=== PATIENT | female | born 1955 | race Caucasian/White ===

== ENCOUNTER 2016-10-15 11:41 | Inpatient (IN) | payer BC ==
[2016-10-15] MEDS ORDERED: Morphine INJ* 10 MG/ML 1 ML CARPUJECT ONE (12:08)
[2016-10-15 12:12] LABS: EPAP 7.5; IPAP 7.5; PCO2 Arterial 52 mmHg (35-45)
[2016-10-15] MEDS ORDERED: Morphine INJ* 10 MG/ML 1 ML CARPUJECT IV ONE (12:20)
[2016-10-15] MEDS ORDERED: Ondansetron INJ* 2 MG/ML VIAL IV PRN (12:26)
[2016-10-15] MEDS ORDERED: Ondansetron INJ* 2 MG/ML VIAL ONE (12:26)
[2016-10-15] MEDS ORDERED: Albuterol/Ipratropium NEB.SOL* Albuterol 2.5 MG/Ipratropium 0.5 MG 3 ML INH PRN (12:27)
[2016-10-15] MEDS ORDERED: NS 0.9% 1000 ML* 1,000 ML IV ONE (12:28)
--- NOTE | 2016-10-15 13:09 | HP ---
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 No upper or lower resp ailments other then feeling weaker with copd exac. Called in and recived rx for steroids but was unable to fill and take in time. Presented to [facility] this am via EMS after O2 at home 74%. Placed on bipap. ABG with ph 7.28/Co2 51. Given steroids, nebs, lasix. No signs of infection and tx for copd exac. However she was unable to come off bipap and transfer to [facility] ED. Pt transferred on cpap and came into ED with worsening sob. Adjusted to bipap with icu called. Evaluated pt in ED and given 10mg morphine to help compliance with bipap. Admit to icu. Fio2 dec from 100% to 40%. CXR read from [place] with no acute dz. wbc 8.3, Hyb 14.6, plt 225; Cr 1.0 REVIEW OF SYSTEMS: As per HPI. PAST MEDICAL HISTORY: As per HPI. CAD s/p stents MEDICATIONS: Reviewed. Albuterol HFA INHALER* [Ventolin HFA Inhaler*] 1 - 2 puff INH .Q4-6H PRN [History Confirmed 10/15/16] Atorvastatin* [Lipitor*] 20 mg PO DAILY 09/10/14 [History Confirmed 10/15/16] Clopidogrel TAB* [Plavix TAB*] 75 mg PO DAILY 09/10/14 [History Confirmed ] Metoprolol Succinate XL TAB* [Toprol XL TAB*] 50 mg PO DAILY 09/10/14 [History Confirmed 10/15/16] Aspirin EC Low Dose* [Ecotrin EC Low Dose 81 MG*] 81 mg PO DAILY 10/15/16 [ History Confirmed 10/15/16] Mometasone/Formoter 100/5 MDI* [Dulera 100/5 MDI*] 2 puff INH BID 10/15/16 [ History Confirmed 10/15/16] ALLERGIES: NKDA SOCIAL HISTORY: Reviewed. FAMILY HISTORY: Noncontributory at present. PHYSICAL EXAM: Vital Signs: Reviewed. Neurologic: awake, communicating but fatigued HEENT: anicteric, perrl, mm dry Cardiovascular: tachy, 130s, S1 S2 Respiratory: dec bs with better insp phase, purse lip exhalation but not too forced now. Abdomen: soft, maybe mild distention Extremities: warm, no edema Access: PIV, +mora LABS: Reviewed from aníbal review as well as abg here. IMAGING: Reviewed. Report reviewed from Aníbal as above. MEDICATIONS: Reviewed. ASSESSMENT: 61 F Acute on chronic hypercapnic resp failure needing bipap - hopefully can transition to HFO2 in a little while, but needs some mechanical ret with morphine and sedation needs now and allow her to maintain better chief mechanical officer assist of ventilation. Co2 not profound but muscle fatigue potential now. COPD exac - iv steroids, dulera, nebs PLAN: Neurologic: morphine now. make more comfortable and complaint Cardiovascular: mildly dry do to work. 1L NS and allow tachycardia to subside. Can resume outpt cardiac meds. at risk for troponin spill of type 2 and no indication to trend. continue outpt cardiac regimen. Respiratory: as above Gastrointestinal: can have diet later. Renal/Metabolic: re-eval lytes in am, incl phos. Infectious Disease: no abx needs unless needing further anti-inflammtory aid of azithro. hold off for now. Hematology: stable. lovenox subq Endocrine: steroids. may need to follow glu Musculoskeletal: oob Psych/Social: daughter updated. pt expressed understanding Supportive and preventative care as ordered. Vaccine: up to date SUP: po VTE prophylaxis: lovenox Mora catheter placed already. look to dc when up and about soon. Disposition: ICU Code Status: Full Critical Care Time: 50min Adan Mir DO
[2016-10-15] MEDS: Albuterol/Ipratropium NEB.SOL* Albuterol 2.5 MG/Ipratropium 0.5 MG 3 ML INH SCH ×3 (13:10→21:19)
[2016-10-15] MEDS: methylPREDNISolone SOD 40 MG* 1 ML VIAL IV SCH ×2 (13:17→20:00)
[2016-10-15] MEDS: LORazepam INJ* 2 MG/ML 1 ML VIAL IV PUSH PRN ×2 (13:30→20:01)
--- NOTE | 2016-10-15 14:55 | ED ---
Jeronimo Miranda Matthew, scribed for Jules Shaver MD on 10/15/16 at 1205 . Shortness of Breath - HPI Summary HPI Summary: A 61 y/o female presents to the ED by EMS from [facility] for respiratory distress since yesterday. The patient has a Hx of CAD, COPD, and she 's had 3 stents placed. The patient is normal on 2L of home oxygen. The patient denies chest pain. The patient is not a current smoker, but she formerly smoked 1ppd for 30 years. - History of Current Complaint Chief Complaint: EDRespiratoryDistress Time Seen by Provider: 10/15/16 11:48 Hx Obtained From: Patient Onset/Duration: Lasting Days, Still Present Timing: Constant Current Severity: Severe Dyspnea At: Rest - Allergy/Home Medications Allergies/Adverse Reactions: Allergies Allergy/AdvReac Type Severity Reaction Status Date / Time No Known Allergies Allergy Verified 05/09/15 11:04 Home Medications: Home Medications Aspirin EC Low Dose* [Ecotrin EC Low Dose 81 MG*] 81 mg PO DAILY 10/15/16 [ History Confirmed 10/15/16] Mometasone/Formoter 100/5 MDI* [Dulera 100/5 MDI*] 2 puff INH BID 10/15/16 [ History Confirmed 10/15/16] PMH/Surg Hx/FS Hx/Imm Hx Endocrine/Hematology History: Denies: Hx Blood Disorders, Hx Blood Transfusions, Hx Bone Marrow Disease, Hx Diabetes, Hx Systemic Lupus Erythematosus, Hx Sickle Cell Disease, Hx Thyroid Disease, Hx Anemia, Hx Unexplained Bleeding, Other Endocrine/ Hematological Disorders Cardiovascular History: Reports: Hx Congestive Heart Failure, Hx Coronary Artery Disease, Hx Hypercholesterolemia, Hx Hypertension, Other Cardiovascular Problems/Disorders - 3 stents Denies: Hx Aneurysm, Hx Angina, Hx Angioplasty, Hx Auto Implanted Cardiovert Defib, Hx Cardiac Arrest, Hx Cardiomegaly, Hx Congenital Heart Disease, Hx Deep Vein Thrombosis, Hx Embolism, Hx Hypotension, Hx Pacemaker/ICD, Hx Peripheral Vascular Disease, Hx Rheumatic Fever, Hx Syncope, Hx Valvular Heart Disease Respiratory History: Reports: Hx Asthma, Hx Chronic Obstructive Pulmonary Disease (COPD) Denies: Hx Chronic Bronchitis, Hx Cystic Fibrosis, Hx Lung Cancer, Hx Pleural Effusion, Hx Pneumonia, Hx Pulmonary Edema, Hx Pulmonary Embolism, Hx Seasonal Allergies, Hx Sleep Apnea, Other Respiratory Problems/Disorders GI History: Denies: Hx Cirrhosis, Hx Crohn's Disease, Hx Diverticulosis, Hx Gall Bladder Disease, Hx Gastroesophageal Reflux Disease, Hx Gastrointestinal Bleed, Hx Hiatal Hernia, Hx Irritable Bowel, Hx Jaundice, Hx Obstructive Bowel, Hx Ileostomy, Hx Pyloric Stenosis, Hx Ulcer, Other GI Disorders Musculoskeletal History: Reports: Hx Arthritis Denies: Hx Back Problems, Hx Bursitis, Hx Congenital Bone Abnormalities, Hx Fibromyalgia, Hx Gout, Hx Orthopedic Injury, Hx Osteoporosis, Hx Scoliosis, Hx Tendonitis Sensory History: Reports: Hx Contacts or Glasses Denies: Hx Cataracts, Hx Eye Injury, Hx Eye Prosthesis, Hx Glaucoma, Hx Legally Blind, Hx Macular Degeneration, Hx Vision Problem, Hx Deafness, Hx Hearing Aid, Hx Hearing Problem, Other Sensory Impairments Opthamlomology History: Reports: Hx Contacts or Glasses Denies: Hx Cataracts, Hx Eye Injury, Hx Eye Prosthesis, Hx Glaucoma, Hx Legally Blind, Hx Macular Degeneration, Hx Vision Problem, Other Sensory Impairments Neurological History: Denies: Hx Dementia, Hx Developmental Delay, Hx Headaches, Hx Migraine, Hx Nerve Disease, Hx Seizures, Hx Spinal Cord Injury, Hx Transient Ischemic Attacks (TIA), Other Neuro Impairments/Disorders - Surgical History Surgery Procedure, Year, and Place: cardiac stents. hysterectomy. ectopic Hx Anesthesia Reactions: No Infectious Disease History: No Infectious Disease History: Denies: Hx Clostridium Difficile, Hx Hepatitis, Hx Human Immunodeficiency Virus (HIV), Hx of Known/Suspected MRSA, Hx Shingles, Hx Tuberculosis, Hx Known/ Suspected VRE, Hx Known/Suspected VRSA, History Other Infectious Disease, Traveled Outside the [place] in Last 30 Days - Family History Family History: Family history is significant for breast cancer. - Social History Alcohol Use: None Substance Use Type: Reports: None Smoking Status (MU): Former Smoker Type: Cigarettes Amount Used/How Often: 1 pack daily Have You Smoked in the Last Year: Yes Review of Systems Constitutional: Negative Eyes: Negative ENT: Negative Cardiovascular: Negative Negative: Chest Pain Positive: Shortness Of Breath Gastrointestinal: Negative Genitourinary: Negative Musculoskeletal: Negative Skin: Negative Neurological: Negative Psychological: Normal All Other Systems Reviewed And Are Negative: Yes Physical Exam Triage Information Reviewed: Yes Vital Signs On Initial Exam: Initial Vitals Temp Pulse Resp BP Pulse Ox 99.1 F 132 24 151/85 94 10/15/16 11:41 10/15/16 11:41 10/15/16 11:41 10/15/16 11:41 10/15/16 11:41 Vital Signs Reviewed: Yes Appearance: Positive: Ill-Appearing Skin: Positive: Warm, Dry Head/Face: Positive: Normal Head/Face Inspection Eyes: Positive: Normal ENT: Positive: Normal ENT inspection Neck: Positive: Supple, Nontender Respiratory/Lung Sounds: Positive: Decreased Breath Sounds Cardiovascular: Positive: Tachycardia Abdomen Description: Positive: Nontender, Soft Bowel Sounds: Positive: Present Musculoskeletal: Positive: Normal Neurological: Positive: Normal Psychiatric: Positive: Affect/Mood Appropriate Diagnostics - Vital Signs Vital Signs Temp Pulse Resp BP Pulse Ox 10/15/16 11:41 99.1 F 132 24 151/85 94 - Laboratory Lab Results: Lab Results 10/15/16 Range/Units 11:50 Patient Temperature Not Reportable ABG pH 7.29 L (7.35-7.45) ABG pCO2 52 H (35-45) mmHg ABG pO2 82 (80-100) mmHg ABG HCO3 23.0 (19-31) mmol/L ABG O2 Saturation 96.7 (95-98) % ABG Base Excess -2.3 L (-2.0-2.0) Respiration Rate Not Reportable O2 Delivery Device Not Reportable Ventilator Type Not Reportable Vent Mode Not Reportable FiO2 Not Reportable Inspiratory Time Not Reportable PEEP Not Reportable Pressure Support Not Reportable Pressure Control Not Reportable EPAP 7.5 IPAP 7.5 BiPAP Not Reportable Lab Statement: Any lab studies that have been ordered have been reviewed, and results considered in the medical decision making process. - EKG 11:52 Cardiac Rate: Tachycardia - 133 bpm EKG Rhythm: Sinus Tachycardia ST Segment: Non-Specific Course/Dx - Course Course Of Treatment: Ms. Hurtado regressed a bit en route from [place] as she was on CPAP at 7.5 rather than BiPap. She was admitted to the ICU. - Diagnoses Provider Diagnoses: Respiratory deficiency, COPD (chronic obstructive pulmonary disease), CHF ( congestive heart failure) - Physician Notifications Discussed Care of Patient With: Dr. Mir (ICU) at 11:59 -- Notified of patient's history and will accept the patient for admission into the ICU. - Critical Care Time Critical Care Time: 30-74 min Discharge - Discharge Plan Condition: Stable Disposition: ADMITTED TO [facility] The documentation as recorded by the Jeronimo peters Matthew accurately reflects the service I personally performed and the decisions made by me, Jules Shaver MD.
[2016-10-15] MEDS: Morphine INJ* 4 MG/ML 1 ML CARPUJECT IV PRN (20:00)
[2016-10-15] MEDS: Atorvastatin* 20 MG TAB PO SCH (21:19)
[2016-10-15] MEDS: Mometasone/Formoter 100/5 MDI INH SCH (21:20)
[2016-10-16] MEDS: Morphine INJ* 4 MG/ML 1 ML CARPUJECT IV PRN ×3 (00:17→19:09)
[2016-10-16] MEDS: LORazepam INJ* 2 MG/ML 1 ML VIAL IV PUSH PRN ×3 (00:56→22:05)
[2016-10-16] MEDS: Albuterol/Ipratropium NEB.SOL* Albuterol 2.5 MG/Ipratropium 0.5 MG 3 ML INH SCH ×4 (01:12→12:08)
[2016-10-16] MEDS: methylPREDNISolone SOD 40 MG* 1 ML VIAL IV SCH ×3 (05:38→21:56)
[2016-10-16 06:06] LABS: BUN/Creatinine Ratio 41.8 (8-20); Calcium 9.5 mg/dL (8.6-10.3); EGFR African American 95.2 (>60); Magnesium 2.5 mg/dL (1.9-2.7); Potassium 5.2 mmol/L (3.5-5.0)
--- NOTE | 2016-10-16 08:12 | PN ---
Progress Note - Progress Note Note: Progress Note Critical Care 24 hour events/significant events: -admitted yesterday as transfer from [facility] for COPD exacc -hypercapneic, resp distress; started on bipap with prn morphine/ativan -overnight on bipap 07/06, 30% with o2 sats this morning 96%, rr 20, good TV -she is sleepy but answers questions, mild resp distress -switched to hiflow 40% 40lpm now; rr 18-20, sat 95% -no other overnight events noted Vitals: Vital Signs Temp 98.3 F 10/16/16 08:00 Pulse 105 10/16/16 07:00 Resp 17 10/16/16 07:48 BP 140/95 10/16/16 07:00 Pulse Ox 94 10/16/16 07:00 Intake & Output 10/15/16 10/16/16 10/16/16 18:59 06:59 18:59 Intake Total 1480 240 Output Total 150 450 Balance 1330 -210 Weight 115 lb 115 lb 1.301 oz Intake: IV Fluids 1000 NS (0.9%) 1000 Oral 480 240 Output: Izquierdo 150 450 O2/Vent: hiflow 40lpm 40% fio2 Infusions: none Medications: Current Medications Albuterol (Ventolin 2.5 Mg/3 Ml Neb.Zita*) 2.5 mg INH Q2H PRN PRN Reason: SOB/WHEEZING Albuterol/Ipratropium (Duoneb (Albuterol 2.5 Mg/Ipratropium 0.5 Mg)) 1 neb INH Q4H [facility] Stop: 10/16/16 17:01 Last Admin: 10/16/16 05:18 Dose: 1 neb Aspirin (Aspirin Ec Low Dose*) 81 mg PO DAILY [facility] Atorvastatin Calcium (Lipitor*) 20 mg PO 2100 [facility] Last Admin: 10/15/16 21:19 Dose: Not Given Clopidogrel Bisulfate (Plavix Tab*) 75 mg PO DAILY [facility] Enoxaparin Sodium (Lovenox(*)) 40 mg SUBCUT Q24H [facility] Lorazepam (Ativan Inj*) 1 mg IV PUSH Q4H PRN PRN Reason: ANXIETY Last Admin: 10/16/16 00:56 Dose: 1 mg Methylprednisolone Sodium Succinate (Solu-Medrol*) 40 mg IV Q8H [facility] Last Admin: 10/16/16 05:38 Dose: 40 mg Metoprolol Succinate (Toprol Xl Tab*) 50 mg PO DAILY [facility] Mometasone Furoate/Formoterol Fumar (Dulera 100/5 Mdi*) 2 puff INH BID [facility] Last Admin: 10/15/16 21:20 Dose: Not Given Morphine Sulfate (Morphine Inj (Syringe)*) 4 mg IV Q4H PRN PRN Reason: PAIN Last Admin: 10/16/16 00:17 Dose: 4 mg Ondansetron HCl (Zofran Inj*) 4 mg IV Q6H PRN PRN Reason: NAUSEA Last Admin: 10/15/16 13:13 Dose: 4 mg Physical Exam: General: awake, sleepy this morning, alert, mild resp distress, no diaphoresis HEENT: no pallor, no icterus, dry mucous membranes Neck: no stridor, no jvd CVS: tachycardic, normal rhythm, no murmur Resp: dec air entry bilaterally, no rhales, no wheeze, mild rhonchi at bases only, no acc muscle use. Abdomen: soft, nontender, nondistended, no rebound, bowel sounds present Ext: pulses+, warm, no edema Skin: intact, no breakdown, no dryness Neuro: sleepy, alert, orientedx3, moving all extremities, no gross focal deficit Labs: Laboratory Results - last 24 hr 10/15/16 10/16/16 11:50 05:38 Patient Temperature Not Reportable ABG pH 7.29 L ABG pCO2 52 H ABG pO2 82 ABG HCO3 23.0 ABG O2 Saturation 96.7 ABG Base Excess -2.3 L Respiration Rate Not Reportable O2 Delivery Device Not Reportable Ventilator Type Not Reportable Vent Mode Not Reportable FiO2 Not Reportable Inspiratory Time Not Reportable PEEP Not Reportable Pressure Support Not Reportable Pressure Control Not Reportable EPAP 7.5 IPAP 7.5 BiPAP Not Reportable Sodium 134 Potassium 5.2 H Chloride 101 Carbon Dioxide 28 Anion Gap 5 BUN 33 H Creatinine 0.79 Est GFR ( Amer) 95.2 Est GFR (Non-Af Amer) 74.0 BUN/Creatinine Ratio 41.8 H Glucose 151 H Calcium 9.5 Phosphorus 4.0 Magnesium 2.5 Imaging: - Assessment: 61y F with CAD s/p PCI, COPD with home 2L Home o2, past tobacco use ; admitted for acute COPD exacc and hypercap/hypoxic resp failure. -Acute hypercapneic respiratory failure -acute on chronic hypoxic respiratory failure -Acute COPD exaccerbation Plan: Neuro- stable, prn morphine/ativan for resp distress CVS- start ns infusion for hydration when not eating, appears dry, slightly positive balance but lower urine output; no edema peripherally. cont DAPT/statin /lopressor. Resp-on hiflow 40% 40lpm and appears to be tolerating well. CXR repeat today. Send flu swab and resp viral panel. productive cough+, will start azithromycin 500mg iv and re-eval afte 48 hours. blood cx sent from before. remains afebrile otherwise. cont solumedrol 40mg iv q8h and albuterol q2h neb. ABG repeat also now to assess ventilation status. ID-afebrile. will check flu swab and resp panel. cover with CAP. no wbc elevation. azithromycin 500mg iv daily. GI-cardiac diet when off bipap; start pepcid for GI prophylaxis while on systemic steroids. Renal-normal renal function, K5.2 today. cont albuterol nebs. check Cr in AM. Start ns infusion for mild hydration. Heme-dvt prophylaxis Endo-will need fingerstick checks while on steroids; ac/hs Musculsk-stable Wounds-none Nutrition-cardiac diet DVT prophylaxis: lovenox sq GI prophylaxis:pepcid po Central Line:none Arterial Line:none Izquierdo Cathetor:yes Disposition: ICU for resp failure/copd exacc req hiflow/bipap Code Status:full code Total Critical Care time is 40 minutes, excluding procedures/teaching Jimi Ko MD Professional Skater (Electronically Signed)
[2016-10-16] MEDS: Clopidogrel TAB* 75 MG PO SCH (08:19)
[2016-10-16] MEDS: Aspirin EC Low Dose* 81 MG TAB.EC PO SCH (08:19)
[2016-10-16] MEDS: Mometasone/Formoter 100/5 MDI INH SCH (08:34)
[2016-10-16 08:40] LABS: FIO2 40
[2016-10-16 08:43] LABS: PCO2 Arterial 68 mmHg (35-45)
--- NOTE | 2016-10-16 08:43 | RAD ---
Indication: Evaluate for pneumonia. Single frontal view of the chest performed at 0825 hours was reviewed. Comparison is made with previous exam dated May 09, 2015. No mediastinal shift is noted. Heart is of normal size and configuration. Lung castillo appear clear. Lung castillo appear hyperinflated. IMPRESSION: NO ACTIVE CARDIOPULMONARY DISEASE IS NOTED.
[2016-10-16] MEDS ORDERED: Metoprolol Succinate XL TAB* 50 MG PO SCH (09:00)
[2016-10-16] MEDS: Azithromycin IV(*) 500 MG in NS 0.9% 250 ML* 250 ML IVPB SCH (09:15)
[2016-10-16] MEDS: NS 0.9% 1000 ML* 1,000 ML IV SCH (09:15)
--- NOTE | 2016-10-16 09:51 | PN ---
Progress Note - Progress Note Note: Influenza A positive swab Will start tamiflu 75mg po bid for 5 days Droplet resp precautions Continue current management Jimi Ko MD Soils Analyst (electronically signed)
[2016-10-16] MEDS: Enoxaparin(*) 40 MG/0.4 ML SYR SUBCUT SCH (10:12)
[2016-10-16] MEDS: Famotidine TAB* 20 MG PO SCH ×2 (10:12→21:55)
[2016-10-16] MEDS: Oseltamivir CAP* 75 MG PO SCH ×2 (10:12→21:55)
[2016-10-16] MEDS: Albuterol 2.5 MG/3 ML NEB.SOL* (0.083%) INH PRN ×2 (10:25→14:28)
[2016-10-16] MEDS: Acetylcysteine INHALATION SOL* 200 MG/ML NEB.SOLN 10 ML INH PRN ×2 (12:08→19:46)
[2016-10-16] MEDS ORDERED: Albuterol/Ipratropium NEB.SOL* Albuterol 2.5 MG/Ipratropium 0.5 MG 3 ML INH PRN (14:37)
[2016-10-16] MEDS: Albuterol 2.5 MG/3 ML NEB.SOL* (0.083%) INH SCH ×5 (15:54→22:58)
--- NOTE | 2016-10-16 18:14 | PN ---
Progress Note - Progress Note Note: ABG reviewed from prior in morning; patient remains hypercapneic, still dec BS and some rhonchi. Influenza positive, no clear pneumonia seen on cxr, mild productive cough, started on azithromycin IV for coverage of 2/2 organisms. remains afebrile. Due to hypercapnea, placed back on bipap. She remains alert, in mild distress sometimes but no acute changes during the day. Increased bronchodilators to q2h for next 16 hours, cont steroids. Tamiflu started. No heliox available. Guarded status. ABG repeat in AM or if any clinical change. May require intubation.
[2016-10-16] MEDS: Atorvastatin* 20 MG TAB PO SCH (21:55)
[2016-10-17] MEDS: Mometasone/Formoter 100/5 MDI INH SCH ×3 (00:39→21:21)
[2016-10-17] MEDS: Albuterol 2.5 MG/3 ML NEB.SOL* (0.083%) INH SCH ×3 (01:13→05:41)
[2016-10-17] MEDS: Acetylcysteine INHALATION SOL* 200 MG/ML NEB.SOLN 10 ML INH PRN (03:28)
[2016-10-17] MEDS: NS 0.9% 1000 ML* 1,000 ML IV SCH (04:31)
[2016-10-17 05:34] LABS: Hematocrit 36 % (35-47); Hemoglobin 11.7 g/dl (12.0-16.0); Mean Corpuscular HGB Conc 33 g/dl (31-36); Mean Corpuscular Hemoglobin 32 pg (27-31); Mean Corpuscular Volume 96 fL (80-97); Mean Platelet Volume 8 um3 (7.4-10.4); Red Blood Count 3.71 10^6/ul (4.0-5.4); Red Cell Distribution Width 15 % (10.5-15); White Blood Count 10.7 10^3/ul (3.5-10.8)
[2016-10-17] MEDS: Morphine INJ* 4 MG/ML 1 ML CARPUJECT IV PRN ×2 (05:40→14:41)
[2016-10-17] MEDS: LORazepam INJ* 2 MG/ML 1 ML VIAL IV PUSH PRN (05:41)
[2016-10-17] MEDS: methylPREDNISolone SOD 40 MG* 1 ML VIAL IV SCH ×3 (05:42→21:20)
[2016-10-17 05:49] LABS: BUN/Creatinine Ratio 45.3 (8-20); EGFR African American 121.3 (>60); EGFR Non-African American 94.3 (>60); Potassium 4.6 mmol/L (3.5-5.0)
[2016-10-17] MEDS ORDERED: Terbutaline INJ* 1 MG/ML VIAL SUBCUT ONE (07:45)
--- NOTE | 2016-10-17 07:48 | PN ---
Progress Note - Progress Note Note: Progress Note Critical Care 24 hour events/significant events: -still has mild wheezing, poor air entry, remained on bipap yesterday and all night -awakens, follows commands -productive cough+, no fever/chills -given morphine for distress/anxiety as needed. -recieved q2h albuterol for 16 hours yesterday -found to be Influenza A positive, started on tamiflu Vitals: Vital Signs Temp 99.7 F 10/17/16 07:44 Pulse 88 10/17/16 07:00 Resp 17 10/17/16 07:00 BP 109/74 10/17/16 07:00 Pulse Ox 96 10/17/16 07:00 Intake & Output 10/16/16 10/17/16 10/17/16 18:59 06:59 18:59 Intake Total 429 1753 Output Total 350 610 Balance 79 1143 Weight 115 lb 8.356 oz Intake: IV Fluids 648 NS (0.9%) 648 IVPB 429 605 ABX - AZITHROMYCIN 250 NS (0.9%) 429 355 Oral 500 Output: Urine 350 Izquierdo 610 O2/Vent: bipap 16/6, 30%, rr 20-21, TV 450-500, sat 97% Infusions: NS 50cc/hr Medications: Current Medications Acetylcysteine (Mucomyst Inhalation Zita*) 400 mg INH Q8HR PRN PRN Reason: Congestion Last Admin: 10/17/16 03:28 Dose: 400 mg Albuterol (Ventolin 2.5 Mg/3 Ml Neb.Zita*) 2.5 mg INH Q2H PRN PRN Reason: SOB/WHEEZING Albuterol/Ipratropium (Duoneb (Albuterol 2.5 Mg/Ipratropium 0.5 Mg)) 1 neb INH Q4H PRN PRN Reason: WHEEZING Aspirin (Aspirin Ec Low Dose*) 81 mg PO DAILY [facility] Last Admin: 10/16/16 08:19 Dose: 81 mg Atorvastatin Calcium (Lipitor*) 20 mg PO 2100 [facility] Last Admin: 10/16/16 21:55 Dose: 20 mg Clopidogrel Bisulfate (Plavix Tab*) 75 mg PO DAILY [facility] Last Admin: 10/16/16 08:19 Dose: 75 mg Enoxaparin Sodium (Lovenox(*)) 40 mg SUBCUT Q24H [facility] Last Admin: 10/16/16 10:12 Dose: 40 mg Famotidine (Pepcid Tab*) 20 mg PO BID [facility] Last Admin: 10/16/16 21:55 Dose: 20 mg Azithromycin 500 mg/ Sodium (Chloride) 250 mls @ 250 mls/hr IVPB Q24H [facility] Last Admin: 10/16/16 09:15 Dose: 250 mls/hr Sodium Chloride (Ns 0.9% 1000 Ml*) 1,000 mls @ 50 mls/hr IV .PER RATE [facility] Last Admin: 10/17/16 04:31 Dose: 50 mls/hr Lorazepam (Ativan Inj*) 1 mg IV PUSH Q4H PRN PRN Reason: ANXIETY Last Admin: 10/17/16 05:41 Dose: 1 mg Methylprednisolone Sodium Succinate (Solu-Medrol*) 40 mg IV Q8H [facility] Last Admin: 10/17/16 05:42 Dose: 40 mg Mometasone Furoate/Formoterol Fumar (Dulera 100/5 Mdi*) 2 puff INH BID [facility] Last Admin: 10/17/16 00:39 Dose: Not Given Morphine Sulfate (Morphine Inj (Syringe)*) 4 mg IV Q4H PRN PRN Reason: PAIN Last Admin: 10/17/16 05:40 Dose: 4 mg Ondansetron HCl (Zofran Inj*) 4 mg IV Q6H PRN PRN Reason: NAUSEA Last Admin: 10/15/16 13:13 Dose: 4 mg Oseltamivir Phosphate (Tamiflu Cap*) 75 mg PO BID [facility] Stop: 10/20/16 21:01 Last Admin: 10/16/16 21:55 Dose: 75 mg Physical Exam: General: awake, sleepy this morning, alert, mild resp distress, no diaphoresis HEENT: no pallor, no icterus, dry mucous membranes Neck: no stridor, no jvd CVS: tachycardic, normal rhythm, no murmur Resp: dec air entry bilaterally, no rhales, very mild exp wheeze, no acc muscle use. Abdomen: soft, nontender, nondistended, no rebound, bowel sounds present Ext: pulses+, warm, no edema Skin: intact, no breakdown, no dryness Neuro: sleepy, alert, orientedx3, moving all extremities, no gross focal deficit Labs: Laboratory Results - last 24 hr 10/16/16 10/16/16 10/17/16 08:35 09:08 05:25 WBC RBC Hgb Hct MCV MCH MCHC RDW Plt Count MPV Patient Temperature Not Reportable ABG pH 7.26 L ABG pCO2 68 H ABG pO2 104 H ABG HCO3 26.1 ABG O2 Saturation 98.1 H ABG Base Excess 1.6 Respiration Rate Not Reportable O2 Delivery Device Vapo Ventilator Type Not Reportable Vent Mode Not Reportable FiO2 40 Inspiratory Time Not Reportable PEEP Not Reportable Pressure Support Not Reportable Pressure Control Not Reportable EPAP Not Reportable IPAP Not Reportable BiPAP Not Reportable Sodium 135 Potassium 4.6 Chloride 101 Carbon Dioxide 29 Anion Gap 5 BUN 29 H Creatinine 0.64 Est GFR ( Amer) 121.3 Est GFR (Non-Af Amer) 94.3 BUN/Creatinine Ratio 45.3 H Glucose 132 H Calcium 9.0 Influenza A (Rapid) Positive H Influenza B (Rapid) Negative 10/17/16 05:25 WBC 10.7 RBC 3.71 L Hgb 11.7 L Hct 36 MCV 96 MCH 32 H MCHC 33 RDW 15 Plt Count 159 MPV 8 Patient Temperature ABG pH ABG pCO2 ABG pO2 ABG HCO3 ABG O2 Saturation ABG Base Excess Respiration Rate O2 Delivery Device Ventilator Type Vent Mode FiO2 Inspiratory Time PEEP Pressure Support Pressure Control EPAP IPAP BiPAP Sodium Potassium Chloride Carbon Dioxide Anion Gap BUN Creatinine Est GFR ( Amer) Est GFR (Non-Af Amer) BUN/Creatinine Ratio Glucose Calcium Influenza A (Rapid) Influenza B (Rapid) Imaging: cxr 10/16 - no acute process/infiltrates observed Assessment: 61y F with CAD s/p PCI, COPD with home 2L Home o2, past tobacco use ; admitted for acute COPD exacc and hypercap/hypoxic resp failure. -Influenza A respiratory infection, more acute bronchitis than pneumonia -Acute hypercapneic respiratory failure -acute on chronic hypoxic respiratory failure -Acute COPD exaccerbation Plan: Neuro- stable, prn morphine/ativan for resp distress CVS- no hypotension, on NS 50cc/hour. positive balance, making urine though. cont DAPT/statin. d/c metoprolol due to wheezing, will give prn cardizem as needed for now. Resp-remains on bipap. ABG pending for this AM. No significant improvement noted. Started tamiflu 75mg bid and azithromycin iv. productive cough+, mucomyst q12h prn. chest PT may benefit also. Bronchodilators q2h prn and solumedrol 40mg iv q8h. terbutaline x1 today. ID-afebrile. Influenza A positive, on droplet prec. Tamiflu (day 2/5), Azithromycin (day 2/5). Afebrile, wbc normal. No change in therapy. GI-cardiac diet when off bipap; pepcid for GI prophylaxis Renal-normal renal function, NS infusion, making good urine. Heme-dvt prophylaxis Endo-BS <200 Musculsk-stable Wounds-none Nutrition-cardiac diet DVT prophylaxis: lovenox sq GI prophylaxis:pepcid po Central Line:none Arterial Line:none Izquierdo Cathetor:yes Disposition: ICU for resp failure/copd exacc req hiflow/bipap; slow/minimal improvement in resp status. Still guarded/critical condition. Code Status:full code Total Critical Care time is 40 minutes, excluding procedures/teaching Jimi Ko MD Materials Mgmt Tech (Electronically Signed)
[2016-10-17 08:18] LABS: PCO2 Arterial 62 mmHg (35-45)
[2016-10-17] MEDS: Famotidine TAB* 20 MG PO SCH ×2 (08:47→21:20)
[2016-10-17] MEDS: Azithromycin IV(*) 500 MG in NS 0.9% 250 ML* 250 ML IVPB SCH (08:47)
[2016-10-17] MEDS: Oseltamivir CAP* 75 MG PO SCH ×2 (08:47→21:20)
[2016-10-17] MEDS: Aspirin EC Low Dose* 81 MG TAB.EC PO SCH (08:47)
[2016-10-17] MEDS: Clopidogrel TAB* 75 MG PO SCH (08:47)
[2016-10-17] MEDS: Albuterol/Ipratropium NEB.SOL* Albuterol 2.5 MG/Ipratropium 0.5 MG 3 ML INH SCH ×4 (09:11→21:30)
[2016-10-17] MEDS: Enoxaparin(*) 40 MG/0.4 ML SYR SUBCUT SCH (09:44)
[2016-10-17] MEDS: Acetaminophen TAB* 325 MG PO PRN (18:51)
[2016-10-17] MEDS: Atorvastatin* 20 MG TAB PO SCH (21:19)
[2016-10-18] MEDS: LORazepam INJ* 2 MG/ML 1 ML VIAL IV PUSH PRN ×2 (00:17→04:20)
[2016-10-18] MEDS: Albuterol/Ipratropium NEB.SOL* Albuterol 2.5 MG/Ipratropium 0.5 MG 3 ML INH SCH ×5 (01:04→20:45)
[2016-10-18] MEDS: NS 0.9% 1000 ML* 1,000 ML IV SCH (01:09)
[2016-10-18] MEDS: Morphine INJ* 4 MG/ML 1 ML CARPUJECT IV PRN ×3 (04:21→21:14)
[2016-10-18] MEDS: methylPREDNISolone SOD 40 MG* 1 ML VIAL IV SCH ×3 (04:30→21:09)
[2016-10-18 05:30] LABS: Hematocrit 32 % (35-47); Hemoglobin 10.5 g/dl (12.0-16.0); Mean Corpuscular HGB Conc 33 g/dl (31-36); Mean Corpuscular Hemoglobin 32 pg (27-31); Mean Corpuscular Volume 95 fL (80-97); Mean Platelet Volume 8 um3 (7.4-10.4); Red Blood Count 3.34 10^6/ul (4.0-5.4); Red Cell Distribution Width 15 % (10.5-15); White Blood Count 6.3 10^3/ul (3.5-10.8)
[2016-10-18 05:31] LABS: Add Diff/Slide Review? Slide Review Added; Comments Flag Yes
[2016-10-18 05:49] LABS: Calcium 8.6 mg/dL (8.6-10.3); EGFR African American 161.3 (>60); EGFR Non-African American 125.4 (>60); Potassium 4.4 mmol/L (3.5-5.0)
[2016-10-18] MEDS ORDERED: LORazepam INJ* 2 MG/ML 1 ML VIAL IV PUSH PRN (07:22)
[2016-10-18 07:33] LABS: FIO2 100
[2016-10-18 07:37] LABS: PCO2 Arterial 63 mmHg (35-45)
[2016-10-18] MEDS: Mometasone/Formoter 100/5 MDI INH SCH ×2 (07:45→21:01)
--- NOTE | 2016-10-18 08:31 | PN ---
Progress Note - Progress Note Note: Progress Note Critical Care 24 hour events/significant events: -overnight and yesterday remained on bipap, still was in mild distress of bipap. -afebrile overnight, cough+ but less sputum -she says her chest feels better and less tightness on breathing -she is off bipap this AM, on hiflow 100% -> decreased to 30% when abg returned -o2 sats 100%, rr 16, hr 80s sinus, bp 120s systolic. Vitals: Vital Signs Temp 98.6 F 10/18/16 08:00 Pulse 75 10/18/16 08:00 Resp 15 10/18/16 08:00 BP 124/89 10/18/16 08:00 Pulse Ox 100 10/18/16 08:00 Intake & Output 10/17/16 10/18/16 10/18/16 18:59 06:59 18:59 Intake Total 553 1795 Output Total 400 580 Balance 153 1215 Weight 118 lb 9.739 oz Intake: IV Fluids 1095 NS (0.9%) 1095 IVPB 543 250 ABX - AZITHROMYCIN 543 250 Oral 10 450 Output: Izquierdo 400 580 O2/Vent: bipap 16/6, 30% overnight -> now on hiflow 30lpm, 30% fio2 Infusions: NS 50cc/hr Medications: Acetaminophen (Tylenol Tab*) 650 mg PO Q6H PRN PRN Reason: PAIN/FEVER Last Admin: 10/17/16 18:51 Dose: 650 mg Albuterol (Ventolin 2.5 Mg/3 Ml Neb.Zita*) 2.5 mg INH Q2H PRN PRN Reason: SOB/WHEEZING Albuterol/Ipratropium (Duoneb (Albuterol 2.5 Mg/Ipratropium 0.5 Mg)) 1 neb INH Q4H [facility] Stop: 10/21/16 08:59 Last Admin: 10/18/16 07:46 Dose: 1 neb Aspirin (Aspirin Ec Low Dose*) 81 mg PO DAILY [facility] Last Admin: 10/17/16 08:47 Dose: 81 mg Atorvastatin Calcium (Lipitor*) 20 mg PO 2100 [facility] Last Admin: 10/17/16 21:19 Dose: 20 mg Clopidogrel Bisulfate (Plavix Tab*) 75 mg PO DAILY [facility] Last Admin: 10/17/16 08:47 Dose: 75 mg Enoxaparin Sodium (Lovenox(*)) 40 mg SUBCUT Q24H [facility] Last Admin: 10/17/16 09:44 Dose: 40 mg Famotidine (Pepcid Tab*) 20 mg PO BID [facility] Last Admin: 10/17/16 21:20 Dose: 20 mg Azithromycin 500 mg/ Sodium (Chloride) 250 mls @ 250 mls/hr IVPB Q24H [facility] Last Admin: 10/17/16 08:47 Dose: 250 mls/hr Sodium Chloride (Ns 0.9% 1000 Ml*) 1,000 mls @ 50 mls/hr IV .PER RATE [facility] Last Admin: 10/18/16 01:09 Dose: 50 mls/hr Lorazepam (Ativan Inj*) 1 mg IV PUSH Q12H PRN PRN Reason: ANXIETY Methylprednisolone Sodium Succinate (Solu-Medrol*) 40 mg IV Q8H [facility] Last Admin: 10/18/16 04:30 Dose: 40 mg Mometasone Furoate/Formoterol Fumar (Dulera 100/5 Mdi*) 2 puff INH BID [facility] Last Admin: 10/18/16 07:45 Dose: 2 puff Morphine Sulfate (Morphine Inj (Syringe)*) 4 mg IV Q4H PRN PRN Reason: PAIN Last Admin: 10/18/16 04:21 Dose: 4 mg Ondansetron HCl (Zofran Inj*) 4 mg IV Q6H PRN PRN Reason: NAUSEA Last Admin: 10/15/16 13:13 Dose: 4 mg Oseltamivir Phosphate (Tamiflu Cap*) 75 mg PO BID [facility] Stop: 10/20/16 21:01 Last Admin: 10/17/16 21:20 Dose: 75 mg Physical Exam: General: awake, sleepy this morning, alert, no resp distress, no diaphoresis HEENT: no pallor, no icterus, dry mucous membranes Neck: no stridor, no jvd CVS: normal rate, normal rhythm, no murmur Resp: improved air entry compared to yesterday, no rhales, no wheezing, no rhonchi, no acc muscle use. Abdomen: soft, nontender, nondistended, no rebound, bowel sounds present Ext: pulses+, warm, no edema Skin: intact, no breakdown, no dryness Neuro: sleepy, alert, orientedx3, moving all extremities, no gross focal deficit Labs: Laboratory Results - last 24 hr 10/18/16 10/18/16 10/18/16 05:23 05:23 07:25 WBC 6.3 RBC 3.34 L Hgb 10.5 L Hct 32 L MCV 95 MCH 32 H MCHC 33 RDW 15 Plt Count 135 L MPV 8 Neut % (Auto) 88.1 H Lymph % (Auto) 6.3 L [place] % (Auto) 4.7 Eos % (Auto) 0 Baso % (Auto) 0.9 Absolute Neuts (auto) 5.6 Absolute Lymphs (auto) 0.4 L Absolute Monos (auto) 0.3 Absolute Eos (auto) 0 Absolute Basos (auto) 0.1 Absolute Nucleated RBC 0 Nucleated RBC % 0.1 Patient Temperature Not Reportable ABG pH 7.36 ABG pCO2 63 H ABG pO2 517 H ABG HCO3 31.4 H ABG O2 Saturation 99.5 H ABG Base Excess 8.3 H Respiration Rate Not Reportable Ventilator Type Not Reportable Vent Mode Not Reportable FiO2 100 Inspiratory Time Not Reportable PEEP Not Reportable Pressure Support Not Reportable Pressure Control Not Reportable EPAP Not Reportable IPAP Not Reportable BiPAP Not Reportable Sodium 137 Potassium 4.4 Chloride 104 Carbon Dioxide 31 Anion Gap 2 BUN 22 Creatinine 0.50 L Est GFR ( Amer) 161.3 Est GFR (Non-Af Amer) 125.4 BUN/Creatinine Ratio 44.0 H Glucose 112 H Calcium 8.6 Imaging: cxr 10/16 - no acute process/infiltrates observed Assessment: 61y F with CAD s/p PCI, COPD with home 2L Home o2, past tobacco use ; admitted for acute COPD exacc and hypercap/hypoxic resp failure. -Influenza A respiratory infection, more acute bronchitis than pneumonia -Acute hypercapneic respiratory failure -acute on chronic hypoxic respiratory failure -Acute COPD exaccerbation Plan: Neuro- stable, prn morphine/ativan for resp distress, will decrease ativan usage and only prn morphine for distress only. CVS- no hypotension, on NS 50cc/hour. positive balance, making good urine. cont DAPT/statin. metoprolol discontinued due to wheezing, will give prn cardizem as needed. Resp-off bipap this morning, on hiflow. ABG reviewed - improved pH, hypercapneic but bicarb is rising. does not appear overloaded. will hold on diuretics but maybe some acetazolamide may help to bring bicarb down. pO2 is high, so brought down hiflow to 30%, advised strictly to keep o2 sat in low 90s. Remains on tamiflu bid and azithromycin iv. productive cough+, mucomyst decreased. chest PT if able. Bronchodilators q2h prn; solumedrol 40mg iv q8h. will decrease solumedrol tomorrow if further improvement. ID-afebrile. Influenza A positive, on droplet prec. Tamiflu (day 3/5), Azithromycin (day 3/5). Afebrile, wbc normal. Cont current meds GI-cardiac diet when off bipap; pepcid for GI prophylaxis Renal-normal renal function, NS infusion, making good urine. Heme-dvt prophylaxis Endo-BS <200 Musculsk-stable Wounds-none Nutrition-cardiac diet DVT prophylaxis: lovenox sq GI prophylaxis:pepcid po Central Line:none Arterial Line:none Izquierdo Cathetor:yes Disposition: ICU for resp failure/copd exacc req hiflow/bipap; Still guarded condition. Code Status:full code Total Critical Care time is 35 minutes, excluding procedures/teaching Jimi Ko MD Assistant Branch Operations Manager (Electronically Signed)
[2016-10-18] MEDS: Azithromycin IV(*) 500 MG in NS 0.9% 250 ML* 250 ML IVPB SCH (09:00)
[2016-10-18] MEDS: Clopidogrel TAB* 75 MG PO SCH (09:10)
[2016-10-18] MEDS: Enoxaparin(*) 40 MG/0.4 ML SYR SUBCUT SCH (09:10)
[2016-10-18] MEDS: Aspirin EC Low Dose* 81 MG TAB.EC PO SCH (09:10)
[2016-10-18] MEDS: Oseltamivir CAP* 75 MG PO SCH ×2 (09:10→21:09)
[2016-10-18] MEDS: Famotidine TAB* 20 MG PO SCH ×2 (09:10→21:09)
[2016-10-18] MEDS: Albuterol 2.5 MG/3 ML NEB.SOL* (0.083%) INH PRN (16:44)
[2016-10-18] MEDS: Atorvastatin* 20 MG TAB PO SCH (21:09)
[2016-10-19] MEDS: Albuterol/Ipratropium NEB.SOL* Albuterol 2.5 MG/Ipratropium 0.5 MG 3 ML INH SCH ×4 (02:18→20:49)
[2016-10-19] MEDS: NS 0.9% 1000 ML* 1,000 ML IV SCH (02:49)
[2016-10-19] MEDS: Morphine INJ* 4 MG/ML 1 ML CARPUJECT IV PRN ×3 (02:49→20:57)
[2016-10-19] MEDS: methylPREDNISolone SOD 40 MG* 1 ML VIAL IV SCH ×2 (04:14→17:19)
[2016-10-19 04:29] LABS: Hematocrit 34 % (35-47); Hemoglobin 11.5 g/dl (12.0-16.0); Mean Corpuscular HGB Conc 34 g/dl (31-36); Mean Corpuscular Hemoglobin 32 pg (27-31); Mean Corpuscular Volume 95 fL (80-97); Mean Platelet Volume 8 um3 (7.4-10.4); Red Blood Count 3.64 10^6/ul (4.0-5.4); Red Cell Distribution Width 14 % (10.5-15); White Blood Count 6.8 10^3/ul (3.5-10.8)
[2016-10-19 04:57] LABS: BUN/Creatinine Ratio 32.6 (8-20); Calcium 8.9 mg/dL (8.6-10.3); EGFR African American 177.6 (>60); EGFR Non-African American 138.1 (>60); Potassium 4.1 mmol/L (3.5-5.0)
--- NOTE | 2016-10-19 08:01 | RAD ---
INDICATION: Hypoxia COMPARISON: Chest x-ray dated October 16, 2016 TECHNIQUE: Single AP portable view of the chest was obtained. FINDINGS: Image quality is compromised due to the relative inferiority of a portable chest x-ray. The heart and mediastinum exhibit normal size and contour. Similar appearance to the previous chest x-ray the lungs appear hyperaerated in the AP view. The lungs are otherwise grossly clear. The diaphragm and costophrenic angles are adequately aerated. Visualized bones are normal for the patient's age. IMPRESSION: The degree of hyperaeration seen in the AP view is consistent with chronic obstructive pulmonary disease.
[2016-10-19 08:02] LABS: EPAP 5; FIO2 25; IPAP 12
[2016-10-19 08:05] LABS: PCO2 Arterial 51 mmHg (35-45)
--- NOTE | 2016-10-19 08:24 | PN ---
Progress Note - Progress Note Note: Progress Note Critical Care 24 hour events/significant events: -was on hiflow 30% 30lpm for 8-10 hours yesterday, around 5pm tired around became sob -bipap for a few hours overnight and then switched to hiflow again for a while and back to bipap again. -this morning on bipap 12/5, 25%; sats 90% -more awake, alert, less distress, cough+, no sputum -she feels okay she says -afebrile overnight Vitals: Vital Signs Temp 98.3 F 10/19/16 07:33 Pulse 75 10/19/16 07:00 Resp 12 10/19/16 07:00 BP 122/83 10/19/16 07:00 Pulse Ox 93 10/19/16 07:00 Intake & Output 10/18/16 10/19/16 10/19/16 18:59 06:59 18:59 Intake Total 870 1145 Output Total 550 1800 Balance 320 -655 Weight 118 lb 2.684 oz Intake: IV Fluids 630 705 ABX - AZITHROMYCIN 330 315 NS (0.9%) 300 390 Oral 240 440 Output: Izquierdo 550 1800 O2/Vent: bipap 12/5, 25% overnight Infusions: NS 50cc/hr Medications: Acetaminophen (Tylenol Tab*) 650 mg PO Q6H PRN PRN Reason: PAIN/FEVER Last Admin: 10/17/16 18:51 Dose: 650 mg Albuterol (Ventolin 2.5 Mg/3 Ml Neb.Zita*) 2.5 mg INH Q2H PRN PRN Reason: SOB/WHEEZING Last Admin: 10/18/16 16:44 Dose: 2.5 mg Albuterol/Ipratropium (Duoneb (Albuterol 2.5 Mg/Ipratropium 0.5 Mg)) 1 neb INH Q6H [facility] Last Admin: 10/19/16 02:18 Dose: 1 neb Aspirin (Aspirin Ec Low Dose*) 81 mg PO DAILY [facility] Last Admin: 10/18/16 09:10 Dose: 81 mg Atorvastatin Calcium (Lipitor*) 20 mg PO 2100 [facility] Last Admin: 10/18/16 21:09 Dose: 20 mg Clopidogrel Bisulfate (Plavix Tab*) 75 mg PO DAILY [facility] Last Admin: 10/18/16 09:10 Dose: 75 mg Enoxaparin Sodium (Lovenox(*)) 40 mg SUBCUT Q24H [facility] Last Admin: 10/18/16 09:10 Dose: 40 mg Famotidine (Pepcid Tab*) 20 mg PO BID [facility] Last Admin: 10/18/16 21:09 Dose: 20 mg Azithromycin 500 mg/ Sodium (Chloride) 250 mls @ 250 mls/hr IVPB Q24H [facility] Last Admin: 10/18/16 09:00 Dose: 250 mls/hr Sodium Chloride (Ns 0.9% 1000 Ml*) 1,000 mls @ 50 mls/hr IV .PER RATE [facility] Last Admin: 10/19/16 02:49 Dose: 50 mls/hr Lorazepam (Ativan Inj*) 1 mg IV PUSH Q12H PRN PRN Reason: ANXIETY Last Admin: 10/18/16 17:20 Dose: 1 mg Methylprednisolone Sodium Succinate (Solu-Medrol*) 40 mg IV Q8H [facility] Last Admin: 10/19/16 04:14 Dose: 40 mg Mometasone Furoate/Formoterol Fumar (Dulera 100/5 Mdi*) 2 puff INH BID [facility] Last Admin: 10/18/16 21:01 Dose: 2 puff Morphine Sulfate (Morphine Inj (Syringe)*) 4 mg IV Q4H PRN PRN Reason: PAIN Last Admin: 10/19/16 02:49 Dose: 4 mg Ondansetron HCl (Zofran Inj*) 4 mg IV Q6H PRN PRN Reason: NAUSEA Last Admin: 10/15/16 13:13 Dose: 4 mg Oseltamivir Phosphate (Tamiflu Cap*) 75 mg PO BID [facility] Stop: 10/20/16 21:01 Last Admin: 10/18/16 21:09 Dose: 75 mg Physical Exam: General: awake, alert, no resp distress, no diaphoresis HEENT: no pallor, no icterus, dry mucous membranes Neck: no stridor, no jvd CVS: normal rate, normal rhythm, no murmur Resp: better bilateral air entry than yesterday but overall diminished compared to normal air entry, L>R, no exp wheeze or rhonchi, no acc muscle use Abdomen: soft, nontender, nondistended, no rebound, bowel sounds present Ext: pulses+, warm, no edema Skin: intact, no breakdown, no dryness Neuro: alert, orientedx3, moving all extremities, no gross focal deficit Labs: Laboratory Results - last 24 hr 10/19/16 10/19/16 10/19/16 04:20 04:20 08:00 WBC 6.8 RBC 3.64 L Hgb 11.5 L Hct 34 L MCV 95 MCH 32 H MCHC 34 RDW 14 Plt Count 143 L MPV 8 Neut % (Auto) 85.8 H Lymph % (Auto) 7.7 L [place] % (Auto) 6.1 Eos % (Auto) 0.1 Baso % (Auto) 0.3 Absolute Neuts (auto) 5.9 Absolute Lymphs (auto) 0.5 L Absolute Monos (auto) 0.4 Absolute Eos (auto) 0 Absolute Basos (auto) 0 Absolute Nucleated RBC 0.01 Nucleated RBC % 0.1 Patient Temperature Not Reportable ABG pH 7.45 ABG pCO2 51 H ABG pO2 53 L* ABG HCO3 32.5 H ABG O2 Saturation 91.3 L ABG Base Excess 9.9 H Respiration Rate Not Reportable O2 Delivery Device Bipap Ventilator Type Not Reportable Vent Mode Not Reportable FiO2 25 Inspiratory Time Not Reportable PEEP Not Reportable Pressure Support Not Reportable Pressure Control Not Reportable EPAP 5 IPAP 12 BiPAP Not Reportable Sodium 136 Potassium 4.1 Chloride 101 Carbon Dioxide 32 Anion Gap 3 BUN 15 Creatinine 0.46 L Est GFR ( Amer) 177.6 Est GFR (Non-Af Amer) 138.1 BUN/Creatinine Ratio 32.6 H Glucose 134 H Calcium 8.9 Imaging: cxr 10/10 - no infiltrates, hyperinflated lungs, no ptx/effusion. Assessment: 61y F with CAD s/p PCI, COPD with home 2L Home o2, past tobacco use ; admitted for acute COPD exacc and hypercap/hypoxic resp failure. -Influenza A respiratory infection, more acute bronchitis than pneumonia -Acute hypercapneic respiratory failure, improved -acute on chronic hypoxic respiratory failure, improved -Acute COPD exaccerbation Plan: Neuro- stable, prn morphine/ativan for resp distress, more alert/awake today. CVS- hemodyn stable, NS 50cc/hour, will decrease as PO intake increases. positive balance, making good urine. cont DAPT/statin. will restart metoprolol tomorrow most likely, prn cardizem if needed Resp-on bipap now, switch to hiflow cannula this morning, ABG reviewed and far improvement, PCO2 to 51 now but some compensatory metabolic alkalosis has developed. will allow it to self correct, if not may try acetazolamide but she does not look overloaded. for now monitor, far improved from past few days, she has turned the corner. minimal/no sputum production. Keep O2 sats 92% given COPD /chronic hypoxia. Tamiflu bid and azithromycin iv. Chest PT. Bronchodilators q2h prn; dec solumedrol 40mg iv q12h. ID- Influenza A positive, on droplet prec. Tamiflu (day 4/5), Azithromycin (day 4/5). Afebrile, wbc normal. Cont current meds GI-cardiac diet; pepcid for GI prophylaxis Renal-normal renal function, NS infusion, making good urine. Heme-dvt prophylaxis Endo-BS <200 Musculsk-stable Wounds-none Nutrition-cardiac diet DVT prophylaxis: lovenox sq GI prophylaxis:pepcid po Central Line:none Arterial Line:none Izquierdo Cathetor:yes Disposition: ICU for resp failure/copd exacc req hiflow/bipap Code Status: full code Total Critical Care time is 35 minutes, excluding procedures/teaching Jimi Ko MD Bead Builder (Electronically Signed)
[2016-10-19] MEDS: Mometasone/Formoter 100/5 MDI INH SCH ×2 (08:41→20:49)
[2016-10-19] MEDS: Azithromycin IV(*) 500 MG in NS 0.9% 250 ML* 250 ML IVPB SCH (08:59)
[2016-10-19] MEDS: Famotidine TAB* 20 MG PO SCH ×2 (09:00→20:57)
[2016-10-19] MEDS: Oseltamivir CAP* 75 MG PO SCH ×2 (09:00→20:57)
[2016-10-19] MEDS: Aspirin EC Low Dose* 81 MG TAB.EC PO SCH (09:00)
[2016-10-19] MEDS: Enoxaparin(*) 40 MG/0.4 ML SYR SUBCUT SCH (09:01)
[2016-10-19] MEDS: Clopidogrel TAB* 75 MG PO SCH (09:01)
[2016-10-19] MEDS: Albuterol 2.5 MG/3 ML NEB.SOL* (0.083%) INH PRN (11:39)
[2016-10-19] MEDS ORDERED: amLODIPine TAB* 5 MG PO SCH (20:00)
[2016-10-19] MEDS: Atorvastatin* 20 MG TAB PO SCH (20:57)
[2016-10-19] MEDS ORDERED: Nitroglycerin TAB 0.4 MG* 0.4 MG TAB SL PRN (23:18)
[2016-10-19] MEDS ORDERED: Nitroglycerin TAB 0.4 MG* 0.4 MG TAB ONE (23:19)
[2016-10-20] MEDS: Albuterol/Ipratropium NEB.SOL* Albuterol 2.5 MG/Ipratropium 0.5 MG 3 ML INH SCH ×4 (02:12→19:47)
[2016-10-20] MEDS: methylPREDNISolone SOD 40 MG* 1 ML VIAL IV SCH (04:53)
[2016-10-20 05:18] LABS: Hematocrit 36 % (35-47); Hemoglobin 11.9 g/dl (12.0-16.0); Mean Corpuscular HGB Conc 33 g/dl (31-36); Mean Corpuscular Hemoglobin 31 pg (27-31); Mean Corpuscular Volume 94 fL (80-97); Mean Platelet Volume 8 um3 (7.4-10.4); Red Blood Count 3.81 10^6/ul (4.0-5.4); Red Cell Distribution Width 14 % (10.5-15)
[2016-10-20 05:34] LABS: BUN/Creatinine Ratio 29.2 (8-20); EGFR African American 169.1 (>60); EGFR Non-African American 131.5 (>60); Potassium 3.8 mmol/L (3.5-5.0)
[2016-10-20] MEDS: Mometasone/Formoter 100/5 MDI INH SCH ×2 (07:36→19:47)
[2016-10-20] MEDS ORDERED: Diltiazem CD CAP* 120 MG PO SCH (09:00)
[2016-10-20] MEDS: Azithromycin IV(*) 500 MG in NS 0.9% 250 ML* 250 ML IVPB SCH (09:52)
[2016-10-20] MEDS: Aspirin EC Low Dose* 81 MG TAB.EC PO SCH (09:52)
[2016-10-20] MEDS: Clopidogrel TAB* 75 MG PO SCH (09:53)
[2016-10-20] MEDS: Oseltamivir CAP* 75 MG PO SCH ×2 (09:53→21:20)
[2016-10-20] MEDS: predniSONE TAB* 20 MG PO SCH (09:53)
[2016-10-20] MEDS: Metoprolol Succinate XL TAB* 50 MG PO SCH (09:53)
[2016-10-20] MEDS: Famotidine TAB* 20 MG PO SCH ×2 (09:53→21:20)
[2016-10-20] MEDS: Enoxaparin(*) 40 MG/0.4 ML SYR SUBCUT SCH (09:56)
--- NOTE | 2016-10-20 11:10 | PN ---
Progress Note - Progress Note Note: CRITICAL CARE MEDICINE DATE: 10/20/16 TIME: 900 SUBJECTIVE: Patient seen and examined. Feels ok. Still with difficulty on deep inhalation. PHYSICAL EXAM: Vital Signs: Reviewed. Neurologic: awake, mild fatigued HEENT: anicteric, perrla Cardiovascular: S1 S2 Respiratory: dec bs, no wheeze Abdomen: soft, nt Extremities: warm, no edema Access: PIV LABS: Reviewed. IMAGING: Reviewed. MEDICATIONS: Reviewed. ASSESSMENT: 61 F Acute on chronic hypercapnic resp failure Influenza A COPD exac PLAN: Neurologic: stable. Cardiovascular: perfusing. volume status stable. add back outpt bb. Respiratory: continued copd tx. HFO2. steroid taper. utilize metaneb., Gastrointestinal: po Renal/Metabolic: lytes ok. hco3 up post steroids. Infectious Disease: complete azithro/tamiflu. Hematology: stable. lovenox subq Endocrine: steroids. Musculoskeletal: oob Psych/Social: question of whether she may ultimately need rehab prior to home. pt expressed understanding Supportive and preventative care as ordered. SUP: po VTE prophylaxis: lovenox Disposition: ICU Code Status: Full Critical Care Time: 30min Adan Mir DO
[2016-10-20] MEDS ORDERED: oxyCODONE TAB* 5 MG TAB PO PRN (11:31)
[2016-10-20] MEDS: Morphine INJ* 4 MG/ML 1 ML CARPUJECT IV PRN (11:34)
[2016-10-20] MEDS: Albuterol 2.5 MG/3 ML NEB.SOL* (0.083%) INH PRN (16:26)
[2016-10-20] MEDS: ALPRAZolam TAB* 0.25 MG PO PRN (16:39)
[2016-10-20] MEDS: Morphine INJ* 2 MG/ML 1 ML CARPUJECT IV PRN ×2 (16:39→21:20)
[2016-10-20] MEDS: Atorvastatin* 20 MG TAB PO SCH (21:19)
[2016-10-20] MEDS: Docusate CAP* 100 MG PO SCH (21:21)
[2016-10-21] MEDS: Albuterol/Ipratropium NEB.SOL* Albuterol 2.5 MG/Ipratropium 0.5 MG 3 ML INH SCH ×4 (00:58→19:44)
[2016-10-21] MEDS: Famotidine TAB* 20 MG PO SCH ×2 (09:15→20:19)
[2016-10-21] MEDS: Metoprolol Succinate XL TAB* 50 MG PO SCH (09:15)
[2016-10-21] MEDS: predniSONE TAB* 20 MG PO SCH (09:15)
[2016-10-21] MEDS: Clopidogrel TAB* 75 MG PO SCH (09:15)
[2016-10-21] MEDS: Aspirin EC Low Dose* 81 MG TAB.EC PO SCH (09:15)
[2016-10-21] MEDS: Docusate CAP* 100 MG PO SCH ×2 (09:16→20:19)
[2016-10-21] MEDS: Mometasone/Formoter 100/5 MDI INH SCH ×2 (10:06→19:44)
[2016-10-21] MEDS: Enoxaparin(*) 40 MG/0.4 ML SYR SUBCUT SCH (10:55)
--- NOTE | 2016-10-21 10:56 | PN ---
Progress Note - Progress Note Note: CRITICAL CARE MEDICINE DATE: 10/21/16 TIME: 900 SUBJECTIVE: Patient seen and examined. Feels ok. c/o metaneb being cold. PHYSICAL EXAM: Vital Signs: Reviewed. Neurologic: awake, communicating well HEENT: anicteric, perrla Cardiovascular: S1 S2 Respiratory: dec bs, no wheeze Abdomen: soft, nt Extremities: warm, no edema Access: PIV LABS: Reviewed. IMAGING: Reviewed. MEDICATIONS: Reviewed. ASSESSMENT: 61 F Acute on chronic hypercapnic resp failure Influenza A COPD exac PLAN: Neurologic: stable. Cardiovascular: perfusing. volume status stable. on bb. Respiratory: continued copd tx. HFO2 intermittent and less today. steroid taper. utilize metaneb still. Gastrointestinal: po Renal/Metabolic: lytes ok. labs grayson Infectious Disease: completed azithro/tamiflu. Hematology: stable. lovenox subq Endocrine: steroids. Musculoskeletal: oob Psych/Social: home versus rehab probably after the weekend. pt expressed understanding Supportive and preventative care as ordered. SUP: po VTE prophylaxis: lovenox Disposition: ICU Code Status: Full Critical Care Time: 26min Adan Mir DO
[2016-10-21] MEDS: ALPRAZolam TAB* 0.25 MG PO PRN (16:16)
[2016-10-21] MEDS: Morphine INJ* 2 MG/ML 1 ML CARPUJECT IV PRN (20:19)
[2016-10-21] MEDS: Atorvastatin* 20 MG TAB PO SCH (20:19)
[2016-10-22] MEDS: Albuterol/Ipratropium NEB.SOL* Albuterol 2.5 MG/Ipratropium 0.5 MG 3 ML INH SCH ×4 (00:57→20:02)
[2016-10-22] MEDS: Clopidogrel TAB* 75 MG PO SCH (08:21)
[2016-10-22] MEDS: Metoprolol Succinate XL TAB* 50 MG PO SCH (08:21)
[2016-10-22] MEDS: Famotidine TAB* 20 MG PO SCH ×2 (08:21→21:03)
[2016-10-22] MEDS: predniSONE TAB* 20 MG PO SCH (08:21)
[2016-10-22] MEDS: Docusate CAP* 100 MG PO SCH ×2 (08:21→21:03)
[2016-10-22] MEDS: Aspirin EC Low Dose* 81 MG TAB.EC PO SCH (08:21)
[2016-10-22] MEDS: Mometasone/Formoter 100/5 MDI INH SCH ×2 (10:05→20:02)
--- NOTE | 2016-10-22 12:07 | PN ---
Progress Note - Progress Note Note: CRITICAL CARE MEDICINE DATE: 10/22/16 TIME: 1130 SUBJECTIVE: Patient seen and examined. Feels ok. PHYSICAL EXAM: Vital Signs: Reviewed. Neurologic: awake, communicating well HEENT: anicteric, perrla Cardiovascular: S1 S2 Respiratory: dec bs, mild wheeze Abdomen: soft, nt Extremities: warm, no edema Access: PIV LABS: Reviewed. IMAGING: Reviewed. MEDICATIONS: Reviewed. ASSESSMENT: 61 F Acute on chronic hypercapnic resp failure Influenza A COPD exac cad PLAN: stable but still needs ICU for intermittent HFO2 to quell wob continued copd tx. flu expectoration ongoing. oob. ambulate. Hopefully can be stable enough come Tuesday for home versus rehab potentials. We discussed more potential custodial dynamics and care pt expressed understanding Supportive and preventative care as ordered. SUP: po VTE prophylaxis: lovenox Disposition: ICU Code Status: Full Critical Care Time: 25min Adan Mir DO
[2016-10-22] MEDS: Enoxaparin(*) 40 MG/0.4 ML SYR SUBCUT SCH (12:26)
[2016-10-22] MEDS: Acetaminophen TAB* 325 MG PO PRN (14:17)
[2016-10-22] MEDS: Morphine INJ* 2 MG/ML 1 ML CARPUJECT IV PRN (21:02)
[2016-10-22] MEDS: Atorvastatin* 20 MG TAB PO SCH (21:03)
[2016-10-23] MEDS: Albuterol/Ipratropium NEB.SOL* Albuterol 2.5 MG/Ipratropium 0.5 MG 3 ML INH SCH ×4 (01:13→19:24)
[2016-10-23] MEDS: Mometasone/Formoter 100/5 MDI INH SCH ×2 (07:30→19:24)
[2016-10-23] MEDS: Aspirin EC Low Dose* 81 MG TAB.EC PO SCH (08:52)
[2016-10-23] MEDS: Clopidogrel TAB* 75 MG PO SCH (08:52)
[2016-10-23] MEDS: Enoxaparin(*) 40 MG/0.4 ML SYR SUBCUT SCH (08:53)
[2016-10-23] MEDS: Metoprolol Succinate XL TAB* 50 MG PO SCH (08:53)
[2016-10-23] MEDS: Famotidine TAB* 20 MG PO SCH ×2 (08:53→21:21)
[2016-10-23] MEDS: predniSONE TAB* 20 MG PO SCH (08:53)
[2016-10-23] MEDS: Docusate CAP* 100 MG PO SCH (08:53)
[2016-10-23] MEDS ORDERED: Magnesium Sulfate 2 GM IV* 2 GM/50 ML BAG IVPB ONE (10:33)
[2016-10-23] MEDS ORDERED: oxyCODONE TAB* 5 MG TAB PO PRN (10:33)
--- NOTE | 2016-10-23 11:37 | PN ---
Progress Note - Progress Note Note: CRITICAL CARE MEDICINE DATE: 10/23/16 TIME: 940 SUBJECTIVE: Patient seen and examined. Feels ok but a bit tighter. utilized vapo overnight. PHYSICAL EXAM: Vital Signs: Reviewed. Neurologic: awake, communicating well HEENT: anicteric, perrla Cardiovascular: S1 S2 Respiratory: inc insp flow effort, inc wheeze in left base >R Abdomen: soft, nt Extremities: warm, no edema Access: PIV LABS: Reviewed. IMAGING: Reviewed. MEDICATIONS: Reviewed. ASSESSMENT: 61 F Acute on chronic hypercapnic resp failure Influenza A COPD exac cad PLAN: stable but a step back it seems. Utilize metaneb again today. We discussed addition of theopyhline, as she had some benefit from it in the past. Dose of mag. try singulair. Still needs ICU for intermittent HFO2 to quell wob continued copd tx. Prednisone as is today and then needs to taper. flu expectoration ongoing. oob. ambulate. pt expressed understanding Supportive and preventative care as ordered. SUP: po VTE prophylaxis: lovenox Disposition: ICU Code Status: Full Critical Care Time: 26min Adan Mir DO
[2016-10-23] MEDS: THEOPHYLLINE TAB.SA* 200 MG PO SCH (11:51)
[2016-10-23] MEDS: Morphine INJ* 2 MG/ML 1 ML CARPUJECT IV PRN ×2 (16:52→21:21)
[2016-10-23] MEDS: Atorvastatin* 20 MG TAB PO SCH (21:21)
[2016-10-23] MEDS: Montelukast Sodium TAB* 10 MG PO SCH (21:21)
[2016-10-24] MEDS: Albuterol/Ipratropium NEB.SOL* Albuterol 2.5 MG/Ipratropium 0.5 MG 3 ML INH SCH ×4 (00:32→20:21)
[2016-10-24] MEDS: Mometasone/Formoter 100/5 MDI INH SCH ×2 (07:42→20:36)
[2016-10-24] MEDS: Enoxaparin(*) 40 MG/0.4 ML SYR SUBCUT SCH (09:23)
[2016-10-24] MEDS: Famotidine TAB* 20 MG PO SCH ×2 (09:24→20:43)
[2016-10-24] MEDS: Clopidogrel TAB* 75 MG PO SCH (09:24)
[2016-10-24] MEDS: predniSONE TAB* 20 MG PO SCH (09:24)
[2016-10-24] MEDS: Docusate CAP* 100 MG PO SCH ×3 (09:24→20:59)
[2016-10-24] MEDS: Aspirin EC Low Dose* 81 MG TAB.EC PO SCH (09:24)
[2016-10-24] MEDS: Metoprolol Succinate XL TAB* 50 MG PO SCH (09:25)
[2016-10-24] MEDS: THEOPHYLLINE TAB.SA* 200 MG PO SCH (09:26)
--- NOTE | 2016-10-24 11:37 | PN ---
Progress Note - Progress Note Note: CRITICAL CARE MEDICINE DATE: 10/24/16 TIME: 1130 SUBJECTIVE: Patient seen and examined. Feels ok. 12L PHYSICAL EXAM: Vital Signs: Reviewed. Neurologic: awake, communicating well HEENT: anicteric, perrla; abrasion on nasal bridge Cardiovascular: S1 S2 Respiratory: little better; acut michael chronic dynamics Abdomen: soft, nt Extremities: warm, no edema; ecchymosis post phlebotomy Access: PIV LABS: Reviewed. IMAGING: Reviewed. MEDICATIONS: Reviewed. ASSESSMENT: 61 F Acute on chronic hypercapnic resp failure Influenza A COPD exac cad PLAN: stable and need to see if she can make physical progress today and require less O2 and less rescue. We discussed utilizing her outpt cpap with some assist. Try to mimic O2 needs which are closer to home needs. Need to wean steroids. Can have pulm eval tomorrow to help set up outpt regimen. continued care pt expressed understanding Supportive and preventative care as ordered. SUP: po VTE prophylaxis: lovenox Disposition: ICU Code Status: Full Critical Care Time: 25min Adan Mir DO
[2016-10-24] MEDS: Atorvastatin* 20 MG TAB PO SCH (20:43)
[2016-10-24] MEDS: Montelukast Sodium TAB* 10 MG PO SCH (20:43)
[2016-10-24] MEDS: Morphine INJ* 2 MG/ML 1 ML CARPUJECT IV PRN (20:46)
[2016-10-25] MEDS: Albuterol/Ipratropium NEB.SOL* Albuterol 2.5 MG/Ipratropium 0.5 MG 3 ML INH SCH ×3 (01:22→14:11)
[2016-10-25] MEDS: Clopidogrel TAB* 75 MG PO SCH (08:11)
[2016-10-25] MEDS: Famotidine TAB* 20 MG PO SCH (08:11)
[2016-10-25] MEDS: Aspirin EC Low Dose* 81 MG TAB.EC PO SCH (08:12)
[2016-10-25] MEDS: Metoprolol Succinate XL TAB* 50 MG PO SCH (08:12)
[2016-10-25] MEDS: Docusate CAP* 100 MG PO SCH (08:12)
[2016-10-25] MEDS: Enoxaparin(*) 40 MG/0.4 ML SYR SUBCUT SCH (08:15)
[2016-10-25] MEDS: Mometasone/Formoter 100/5 MDI INH SCH (08:25)
[2016-10-25] MEDS ORDERED: predniSONE TAB* 20 MG PO SCH (09:00)
[2016-10-25 09:30] VITALS: BP 111/75
[2016-10-25] MEDS: THEOPHYLLINE TAB.SA* 200 MG PO SCH (10:34)
--- NOTE | 2016-10-25 10:45 | PN ---
Correspondence/Letterhead Correspondence: 10/25/16 RE: ADRIANA HURTADO Work Note To whom it may concern, Adriana Hurtado ( 1955) has been under my care from September, until October 25, 2016 in the intensive care unit at [facility]. Patient should remain out of work until seen by outpatient physician and/or until November 15, 2016. Please allow this to document to serve as validation. Sincerely, Adan Mir DO Energy Management Specialist Critical Care Medicine [address] [place] [address] Anurag Mir, [id number]
--- NOTE | 2016-10-25 10:52 | PN ---
Progress Note - Progress Note Note: CRITICAL CARE MEDICINE DATE: 10/24/16 TIME: 1025 SUBJECTIVE: Patient seen and examined. 5L. feels better. PHYSICAL EXAM: Vital Signs: Reviewed. Neurologic: awake, communicating well HEENT: anicteric, perrla; abrasion on nasal bridge stable. Cardiovascular: S1 S2 Respiratory: little better; acute on chronic dynamics Abdomen: soft, nt Extremities: warm, no edema Access: PIV LABS: Reviewed. IMAGING: Reviewed. MEDICATIONS: Reviewed. ASSESSMENT: 61 F Acute on chronic hypercapnic resp failure Influenza A COPD exac cad PLAN: stable and ready to go home. Will need to stay on theophylline and singulair as new rx. Steroid taper 20mg x 4more days. Continued home rx. ambulate on O2 today to ensure stability and document. Have her f/u with pulm as outpt. Can have pulm eval tomorrow to help set up outpt regimen. Supportive and preventative care as ordered. SUP: po VTE prophylaxis: lovenox Disposition: ICU Code Status: Full Critical Care Time: 25min FDakota Mir DO
--- NOTE | 2016-10-25 15:01 | DS ---
CRITICAL CARE MEDICINE DISCHARGE SUMMARY ADMISSION DATE: 10/15/2016 ICU ADMISSION DATE: 10/15/2016 ICU DISCHARGE DATE: 10/25/2016 PRIMARY CARE PROVIDER: Tonja REFERRING PHYSICIAN: Sivakumar DIAGNOSIS: 1. Acute on chronic hypercapnic respiratory failure. 2. Influenza A pneumonia. 3. Chronic obstructive pulmonary disease. 4. Coronary artery disease. NEW MEDICATIONS AT DISCHARGE: 1. Prednisone 20mg by mouth daily for 4 days. 2. Singulair 10mg by mouth daily. 3. Theophylline 200mg daily by mouth. Resume previous outpatient medications. ALLERGIES: None. HOSPITAL COURSE: 61 year old female feeling worse last few days prior to admission, presenting [facility] to [facility] and transported via EMS for bipap needs. Admitted to ICU. Intermittent high flow oxygen and bipap needs ensued. Influenza A screen positive. Course of tamiflu, steroids and copd adjunctives. Work of breathing waxed and waned. Additional theophylline given and some improved course. Weaned on oxygen. Able to be discharged to home. DISPOSITION: To Home. DIET: Regular. ACTIVITY: At liberty. CODE STATUS: FULL. SPECIAL INSTRUCTIONS: Follow up with treating director patient. FOLLOW UP: with treating medical service Adan Mir DO
== END 2016-10-25 12:00 | disposition home or self-care (01) | DRG 140 ==
LOC: ED 11:41 → ICU 12:14
PROVIDERS: ADMIT Internal Medicine Critical Care Medicine; ATTEND Internal Medicine Critical Care Medicine
PROC: 5A09457 Assistance with Respiratory Ventilation, 24-96 Consecutive Hours, Continuous Positive Airway Pressure (ICD-10-PCS; principal; 2016-10-15)
PROC: 5A09457 Assistance with Respiratory Ventilation, 24-96 Consecutive Hours, Continuous Positive Airway Pressure (ICD-10-PCS; 2016-10-16)
DX: J44.1 Chronic obstructive pulmonary disease with (acute) exacerbation (principal); J96.22 Acute and chronic respiratory failure with hypercapnia; J96.21 Acute and chronic respiratory failure with hypoxia; I50.9 Heart failure, unspecified; I11.0 Hypertensive heart disease with heart failure; J10.01 Influenza due to other identified influenza virus with the same other identified influenza virus pneumonia; J44.0 Chronic obstructive pulmonary disease with (acute) lower respiratory infection; I25.10 Atherosclerotic heart disease of native coronary artery without angina pectoris; J45.909 Unspecified asthma, uncomplicated; M19.90 Unspecified osteoarthritis, unspecified site; Z90.710 Acquired absence of both cervix and uterus; Z80.3 Family history of malignant neoplasm of breast; Z95.5 Presence of coronary angioplasty implant and graft; Z99.81 Dependence on supplemental oxygen; Z87.891 Personal history of nicotine dependence
CPT/HCPCS: 36415; 36600; 71010; 80048; 82803; 83735; 84100; 84484; 85025; 85027; 87502; 93005; 94640; 94660; 94667; 94668; 94760; A9270-GY; J0456; J1650; J2060; J2270; J2405; J2920; J3105; J3475; J7512

== ENCOUNTER 2017-09-24 22:43 | Observation (INO) | payer BC, MEDICAID ==
[2017-09-24] MEDS ORDERED: methylPREDNISolone 125 MG* 2 ML VIAL IV ONE (23:13)
[2017-09-24] MEDS ORDERED: Albuterol/Ipratropium NEB.SOL* Albuterol 2.5 MG/Ipratropium 0.5 MG 3 ML INH ONE (23:13)
[2017-09-24 23:44] LABS: ABS Basophils 0.1 10^3/ul (0-0.2); ABS Eosinophils 0 10^3/ul (0-0.6); ABS Lymphocytes 1.1 10^3/ul (1.0-4.8); ABS Monocytes 0.6 10^3/ul (0-0.8); ABS Neutrophils 10.5 10^3/ul (1.5-7.7); ABS Nucleated RBC 0 10^3/ul; Eosinophil % 0.3 % (0-6); Hematocrit 41 % (35-47); Hemoglobin 13.8 g/dl (12.0-16.0); Lymphocyte % 8.9 % (25-47); Mean Corpuscular HGB Conc 34 g/dl (31-36); Mean Corpuscular Hemoglobin 33 pg (27-31); Mean Corpuscular Volume 98 fL (80-97); Mean Platelet Volume 7 um3 (7.4-10.4); Nucleated Red Blood Cells % 0; Platelet Count 237 10^3/ul (150-450); Red Blood Count 4.16 10^6/ul (4.0-5.4); Red Cell Distribution Width 13 % (10.5-15); White Blood Count 12.3 10^3/ul (3.5-10.8)
[2017-09-24 23:53] LABS: INR 0.94 (0.77-1.02)
[2017-09-24 23:59] LABS: EGFR Non-African American 79.5 (>60)
--- NOTE | 2017-09-25 00:35 | ED ---
Brock Miranda Jennifer, scribed for Apolinar Cadena on 09/24/17 at 2316 . Shortness of Breath - HPI Summary HPI Summary: The patient is a 62 year old female who presents with shortness of breath for the past couple of days. The patient reports she always is short of breath but it has worsened recently. She additionally complains of fever, chills, and a productive cough that is colorless. She adds that she watches her granddaughter , who has had strep throat. The patient denies chest pain. - History of Current Complaint Chief Complaint: EDShortnessOfBreath Time Seen by Provider: 09/24/17 23:10 Hx Obtained From: Patient Onset/Duration: Lasting Days - few days, worsened today, Still Present, Worse Since Timing: Constant Current Severity: Moderate Aggrevating Factors: Allergens Alleviating Factors: Nothing Associated Signs & Symptoms: Negative - Chest pain, Cough (Productive), Fever, Chills - Allergy/Home Medications Allergies/Adverse Reactions: Allergies Allergy/AdvReac Type Severity Reaction Status Date / Time No Known Allergies Allergy Verified 09/24/17 22:49 Home Medications: Home Medications Aspirin 325 mg PO DAILY 09/25/17 [History Confirmed 09/25/17] Mometasone/Formoter 200/5 MDI* [Dulera 200/5 MDI*] 1 puff INH BID 09/25/17 [ History Confirmed 09/25/17] Tiotropium CAP.INH* [Spiriva CAP.INH*] 1 cap INH DAILY 09/25/17 [History Confirmed 09/25/17] PMH/Surg Hx/FS Hx/Imm Hx Endocrine/Hematology History: Denies: Hx Blood Disorders, Hx Blood Transfusions, Hx Bone Marrow Disease, Hx Diabetes, Hx Systemic Lupus Erythematosus, Hx Sickle Cell Disease, Hx Thyroid Disease, Hx Anemia, Hx Unexplained Bleeding, Other Endocrine/ Hematological Disorders Cardiovascular History: Reports: Hx Congestive Heart Failure, Hx Coronary Artery Disease, Hx Hypercholesterolemia, Hx Hypertension, Other Cardiovascular Problems/Disorders - 3 stents Denies: Hx Aneurysm, Hx Angina, Hx Angioplasty, Hx Auto Implanted Cardiovert Defib, Hx Cardiac Arrest, Hx Cardiomegaly, Hx Congenital Heart Disease, Hx Deep Vein Thrombosis, Hx Embolism, Hx Hypotension, Hx Pacemaker/ICD, Hx Peripheral Vascular Disease, Hx Rheumatic Fever, Hx Syncope, Hx Valvular Heart Disease Respiratory History: Reports: Hx Asthma, Hx Chronic Obstructive Pulmonary Disease (COPD) Denies: Hx Chronic Bronchitis, Hx Cystic Fibrosis, Hx Lung Cancer, Hx Pleural Effusion, Hx Pneumonia, Hx Pulmonary Edema, Hx Pulmonary Embolism, Hx Seasonal Allergies, Hx Sleep Apnea, Other Respiratory Problems/Disorders GI History: Denies: Hx Cirrhosis, Hx Crohn's Disease, Hx Diverticulosis, Hx Gall Bladder Disease, Hx Gastroesophageal Reflux Disease, Hx Gastrointestinal Bleed, Hx Hiatal Hernia, Hx Irritable Bowel, Hx Jaundice, Hx Obstructive Bowel, Hx Ileostomy, Hx Pyloric Stenosis, Hx Ulcer, Other GI Disorders Musculoskeletal History: Reports: Hx Arthritis Denies: Hx Back Problems, Hx Bursitis, Hx Congenital Bone Abnormalities, Hx Fibromyalgia, Hx Gout, Hx Orthopedic Injury, Hx Osteoporosis, Hx Scoliosis, Hx Tendonitis Sensory History: Reports: Hx Contacts or Glasses Denies: Hx Cataracts, Hx Eye Injury, Hx Eye Prosthesis, Hx Glaucoma, Hx Legally Blind, Hx Macular Degeneration, Hx Vision Problem, Hx Deafness, Hx Hearing Aid, Hx Hearing Problem, Other Sensory Impairments Opthamlomology History: Reports: Hx Contacts or Glasses Denies: Hx Cataracts, Hx Eye Injury, Hx Eye Prosthesis, Hx Glaucoma, Hx Legally Blind, Hx Macular Degeneration, Hx Vision Problem, Other Sensory Impairments Neurological History: Denies: Hx Dementia, Hx Developmental Delay, Hx Headaches, Hx Migraine, Hx Nerve Disease, Hx Seizures, Hx Spinal Cord Injury, Hx Transient Ischemic Attacks (TIA), Other Neuro Impairments/Disorders - Surgical History Surgery Procedure, Year, and Place: cardiac stents. hysterectomy. ectopic Hx Anesthesia Reactions: No Infectious Disease History: No Infectious Disease History: Denies: Hx Clostridium Difficile, Hx Hepatitis, Hx Human Immunodeficiency Virus (HIV), Hx of Known/Suspected MRSA, Hx Shingles, Hx Tuberculosis, Hx Known/ Suspected VRE, Hx Known/Suspected VRSA, History Other Infectious Disease, Traveled Outside the [place] in Last 30 Days - Family History Known Family History: Positive: Other - pos: Breast CA Family History: Family history is significant for breast cancer. - Social History Alcohol Use: None Hx Substance Use: No Substance Use Type: Reports: None Hx Tobacco Use: Yes Smoking Status (MU): Former Smoker Type: Cigarettes Amount Used/How Often: 1 pack daily Have You Smoked in the Last Year: Yes Review of Systems Positive: Fever, Chills Negative: Chest Pain Positive: Shortness Of Breath, Cough - clear productive cough All Other Systems Reviewed And Are Negative: Yes Physical Exam - Summary Physical Exam Summary: Appearance: Well appearing, no pain distress Skin: warm, dry, reflects adequate perfusion Head/face: normal Eyes: EOMI, MARY ENT: normal Neck: supple, non-tender Respiratory: Bilateral wheezing. Cardiovascular: Tachycardic, regular rhythm, pulses symmetrical Abdomen: non-tender, soft Bowel: present Musculoskeletal: normal, strength/ROM intact Neuro: normal, sensory motor intact, A&Ox3 Triage Information Reviewed: Yes Vital Signs On Initial Exam: Initial Vitals Temp Pulse Resp BP Pulse Ox 98.2 F 115 20 139/93 99 09/24/17 22:46 09/24/17 22:46 09/24/17 22:46 09/24/17 22:46 09/24/17 22:46 Vital Signs Reviewed: Yes Diagnostics - Vital Signs Vital Signs Temp Pulse Resp BP Pulse Ox 09/24/17 22:46 98.2 F 115 20 139/93 99 - Laboratory Lab Results: Lab Results 09/24/17 09/24/17 09/24/17 Range/Units 23:25 23:25 23:25 WBC 12.3 H (3.5-10.8) 10^3/ul RBC 4.16 (4.0-5.4) 10^6/ul Hgb 13.8 (12.0-16.0) g/dl Hct 41 (35-47) % MCV 98 H (80-97) fL MCH 33 H (27-31) pg MCHC 34 (31-36) g/dl RDW 13 (10.5-15) % Plt Count 237 (150-450) 10^3/ul MPV 7 L (7.4-10.4) um3 Neut % (Auto) 85.2 H (38-83) % Lymph % (Auto) 8.9 L (25-47) % [place] % (Auto) 4.7 (0-7) % Eos % (Auto) 0.3 (0-6) % Baso % (Auto) 0.9 (0-2) % Absolute Neuts (auto) 10.5 H (1.5-7.7) 10^3/ul Absolute Lymphs (auto) 1.1 (1.0-4.8) 10^3/ul Absolute Monos (auto) 0.6 (0-0.8) 10^3/ul Absolute Eos (auto) 0 (0-0.6) 10^3/ul Absolute Basos (auto) 0.1 (0-0.2) 10^3/ul Absolute Nucleated RBC 0 10^3/ul Nucleated RBC % 0 INR (Anticoag Therapy) 0.94 (0.77-1.02) APTT 30.0 (26.0-36.3) seconds Patient Temperature ABG pH (7.35-7.45) ABG pH (Temp Correct) ABG pCO2 (35-45) mmHg ABG pCO2 (Temp Corrct ABG pO2 (80-100) mmHg ABG pO2 (Temp Correct ABG HCO3 (19-31) mmol/L ABG O2 Saturation (95-98) % ABG Base Excess (-2.0-2.0) Respiration Rate O2 Delivery Device Ventilator Type Vent Mode FiO2 Inspiratory Time PEEP Pressure Support Pressure Control EPAP IPAP BiPAP Sodium (133-145) mmol/L Potassium (3.5-5.0) mmol/L Chloride (101-111) mmol/L Carbon Dioxide (22-32) mmol/L Anion Gap (2-11) mmol/L BUN (6-24) mg/dL Creatinine (0.51-0.95) mg/dL Est GFR ( Amer) (>60) Est GFR (Non-Af Amer) (>60) BUN/Creatinine Ratio (8-20) Glucose (70-100) mg/dL Lactic Acid (0.5-2.0) mmol/L Calcium (8.6-10.3) mg/dL Total Bilirubin (0.2-1.0) mg/dL AST (13-39) U/L ALT (7-52) U/L Alkaline Phosphatase (34-104) U/L Troponin I (<0.04) ng/mL B-Natriuretic Peptide 31 ( - 100) pg/mL Total Protein (6.4-8.9) g/dL Albumin (3.2-5.2) g/dL Globulin (2-4) g/dL Albumin/Globulin Ratio (1-3) 09/24/17 09/24/17 09/24/17 Range/Units 23:25 23:25 23:37 WBC (3.5-10.8) 10^3/ul RBC (4.0-5.4) 10^6/ul Hgb (12.0-16.0) g/dl Hct (35-47) % MCV (80-97) fL MCH (27-31) pg MCHC (31-36) g/dl RDW (10.5-15) % Plt Count (150-450) 10^3/ul MPV (7.4-10.4) um3 Neut % (Auto) (38-83) % Lymph % (Auto) (25-47) % [place] % (Auto) (0-7) % Eos % (Auto) (0-6) % Baso % (Auto) (0-2) % Absolute Neuts (auto) (1.5-7.7) 10^3/ul Absolute Lymphs (auto) (1.0-4.8) 10^3/ul Absolute Monos (auto) (0-0.8) 10^3/ul Absolute Eos (auto) (0-0.6) 10^3/ul Absolute Basos (auto) (0-0.2) 10^3/ul Absolute Nucleated RBC 10^3/ul Nucleated RBC % INR (Anticoag Therapy) (0.77-1.02) APTT (26.0-36.3) seconds Patient Temperature Not Reportable ABG pH 7.30 L (7.35-7.45) ABG pH (Temp Correct) Not Reportable ABG pCO2 63 H (35-45) mmHg ABG pCO2 (Temp Corrct Not Reportable ABG pO2 225 H (80-100) mmHg ABG pO2 (Temp Correct Not Reportable ABG HCO3 27.0 (19-31) mmol/L ABG O2 Saturation 99.3 H (95-98) % ABG Base Excess 2.8 H (-2.0-2.0) Respiration Rate Not Reportable O2 Delivery Device nasal cannula Ventilator Type Not Reportable Vent Mode Not Reportable FiO2 100 Inspiratory Time Not Reportable PEEP Not Reportable Pressure Support Not Reportable Pressure Control Not Reportable EPAP Not Reportable IPAP Not Reportable BiPAP Not Reportable Sodium 138 (133-145) mmol/L Potassium 4.4 (3.5-5.0) mmol/L Chloride 99 L (101-111) mmol/L Carbon Dioxide 32 (22-32) mmol/L Anion Gap 7 (2-11) mmol/L BUN 13 (6-24) mg/dL Creatinine 0.74 (0.51-0.95) mg/dL Est GFR ( Amer) 102.3 (>60) Est GFR (Non-Af Amer) 79.5 (>60) BUN/Creatinine Ratio 17.6 (8-20) Glucose 125 H (70-100) mg/dL Lactic Acid 1.3 (0.5-2.0) mmol/L Calcium 10.0 (8.6-10.3) mg/dL Total Bilirubin 0.30 (0.2-1.0) mg/dL AST 15 (13-39) U/L ALT 13 (7-52) U/L Alkaline Phosphatase 69 (34-104) U/L Troponin I 0.07 H* (<0.04) ng/mL B-Natriuretic Peptide ( - 100) pg/mL Total Protein 7.6 (6.4-8.9) g/dL Albumin 4.7 (3.2-5.2) g/dL Globulin 2.9 (2-4) g/dL Albumin/Globulin Ratio 1.6 (1-3) Result Diagrams: 09/24/17 23:25 09/24/17 23:25 Lab Statement: Any lab studies that have been ordered have been reviewed, and results considered in the medical decision making process. - Radiology CXR Xray Interpretation: No Acute Changes - Normal Radiology Interpretation Completed By: ED Physician - EKG 23:05 Cardiac Rate: Tachycardia EKG Rhythm: Sinus Tachycardia - 107 BPM EKG Interpretation: no acute changes Course/Dx - Course Assessment/Plan: The patient is a 62 year old female who presents with shortness of breath for the past couple of days. In the ED course the patient was given Dunoeb and Solumedrol. Bloodwork was obtained. CXR was obtained. EKG showed sinus tachycardia with no acute changes. The patient is diagnosed with COPD exacerbation and Elevated troponin. She [place] [facility] [place]. - Diagnoses Differential Diagnosis/HQI/PQRI: Positive: Asthma, CHF, COPD Exacerbation, CA, Pneumonia, Pulmonary Edema, Unstable Angina Provider Diagnoses: COPD exacerbation, Elevated troponin - Critical Care Time Critical Care Time: 30-74 min Discharge - Discharge Plan Condition: Good Disposition: ADMITTED TO [facility] Referrals: Yaneth Evangelista MD [Primary Care Provider] - The documentation as recorded by the Brock peters Jennifer accurately reflects the service I personally performed and the decisions made by , Apolinar Cadena.
[2017-09-25] MEDS ORDERED: Albuterol 2.5 MG/3 ML NEB.SOL* (0.083%) INH PRN (01:09)
[2017-09-25] MEDS ORDERED: Ondansetron INJ* 2 MG/ML VIAL IV PRN (01:09)
[2017-09-25] MEDS ORDERED: Melatonin (NF) 3 MG TAB PO PRN (01:09)
[2017-09-25] MEDS ORDERED: Morphine INJ* 2 MG/ML 1 ML CARPUJECT IV PRN (01:09)
[2017-09-25] MEDS ORDERED: Spiriva Inhaler DEVICE* 1 EACH DEVICE SCH (02:00)
[2017-09-25] MEDS: cefTRIAXone VIAL(*) 1,000 MG in NS 0.9% 50 ML* 50 ML IVPB SCH (03:04)
[2017-09-25] MEDS: NS 0.9% 1000 ML* 1,000 ML IV SCH (03:21)
[2017-09-25] MEDS: Azithromycin IV(*) 500 MG in NS 0.9% 250 ML* 250 ML IVPB SCH (03:37)
[2017-09-25] MEDS: Omeprazole CAP* 20 MG PO SCH (05:45)
[2017-09-25] MEDS: Acetaminophen TAB* 325 MG PO PRN ×2 (05:45→21:32)
[2017-09-25] MEDS: Albuterol 2.5 MG/3 ML NEB.SOL* (0.083%) INH SCH ×3 (06:07→19:25)
[2017-09-25 06:16] LABS: ABS Basophils 0 10^3/ul (0-0.2); ABS Eosinophils 0 10^3/ul (0-0.6); ABS Lymphocytes 0.5 10^3/ul (1.0-4.8); ABS Monocytes 0.1 10^3/ul (0-0.8); ABS Neutrophils 4.6 10^3/ul (1.5-7.7); ABS Nucleated RBC 0 10^3/ul; Eosinophil % 0 % (0-6); Hematocrit 39 % (35-47); Hemoglobin 12.9 g/dl (12.0-16.0); Mean Corpuscular HGB Conc 33 g/dl (31-36); Mean Corpuscular Hemoglobin 33 pg (27-31); Mean Corpuscular Volume 99 fL (80-97); Mean Platelet Volume 7 um3 (7.4-10.4); Nucleated Red Blood Cells % 0; Platelet Count 213 10^3/ul (150-450); Red Blood Count 3.93 10^6/ul (4.0-5.4); Red Cell Distribution Width 13 % (10.5-15); White Blood Count 5.2 10^3/ul (3.5-10.8)
--- NOTE | 2017-09-25 06:31 | HP ---
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 She reports some mild F/C, mild nausea, baseline cough, & baseline clear sputum production. She has not had an influenza vaccination this season, but rapid influenza is negative. Pneumovax is reportedly UTD. She denies chest pain, palpitations, light-headedness, or other issues. WBCs are 12k 85% neutrophils. She has not been on any steroids for ~2 months. ABG shows pH of 7.3, pCO2 63, pO2 225, HCO3 27. She is able to speak in full sentences and is in no objective respiratory distress. Troponin is 0.07. ECG is sinus tachycardia rate 107 no ischemia. PMedHx COPD, 3L continuous oxygen dependant chronic hypoxic, hypercarbic respiratory failure CAD/stent x3 HLD Ambulatory Orders Albuterol HFA INHALER* [Ventolin HFA Inhaler*] 1 - 2 puff INH .Q4-6H PRN Atorvastatin* [Lipitor 20 MG*] 20 mg PO DAILY 09/10/14 Metoprolol Succinate XL TAB* [Toprol XL TAB*] 50 mg PO BID 09/10/14 Albuterol/Ipratropium NEB.YESENIA* [Duoneb (Albuterol 2.5 MG/Ipratropium 0.5 MG)] 1 neb INH Q4H PRN #30 neb.soln 05/29/17 Aspirin 325 mg PO DAILY 09/25/17 Mometasone/Formoter 200/5 MDI* [Dulera 200/5 MDI*] 1 puff INH BID 09/25/17 Tiotropium CAP.INH* [Spiriva CAP.INH*] 1 cap INH DAILY 09/25/17 Allergies No Known Allergies Allergy (Verified 09/24/17 22:49) PSurgHx ectopic excision hysterectomy tonsillectomy SocHx: quit smoking ~2004, rare alcohol, no recreational drugs; lives alone with daughter nearby; former ICU nurse on disability; full code status FamHx: Mother: ovarian CA; Father: CAD ROS: as above, otherwise reviewed and all were negative vitals: Vital Signs Temp 36.7 C 09/25/17 01:46 Pulse 85 09/25/17 06:08 Resp 12 09/25/17 06:08 BP 114/68 09/25/17 06:00 Pulse Ox 100 09/25/17 06:08 Intake & Output 09/24/17 09/24/17 09/25/17 11:59 23:59 11:59 Intake Total 515 Balance 515 Weight 52.163 kg 52.163 kg Intake: IV Fluids 217 NS (0.9%) 207 IVPB 298 NS (0.9%) 298 Constitutional: NAD, normally developed, well-nourished white female HEENM: atraumatic; sclera/conjunctiva: anicteric/clear; hearing: clinically intact; oropharynx: clear, mucosa moist Neck: soft tissue: non-tender; thyroid: normal Pulmonary: scant B phan-expiratory wheeze, poor aeration, no accessory muscle use CV: TR/RR, normal S1S2, no carotid bruit, no jugular venous distention, 2+ B DP/ PT, no edema Abdominal: soft, non-distended, non-tender, no rebound/guarding/rigidity, normoactive bowel sounds, no hepatosplenomegaly or masses, no costovertebral angle tenderness Musculoskeletal: general: grossly intact, no tenderness to palpation; gait: stable Integumental: normal appearance and texture of exposed skin Psychiatric orientation: AA&O to PPS affect: calm mood: pleasant eye contact: good content: reliable responses: speaks in complete sentences insight: good Testing: Lab Results 09/24/17 09/24/17 09/24/17 Range/Units 23:25 23:25 23:25 WBC 12.3 H (3.5-10.8) 10^3/ul RBC 4.16 (4.0-5.4) 10^6/ul Hgb 13.8 (12.0-16.0) g/dl Hct 41 (35-47) % MCV 98 H (80-97) fL MCH 33 H (27-31) pg MCHC 34 (31-36) g/dl RDW 13 (10.5-15) % Plt Count 237 (150-450) 10^3/ul MPV 7 L (7.4-10.4) um3 Neut % (Auto) 85.2 H (38-83) % Lymph % (Auto) 8.9 L (25-47) % [place] % (Auto) 4.7 (0-7) % Eos % (Auto) 0.3 (0-6) % Baso % (Auto) 0.9 (0-2) % Absolute Neuts (auto) 10.5 H (1.5-7.7) 10^3/ul Absolute Lymphs (auto) 1.1 (1.0-4.8) 10^3/ul Absolute Monos (auto) 0.6 (0-0.8) 10^3/ul Absolute Eos (auto) 0 (0-0.6) 10^3/ul Absolute Basos (auto) 0.1 (0-0.2) 10^3/ul Absolute Nucleated RBC 0 10^3/ul Nucleated RBC % 0 INR (Anticoag Therapy) 0.94 (0.77-1.02) APTT 30.0 (26.0-36.3) seconds Patient Temperature ABG pH (7.35-7.45) ABG pH (Temp Correct) ABG pCO2 (35-45) mmHg ABG pCO2 (Temp Corrct ABG pO2 (80-100) mmHg ABG pO2 (Temp Correct ABG HCO3 (19-31) mmol/L ABG O2 Saturation (95-98) % ABG Base Excess (-2.0-2.0) Respiration Rate O2 Delivery Device Ventilator Type Vent Mode FiO2 Inspiratory Time PEEP Pressure Support Pressure Control EPAP IPAP BiPAP Sodium (133-145) mmol/L Potassium (3.5-5.0) mmol/L Chloride (101-111) mmol/L Carbon Dioxide (22-32) mmol/L Anion Gap (2-11) mmol/L BUN (6-24) mg/dL Creatinine (0.51-0.95) mg/dL Est GFR ( Amer) (>60) Est GFR (Non-Af Amer) (>60) BUN/Creatinine Ratio (8-20) Glucose (70-100) mg/dL Lactic Acid (0.5-2.0) mmol/L Calcium (8.6-10.3) mg/dL Total Bilirubin (0.2-1.0) mg/dL AST (13-39) U/L ALT (7-52) U/L Alkaline Phosphatase (34-104) U/L Troponin I (<0.04) ng/mL B-Natriuretic Peptide 31 ( - 100) pg/mL Total Protein (6.4-8.9) g/dL Albumin (3.2-5.2) g/dL Globulin (2-4) g/dL Albumin/Globulin Ratio (1-3) Influenza A (Rapid) (Negative) Influenza B (Rapid) (Negative) 09/24/17 09/24/17 09/24/17 Range/Units 23:25 23:25 23:37 WBC (3.5-10.8) 10^3/ul RBC (4.0-5.4) 10^6/ul Hgb (12.0-16.0) g/dl Hct (35-47) % MCV (80-97) fL MCH (27-31) pg MCHC (31-36) g/dl RDW (10.5-15) % Plt Count (150-450) 10^3/ul MPV (7.4-10.4) um3 Neut % (Auto) (38-83) % Lymph % (Auto) (25-47) % [place] % (Auto) (0-7) % Eos % (Auto) (0-6) % Baso % (Auto) (0-2) % Absolute Neuts (auto) (1.5-7.7) 10^3/ul Absolute Lymphs (auto) (1.0-4.8) 10^3/ul Absolute Monos (auto) (0-0.8) 10^3/ul Absolute Eos (auto) (0-0.6) 10^3/ul Absolute Basos (auto) (0-0.2) 10^3/ul Absolute Nucleated RBC 10^3/ul Nucleated RBC % INR (Anticoag Therapy) (0.77-1.02) APTT (26.0-36.3) seconds Patient Temperature Not Reportable ABG pH 7.30 L (7.35-7.45) ABG pH (Temp Correct) Not Reportable ABG pCO2 63 H (35-45) mmHg ABG pCO2 (Temp Corrct Not Reportable ABG pO2 225 H (80-100) mmHg ABG pO2 (Temp Correct Not Reportable ABG HCO3 27.0 (19-31) mmol/L ABG O2 Saturation 99.3 H (95-98) % ABG Base Excess 2.8 H (-2.0-2.0) Respiration Rate Not Reportable O2 Delivery Device nasal cannula Ventilator Type Not Reportable Vent Mode Not Reportable FiO2 100 Inspiratory Time Not Reportable PEEP Not Reportable Pressure Support Not Reportable Pressure Control Not Reportable EPAP Not Reportable IPAP Not Reportable BiPAP Not Reportable Sodium 138 (133-145) mmol/L Potassium 4.4 (3.5-5.0) mmol/L Chloride 99 L (101-111) mmol/L Carbon Dioxide 32 (22-32) mmol/L Anion Gap 7 (2-11) mmol/L BUN 13 (6-24) mg/dL Creatinine 0.74 (0.51-0.95) mg/dL Est GFR ( Amer) 102.3 (>60) Est GFR (Non-Af Amer) 79.5 (>60) BUN/Creatinine Ratio 17.6 (8-20) Glucose 125 H (70-100) mg/dL Lactic Acid 1.3 (0.5-2.0) mmol/L Calcium 10.0 (8.6-10.3) mg/dL Total Bilirubin 0.30 (0.2-1.0) mg/dL AST 15 (13-39) U/L ALT 13 (7-52) U/L Alkaline Phosphatase 69 (34-104) U/L Troponin I 0.07 H* (<0.04) ng/mL B-Natriuretic Peptide ( - 100) pg/mL Total Protein 7.6 (6.4-8.9) g/dL Albumin 4.7 (3.2-5.2) g/dL Globulin 2.9 (2-4) g/dL Albumin/Globulin Ratio 1.6 (1-3) Influenza A (Rapid) (Negative) Influenza B (Rapid) (Negative) 09/25/17 09/25/17 09/25/17 Range/Units 01:38 03:10 05:56 WBC 5.2 (3.5-10.8) 10^3/ul RBC 3.93 L (4.0-5.4) 10^6/ul Hgb 12.9 (12.0-16.0) g/dl Hct 39 (35-47) % MCV 99 H (80-97) fL MCH 33 H (27-31) pg MCHC 33 (31-36) g/dl RDW 13 (10.5-15) % Plt Count 213 (150-450) 10^3/ul MPV 7 L (7.4-10.4) um3 Neut % (Auto) 89.9 H (38-83) % Lymph % (Auto) 9.0 L (25-47) % [place] % (Auto) 1.0 (0-7) % Eos % (Auto) 0 (0-6) % Baso % (Auto) 0.1 (0-2) % Absolute Neuts (auto) 4.6 (1.5-7.7) 10^3/ul Absolute Lymphs (auto) 0.5 L (1.0-4.8) 10^3/ul Absolute Monos (auto) 0.1 (0-0.8) 10^3/ul Absolute Eos (auto) 0 (0-0.6) 10^3/ul Absolute Basos (auto) 0 (0-0.2) 10^3/ul Absolute Nucleated RBC 0 10^3/ul Nucleated RBC % 0 INR (Anticoag Therapy) (0.77-1.02) APTT (26.0-36.3) seconds Patient Temperature ABG pH (7.35-7.45) ABG pH (Temp Correct) ABG pCO2 (35-45) mmHg ABG pCO2 (Temp Corrct ABG pO2 (80-100) mmHg ABG pO2 (Temp Correct ABG HCO3 (19-31) mmol/L ABG O2 Saturation (95-98) % ABG Base Excess (-2.0-2.0) Respiration Rate O2 Delivery Device Ventilator Type Vent Mode FiO2 Inspiratory Time PEEP Pressure Support Pressure Control EPAP IPAP BiPAP Sodium (133-145) mmol/L Potassium (3.5-5.0) mmol/L Chloride (101-111) mmol/L Carbon Dioxide (22-32) mmol/L Anion Gap (2-11) mmol/L BUN (6-24) mg/dL Creatinine (0.51-0.95) mg/dL Est GFR ( Amer) (>60) Est GFR (Non-Af Amer) (>60) BUN/Creatinine Ratio (8-20) Glucose (70-100) mg/dL Lactic Acid (0.5-2.0) mmol/L Calcium (8.6-10.3) mg/dL Total Bilirubin (0.2-1.0) mg/dL AST (13-39) U/L ALT (7-52) U/L Alkaline Phosphatase (34-104) U/L Troponin I 0.11 H* (<0.04) ng/mL B-Natriuretic Peptide ( - 100) pg/mL Total Protein (6.4-8.9) g/dL Albumin (3.2-5.2) g/dL Globulin (2-4) g/dL Albumin/Globulin Ratio (1-3) Influenza A (Rapid) Negative (Negative) Influenza B (Rapid) Negative (Negative) ECG, personally reviewed: sinus tachycardia rate 107, no ischemia CXR, personally reviewed: no acute process Impression: 62F HX 3L continuous oxygen dependant COPD, CAD/stents x3 presents in COPD exacerbation DIAGNOSIS & PLAN Primary SIRS 2nd COPD exacerbation Acute on Chronic hypoxic & hypercarbic respiratory failure : ICU monitoring : albuterol nebs : mometasone/formoterol : tiotropium : IV methylprednisolone : guaifenesin : IV azithromycin & ceftriaxone : supplemental oxygen : supportive care elevated troponin w/ HX CAD/stents x3 : suspect demand ischemia : telemetry : trend Secondary HLD : continue atovastatin Admission Rational: inpatient for COPD exacerbation in patient at high risk of rapid deterioration; inappropriate for outpatient setting DVTp: heparin SQ & SCDs Code Status: full HCP: daughter
[2017-09-25] MEDS ORDERED: Tiotropium CAP.INH* CAP.INH/18 MCG (USE ORDER SET !) INH ONE (06:55)
--- NOTE | 2017-09-25 08:30 | PN ---
Subjective Date of Service: 09/25/17 Interval History: . Interviewed and examined patient at bedside; Discussed case with Dr. Calderón ; Reviewed previous notes and radiology results; Saw patient a few times today. Stitzer progressively better repeat ABG encouraging. Given high likelihood of discharge < 48 hours (one midnight) will change status to OBV... dc paperwork prepared for AM discharge. . Family History: Unchanged from Admission Social History: Unchanged from Admission Past Medical History: Unchanged from Admission Objective Active Medications: . Acetaminophen (Tylenol Tab*) 650 mg PO Q6H PRN PRN Reason: FEVER/PAIN Last Admin: 09/25/17 05:45 Dose: 650 mg Albuterol (Ventolin 2.5 Mg/3 Ml Neb.Zita*) 2.5 mg INH Q2H PRN PRN Reason: SOB/WHEEZING Albuterol (Ventolin 2.5 Mg/3 Ml Neb.Zita*) 2.5 mg INH [id number] AWAKE [facility] Last Admin: 09/25/17 06:07 Dose: 2.5 mg Aspirin (Aspirin Tab*) 325 mg PO DAILY [facility] Atorvastatin Calcium (Lipitor*) 20 mg PO DAILY [facility] Device (Tiotropium Inhaler Device*) 1 each .SEE ORDER .USE w/ SPIRIVA CAPS SITA Docusate Sodium (Colace Cap*) 200 mg PO BID SITA Guaifenesin (Mucinex*) 1,200 mg PO BID SITA Heparin Sodium (Porcine) (Heparin Vial(*)) 5,000 units SUBCUT Q8HR SITA Sodium Chloride (Ns 0.9% 1000 Ml*) 1,000 mls @ 75 mls/hr IV PER RATE [facility] Last Admin: 09/25/17 03:21 Dose: 75 mls/hr Ceftriaxone Sodium 1,000 mg/ (Sodium Chloride) 50 mls @ 200 mls/hr IVPB Q24H [facility] Last Admin: 09/25/17 03:04 Dose: 200 mls/hr Azithromycin 500 mg/ Sodium (Chloride) 250 mls @ 250 mls/hr IVPB Q24H [facility] Last Admin: 09/25/17 03:37 Dose: 250 mls/hr Melatonin (Melatonin (Nf)) 3 mg PO BEDTIME PRN; Protocol PRN Reason: Sleep Methylprednisolone Sodium Succinate (Solu-Medrol 40 Mg) 40 mg IV Q8H SITA Metoprolol Succinate (Toprol Xl Tab*) 50 mg PO BID [facility] Mometasone Furoate/Formoterol Fumar (Dulera 200/5 Mdi*) 1 puff INH BID [facility] Morphine Sulfate (Morphine Inj (Syringe)*) 2 mg IV Q4H PRN PRN Reason: SHORTNESS OF BREATH Omeprazole (Prilosec Cap*) 20 mg PO DAILY@0600 [facility] Last Admin: 09/25/17 05:45 Dose: 20 mg Ondansetron HCl (Zofran Inj*) 4 mg IV Q6H PRN PRN Reason: NAUSEA Tiotropium [place] (Spiriva Cap.Inh*) 1 cap INH DAILY [facility] . Vital Signs - 8 hr 09/25/17 09/25/17 09/25/17 01:16 01:28 01:30 Temperature 98.8 F Pulse Rate 87 102 Respiratory 21 18 Rate Blood Pressure 107/72 107/72 100/73 (mmHg) O2 Sat by Pulse 98 98 Oximetry 09/25/17 09/25/17 09/25/17 01:35 01:46 02:00 Temperature 98.1 F Pulse Rate 103 108 100 Respiratory 20 19 14 Rate Blood Pressure 107/72 (mmHg) O2 Sat by Pulse 98 97 99 Oximetry Oxygen Devices in Use Now: Nasal Cannula Appearance: ill appearing. Eyes: No Scleral Icterus Respiratory: - - distant breath sounds Extremities: No Edema Skin: No Rash or Ulcers Neurological: Alert and Oriented x 3 Lines/Tubes/Other Access: Clean, Dry and Intact Peripheral IV Nutrition: Taking PO's Result Diagrams: 09/25/17 05:56 09/25/17 05:56 Additional Lab and Data: . Microbiology and Other Data: Microbiology 09/25/17 01:15 Nasal Screen MRSA (PCR)(YOSSI) - Final Nasal Mrsa Not Detected 09/25/17 01:16 Influenza Types A,B Antigen (YOSSI) - Final Nasopharyngeal Specimen received for Influenza A/B Molecular testing Assess/Plan/Problems-Billing . Assessment: 62 y.o. female with COPD exacerbation on top of chronic, oxygen dependent COPD and hypercarbic respiratory failure. pmh significant for CAD/stents x 3 #1 - SIRS 2/2 COPD exacerbation & Acute on Chronic hypoxic & hypercarbic respiratory failure - ICU monitoring --> transfer to floor after encouraging repeat ABG and reported improvement - albuterol nebs, prn - mometasone/formoterol - tiotropium - IV methylprednisolone q8 hrs - guaifenesin - IV azithromycin & ceftriaxone - supplemental oxygen; keep sats > 92% - supportive care #2 - Elevated troponin w/ HX CAD/stents x3 - agree with earlier; demand ischemia - telemetry - trend
--- NOTE | 2017-09-25 08:39 | RAD ---
Indication: Shortness of breath. Single frontal view of the chest performed at 2330 hours was reviewed. Comparison is made with previous exam dated May 29, 2017. No mediastinal shift is noted. Heart is of normal size and configuration. Lung castillo appear clear. IMPRESSION: NO ACTIVE CARDIOPULMONARY DISEASE IS NOTED.
[2017-09-25] MEDS ORDERED: Tiotropium CAP.INH* CAP.INH/18 MCG (USE ORDER SET !) INH SCH (09:00)
[2017-09-25] MEDS ORDERED: Mometasone/Formoter 200/5 MDI INH SCH (09:00)
[2017-09-25] MEDS: Docusate CAP* 100 MG PO SCH ×2 (09:01→21:32)
[2017-09-25] MEDS: Mometasone/Formoter 200/5 MDI INH SCH ×2 (09:02→19:25)
[2017-09-25] MEDS: guaiFENesin ER TAB 600 MG PO SCH ×2 (09:02→21:32)
[2017-09-25] MEDS: Metoprolol Succinate XL TAB* 50 MG PO SCH ×2 (09:03→21:31)
[2017-09-25] MEDS: Aspirin TAB* 325 MG PO SCH (09:03)
[2017-09-25] MEDS: Atorvastatin* 20 MG TAB PO SCH (09:03)
[2017-09-25] MEDS: Tiotropium CAP.INH* CAP.INH/18 MCG (USE ORDER SET !) INH SCH (09:03)
[2017-09-26] MEDS: Albuterol 2.5 MG/3 ML NEB.SOL* (0.083%) INH SCH ×2 (01:07→08:20)
[2017-09-26] MEDS: cefTRIAXone VIAL(*) 1,000 MG in NS 0.9% 50 ML* 50 ML IVPB SCH (02:11)
[2017-09-26] MEDS: Azithromycin IV(*) 500 MG in NS 0.9% 250 ML* 250 ML IVPB SCH (03:32)
[2017-09-26] MEDS: Omeprazole CAP* 20 MG PO SCH (05:12)
[2017-09-26] MEDS: NS 0.9% 1000 ML* 1,000 ML IV SCH (05:52)
[2017-09-26] MEDS ORDERED: methylPREDNISolone SOD 40 MG* 1 ML VIAL IV SCH (06:00)
[2017-09-26] MEDS ORDERED: Heparin VIAL(*) 5000 UNITS/ML VIAL (FIVE THOUSAND) SUBCUT SCH (06:00)
[2017-09-26 08:17] VITALS: BP 110/60
[2017-09-26] MEDS: Mometasone/Formoter 200/5 MDI INH SCH (08:20)
[2017-09-26] MEDS: Tiotropium CAP.INH* CAP.INH/18 MCG (USE ORDER SET !) INH SCH (08:20)
[2017-09-26] MEDS: Atorvastatin* 20 MG TAB PO SCH (09:58)
[2017-09-26] MEDS: guaiFENesin ER TAB 600 MG PO SCH (09:58)
[2017-09-26] MEDS: Metoprolol Succinate XL TAB* 50 MG PO SCH (09:58)
[2017-09-26] MEDS: Aspirin TAB* 325 MG PO SCH (09:58)
[2017-09-26] MEDS: Docusate CAP* 100 MG PO SCH (10:01)
--- NOTE | 2017-09-26 12:51 | DS ---
CC: Dr. Evangelista; Dr. Panchal * DISCHARGE SUMMARY: DATE OF ADMISSION: 09/25/17 DATE OF DISCHARGE: 09/26/17 STATUS DURING HOSPITALIZATION: Observation. PRIMARY CARE PROVIDER: Yaneth Evangelista MD, [facility]. OUTPATIENT PANAMA HAT SMEARER: Mela Panchal MD, [facility] Pulmonology. PRINCIPLE DISCHARGE DIAGNOSIS: Acute hypercarbic respiratory failure on top of chronic obstructive pulmonary disease secondary to acute chronic obstructive pulmonary disease exacerbation. SECONDARY DIAGNOSES: 1. Chronic obstructive pulmonary disease, 3 L continuous oxygen. 2. Chronic hypoxic hypercarbic respiratory failure. 3. Coronary artery disease with 3 coronary stents. 4. Hyperlipidemia. DISCHARGE MEDICATION REGIMEN: New: 1. Azithromycin 500 mg by mouth daily x5 days, then stop. 2. Prednisone taper starting with 50 mg and decreasing by 10 mg every 2 days - 30 separate 10 mg tabs prescribed. 3. Guaifenesin 600 mg by mouth twice daily - 30 tabs prescribed. Continue all other medications includin. Albuterol HFA inhaler (Ventolin) 1 to 2 puffs q. 4 to 6 hours p.r.n. shortness of breath. 2. Atorvastatin 20 mg by mouth daily. 3. Metoprolol XL/Toprol XL 50 mg by mouth twice daily. 4. Albuterol/ipratropium nebulizer one nebulizer every 4 hours as needed for shortness of breath. 5. Aspirin 325 mg by mouth daily. 6. Mometasone-Formoterol (Dulera 200/5 strength) one puff inhaled twice daily. 7. Tiotropium/Spiriva 1 capsule inhaled daily. HISTORY OF PRESENT ILLNESS AND HOSPITAL COURSE: Please see the H and P by Dr. Darryl Calderón on 09/25/17. 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 The patient reported some fever and chills, nausea, a baseline cough that was perhaps a bit worse, baseline sputum production. The patient was rapid influenza test negative. She was up to date on her Pneumovax. She had a leukocytosis with 85% neutrophils as well as an ABG showing a pH decreased at 7.3 with a PCO2 elevated at 63. She was able to speak with full sentences but did not feel well. Her EKG was sinus tachycardia. The patient was admitted for IV steroids and IV antibiotics. She was placed in the ICU for close monitoring. She did quite well overnight, by the morning she felt subjectively better. She was transferred to the medical floor and continued to be closely monitored. The patient was nearly ready for discharge the evening of 09/25/17 less than 24 hours after she was admitted. She was accordingly transitioned to an observation status by condition code 44. The patient is going to be discharged the morning of 09/25/17 with instructions to follow up with both her PCP and her outpatient home paraprofessional in the next week. She was given careful return to ED instructions for worsening shortness of breath or any other worrisome symptoms. She was educated on prednisone taper starting with 50 mg and decreasing by 10 mg every 2 days - 30, 10 mg tablets were prescribed. She will complete azithromycin course and I prescribed guaifenesin as well with prescription sent to [facility]. TIME SPENT: Total time taken to discharge for Ms. Hurtado was 45 minutes, greater than half of that time spent at the bedside doing COPD related education. [id number]/CPS #: [id number] MTDD
== END 2017-09-26 10:25 | disposition home or self-care (01) ==
LOC: ED 22:43 → ICU 09-25 01:07 → INTOOBSV 09-25 01:07 → MED 09-25 10:15
PROVIDERS: ADMIT Hospitalist; ATTEND Internal Medicine
DX: R65.10 Systemic inflammatory response syndrome (SIRS) of non-infectious origin without acute organ dysfunction (principal); J96.02 Acute respiratory failure with hypercapnia; J44.1 Chronic obstructive pulmonary disease with (acute) exacerbation; I25.10 Atherosclerotic heart disease of native coronary artery without angina pectoris; Z95.5 Presence of coronary angioplasty implant and graft; I11.0 Hypertensive heart disease with heart failure; I50.9 Heart failure, unspecified; E78.5 Hyperlipidemia, unspecified; Z79.899 Other long term (current) drug therapy; Z87.891 Personal history of nicotine dependence; R74.8 Abnormal levels of other serum enzymes; I51.7 Cardiomegaly; R00.0 Tachycardia, unspecified
CPT/HCPCS: 36415; 36600; 71045; 80048; 80053; 82803; 83605; 83880; 84484; 85025; 85610; 85730; 87040; 87502; 87641; 93005; 94640; 94760; 96372; 96374; 96375; 96376; 99291; A9270-GY; G0378; J0456; J0696; J1644; J2270; J2920; J2930

== ENCOUNTER 2017-11-20 10:30 | Inpatient (IN) | payer BC ==
[~2017-11-20 10:30] MED LIST: Etomidate* 2 MG/ML 20 ML VIAL (40 MG) ONE; Succinylcholine* 20 MG/ML 10 ML VIAL ONE
[2017-11-20] MEDS ORDERED: Albuterol/Ipratropium NEB.SOL* Albuterol 2.5 MG/Ipratropium 0.5 MG 3 ML ONE (10:41)
--- OUTSIDE RECORDS SUMMARY | 2017-11-20 10:41 | XMS REPORT ---
:1955 External Reference #:[id number] Author Organization [facility] Address [address] [place] [address] Phone [phone] Care Team Providers Name Role Phone Yaneth Evangelista Care Team Information Table Hand Unavailable Yaneth Evangelista Primary Care Physician Unavailable Payers Type Date Identification Payment Provider Subscriber Numbers Health Maintenance Effective: Policy Number: Essential Plan Adriana Hurtado Organization (O) 09/01/2017 [id number] [facility] PayID: [id number] [address] [address] [place] [address] Problems Date Description Provider Status Onset: 07/29/2013 Coronary arteriosclerosis Abdiel Jordan M.D. Active Onset: 07/29/2013 Hyperlipidemia Abdiel Jordan M.D. Active Onset: 07/29/2013 Chronic obstructive lung disease Abdiel Jordan M.D. Active Family History Date Family Member(s) Problem(s) Comments Children 3 Children 2 girls, one boy. all healthy. [place], [place]. Second Sister 55 Social History Type Date Description Comments Sleep difficulty sleeping due to COPD. 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 ETOH Use Rare 1-2 drinks a year. Smoking Patient is a former smoker smoked 50 years, 50 pack year history. Stopped 06/2012 after OR. Exercise Type/Frequency Does not exercise will be trying a treadmill soon. Seat Belt/Car Seat Always uses seat belt Dom Violence Screen screening has been done feels safe at home, at work, and in the community. Allergies, Adverse Reactions, Alerts Date Description Reaction Status Severity Comments 06/12/2013 NKDA active Medications Medication Date Status Form Strength Qnty SIG Indications Ordering Provider Prednisone 11/10/ Active Tablets 20mg 8tabs 2 by Peter44.1 Yaneth Zuniga 2018 mouth Tonja, every day M.D. x 4. before the tapering dose Azithromycin 11/10/ Active Tablets 250mg 6tabs 2 by Amber.1 Yaneth Zuniga 2018 mouth Tonja, today. 1 M.D. by mouth daily x 4 Metoprolol 06/22/ Active Tablets 50mg 180tab take one I25.10 Angela Tartrate 2016 s tablets Martha, by mouth [employer] twice a day Prednisone 03/14/ Active Tablets 20mg 11tabs 1 by Peter44.1 Yaneth Zuniga 2016 mouth Tonja, twice a M.D. day for 3 days, 1/2 tab by mouth twice a day for 3 d. 1/2 tab by mouth daily x 4 days taper dose Combivent 03/26/ Active Aerosol 20-100mcg/ 4units 1 puff J44.1 Yaneth Zuniga Respimat 2013 Act four Tonja, times a M.D. day Plavix 06/12/ Active Tablets 75mg 90tabs 1 po qd I25.10 [facility] 2013 Medicine [facility] Aspirin Ec 06/12/ Active Tablets DR 325mg 100tab 1 po qd I25.10 [facility] 2012 s Medicine [facility] Lipitor / Active Tablets 40mg 90tabs take 1 Angela 0000 tablet by Martha, mouth at [facility] bedtime Spiriva / Active Aerosol Unknown Respimat 0000 Oxygen Therapy / Active 2L vian Unknown 0000 NC qhs and prn Symbicort / Active Aerosol 160-4.5mcg inhale Unknown 0000 /Act two puffs by mouth twice a day Levofloxacin 03/14/ Hx Tablets 500mg 10tabs 1 by J44.1 Angela 2016 - mouth Martha, 11/10/ every day [employer] 2017 for 10 days Vitamin D 01/19/ Hx Capsules [id number] 8caps take 1 E55.9 Yaneth Zuniga (Ergocalcifero 2016 - capsule natanael Evangelista) 11/09/ by mouth M.D. 2016 once weekly for 8 weeks. Oxygen 06/11/ Hx Ok to J96.01 Abdiel Jordan 2015 - stop M.D. 10/15/ oxygen 2016 therapy Prednisone 09/03/ Hx Tablets 20mg 11tabs 1 by 466.0 Abdiel Jordan 2015 - mouth M.D. 06/11/ twice a 2014 day for 3 days then 1/2 tab by mouth twice a day for 3 days then 1/2 tab by mouth daily for 4 days Levofloxacin 09/03/ Hx Tablets 500mg 10tabs 1 by 466.0 Abdiel Jordan 2014 - mouth M.D. 06/11/ every day 2014 for 10 days Proair HFA 07/24/ Hx Aerosol 108(90Base 18unit 2 puffs 4 J44.1 Theodore Burk 2013 - ) mcg/Act s times Darlow, 11/09/ daily prn M.D. 2016 Levofloxacin 06/04/ Hx Tablets 500mg 10tabs 1 by 466.0 Abdiel Jordan 2013 - mouth M.D. 08/23/ every day 2014 for 10 days Prednisone 06/04/ Hx Tablets 20mg 11tabs 1 by 466.0 Abdiel Jordan 2013 - mouth M.D. 08/23/ twice a 2014 day for 3 days then 1/2 tab by mouth twice a day for 3 days then 1/2 tab by mouth daily for 4 days Proair HFA 05/16/ Hx Aerosol 108(90Base 18unit 2 puffs 4 Abdiel Jordan, 2013 - ) mcg/Act s times M.D. 06/26/ daily prn 2014 Spiriva 03/08/ Hx Capsules 18mcg 30caps 1 puff 496 Mellisa Gentile 2013 - every day M.D. 2014 Levofloxacin 12/17/ Hx Tablets 500mg 10tabs 1 by 466.0 Abdiel Jordan 2013 - mouth M.D. 03/08/ every day 2013 for 10 days Prednisone 12/17/ Hx Tablets 20mg 11tabs 1 by 466.0 Abdiel Jordan 2014 - mouth M.D. 03/08/ twice a 2013 day for 3 days then 1/2 tab by mouth twice a day for 3 days then 1/2 tab by mouth daily for 4 days Metoprolol 06/12/ Hx Tablets 25mg 180tab 1 po bid 414.01 [facility] 2012 - s Medicine 12/17/ [facility] [place] Red Yeast Rice 06/12/ Hx Capsules 600mg 60caps 1 po qd Family 2013 - Medicine 06/11/ [facility] 2014 [facility] [place] Wellbutrin SR 06/12/ Hx Tablets ER 150mg 60tabs 1 by 305.1 Abdiel Jordan, 2012 - 12HR mouth M.D. 12/17/ twice a 2013 day Ventolin HFA 06/12/ Hx Aerosol 108(90Base 18unit 2 puffs 4 496 Abdiel Jordan, 2013 - ) mcg/Act s times M.D. 03/26/ daily prn 2013 Lipitor / Hx Tablets 20mg 90tabs 1 po qd Unknown 0000 - 2015 Metoprolol / Hx Tablets 50mg 180tab 1 by I25.10 Angela Tartrate 0000 - s mouth Martha, 06/22/ twice a [employer] 2016 Dulera / Hx Aerosol 200-5mcg/A 1inhal 2 puff J44.1 Abdiel Jordan, 0000 - ct er twice a M.D. 2017 Immunizations CPT Code Status Date Vaccine Lot # [id number] Given 10/16/2015 Tdap Tetanus, W Pertussis [id number] Vital Signs Date Vital Result Comment 11/10/2017 BP Systolic 120 mmHg BP Diastolic 78 mmHg Heart Rate 76 /min Body Temperature 98.0 F Respiratory Rate 18 /min Height 61 inches 5'1" Weight 122.00 lb BMI (Body Mass Index) 23.0 kg/m2 03/14/2017 BP Systolic 118 mmHg BP Diastolic 70 mmHg Heart Rate 120 /min Body Temperature 98.4 F Respiratory Rate 16 /min Height 61 inches 5'1" Weight 108.50 lb BMI (Body Mass Index) 20.5 kg/m2 11/09/2016 BP Systolic 110 mmHg BP Diastolic 70 mmHg Heart Rate 76 /min Body Temperature 98.6 F Respiratory Rate 18 /min Height 61 inches 5'1" Weight 110.00 lb BMI (Body Mass Index) 20.8 kg/m2 01/20/2016 BP Systolic 120 mmHg BP Diastolic 70 mmHg Heart Rate 84 /min Body Temperature 98.3 F Height 61 inches 5'1" Weight 126.00 lb BMI (Body Mass Index) 23.8 kg/m2 10/16/2015 BP Systolic 126 mmHg BP Diastolic 80 mmHg Heart Rate 96 /min Body Temperature 98.1 F Respiratory Rate 16 /min Height 61 inches 5'1" Weight 126.00 lb BMI (Body Mass Index) 23.8 kg/m2 06/11/2015 BP Systolic 120 mmHg BP Diastolic 70 mmHg Heart Rate 100 /min Body Temperature 98.9 F Respiratory Rate 16 /min Height 61 inches 5'1" Weight 126.00 lb BMI (Body Mass Index) 23.8 kg/m2 08/23/2014 BP Systolic 130 mmHg BP Diastolic 70 mmHg Heart Rate 74 /min Body Temperature 98.3 F Respiratory Rate 16 /min Height 61 inches 5'1" Weight 124.00 lb BMI (Body Mass Index) 23.4 kg/m2 06/04/2014 BP Systolic 130 mmHg BP Diastolic 80 mmHg Heart Rate 120 /min Body Temperature 100.6 F Respiratory Rate 20 /min O2 % BldC Oximetry 80 % Height 61 inches 5'1" Weight 124.00 lb BMI (Body Mass Index) 23.4 kg/m2 03/08/2014 BP Systolic 120 mmHg BP Diastolic 80 mmHg Heart Rate 104 /min Body Temperature 97.2 F Respiratory Rate 16 /min O2 % BldC Oximetry 95 % Height 61 inches 5'1" Weight 125.00 lb BMI (Body Mass Index) 23.6 kg/m2 12/17/2013 BP Systolic 148 mmHg BP Diastolic 100 mmHg Heart Rate 88 /min Body Temperature 98.0 F Respiratory Rate 20 /min O2 % BldC Oximetry 85 % Height 61 inches 5'1" Weight 132.00 lb BMI (Body Mass Index) 24.9 kg/m2 06/12/2013 BP Systolic 126 mmHg BP Diastolic 90 mmHg Heart Rate 102 /min Body Temperature 97.6 F Height 61 inches 5'1" Weight 128.38 lb BMI (Body Mass Index) 24.3 kg/m2 Results Test Date Test Result H/L Range Note Laboratory test finding 09/24/2017 Troponin I 0.07 ng/mL High <0.04 1 B-Type Natriuretic Peptide BNP 31 pg/mL 2 Blood Culture SEE RESULT BELOW 3 Comp Metabolic Panel 09/24/2017 Sodium 138 mmol/L 133-145 Potassium 4.4 mmol/L 3.5-5.0 Chloride 99 mmol/L Low 101-111 Co2 Carbon Dioxide 32 mmol/L 22-32 Anion Gap 7 mmol/L 2-11 Glucose 125 mg/dL High 70-100 Blood Urea Nitrogen 13 mg/dL 6-24 Creatinine 0.74 mg/dL 0.51-0.95 BUN/Creatinine Ratio 17.6 8-20 Calcium 10.0 mg/dL 8.6-10.3 Total Protein 7.6 g/dL 6.4-8.9 Albumin 4.7 g/dL 3.2-5.2 Globulin 2.9 g/dL 2-4 Albumin/Globulin Ratio 1.6 1-3 Total Bilirubin 0.30 mg/dL 0.2-1.0 Alkaline Phosphatase 69 U/L 34-104 Alt 13 U/L 7-52 Ast 15 U/L 13-39 Egfr Non- 79.5 >60 Egfr 102.3 >60 4 Arterial Blood Gas 09/24/2017 O2 Device nasal cannula Fio2 100 PH Arterial 7.30 Low 7.35-7.45 Pco2 Arterial 63 mmHg High 35-45 Po2 Arterial 225 mmHg High 80-100 O2 Saturation Arterial 99.3 % High 95-98 Base Excess Arterial 2.8 High -2.0-2.0 5 Hco3 Arterial 27.0 mmol/L 19-31 CBC Auto Diff 09/24/2017 White Blood Count 12.3 10^3/uL High 3.5-10.8 Red Blood Count 4.16 10^6/uL 4.0-5.4 Hemoglobin 13.8 g/dL 12.0-16.0 Hematocrit 41 % 35-47 Mean Corpuscular Volume 98 fL High 80-97 Mean Corpuscular Hemoglobin 33 pg High 27-31 Mean Corpuscular HGB Conc 34 g/dL 31-36 Red Cell Distribution Width 13 % 10.5-15 Platelet Count 237 10^3/uL 150-450 Mean Platelet Volume 7 um3 Low 7.4-10.4 Abs Neutrophils 10.5 10^3/uL High 1.5-7.7 Abs Lymphocytes 1.1 10^3/uL 1.0-4.8 Abs Monocytes 0.6 10^3/uL 0-0.8 Abs Eosinophils 0 10^3/uL 0-0.6 Abs Basophils 0.1 10^3/uL 0-0.2 Abs Nucleated RBC 0 10^3/uL Granulocyte % 85.2 % High 38-83 Lymphocyte % 8.9 % Low 25-47 Monocyte % 4.7 % 0-7 Eosinophil % 0.3 % 0-6 Basophil % 0.9 % 0-2 Nucleated Red Blood Cells % 0 Laboratory test finding 09/24/2017 Partial Thrombo Time 30.0 seconds 26.0 -36.3 PTT Lactic Acid 1.3 mmol/L 0.5-2.0 6 Inr/Protime 09/24/2017 Inr 0.94 0.77-1.02 Laboratory test finding 05/29/2017 Blood Culture SEE RESULT BELOW 7, 8 Arterial Blood Gas 10/15/2016 PH Arterial 7.29 Low 7.35-7.45 Pco2 Arterial 52 mmHg High 35-45 Po2 Arterial 82 mmHg 80-100 O2 Saturation Arterial 96.7 % 95-98 Base Excess Arterial -2.3 Low -2.0-2.0 9 Hco3 Arterial 23.0 mmol/L 19-31 Ipap 7.5 Epap 7.5 Laboratory test finding 10/16/2015 Vitamin D25 23 Low 30-100 Complete Blood Count 10/16/2015 WBC 6.1 x10^3/UL 3.6-9.6 RBC 4.06 x10^6/UL 3.90-5.70 HGB 13.1 g/dL 12.1-17.2 HCT 39 % 36-50 MCV 97.0 fL 82.2-97.4 MCH 32.4 pg 27.6-33.3 MCHC 33.3 g/dL 33.0-35.5 RDW 14.1 % High 11.6-13.7 PLT 250 x10^3/UL 150-400 MPV 6.5 fL Low 7.4-10.4 Gran # 4.1 x10^3/UL 1.5-7.2 Lymph# 1.8 x10^3/UL 0.7-4.9 Jessamine# 0.2 x10^3/UL 0.1-0.9 Gran % 64.6 % 42.2-75.2 Lymph % 30.6 % 20.5-51.1 Jessamine% 4.8 % 1.7-9.3 Laboratory test finding 10/16/2015 Free T4 1.14 ng/dL 0.75-1.54 TSH 0.85 mIU/L 0.50-6.00 Laboratory test finding 08/15/2015 Ast 12 U/L Low 13-39 10 Creatine Kinase 99 U/L 10-223 11 Lipid Profile (Trig/Chol/HDL) 08/15/2015 Triglycerides 78 mg/dL 12 Cholesterol 158 mg/dL 13 HDL Cholesterol 50.6 mg/dL 14 LDL Cholesterol 92 mg/dL 15 Laboratory test finding 05/09/2015 Lactic Acid 1.0 mmol/L 0.5-2.2 Comp Metabolic Panel 05/09/2015 Sodium 134 mmol/L 133-145 Potassium 4.5 mmol/L 3.5-5.0 Chloride 102 mmol/L 101-111 Co2 Carbon Dioxide 24 mmol/L 22-32 Anion Gap 8 mmol/L 2-11 Glucose 129 mg/dL High 70-100 Blood Urea Nitrogen 17 mg/dL 6-24 Creatinine 0.76 mg/dL 0.51-0.95 BUN/Creatinine Ratio 22.4 High 8-20 Calcium 9.8 mg/dL 8.6-10.3 Total Protein 7.8 g/dL 6.4-8.9 Albumin 4.8 g/dL 3.2-5.2 Globulin 3.0 g/dL 2-4 Albumin/Globulin Ratio 1.6 1-3 Total Bilirubin 0.50 mg/dL 0.2-1.0 Alkaline Phosphatase 83 U/L 34-104 Alt 21 U/L 7-52 Ast 19 U/L 13-39 Egfr Non- 77.9 >60 Egfr 100.2 >60 16 Laboratory test finding 05/09/2015 Troponin I 0.01 ng/mL <0.03 17 B Type Natriuretic Peptide 34 pg/mL 18 CBC Auto Diff 05/09/2015 White Blood Count 9.5 10^3/uL 4.8-10.8 Red Blood Count 4.74 10^6/uL 4.0-5.4 Hemoglobin 15.9 g/dL 12.0-16.0 Hematocrit 47 % 35-47 Mean Corpuscular Volume 99 fL High 80-97 Mean Corpuscular Hemoglobin 33 pg High 27-31 Mean Corpuscular HGB Conc 34 g/dL 31-36 Red Cell Distribution Width 14 % 10.5-15 Platelet Count 256 10^3/uL 150-450 Mean Platelet Volume 8 um3 7.4-10.4 Abs Neutrophils 7.1 10^3/uL 1.5-7.7 Abs Lymphocytes 1.6 10^3/uL 1.0-4.8 Abs Monocytes 0.6 10^3/uL 0-0.8 Abs Eosinophils 0.1 10^3/uL 0-0.6 Abs Basophils 0.1 10^3/uL 0-0.2 Abs Nucleated RBC 0 10^3/uL Granulocyte % 74.8 % 38-83 Lymphocyte % 16.9 % Low 25-47 Monocyte % 6.7 % 1-9 Eosinophil % 0.7 % 0-6 Basophil % 0.9 % 0-2 Nucleated Red Blood Cells % 0 CBC Auto Diff 2014 White Blood Count 10.0 10^3/uL 4.8-10.8 Red Blood Count 5.11 10^6/uL 4.0-5.4 Hemoglobin 16.6 g/dL High 12.0-16.0 Hematocrit 50 % High 35-47 Mean Corpuscular Volume 97 fL 80-97 Mean Corpuscular Hemoglobin 32 pg High 27-31 Mean Corpuscular HGB Conc 34 g/dL 31-36 Red Cell Distribution Width 14 % 10.5-15 Platelet Count 274 10^3/uL 150-450 Mean Platelet Volume 8 um3 7.4-10.4 Abs Neutrophils 8.2 10^3/uL High 1.5-7.7 Abs Lymphocytes 1.3 10^3/uL 1.0-4.8 Abs Monocytes 0.5 10^3/uL 0-0.8 Abs Eosinophils 0 10^3/uL 0-0.6 Abs Basophils 0 10^3/uL 0-0.2 Abs Nucleated RBC 0.01 10^3/uL Granulocyte % 81.7 % 38-83 Lymphocyte % 13.0 % Low 25-47 Monocyte % 4.9 % 1-9 Eosinophil % 0.1 % 0-6 Basophil % 0.3 % 0-2 Nucleated Red Blood Cells % 0.1 Laboratory test 2014 D Dimer Quantitative < 200 ng/mL Less Than 230 19 finding Comp Metabolic Panel 2014 Sodium 140 mmol/L 133-145 Potassium 3.8 mmol/L 3.5-5.0 Chloride 100 mmol/L Low 101-111 Co2 Carbon Dioxide 33 mmol/L High 22-32 Anion Gap 7 mmol/L 2-11 Glucose 130 mg/dL High 70-100 Blood Urea Nitrogen 17 mg/dL 6-24 Creatinine 0.69 mg/dL 0.51-0.95 BUN/Creatinine Ratio 24.6 High 8-20 Calcium 10.1 mg/dL 8.6-10.3 Total Protein 8.1 g/dL 6.4-8.9 Albumin 4.9 g/dL 3.2-5.2 Globulin 3.2 g/dL 2-4 Albumin/Globulin Ratio 1.5 1-3 Total Bilirubin 0.30 mg/dL 0.2-1.0 Alkaline Phosphatase 68 U/L 34-104 Alt 23 U/L 7-52 Ast 17 U/L 13-39 Egfr Non- 87.1 >60 Egfr 112.0 >60 20 Laboratory test finding 2014 Troponin I 0.00 ng/mL <0.03 21 B Type Natriuretic Peptide 53 pg/mL 22 Laboratory test finding 08/23/2014 Surgical Pathology RUN DATE: <SEE NOTE> Comprehensive Metabolic 06/12/2013 Albumin 4.4 g/dL 3.8-5.5 Prof Alk. Phos. 77 U/L 30-110 Alt (SGPT) 14 U/L 7-35 Ast (Sgot) 16 U/L 5-34 BUN 11 mg/dL 6-26 Calcium 9.6 mg/dL 8.6-10.2 Chloride 103 mEq/L 94-112 Creatinine 0.7 mg/dL 0.6-1.4 Carbon Dioxide 26 mEq/L 21-32 Glucose 97 mg/dL 70-105 Sodium 141 mEq/L 134-149 Total Bilirubin 0.3 mg/dL 0.2-1.3 Total Protein 7.0 g/dL 6.3-8.1 Potassium 4.5 mEq/L 3.6-5.5 Globulin 2.5 g/dL 2.0-4.8 A/G Ratio 1.8 Calc 0.6-2.3 BUN/Creat Ratio 14.8 Calc 8.0-36.0 Lipid Profile 06/12/2013 Cholesterol 230 mg/dL High 120-200 HDL 47 mg/dL 30-85 Triglycerides 146 mg/dL 30-200 HDL Risk Factor 4.9 CALC High 0.0-4.4 LDL (Calculated) 153 CALC High 0-129 VLDL (Calculated) 29 mg/dL 0-50 Laboratory test finding 06/12/2013 TSH 1.00 mIU/L 0.50-6.00 CBC Electronic (Fma) 06/12/2013 WBC 4.6 3.6-9.6 RBC 4.26 3.90-5.70 Hemoglobin (Fma/CMC/CTX) 14.2 g/dL 12.1 - 17.2 Hematocrit (Fma/CMC/CTX) 41.7 % 36.1 - 50.3 Platelets 270 10^3/ul 150-400 Lymph% 30.7 20.5-51.1 Mixed% 5.1 Neutrophils % 64.2 Mean Corpuscular Vol 98 High 82.2-97.4 Mean Corpuscular Hemoglobin 33.2 27.6-33.3 Mean Corpuscular Hemo Concen 34.0 32.0-36.0 RDW 12.1 11.6-13.7 Mean Platelet Volume 6.4 Low 6.5-11.0 1 Result TnIDx:0.07 Called to [id number] at: 00:00:40 by:[id number] Read back by: [id number] 2 >100 to <200 pg/mL: likely compensated congestive heart failure (CHF) 200 to 400 pg/mL: likely moderate CHF >400 pg/mL: likely moderate to severe CHF 3 SEE RESULT BELOW Name: LEANNEDONNAADRIANA : [address]: Akin Bates MD Acct: [id number] Unit: [id number] AGE: 62 Location: [place] [address] Re09/25/17 Dis: 09/26/17 SEX: F Status: DIS Shawn SPEC: [id number] ROYER: 09/24/17-[address] [facility] [address]: Apolinar Cadena MD REQ: [id number] RECD: 09/24/17 STATUS: TAYLA THACKER DR: Yaneth Evangelista MD _ SOURCE: BLOOD,[facility]: ORDERED: Blood Cult Procedure Result Reported Site Aerobic Culture Bottle Final 09/29/17- 2341 ML No Growth Day 5 Anaerobic Culture Bottle Final 09/29/17- 2341 ML No Growth Day 5 * ML - Main Lab . END OF REPORT DEPARTMENT OF PATHOLOGY, [address] [place] [address] Damon Hardy M.D. Director [facility] # [id number] 4 Because ethnic data is not always readily available, this report includes an eGFR for both -Americans and non- Americans. The National Kidney Disease Education Program (NKDEP) does not endorse the use of the MDRD equation for patients that are not between the ages of 18 and 70, are , have extremes of body size, muscle mass, or nutritional status, or are non- or non-. According to the National Kidney Foundation, irrespective of diagnosis, the stage of the disease is based on the level of kidney function: Stage Description GFR(mL/min/1.73 m(2)) 1 Kidney damage with normal or decreased GFR 90 2 Kidney damage with mild decrease in GFR 60-89 3 Moderate decrease in GFR 30-59 4 Severe decrease in GFR 15-29 5 Kidney failure <15 (or dialysis) 5 Reference ranges based on room air. 6 [facility] Severe Sepsis and Septic Shock Management Bundle Measure requires all lactic acids initially measuring >2.0 mmol/L be repeated. 7 Patient is On Antibiotics? NO 8 SEE RESULT BELOW Name: LEMUELADRIANA : [address]: Hemanth Gary MD Acct: [id number] Unit: [id number] AGE: 61 Location: ED Re05/29/17 SEX: F Status: DEP ER SPEC: [id number] ROYER: 05/29/[address] [facility] [address]: Hemanth Gary MD REQ: [id number] RECD: 05/29/17 STATUS: TAYLA THACKER DR: Yaneth Evangelista MD _ SOURCE: BLOOD,[facility]ENO [facility]: ORDERED: Blood Cult COMMENTS: Patient is On Antibiotics? NO Procedure Result Reported Site Aerobic Culture Bottle Final 06/03/17- 1358 ML No Growth Day 5 Anaerobic Culture Bottle Final 06/03/17- 1358 ML No Growth Day 5 * ML - MAIN LAB (PSC1) . END OF REPORT * ML=Testing performed at Main Lab DEPARTMENT OF PATHOLOGY, [address] [place] [address] Damon Hardy M.D. Director [facility] # [id number] 9 Reference ranges based on room air. 10 FASTING Copy Result to: JASON JORDAN ([id number]) 11 FASTING Copy Result to: AJSON JORDAN ([id number]) 12 Desirable <150 Borderline high 150-199 High 200-499 Very High >500 13 Desirable <200 Borderline high 200-239 High >239 14 Low <40 Desirable: 40-60 High: >60 15 Desirable: <100 mg/dL Near Optimal: 100-129 mg/dL Borderline High: 130-159 mg/dL High: 160-189 mg/dL Very High: >189 mg/dL 16 Because ethnic data is not always readily available, this report includes an eGFR for both -Americans and non- Americans. The National Kidney Disease Education Program (NKDEP) does not endorse the use of the MDRD equation for patients that are not between the ages of 18 and 70, are , have extremes of body size, muscle mass, or nutritional status, or are non- or non-. According to the National Kidney Foundation, irrespective of diagnosis, the stage of the disease is based on the level of kidney function: Stage Description GFR(mL/min/1.73 m(2)) 1 Kidney damage with normal or decreased GFR 90 2 Kidney damage with mild decrease in GFR 60-89 3 Moderate decrease in GFR 30-59 4 Severe decrease in GFR 15-29 5 Kidney failure <15 (or dialysis) 17 Reference Range and Interpretation: TnI (ng/mL) Interpretation Less Than 0.03 ng/mL Not supportive of diagnosis of OR 0.03 - 0.50 ng/mL Indeterminate: suggest serial studies if clinically indicated. Greater than 0.5 ng/mL Consistent with diagnosis of OR 18 >100 to <200 pg/mL: likely compensated congestive heart failure (CHF) 200 to 400 pg/mL: likely moderate CHF >400 pg/mL: likely moderate to severe CHF 19 Please note: The following may produce a false positive D Dimer test: - Rheumatoid factor greater than 60 IU/ml - Plasma hemoglobin greater than 0.05 gm/dl - Bilirubin greater than 50 mg/dl - Lipids greater than 1000 mg/dl - FDP greater than 20 ug/ml 20 Because ethnic data is not always readily available, this report includes an eGFR for both -Americans and non- Americans. The National Kidney Disease Education Program (NKDEP) does not endorse the use of the MDRD equation for patients that are not between the ages of 18 and 70, are , have extremes of body size, muscle mass, or nutritional status, or are non- or non-. According to the National Kidney Foundation, irrespective of diagnosis, the stage of the disease is based on the level of kidney function: Stage Description GFR(mL/min/1.73 m(2)) 1 Kidney damage with normal or decreased GFR 90 2 Kidney damage with mild decrease in GFR 60-89 3 Moderate decrease in GFR 30-59 4 Severe decrease in GFR 15-29 5 Kidney failure <15 (or dialysis) 21 Reference Range and Interpretation: TnI (ng/mL) Interpretation Less Than 0.03 ng/mL Not supportive of diagnosis of OR 0.03 - 0.50 ng/mL Indeterminate: suggest serial studies if clinically indicated. Greater than 0.5 ng/mL Consistent with diagnosis of OR 22 >100 to <200 pg/mL: likely compensated congestive heart failure (CHF) 200 to 400 pg/mL: likely moderate CHF >400 pg/mL: likely moderate to severe CHF [facility] 23 RUN DATE: 08/27/14 [facility] LAB LIVE PAGE 1 RUN TIME: [address] [place], [place] [address] Specimen Inquiry Name: LEMUELADRIANA : [address]: Abdiel Jordan MD Acct: [id number] Unit: [id number] AGE: 58 Location: [facility] Re08/23/14 SEX: F Status: REG REF SPEC: [id number] ROYER: 08/23/14-[address]: Adbiel Jordan MD REQ: [id number] RECD: 08/23/14 STATUS: SOUT _ ORDERED: LEVEL IV/2 FINAL DIAGNOSIS 1. Skin, mid chest, excisional biopsy: -- Verrucous seborrheic keratosis, inflamed. 2. Skin, mid back, excisional biopsy: -- Seborrheic keratosis, focally inflamed. CLINICAL HISTORY No history given. GROSS DESCRIPTION 1. The specimen is received in formalin labeled, Mid Chest, and consists of a 0.8 x 0.6 x 0.2 cm yeager sutton irregular focally granular portion of skin. The specimen is inked, trisected and submitted entirely in one cassette. 2. The specimen is received in formalin labeled, Mid Back, and consists of a 0.8 x 0.5 cm yeager-branch unoriented skin ellipse excised to a depth of 0.2 cm. There is a central 0 x 0.4 x 0.2 cm yeager ovoid verrucoid nodule. The specimen is inked, trisected and submitted entirely in one cassette. Signed (signature on file) Patricia John MD 1029 END OF REPORT * ML=Testing performed at Main Lab DEPARTMENT OF PATHOLOGY, [address] [place] [address] Damon Hardy M.D. Director [facility] # [id number] Procedures Date CPT Code Description Status Comment 11/09/2016 Colonoscopy Completed never. Declines to do one. 02/26/2016 Mammogram Completed 08/23/2014 87157 Excise Benign Lesion 1.1-2CM Completed Trunk/Arm/Leg 06/04/2014 74731 Pulse Oximetry Completed 03/08/2014 79716 Pulse Oximetry Completed Encounters Type Date Location Provider CPT E/M Dx Office Visit 03/14/2017 4:15p Main Office Angela Thomas, [facility] [address] J44.1 Office Visit 11/09/2016 10:40a [facility] Yaneth Evangelista, 78472 J44.1 [place] Office Visit 01/20/2016 10:00a [facility] Yaneth Evangelista, 56301 Z00.01 M.[place] J44.9 I25.10 E55.9 Z12.31 Office Visit 10/16/2015 2:20p [facility] Yaneth Evangelista M.D. 50238 J44.9 I25.10 E55.9 R53.83 Z23 Office Visit 06/11/2015 4:10p Main Office Abdiel Jordan M.D. 50529 J96.01 J44.9 Office Visit 06/04/2014 10:50a [facility] Abdiel Jordan M.D. 99496 466.0 Office Visit 03/08/2014 1:40p [facility] Abdiel Jordan M.D. 80492 496 Office Visit 12/17/2013 11:40a Main Office Abdiel Jordan M.D. 18833 466.0 Office Visit 06/12/2013 8:30a [facility] Abdiel Jordan M.D. 10103 V70.0 414.01 272.4 496 305.1 Plan of Care 11/10/2017 - Yaneth Evangelista M.D.Z00.01 Encounter for general adult medical exam w abnormal findingsComments:I recommend regular physical exams with attention to good nutrition and exercise, eye exams every other year, and dental exams.~B_~U_Goals:~u_~b_2 fresh fruits daily3 helpings of fresh green and multicolored vegetablesEat from the whole color spectrum. 40-60 Oz water daily~B_~U_MOVE YOUR BODY.~u_~b_ Bodies were made to be moved. exercise 30 minutes at least 4-5 times weeklyStrength training isvery important. ~B_~U_ Strong Women Stay Young.~u_~b_ a book showing exercises you can use at home without any special equipment.Z12.31 Encntr screen mammogram for malignant neoplasm of breastNew Xrays:Mammography Screening, Bilateral; 2-View Each [id number] Encounter for screening for malignant neoplasm of colonNew Labs: [id number] Chronic obstructive pulmonary disease w (acute) exacerbationNew Medication:Prednisone 20 mgAzithromycin 250 mgI25.10 Athscl heart disease of [place] coronary artery w/o ang pctrsNew Labs:CCS-Comp And Lipid (Fma)TSH ([facility]/ [facility])AllComments:~B_~U_Medication Management~b_~u_ Patient Understands medications she's taking? Yes No Are there Barriers to Adherence? Yes No Has the patient been asked about herbal supplements and therapies, and OTC meds? Yes No
[2017-11-20] MEDS ORDERED: EPINEPHrine,Rac 2.25% NEB.SOL* 0.5 ML ONE (10:49)
[2017-11-20] MEDS ORDERED: Propofol* 100 ML ONE (10:59)
--- NOTE | 2017-11-20 11:05 | RAD ---
Indication: Respiratory failure. Single frontal view of the chest performed at 1045 hours. was reviewed. Comparison is made with previous exam dated September 24, 2017. No mediastinal shift is noted. Heart is of normal size and configuration. Lung castillo appear clear. Endotracheal tube measures T3-T4. IMPRESSION: NO ACTIVE CARDIOPULMONARY DISEASE IS NOTED.
[2017-11-20] MEDS ORDERED: VECURONIUM BROMIDE 10 MG INJ ONE (11:09)
[2017-11-20 11:12] LABS: Hematocrit 41 % (35-47); Hemoglobin 13.1 g/dl (12.0-16.0); Mean Corpuscular HGB Conc 32 g/dl (31-36); Mean Corpuscular Hemoglobin 33 pg (27-31); Mean Corpuscular Volume 102 fL (80-97); Mean Platelet Volume 7.6 um3 (7.4-10.4); Platelet Count 255 10^3/ul (150-450); Red Blood Count 4.02 10^6/ul (4.0-5.4); Red Cell Distribution Width 14 % (10.5-15); White Blood Count 21.4 10^3/ul (3.5-10.8)
[2017-11-20] MEDS ORDERED: methylPREDNISolone 125 MG* 2 ML VIAL IV ONE (11:17)
[2017-11-20] MEDS ORDERED: EPINEPHrine,Rac 2.25% NEB.SOL* 0.5 ML INH ONE (11:19)
[2017-11-20] MEDS: Propofol* 100 ML IV SCH ×2 (11:21→21:17)
[2017-11-20] MEDS ORDERED: Albuterol/Ipratropium NEB.SOL* Albuterol 2.5 MG/Ipratropium 0.5 MG 3 ML INH ONE (11:22)
[2017-11-20 11:28] LABS: INR 0.84 (0.77-1.02)
--- NOTE | 2017-11-20 12:01 | HP ---
H&P (Free Text) History and Physical: History And Physical - Critical Care Limitations in history/physical: intubated, respiratory failure HPI: 62y F pmhx of Severe COPD on 2L home O2, CAD s/p PCI, past tobacco use; [place] [facility] [place] and [place]. Today EMS was called when patient found outside her house in resp distress, labored. On Arrival, she was tachypneic 40s, cyanotic, not moving air on ausculatation, acc muscle use+, sats 40-60s. Placed on oxygen, given albuterol, steroids, then when O2 sats dropped to 10-20%, started on CPAP. In ER, she was in resp failure , emergently intubated. Poor air entry on vent noted, given albuterol/atrovent neb x3, then racemic Epi x3, manually bagged for ventilation. Suctioned with some thick secretions being pulled. Started on propofol for her biting and given vecuronium 5mg iv push x1 dose for vent synchrony/agitation. Shortly after Tidal volumes improving more, peak pressures still in 30s, but ventilating more with sedation/epi. CXR not demonstrating new acute infiltrates/ pneumothorax. Transferred to ICU History limited due to respiratory failiure/intubation. No family at bedside at this moment. ROS: limited ROS due to respiratory failure/resp distress and intubation and sedation. PMHx: Severe COPD, chronic hypoxia on home O2, CAD s/p PCI, Hyperlipidemia PSHx: Coronary Stents, hysterectomy, tonsillectomy, ectopic excision Family History: Ovarian Ca in mother; CAD in father Social History: Alcohol-rare use, Smoking-past tobacco use, quit 2004, Drug use- none; ICU nurse but now on disability Allergies: Allergies Allergy/AdvReac Type Severity Reaction Status Date / Time No Known Allergies Allergy Verified 09/24/17 22:49 Home Medications: Albuterol HFA INHALER* [Ventolin HFA Inhaler*] 1 puff INH Q4H PRN 11/20/17 [ History Confirmed 11/20/17] Albuterol/Ipratropium RESP(NF) [Combivent Respimat(NF)] 1 aer IN DAILY 11/20/17 [History Confirmed 11/20/17] Atorvastatin* [Lipitor*] 40 mg PO DAILY 11/20/17 [History Confirmed 11/20/17] Budesonide/Formote 80/4.5(NF) [Symbicort 80/4.5 (NF)] 1 puff INH BID 11/20/17 [ History Confirmed 11/20/17] Clopidogrel TAB* [Plavix TAB*] 75 mg PO DAILY 11/20/17 [History Confirmed ] Ipratropium 0.5MG/2.5ML NEB* [Atrovent 0.5 MG NEB.YESENIA*] 0.5 mg INH Q6H PRN 11/20 [History Confirmed 11/20/17] Metoprolol Tartrate TAB* [Lopressor TAB*] 50 mg PO BID 11/20/17 [History Confirmed 11/20/17] Nitroglycerin TAB 0.4 MG* 0.4 mg SL Q5M PRN 11/20/17 [History Confirmed 11/20/17 ] Tiotropium CAP.INH* [Spiriva CAP.INH*] 1 cap.inh INH DAILY 11/20/17 [History Confirmed 11/20/17] Tele: sinus tachycardia Vitals: Vital Signs Temp 96.6 F 11/20/17 11:20 Pulse 101 11/20/17 11:20 Resp 20 11/20/17 11:20 BP 102/82 11/20/17 11:20 Pulse Ox 100 11/20/17 11:20 Intake & Output 11/19/17 11/20/17 11/20/17 18:59 06:59 18:59 Weight 115 lb O2/Vent: AC 20/450/+5/40%; initially poor TV, peak ~40, autopeep of 25 noted, falttenede exp flow curves Infusions: propofol Current Medications: Albuterol (Ventolin 2.5 Mg/3 Ml Neb.Yesenia*) 2.5 mg INH Q2H SITA Stop: 11/20/17 22:01 Atorvastatin Calcium (Lipitor*) 40 mg PO DAILY SITA Clopidogrel Bisulfate (Plavix Tab*) 75 mg PO DAILY SITA Device (Tiotropium Inhaler Device*) 1 each INH 0900 ONE Stop: 11/21/17 09:01 Propofol (Diprivan*) 100 mls @ 6.26 mls/hr IV .(Initial Rate) SITA; 20 MCG/KG/ MIN PRN Reason: Protocol Last Admin: 11/20/17 11:21 Dose: 6.26 mls/hr Lactated Ringer's (Lactated Ringers 1000 Ml Bag*) 1,000 mls @ 75 mls/hr IV PER RATE [facility] [place] Methylprednisolone Sodium Succinate (Solu-Medrol 40 Mg) 40 mg IV Q12H [facility] [place] Metoprolol Tartrate (Lopressor Tab*) 50 mg PO BID [facility] [place] Tiotropium [place] (Spiriva Cap.Inh*) 1 cap INH DAILY [facility] [place] Physical Exam: General: intubated, sedated Head: normocephalic, atraumatic HEENT: no pallor, no icterus, moist mucous membranes Neck: soft, supple, no jvd CVS: regular, tachy, no murmur Resp: initially; poor to no air entry bilaterally/absent breath sounds, no wheeze/rhales; after tx, more air entry but still diminished, increased chest rise Abdomen: soft, nondistended Ext: pulses+, cool, no edema; mottling++ Skin: intact, no breakdown Neuro: intubated, sedated Labs: Laboratory Results - last 24 hr 11/20/17 11/20/17 11/20/17 10:50 11:00 11:00 WBC RBC Hgb Hct MCV MCH MCHC RDW Plt Count MPV INR (Anticoag Therapy) 0.84 APTT 24.6 L D-Dimer, Quantitative 601 H ABG pH < 7.00 L* ABG pCO2 141 H* ABG pO2 443 H ABG HCO3 23.3 ABG O2 Saturation 99.5 H ABG Base Excess -2.0 Carbon Monoxide Screen Sodium 144 Chloride 104 Carbon Dioxide 32 BUN 26 H Creatinine 2.02 H Est GFR ( Amer) 32.1 Est GFR (Non-Af Amer) 25.0 BUN/Creatinine Ratio 12.9 Glucose 153 H Lactic Acid Calcium 8.9 Magnesium 2.9 H Total Bilirubin 0.30 AST 223 H ALT 273 H Alkaline Phosphatase 75 Ammonia Total Creatine Kinase 981 H CK-MB (CK-2) 59.6 H Troponin I 2.62 H* C-Reactive Protein 6.52 H B-Natriuretic Peptide Total Protein 6.9 Albumin 4.3 Globulin 2.6 Albumin/Globulin Ratio 1.7 Lipase 20 11/20/17 11/20/17 11/20/17 11:00 11:00 11:00 WBC 21.4 H RBC 4.02 Hgb 13.1 Hct 41 MCV 102 H MCH 33 H MCHC 32 RDW 14 Plt Count 255 MPV 7.6 INR (Anticoag Therapy) APTT D-Dimer, Quantitative ABG pH ABG pCO2 ABG pO2 ABG HCO3 ABG O2 Saturation ABG Base Excess Carbon Monoxide Screen Sodium Chloride Carbon Dioxide BUN Creatinine Est GFR ( Amer) Est GFR (Non-Af Amer) BUN/Creatinine Ratio Glucose Lactic Acid 2.5 H* Calcium Magnesium Total Bilirubin AST ALT Alkaline Phosphatase Ammonia 72 H Total Creatine Kinase CK-MB (CK-2) Troponin I C-Reactive Protein B-Natriuretic Peptide 504 H Total Protein Albumin Globulin Albumin/Globulin Ratio Lipase 11/20/17 11:00 WBC RBC Hgb Hct MCV MCH MCHC RDW Plt Count MPV INR (Anticoag Therapy) APTT D-Dimer, Quantitative ABG pH ABG pCO2 ABG pO2 ABG HCO3 ABG O2 Saturation ABG Base Excess Carbon Monoxide Screen 4.3 H Sodium Chloride Carbon Dioxide BUN Creatinine Est GFR ( Amer) Est GFR (Non-Af Amer) BUN/Creatinine Ratio Glucose Lactic Acid Calcium Magnesium Total Bilirubin AST ALT Alkaline Phosphatase Ammonia Total Creatine Kinase CK-MB (CK-2) Troponin I C-Reactive Protein B-Natriuretic Peptide Total Protein Albumin Globulin Albumin/Globulin Ratio Lipase Imaging: cxr 11/20 - ett above ila; hyperinflated lungs, no ptx/infiltrate/effusion now ekg 11/20 - nsr, Right atrial enlargment, T wave inversions anterior and lateral leads Assessment: 62y F pmhx of Severe COPD on 2L home O2, CAD s/p PCI, past tobacco use; [place] [facility] [place] and discharged. Today EMS was called when patient found outside her house in resp distress, labored. On Arrival, she was tachypneic 40s, cyanotic, not moving air on ausculatation, acc muscle use+, sats 40-60s. INtubated in ER, found to be hypercapneic and acidotic with poor air entry. -Acute on Chronic Hypoxic and Hypercapneic Respiratory Failure -Acute COPD exaccerbation -MIKE -hyperkalemia -Shock liver -NSTEMI, suspect demand ischemia/hypoxia -Leukocytosis -Rhabdomyolysis Plan: Neuro- cont propofol infusion; neurochecks with sedation weaning daily. delirium prec. CVS- BP stable, HR stable. LA mildly elevated. Mild IVF hydration 75cc/hour for now, warming. Monitor urine output. BLood cultures. cont plavix/statin for CAD. Noted trop 2, trend troponins/ckmb q6h. EKG with twave inversiosn noted. repeat EKG q6h. Suspect demand ischemia. Cont ASA/plavix. Resp- on AC mode, Peak pre 30s, better TV now. Repeat ABG at 2pm. Noted acute on chr hypercapnea. suspect acute COPD exacc with poor air movement, underlying asthma component? bronchospasm? solumedrol 125x1 and then 40 q8h. Bronchodilators q2h, then change to q4h. Empiric IV abx for now. sputum cultures. influenza swab. ID- afebrile, hypothermic on arrival. WBC 21. no clear infitlrate on cxr, sputum positive after intubation. check influenza. blood and sputum cx, urine cx and analysis. Empiric cefepime/Vanco today. GI- NPO. OGT+. GI prophylaxis in setting of NPO/Steroids. Renal- MIKE noted, hypoperfusion? r/o sepsis. place mora. Start LR infusion. Clinically not dry. No clear sepsis noted. Hyperkalemia, stat Stephen Chl, bicarb x2 , recheck BMP at 3pm. Heme- hg okay, plt okay. Asa and plavix on. DVT proph chemical/mechanical. Endo- fingersticks as needed Musculsk- bedrest, pressure ulcer proph. Wounds- none Nutrition- npo DVT prophylaxis: lovenox, scds GI prophylaxis: PPI IV Central Line: right IJ 11/20 Arterial Line: no Mora Cathetor: yes Disposition: admit to ICU expected length of stay >2 midnights Code Status: full code Total Critical Care time is 90 minutes, excluding procedures/teaching Jimi Ko MD Melt Helper (Electronically Signed)
[2017-11-20 12:11] LABS: ABS Basophils 0 10^3/ul (0-0.2); ABS Eosinophils 0 10^3/ul (0-0.6); ABS Lymphocytes 1.6 10^3/ul (1.0-4.8); ABS Neutrophils 17.8 10^3/ul (1.5-7.7); ABS Nucleated RBC 0 10^3/ul; Eosinophil % 0 % (0-6); Lymphocyte % 7.3 % (25-47); Nucleated Red Blood Cells % 0
[2017-11-20] MEDS ORDERED: Aspirin TAB* 325 MG PO ONE (12:11)
[2017-11-20] MEDS ORDERED: Vancomycin(*) 1,000 MG in NS 0.9% 250 ML* 250 ML IVPB ONE (12:50)
--- NOTE | 2017-11-20 12:51 | PN ---
Progress Note - Progress Note Date of Service: 11/20/17 Note: Central Line Procedure Note Indication: poor vascular access Diagnosis: hypercapneic respiratory failure, copd exacc Consent was emergent; patient intubated, no family at bedside - Prior labs/history was reviewed prior to procedure - Full sterile precautions with chlorhexidine/full drapes/gowns/gloves utilized - Right IJ vein visualized with ultrasound - Vessel accessed under ultrasound guidance with return of nonpulsatile blood. A guidewire was passed into vessel and confirmed in vessel with ultrasound. 1 attempt was made to access vessel. Vessel was dilated and cathetor was passed over wire into vessel. All ports demonstrated good blood return and flushed. Catheter was sutured to site and dressing applied Adequate hemostasis was achieved, EBL <5 cc No immediate complications noted, patient tolerated procedure well. CXR pending for confirmation Jimi Ko MD [employer] Worker (electronically signed)
[2017-11-20] MEDS ORDERED: Calcium CHLORIDE 10% SYRINGE* 1 GM/10 ML IV STA (12:52)
--- NOTE | 2017-11-20 12:52 | ED ---
Domingo Miranda Stephanie, scribed for Yessenia Malcolm MD on 11/20/17 at 1100 . 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 Per Fire department, she was 84% on 10 L of 02 at home. She is being bagged upon arrival. Received epinephrine IM, decadron and duoneb x 2. BP was 186/129 in ambulance. Per EMS, the pt was on her floor upon arrival to her home, blue from her chest up. Pt intubated upon arrival due to apnea and unresponsiveness. Per EMS pt has hx COPD and asthma, still smokes. - History of Current Complaint Chief Complaint: EDRespiratoryDistress Stated Complaint: ABC ALERT Time Seen by Provider: 11/20/17 10:52 Hx Obtained From: EMS, Medical Records Hx From Patient Unobtainable Due To: Extremis Onset/Duration: Sudden Onset, Lasting Minutes, Still Present Timing: Constant Initial Severity: Severe Current Severity: Severe Pain Intensity: 0 Character: Dyspnea at Rest Sputum Amount: None Aggravating Factor(s): Nothing Alleviating Factor(s): Nothing Associated Signs and Symptoms: Dyspnea - Allergy/Home Medications Allergies/Adverse Reactions: Allergies Allergy/AdvReac Type Severity Reaction Status Date / Time No Known Allergies Allergy Verified 09/24/17 22:49 Home Medications: Home Medications Albuterol HFA INHALER* [Ventolin HFA Inhaler*] 1 puff INH Q4H PRN 11/20/17 [ History Confirmed 11/20/17] Albuterol/Ipratropium RESP(NF) [Combivent Respimat(NF)] 1 aer IN DAILY 11/20/17 [History Confirmed 11/20/17] Atorvastatin* [Lipitor*] 40 mg PO DAILY 11/20/17 [History Confirmed 11/20/17] Budesonide/Formote 80/4.5(NF) [Symbicort 80/4.5 (NF)] 1 puff INH BID 11/20/17 [ History Confirmed 11/20/17] Clopidogrel TAB* [Plavix TAB*] 75 mg PO DAILY 11/20/17 [History Confirmed ] Ipratropium 0.5MG/2.5ML NEB* [Atrovent 0.5 MG NEB.YESENIA*] 0.5 mg INH Q6H PRN 11/20 [History Confirmed 11/20/17] Metoprolol Tartrate TAB* [Lopressor TAB*] 50 mg PO BID 11/20/17 [History Confirmed 11/20/17] Nitroglycerin TAB 0.4 MG* 0.4 mg SL Q5M PRN 11/20/17 [History Confirmed 11/20/17 ] Tiotropium CAP.INH* [Spiriva CAP.INH*] 1 cap.inh INH DAILY 11/20/17 [History Confirmed 11/20/17] PMH/Surg Hx/FS Hx/Imm Hx Previously Healthy: No Endocrine/Hematology History: Denies: Hx Blood Disorders, Hx Blood Transfusions, Hx Bone Marrow Disease, Hx Diabetes, Hx Systemic Lupus Erythematosus, Hx Sickle Cell Disease, Hx Thyroid Disease, Hx Anemia, Hx Unexplained Bleeding, Other Endocrine/ Hematological Disorders Cardiovascular History: Reports: Hx Congestive Heart Failure, Hx Coronary Artery Disease, Hx Hypercholesterolemia, Hx Hypertension, Other Cardiovascular Problems/Disorders - 3 stents Denies: Hx Aneurysm, Hx Angina, Hx Angioplasty, Hx Auto Implanted Cardiovert Defib, Hx Cardiac Arrest, Hx Cardiomegaly, Hx Congenital Heart Disease, Hx Deep Vein Thrombosis, Hx Embolism, Hx Hypotension, Hx Pacemaker/ICD, Hx Peripheral Vascular Disease, Hx Rheumatic Fever, Hx Syncope, Hx Valvular Heart Disease Respiratory History: Reports: Hx Asthma, Hx Chronic Obstructive Pulmonary Disease (COPD) Denies: Hx Chronic Bronchitis, Hx Cystic Fibrosis, Hx Lung Cancer, Hx Pleural Effusion, Hx Pneumonia, Hx Pulmonary Edema, Hx Pulmonary Embolism, Hx Seasonal Allergies, Hx Sleep Apnea, Other Respiratory Problems/Disorders GI History: Denies: Hx Cirrhosis, Hx Crohn's Disease, Hx Diverticulosis, Hx Gall Bladder Disease, Hx Gastroesophageal Reflux Disease, Hx Gastrointestinal Bleed, Hx Hiatal Hernia, Hx Irritable Bowel, Hx Jaundice, Hx Obstructive Bowel, Hx Ileostomy, Hx Pyloric Stenosis, Hx Ulcer, Other GI Disorders Musculoskeletal History: Reports: Hx Arthritis Denies: Hx Back Problems, Hx Bursitis, Hx Congenital Bone Abnormalities, Hx Fibromyalgia, Hx Gout, Hx Orthopedic Injury, Hx Osteoporosis, Hx Scoliosis, Hx Tendonitis Sensory History: Reports: Hx Contacts or Glasses Denies: Hx Cataracts, Hx Eye Injury, Hx Eye Prosthesis, Hx Glaucoma, Hx Legally Blind, Hx Macular Degeneration, Hx Vision Problem, Hx Deafness, Hx Hearing Aid, Hx Hearing Problem, Other Sensory Impairments Opthamlomology History: Reports: Hx Contacts or Glasses Denies: Hx Cataracts, Hx Eye Injury, Hx Eye Prosthesis, Hx Glaucoma, Hx Legally Blind, Hx Macular Degeneration, Hx Vision Problem, Other Sensory Impairments Neurological History: Denies: Hx Dementia, Hx Developmental Delay, Hx Headaches, Hx Migraine, Hx Nerve Disease, Hx Seizures, Hx Spinal Cord Injury, Hx Transient Ischemic Attacks (TIA), Other Neuro Impairments/Disorders - Surgical History Surgery Procedure, Year, and Place: cardiac stents. hysterectomy. ectopic Hx Anesthesia Reactions: No Infectious Disease History: No Infectious Disease History: Denies: Hx Clostridium Difficile, Hx Hepatitis, Hx Human Immunodeficiency Virus (HIV), Hx of Known/Suspected MRSA, Hx Shingles, Hx Tuberculosis, Hx Known/ Suspected VRE, Hx Known/Suspected VRSA, History Other Infectious Disease, Traveled Outside the [place] in Last 30 Days - Family History Known Family History: Positive: Other - pos: Breast CA Negative: Renal Disease Family History: Family history is significant for breast cancer. - Social History Occupation: Disabled Lives: With Family Alcohol Use: None Hx Substance Use: No Substance Use Type: Reports: None Hx Tobacco Use: Yes Smoking Status (MU): Heavy Every Day Tobacco Smoker Type: Cigarettes Amount Used/How Often: 1 pack daily Have You Smoked in the Last Year: Yes Review of Systems - ROS Summary Review of Systems Summary: ROS limited due LEVEL 5 CAVEAT due to unresponsivenss Negative: Fever Positive: Shortness Of Breath, Other - respiratory distress Negative: Slurred Speech All Other Systems Reviewed And Are Negative: No Physical Exam - Summary Physical Exam Summary: Appearance: Ill-appearing, severe respiratory distress. Pt arrives in extremis being bagged by EMS. Pt is groaning. Pupils 1 mm and reactive. Pt is apneic. Pulses are palpable in the 80s. The pt is unresponsive Skin: Warm, color reflects adequate perfusion Head: Normal Head/Face inspection, Pupils 1 mm and reactive, atraumatic Eyes: Conjunctiva clear, PERRL ENT: Normal inspection Neck: Supple, no nodes, no JVD. Respiratory: breath sounds diminished throughout, no wheezes, BS heard only with bagging Cardio: RRR, No murmur, pulses normal, brisk capillary refill, Pulses are palpable in the 80s. Abdomen: soft, nontender Bowel sounds: present Musculoskeletal: Strength Intact/ ROM intact. No calf tenderness. No edema. Psychological: Normal Neuro: Alert, muscle tone normal, no focal deficit Triage Information Reviewed: Yes Vital Signs On Initial Exam: Initial Vitals Temp Pulse Resp BP Pulse Ox 96.6 F 95 6 186/129 0 11/20/17 10:37 11/20/17 10:37 11/20/17 10:37 11/20/17 10:37 11/20/17 10:37 Vital Signs Reviewed: Yes Procedures - Intubation Time of Intubation: 11:15 - Unresponsive and apneic. Intubation Method: orotracheal Tube Size (cm): 7.5 Medications: Succinylcholine - etomidate Breath Sounds after Intubation: equal Intubation Complications: no complications Post Intubation Xray: Yes - CXR confirms ET tube placement 2 cm above bifurcation Diagnostics - Vital Signs Vital Signs Temp Pulse Resp BP Pulse Ox 11/20/17 10:42 93 107/69 11/20/17 10:37 96.6 F 95 6 186/129 0 - Laboratory Lab Results: Lab Results 11/20/17 11/20/17 11/20/17 Range/Units 10:50 11:00 11:00 WBC (3.5-10.8) 10^3/ul RBC (4.0-5.4) 10^6/ul Hgb (12.0-16.0) g/dl Hct (35-47) % MCV (80-97) fL MCH (27-31) pg MCHC (31-36) g/dl RDW (10.5-15) % Plt Count (150-450) 10^3/ul MPV (7.4-10.4) um3 Neut % (Auto) (38-83) % Lymph % (Auto) (25-47) % [place] % (Auto) (0-7) % Eos % (Auto) (0-6) % Baso % (Auto) (0-2) % Absolute Neuts (auto) (1.5-7.7) 10^3/ul Absolute Lymphs (auto) (1.0-4.8) 10^3/ul Absolute Monos (auto) (0-0.8) 10^3/ul Absolute Eos (auto) (0-0.6) 10^3/ul Absolute Basos (auto) (0-0.2) 10^3/ul Absolute Nucleated RBC 10^3/ul Nucleated RBC % INR (Anticoag Therapy) 0.84 (0.77-1.02) APTT 24.6 L (26.0-36.3) seconds D-Dimer, Quantitative 601 H (Less Than 230) ng/mL ABG pH < 7.00 L* (7.35-7.45) ABG pCO2 141 H* (35-45) mmHg ABG pO2 443 H (80-100) mmHg ABG HCO3 23.3 (19-31) mmol/L ABG O2 Saturation 99.5 H (95-98) % ABG Base Excess -2.0 (-2.0-2.0) Carbon Monoxide Screen (<4.0) % Sodium 144 (139-145) mmol/L Potassium Pending Chloride 104 (101-111) mmol/L Carbon Dioxide 32 (22-32) mmol/L Anion Gap Pending BUN 26 H (6-24) mg/dL Creatinine 2.02 H (0.51-0.95) mg/dL Est GFR ( Amer) 32.1 (>60) Est GFR (Non-Af Amer) 25.0 (>60) BUN/Creatinine Ratio 12.9 (8-20) Glucose 153 H (70-100) mg/dL Lactic Acid (0.5-2.0) mmol/L Calcium 8.9 (8.6-10.3) mg/dL Magnesium 2.9 H (1.9-2.7) mg/dL Total Bilirubin 0.30 (0.2-1.0) mg/dL AST 223 H (13-39) U/L ALT 273 H (7-52) U/L Alkaline Phosphatase 75 (34-104) U/L Ammonia (16-53) mcmol/L Total Creatine Kinase 981 H (10-223) U/L CK-MB (CK-2) 59.6 H (0.6-6.3) ng/mL Troponin I 2.62 H* (<0.04) ng/mL C-Reactive Protein 6.52 H (< 5.00) mg/L B-Natriuretic Peptide ( - 100) pg/mL Total Protein 6.9 (6.4-8.9) g/dL Albumin 4.3 (3.2-5.2) g/dL Globulin 2.6 (2-4) g/dL Albumin/Globulin Ratio 1.7 (1-3) Lipase 20 (11.0-82.0) U/L TSH 1.87 (0.34-5.60) mcIU/mL Acetaminophen < 15 mcg/mL Serum Alcohol < 10 (<10) mg/dL 11/20/17 11/20/17 11/20/17 Range/Units 11:00 11:00 11:00 WBC 21.4 H (3.5-10.8) 10^3/ul RBC 4.02 (4.0-5.4) 10^6/ul Hgb 13.1 (12.0-16.0) g/dl Hct 41 (35-47) % MCV 102 H (80-97) fL MCH 33 H (27-31) pg MCHC 32 (31-36) g/dl RDW 14 (10.5-15) % Plt Count 255 (150-450) 10^3/ul MPV 7.6 (7.4-10.4) um3 Neut % (Auto) 83.3 H (38-83) % Lymph % (Auto) 7.3 L (25-47) % [place] % (Auto) 9.2 H (0-7) % Eos % (Auto) 0 (0-6) % Baso % (Auto) 0.2 (0-2) % Absolute Neuts (auto) 17.8 H (1.5-7.7) 10^3/ul Absolute Lymphs (auto) 1.6 (1.0-4.8) 10^3/ul Absolute Monos (auto) 2.0 H (0-0.8) 10^3/ul Absolute Eos (auto) 0 (0-0.6) 10^3/ul Absolute Basos (auto) 0 (0-0.2) 10^3/ul Absolute Nucleated RBC 0 10^3/ul Nucleated RBC % 0 INR (Anticoag Therapy) (0.77-1.02) APTT (26.0-36.3) seconds D-Dimer, Quantitative (Less Than 230) ng/mL ABG pH (7.35-7.45) ABG pCO2 (35-45) mmHg ABG pO2 (80-100) mmHg ABG HCO3 (19-31) mmol/L ABG O2 Saturation (95-98) % ABG Base Excess (-2.0-2.0) Carbon Monoxide Screen (<4.0) % Sodium (139-145) mmol/L Potassium Chloride (101-111) mmol/L Carbon Dioxide (22-32) mmol/L Anion Gap BUN (6-24) mg/dL Creatinine (0.51-0.95) mg/dL Est GFR ( Amer) (>60) Est GFR (Non-Af Amer) (>60) BUN/Creatinine Ratio (8-20) Glucose (70-100) mg/dL Lactic Acid 2.5 H* (0.5-2.0) mmol/L Calcium (8.6-10.3) mg/dL Magnesium (1.9-2.7) mg/dL Total Bilirubin (0.2-1.0) mg/dL AST (13-39) U/L ALT (7-52) U/L Alkaline Phosphatase (34-104) U/L Ammonia 72 H (16-53) mcmol/L Total Creatine Kinase (10-223) U/L CK-MB (CK-2) (0.6-6.3) ng/mL Troponin I (<0.04) ng/mL C-Reactive Protein (< 5.00) mg/L B-Natriuretic Peptide 504 H ( - 100) pg/mL Total Protein (6.4-8.9) g/dL Albumin (3.2-5.2) g/dL Globulin (2-4) g/dL Albumin/Globulin Ratio (1-3) Lipase (11.0-82.0) U/L TSH (0.34-5.60) mcIU/mL Acetaminophen mcg/mL Serum Alcohol (<10) mg/dL 11/20/17 Range/Units 11:00 WBC (3.5-10.8) 10^3/ul RBC (4.0-5.4) 10^6/ul Hgb (12.0-16.0) g/dl Hct (35-47) % MCV (80-97) fL MCH (27-31) pg MCHC (31-36) g/dl RDW (10.5-15) % Plt Count (150-450) 10^3/ul MPV (7.4-10.4) um3 Neut % (Auto) (38-83) % Lymph % (Auto) (25-47) % [place] % (Auto) (0-7) % Eos % (Auto) (0-6) % Baso % (Auto) (0-2) % Absolute Neuts (auto) (1.5-7.7) 10^3/ul Absolute Lymphs (auto) (1.0-4.8) 10^3/ul Absolute Monos (auto) (0-0.8) 10^3/ul Absolute Eos (auto) (0-0.6) 10^3/ul Absolute Basos (auto) (0-0.2) 10^3/ul Absolute Nucleated RBC 10^3/ul Nucleated RBC % INR (Anticoag Therapy) (0.77-1.02) APTT (26.0-36.3) seconds D-Dimer, Quantitative (Less Than 230) ng/mL ABG pH (7.35-7.45) ABG pCO2 (35-45) mmHg ABG pO2 (80-100) mmHg ABG HCO3 (19-31) mmol/L ABG O2 Saturation (95-98) % ABG Base Excess (-2.0-2.0) Carbon Monoxide Screen 4.3 H (<4.0) % Sodium (139-145) mmol/L Potassium Chloride (101-111) mmol/L Carbon Dioxide (22-32) mmol/L Anion Gap BUN (6-24) mg/dL Creatinine (0.51-0.95) mg/dL Est GFR ( Amer) (>60) Est GFR (Non-Af Amer) (>60) BUN/Creatinine Ratio (8-20) Glucose (70-100) mg/dL Lactic Acid (0.5-2.0) mmol/L Calcium (8.6-10.3) mg/dL Magnesium (1.9-2.7) mg/dL Total Bilirubin (0.2-1.0) mg/dL AST (13-39) U/L ALT (7-52) U/L Alkaline Phosphatase (34-104) U/L Ammonia (16-53) mcmol/L Total Creatine Kinase (10-223) U/L CK-MB (CK-2) (0.6-6.3) ng/mL Troponin I (<0.04) ng/mL C-Reactive Protein (< 5.00) mg/L B-Natriuretic Peptide ( - 100) pg/mL Total Protein (6.4-8.9) g/dL Albumin (3.2-5.2) g/dL Globulin (2-4) g/dL Albumin/Globulin Ratio (1-3) Lipase (11.0-82.0) U/L TSH (0.34-5.60) mcIU/mL Acetaminophen mcg/mL Serum Alcohol (<10) mg/dL Result Diagrams: 11/20/17 11:00 11/20/17 11:00 Lab Statement: Any lab studies that have been ordered have been reviewed, and results considered in the medical decision making process. - Radiology CXR Xray Interpretation: No Acute Changes Radiology Interpretation Completed By: Radiologist - NO ACTIVE CARDIOPULMONARY DISEASE IS NOTED. ED physician has reviewed this report. - EKG 10:48 Cardiac Rate: NL EKG Rhythm: Sinus Rhythm - [address] Segment: Non-Specific Ectopy: None EKG Interpretation: nml AVIVCT, nml QTc, and nml axis EKG Comparison: No Significant Change - compared with 09/24/17 Re-Evaluation - Re-Evaluation First Eval Re-Evaluation Time: 10:45 - Pt on ventilator, VS stable, CXR confirms ET tube, Dr Ko at bedside. Change: Improved Disposition - Course Course Of Treatment: Pt intubated upon arrival due to apnea. Given 20 mg of etomidate and 100 mg succinylcholine. 7.5 ET tube was placed. Rests at 24 cm at the lip. ET tube was visualized passing through the cords and confirmed equal breath sounds bilaterally. Capnographer turned yellow. CXR confirms ET tube placement [address] Ko at the bedside immediately on arrival and assumes care of the pt. - Differential Dx - Cardiopulmonary Differential Diagnoses - Cardiopulmonary: Acute Dyspnea, Asthma, CHF, Exacerbation Of COPD - Diagnoses Provider Diagnoses: COPD with respiratory failure, acute, Hyperkalemia, Hyperammonemia, Acidosis, metabolic, with respiratory acidosis During the Visit The Following Alert/Code Occurred: ABC Alert Is Visit Related: No - Physician Notifications Discussed Care Of Patient With: Jimi Ko Time Discussed With Above Provider: 11:15 Instructed by Provider To: Admit As Inpatient - Critical Care Time Critical Care Time: 30-74 min - 30 min Discharge - Sign-Out/Discharge Documenting (check all that apply): Discharge - Discharge Plan Condition: Critical Disposition: ADMITTED TO [facility] - Billing Disposition and Condition Condition: CRITICAL Disposition: [facility] [place] The documentation as recorded by the Domingo peters Stephanie accurately reflects the service I personally performed and the decisions made by , Yessenia Malcolm MD.
[2017-11-20] MEDS: Albuterol 2.5 MG/3 ML NEB.SOL* (0.083%) INH SCH ×6 (12:54→22:30)
[2017-11-20] MEDS ORDERED: Sodium Bicarbonate 8.4% IV* 50 MEQ in NS 0.9% 1000 ML* 1,000 ML IV SCH ×4 (13:00)
[2017-11-20] MEDS ORDERED: Cefepime(*) 1 GM in NS 0.9% 50 ML* 50 ML IVPB SCH ×4 (13:00)
[2017-11-20] MEDS ORDERED: Dextrose 50% Syringe 50 ML* 25 GM/50 ML SYRINGE IV PUSH STA (13:06)
[2017-11-20] MEDS ORDERED: Insulin REGULAR(*) 1 UNITS UNIT IV PUSH STA (13:06)
[2017-11-20] MEDS ORDERED: Cefepime(*) 1 GM in D5W 50 ML BAG* 50 ML IVPB SCH (13:11)
[2017-11-20 13:16] LABS: Urine Appearance Cloudy; Urine Blood 3+ (Negative); Urine Color Yellow; Urine Ketones Negative (Negative); Urine Protein 2+(100 mg/dL) (Negative); Urine Specific Gravity 1.013 (1.010-1.030); Urine Urobilinogen Negative (Negative)
--- NOTE | 2017-11-20 13:18 | RAD ---
Indication: Central line placement. Single frontal view of the chest performed at 1304 hours was reviewed. Comparison is made with previous exam dated November 20, 2017 earlier the same day. ET tube is at the level of T3. Nasogastric tube is in place. Lung castillo appear hyperinflated. Central line is in place with the tip in the superior vena cava. No pneumothorax is noted of the right lung. IMPRESSION: 2 THERE ARE MILD APPEAR APPROPRIATE POSITION WITH CENTRAL LINE IN THE SUPERIOR VENA CAVA. NO PNEUMOTHORAX IS IDENTIFIED.
[2017-11-20] MEDS: Pantoprazole IV* 40 MG IV SCH (13:40)
[2017-11-20] MEDS ORDERED: Sodium Bicarbonate 8.4%* 50 ML SYRINGE IV ONE ×2 (14:00)
[2017-11-20] MEDS ORDERED: CALCIUM CHLORIDE IVPB ONE (14:00)
[2017-11-20] MEDS ORDERED: NS 0.9% IVPB ONE (14:00)
[2017-11-20 15:34] LABS: EGFR Non-African American 38.1 (>60)
[2017-11-20] MEDS ORDERED: NS 0.45% 1000 ML BAG* 1,000 ML IV SCH (17:00)
[2017-11-20] MEDS: D5W 1000 ML BAG* 1,000 ML IV SCH (17:02)
[2017-11-20] MEDS ORDERED: Enoxaparin(*) 30 MG/0.3 ML SYR SUBCUT SCH (20:00)
[2017-11-20] MEDS: Metoprolol Tartrate TAB* 50 mg PO SCH (21:10)
[2017-11-21] MEDS ORDERED: methylPREDNISolone SOD 40 MG* 1 ML VIAL IV SCH
[2017-11-21] MEDS: Albuterol 2.5 MG/3 ML NEB.SOL* (0.083%) INH SCH ×8 (00:37→15:18)
[2017-11-21] MEDS: D5W 1000 ML BAG* 1,000 ML IV SCH ×2 (04:53→15:35)
[2017-11-21 05:38] LABS: Hematocrit 35 % (35-47); Hemoglobin 11.4 g/dl (12.0-16.0); Mean Corpuscular HGB Conc 33 g/dl (31-36); Mean Corpuscular Hemoglobin 33 pg (27-31); Mean Corpuscular Volume 99 fL (80-97); Mean Platelet Volume 7.7 um3 (7.4-10.4); Platelet Count 173 10^3/ul (150-450); Red Blood Count 3.48 10^6/ul (4.0-5.4); Red Cell Distribution Width 14 % (10.5-15); White Blood Count 14.6 10^3/ul (3.5-10.8)
[2017-11-21 06:00] LABS: INR 1.01 (0.77-1.02)
[2017-11-21] MEDS: Atorvastatin* 40 MG TAB PO SCH (08:15)
[2017-11-21] MEDS: Clopidogrel TAB* 75 MG PO SCH (08:15)
[2017-11-21] MEDS: Aspirin 81 mg CHEW TAB* 81 MG TAB.CHEW PO SCH (08:15)
[2017-11-21] MEDS: Pantoprazole IV* 40 MG IV SCH (08:15)
[2017-11-21] MEDS: Metoprolol Tartrate TAB* 50 mg PO SCH ×2 (08:15→20:06)
--- NOTE | 2017-11-21 08:15 | RAD ---
INDICATION: Respiratory failure, COPD exacerbation. COMPARISON: Comparison is made with a prior study from November 20, 2017. TECHNIQUE: A portable view of the chest was obtained. FINDINGS: The patient is status post intubation and nasogastric tube placement. The catheters appear unchanged. There is also a central venous catheter entering from the right jugular approach. The catheter tip projects over the superior vena cava. The heart is within normal limits in size. The lungs are hyperinflated and clear. No pleural effusion is seen. IMPRESSION: HYPERINFLATION, THE LUNGS REMAIN CLEAR WITHOUT EVIDENCE FOR INFILTRATE OR PLEURAL EFFUSION.
[2017-11-21] MEDS: Propofol* 100 ML IV SCH ×2 (08:41→15:56)
[2017-11-21] MEDS ORDERED: Spiriva Inhaler DEVICE* 1 EACH DEVICE INH ONE (09:00)
[2017-11-21] MEDS: Tiotropium CAP.INH* CAP.INH/18 MCG (USE ORDER SET !) INH SCH (09:06)
[2017-11-21] MEDS ORDERED: Morphine VIAL* 4 MG/ML VIAL (1 ml vial) IV ONE ×2 (09:38→09:45)
[2017-11-21] MEDS ORDERED: Enoxaparin(*) 30 MG/0.3 ML SYR SUBCUT SCH (10:33)
[2017-11-21] MEDS: Cefepime(*) 1 GM in D5W 50 ML BAG* 50 ML IVPB SCH ×2 (11:37→22:36)
--- NOTE | 2017-11-21 14:10 | PN ---
Date of Service: 11/21/17 Critical Care Services: Patient admitted lasty night with acute, hypercapnic respiratpory failure requiring intubation and mechanical ventilation. patient remains on ventilator today. She is alert and oriented when off propofol. There is currently no evidence for an active infection. troponins intitally increased, then declined. Vital Signs: Temp Pulse Resp BP SpO2 FiO2 99.5 F 96 20 84/61 100 30 Physical Exam: Gen: When sedation (propofol) is stopped, patient is awake and responds appropriately to commands HEENT: Is no longer biting down on the ET tube. Lungs: No adventitious sounds. Cardiac: Reg rhythm Extremities:No cyanosis or edema. Fluid Balance (Past 24 Hours): 11/21/17 11/22/17 06:59 06:59 Intake Total 3508 Output Total 2075 1025 Balance 1433 -1025 Weight 128 lb Intake: IV Fluids 3206 D5W 1068 LR 790 NS (0.45%) 910 NS (0.9%) 438 IVPB 55 ABX - CEFEPIME 55 Medicated IV 247 CC - Propofol/Diprivan 137 Calcium Chloride 110 Output: Izquierdo 2075 1025 Labs: 0 11/20/17 11/20/17 11/20/17 14:25 15:00 15:00 ABG pH 7.30 ABG pCO2 75 ABG pO2 162 ABG HCO3 31.2 H ABG O2 Saturation 99.6 H ABG Base Excess 8.0 H Respiration Rate 20 O2 Delivery Device Vent Ventilator Type 450 Vent Mode apv/cmv FiO2 40 Inspiratory Time 0.8 PEEP 8 Sodium 149 Potassium 4.4 Chloride 108 Carbon Dioxide 34 H BUN 26 Creatinine 1.40 Glucose 218 POC Glucose (mg/dL) Lactic Acid 3.5 Calcium 11.0 H 0 11/20/17 11/20/17 11/20/17 15:35 18:00 21:00 Lactic Acid 1.5 CK-MB (CK-2) 56.1 H Troponin I 2.63 Influenza A (Rapid) Negative Influenza B (Rapid) Negative 0 11/21/17 11/21/17 11/21/17 05:09 05:25 05:25 WBC 14.6 H Hgb 11.4 L Hct 35 MCV 99 H Plt Count 173 Sodium 139 Potassium 4.5 Chloride 101 Carbon Dioxide 34 H Anion Gap 4 BUN 17 Creatinine 0.87 Glucose 190 POC Glucose (mg/dL) 181 H Calcium 9.2 Total Bilirubin 0.20 Direct Bilirubin 0.10 Indirect Bilirubin 0.1 L AST 118 H ALT 221 H Alkaline Phosphatase 57 Total Creatine Kinase 783 H Troponin I Total Protein 5.8 L Albumin 3.6 0 11/21/17 11/21/17 11/21/17 05:25 05:25 09:33 INR (Anticoag Therapy) 1.01 Lactic Acid 1.3 Troponin I 1.12 H Studies: CXR: No infiltrates. Nutrition: None Impression: Exacerbation of COPD requiring mechanical ventilation. No evidence fot infection or cardiac etiology. Plan: Will continue empiric antibiotics pending culture results. Will also begin weaning from ventilator when feasible. Patient's son and granddaughter at the bedside and are aware of current situation and management plan. Critical Care Time: 40 minutes
[2017-11-21] MEDS: Albuterol 2.5 MG/3 ML NEB.SOL* (0.083%) INH PRN (16:40)
[2017-11-21] MEDS: Albuterol/Ipratropium NEB.SOL* Albuterol 2.5 MG/Ipratropium 0.5 MG 3 ML INH SCH ×2 (16:40→19:49)
[2017-11-21] MEDS: Chlorhexidine MOUTHWASH 0.12%* 15 ML UDC TOPICAL SCH ×2 (17:00→20:06)
[2017-11-21] MEDS ORDERED: Magnesium Sulfate 2 GM IV IVPB ONE (18:00)
[2017-11-21] MEDS: Enoxaparin(*) 40 MG/0.4 ML SYR SUBCUT SCH (20:06)
[2017-11-22] MEDS: Propofol* 100 ML IV SCH ×2 (00:12→07:15)
[2017-11-22] MEDS: Chlorhexidine MOUTHWASH 0.12%* 15 ML UDC TOPICAL SCH ×4 (00:16→14:00)
[2017-11-22] MEDS: Albuterol/Ipratropium NEB.SOL* Albuterol 2.5 MG/Ipratropium 0.5 MG 3 ML INH SCH ×7 (00:17→23:23)
[2017-11-22] MEDS ORDERED: Acetaminophen ADULT LIQ* 650 MG/20.3 ML UDC G TUBE PRN (00:50)
[2017-11-22] MEDS: D5W 1000 ML BAG* 1,000 ML IV SCH ×2 (01:27→12:20)
[2017-11-22] MEDS: Morphine VIAL* 4 MG/ML VIAL (1 ml vial) IV PRN ×5 (04:58→23:14)
[2017-11-22 06:49] LABS: Hematocrit 31 % (35-47); Hemoglobin 10.3 g/dl (12.0-16.0); Mean Corpuscular HGB Conc 34 g/dl (31-36); Mean Corpuscular Hemoglobin 34 pg (27-31); Mean Corpuscular Volume 99 fL (80-97); Mean Platelet Volume 7.7 um3 (7.4-10.4); Platelet Count 160 10^3/ul (150-450); Red Blood Count 3.09 10^6/ul (4.0-5.4); Red Cell Distribution Width 14 % (10.5-15); White Blood Count 10.8 10^3/ul (3.5-10.8)
[2017-11-22 07:07] LABS: EGFR Non-African American 83.4 (>60)
[2017-11-22] MEDS: Pantoprazole IV* 40 MG IV SCH (09:11)
[2017-11-22] MEDS: Metoprolol Tartrate TAB* 50 mg PO SCH (09:11)
[2017-11-22] MEDS: Clopidogrel TAB* 75 MG PO SCH (09:11)
[2017-11-22] MEDS: Atorvastatin* 40 MG TAB PO SCH (09:11)
[2017-11-22] MEDS: Aspirin 81 mg CHEW TAB* 81 MG TAB.CHEW PO SCH (09:11)
[2017-11-22] MEDS: methylPREDNISolone SOD 40 MG* 1 ML VIAL IV SCH (09:45)
[2017-11-22] MEDS: Cefepime(*) 1 GM in D5W 50 ML BAG* 50 ML IVPB SCH (10:54)
[2017-11-22] MEDS: Albuterol 2.5 MG/3 ML NEB.SOL* (0.083%) INH PRN (12:23)
[2017-11-22] MEDS: Tiotropium CAP.INH* CAP.INH/18 MCG (USE ORDER SET !) INH SCH (12:24)
--- NOTE | 2017-11-22 14:30 | PN ---
Date of Service: 11/22/17 Critical Care Services: Weaned and extubated earlier today - has had some increasing wheezing, SOB, but overall is tolerating spontaneous breathing. Vital Signs: Temp Pulse Resp BP SpO2 FiO2 99.3 F 108 21 113/96 93 30 Physical Exam: Gen:Alert, oriented Lungs:Diffuse inspiratory wheezing. No crackles Cardiac: Reg rhythm Extremities: No cyanosis or edema Fluid Balance (Past 24 Hours): 11/22/17 06:59 Intake Total 3636 Output Total 2375 Balance +1261 Weight 127 lb Intake: IV Fluids 2991 D5W 2138 LR NS (0.45%) 643 NS (0.9%) 210 IVPB 121 ABX - CEFEPIME 121 Medicated IV 324 CC - Propofol/Diprivan 269 Calcium Chloride GEN - Magnesium 55 Oral 0 NG Tube Irrigate Amount 200 Output: Izquierdo 2375 Labs: 11/21/17 11/22/17 11/22/17 20:40 00:26 06:30 Sodium 142 Potassium 3.6 Chloride 103 Carbon Dioxide 35 Anion Gap 4 BUN 12 Creatinine 0.71 Glucose 115 POC Glucose (mg/dL) 112 H Calcium 8.5 L Magnesium 2.5 Total Bilirubin 0.20 Direct Bilirubin 0.10 Indirect Bilirubin 0.1 L AST 63 ALT 168 Alkaline Phosphatase 56 Total Creatine Kinase 430 H Troponin I 0.75 H* Total Protein 5.2 L Albumin 3.2 Globulin 2.0 Albumin/Globulin Ratio 1.6 11/22/17 11/22/17 06:30 12:51 WBC 10.8 Hgb 10.3 Hct 31 MCV 99 Plt Count 160 POC Glucose (mg/dL) 123 H Studies: Blood cultures negative. Sputum culture: 1+yeast Nutrition: Oral diet (started with lunch) Impression: Doing reasonably well after extubation, but continues with episodes of wheezing (bronchospasm). No evidence of active bacterial infection. Elevated troponins most likely from "demand-type" ischemia (rather than coronary artery occlusion). Plan: D/c parenteral antibiotics. Start PO antibiotic coverage as empiric rx for COPD exacerbation. Continue nebulized bronchodilators (not MDIs) and steroids. Patient is aware of her current situation and our plan of care. Critical Care Time: 35 min
[2017-11-22] MEDS ORDERED: Morphine VIAL* 4 MG/ML VIAL (1 ml vial) IV ONE (16:32)
[2017-11-22] MEDS: Enoxaparin(*) 40 MG/0.4 ML SYR SUBCUT SCH (20:15)
[2017-11-22] MEDS ORDERED: Levofloxacin TAB* 500 MG PO SCH (22:00)
[2017-11-23] MEDS: Albuterol/Ipratropium NEB.SOL* Albuterol 2.5 MG/Ipratropium 0.5 MG 3 ML INH SCH ×5 (03:11→20:21)
[2017-11-23 06:09] LABS: Hematocrit 31 % (35-47); Hemoglobin 10.3 g/dl (12.0-16.0); Mean Corpuscular HGB Conc 33 g/dl (31-36); Mean Corpuscular Hemoglobin 33 pg (27-31); Mean Corpuscular Volume 99 fL (80-97); Mean Platelet Volume 7.4 um3 (7.4-10.4); Platelet Count 151 10^3/ul (150-450); Red Blood Count 3.14 10^6/ul (4.0-5.4); Red Cell Distribution Width 13 % (10.5-15); White Blood Count 9.1 10^3/ul (3.5-10.8)
[2017-11-23 06:25] LABS: EGFR Non-African American 99.4 (>60)
[2017-11-23] MEDS: Tiotropium CAP.INH* CAP.INH/18 MCG (USE ORDER SET !) INH SCH (07:35)
[2017-11-23] MEDS: Aspirin 81 mg CHEW TAB* 81 MG TAB.CHEW PO SCH (08:20)
[2017-11-23] MEDS: Clopidogrel TAB* 75 MG PO SCH (08:20)
[2017-11-23] MEDS: Atorvastatin* 40 MG TAB PO SCH (08:20)
[2017-11-23] MEDS: methylPREDNISolone SOD 40 MG* 1 ML VIAL IV SCH (08:21)
--- NOTE | 2017-11-23 18:58 | PN ---
Progress Note - Progress Note Date of Service: 11/23/17 Note: CRITICAL CARE PROGRESS NOTE: Was on BiPAP overnight, but has done well today. Vital Signs: checked (patient is afebrile) PHYSICAL EXAM: Alert, oriented. Up in chair and breathing comfortably Lungs: Expiratory wheezes throughout. No crackles Extr: No cyanosis or edema. LABS:Checked (No leukocytosis or electrolyte abnormalities). All cultures negative except sputum, which is growing Calli albicans (represents colonization) IMPRESSION: Clinically improved today.No evidence for a treatable infection. PLAN: Continue regimen of bronchodilators and steroids. D/C antibiotics.
[2017-11-23] MEDS: Enoxaparin(*) 40 MG/0.4 ML SYR SUBCUT SCH (20:43)
[2017-11-24] MEDS: Albuterol/Ipratropium NEB.SOL* Albuterol 2.5 MG/Ipratropium 0.5 MG 3 ML INH SCH ×7 (01:32→23:52)
[2017-11-24] MEDS: Albuterol 2.5 MG/3 ML NEB.SOL* (0.083%) INH PRN (01:32)
[2017-11-24 08:25] LABS: Hematocrit 30 % (35-47); Hemoglobin 10.4 g/dl (12.0-16.0); Mean Corpuscular HGB Conc 35 g/dl (31-36); Mean Corpuscular Hemoglobin 34 pg (27-31); Mean Corpuscular Volume 98 fL (80-97); Mean Platelet Volume 7.5 um3 (7.4-10.4); Platelet Count 165 10^3/ul (150-450); Red Blood Count 3.07 10^6/ul (4.0-5.4); Red Cell Distribution Width 13 % (10.5-15); White Blood Count 6.8 10^3/ul (3.5-10.8)
[2017-11-24 08:48] LABS: EGFR Non-African American 86.2 (>60)
[2017-11-24] MEDS: Clopidogrel TAB* 75 MG PO SCH (10:06)
[2017-11-24] MEDS: Aspirin 81 mg CHEW TAB* 81 MG TAB.CHEW PO SCH (10:07)
[2017-11-24] MEDS: Atorvastatin* 40 MG TAB PO SCH (10:07)
[2017-11-24] MEDS: methylPREDNISolone SOD 40 MG* 1 ML VIAL IV SCH (10:18)
[2017-11-24] MEDS: Tiotropium CAP.INH* CAP.INH/18 MCG (USE ORDER SET !) INH SCH (16:05)
--- NOTE | 2017-11-24 16:52 | PN ---
Progress Note - Progress Note Date of Service: 11/24/17 Note: Patient continues to do well. Has been up in a chair all day! Continues to have a nagging cough. VITAL SIGNS: Checked. (Patient is afebrile) PHYSICAL EXAM: Patient is alert, oriented and in no distress. Lungs: expiratory wheezing in both lungs Extremities> No cyanosis or edema LABS: K=3.3 WBC normal. IMPRESSION: continues to improve PLAN: Continue current management. Replace potassium.
[2017-11-24] MEDS: Potassium Chlor TAB* 20 MEQ TAB.ER PO SCH ×2 (18:07→21:46)
[2017-11-24] MEDS: Enoxaparin(*) 40 MG/0.4 ML SYR SUBCUT SCH (21:47)
[2017-11-25] MEDS: Albuterol/Ipratropium NEB.SOL* Albuterol 2.5 MG/Ipratropium 0.5 MG 3 ML INH SCH ×6 (03:42→23:04)
[2017-11-25 06:10] LABS: Hematocrit 31 % (35-47); Hemoglobin 10.5 g/dl (12.0-16.0); Mean Corpuscular HGB Conc 34 g/dl (31-36); Mean Corpuscular Hemoglobin 33 pg (27-31); Mean Corpuscular Volume 98 fL (80-97); Mean Platelet Volume 7.5 um3 (7.4-10.4); Platelet Count 174 10^3/ul (150-450); Red Blood Count 3.16 10^6/ul (4.0-5.4); Red Cell Distribution Width 13 % (10.5-15)
[2017-11-25 06:27] LABS: EGFR Non-African American 107.5 (>60)
[2017-11-25] MEDS ORDERED: Spiriva Inhaler DEVICE* 1 EACH DEVICE INH ONE (09:00)
[2017-11-25] MEDS: Atorvastatin* 40 MG TAB PO SCH (09:17)
[2017-11-25] MEDS: Clopidogrel TAB* 75 MG PO SCH (09:18)
[2017-11-25] MEDS: Aspirin 81 mg CHEW TAB* 81 MG TAB.CHEW PO SCH (09:18)
[2017-11-25] MEDS: predniSONE TAB* 20 MG PO SCH (09:18)
[2017-11-25] MEDS: Tiotropium CAP.INH* CAP.INH/18 MCG (USE ORDER SET !) INH SCH (09:54)
--- NOTE | 2017-11-25 15:30 | PN ---
Progress Note - Progress Note Date of Service: 11/25/17 Note: Critical Care Progress Note: Patient continues to do well, and has been up in a chair all day. VITAL SIGNS: Checked. (Patient remains afebrile) PHYSICAL EXAM: GEN: Patient is alert, oriented, and in no distress. LUNGS: Expiratory wheezing in both lungs EXTREMITIES: No cyanosis or edema LABS: K up to 4.0 IMPRESSION: Continued improvement PLAN: Continue present management plan.
[2017-11-25] MEDS: Enoxaparin(*) 40 MG/0.4 ML SYR SUBCUT SCH (21:01)
[2017-11-26] MEDS: Albuterol/Ipratropium NEB.SOL* Albuterol 2.5 MG/Ipratropium 0.5 MG 3 ML INH SCH ×4 (02:57→19:38)
[2017-11-26] MEDS: Tiotropium CAP.INH* CAP.INH/18 MCG (USE ORDER SET !) INH SCH (07:23)
[2017-11-26] MEDS: Clopidogrel TAB* 75 MG PO SCH (09:19)
[2017-11-26] MEDS: Atorvastatin* 40 MG TAB PO SCH (09:19)
[2017-11-26] MEDS: predniSONE TAB* 20 MG PO SCH (09:19)
[2017-11-26] MEDS: Aspirin 81 mg CHEW TAB* 81 MG TAB.CHEW PO SCH (09:20)
--- NOTE | 2017-11-26 15:29 | PN ---
Progress Note - Progress Note Date of Service: 11/26/17 Note: Patient continues to do well. Is walking throughout ICU (with O2). Cough much improved. VS: Checked PE: LUNGS: End-expiratory wheezing in both lungs, but much improved from 2 days ago. LABS: None today IMPRESSION: Continues to improve. PLAN: Reduce prednisone to 40 mg daily Continue aggressive bronchodilator Rx.
[2017-11-26] MEDS: Enoxaparin(*) 40 MG/0.4 ML SYR SUBCUT SCH (20:58)
[2017-11-27] MEDS: Albuterol/Ipratropium NEB.SOL* Albuterol 2.5 MG/Ipratropium 0.5 MG 3 ML INH SCH ×2 (01:09→06:56)
[2017-11-27] MEDS: Tiotropium CAP.INH* CAP.INH/18 MCG (USE ORDER SET !) INH SCH ×2 (06:56→08:54)
[2017-11-27] MEDS: Atorvastatin* 40 MG TAB PO SCH (08:51)
[2017-11-27] MEDS: predniSONE TAB* 20 MG PO SCH (08:52)
[2017-11-27] MEDS: Aspirin 81 mg CHEW TAB* 81 MG TAB.CHEW PO SCH (08:52)
[2017-11-27] MEDS: Clopidogrel TAB* 75 MG PO SCH (08:54)
[2017-11-27 14:07] VITALS: BP 131/96
== END 2017-11-27 13:00 | disposition home or self-care (01) | DRG 140 ==
LOC: ED 10:30 → ICU 11:16
PROVIDERS: ADMIT Internal Medicine Critical Care Medicine; ATTEND Internal Medicine Critical Care Medicine
PROC: 0BH17EZ Insertion of Endotracheal Airway into Trachea, Via Natural or Artificial Opening (ICD-10-PCS; principal; 2017-11-20)
PROC: 5A1945Z Respiratory Ventilation, 24-96 Consecutive Hours (ICD-10-PCS; 2017-11-20)
PROC: 5A09457 Assistance with Respiratory Ventilation, 24-96 Consecutive Hours, Continuous Positive Airway Pressure (ICD-10-PCS; 2017-11-22)
DX: J44.1 Chronic obstructive pulmonary disease with (acute) exacerbation (principal); J96.21 Acute and chronic respiratory failure with hypoxia; J96.22 Acute and chronic respiratory failure with hypercapnia; K72.00 Acute and subacute hepatic failure without coma; I21.A1 Myocardial infarction type 2; N17.9 Acute kidney failure, unspecified; M62.82 Rhabdomyolysis; E87.4 Mixed disorder of acid-base balance; I25.10 Atherosclerotic heart disease of native coronary artery without angina pectoris; Z95.5 Presence of coronary angioplasty implant and graft; E78.5 Hyperlipidemia, unspecified; E87.5 Hyperkalemia; F17.210 Nicotine dependence, cigarettes, uncomplicated; I11.0 Hypertensive heart disease with heart failure; I50.9 Heart failure, unspecified; E78.00 Pure hypercholesterolemia, unspecified; M19.019 Primary osteoarthritis, unspecified shoulder; Z90.710 Acquired absence of both cervix and uterus; Z99.81 Dependence on supplemental oxygen
CPT/HCPCS: 36415; 36600; 71045; 80048; 80053; 80076; 80320; 80329; 81003; 81015; 82140; 82375; 82550; 82553; 82803; 82947; 83605; 83690; 83735; 83880; 84443; 84484; 85025; 85027; 85379; 85610; 85730; 86140; 87040; 87070; 87077; 87086; 87106; 87205; 87502; 87641; 93005; 94003; 94640; 94660; 94760; 99285; A9270-GY; G0480; J0330; J0692; J1650; J2270; J2704; J2920; J2930; J3370; J3475; J7512

== ENCOUNTER 2017-12-02 21:35 | Inpatient (IN) | payer BC ==
[2017-12-02] MEDS ORDERED: Albuterol/Ipratropium NEB.SOL* Albuterol 2.5 MG/Ipratropium 0.5 MG 3 ML INH ONE (21:36)
[2017-12-02] MEDS ORDERED: Magnesium Sulfate 2 GM IV* 2 GM/50 ML BAG IVPB ONE (21:39)
[2017-12-02] MEDS ORDERED: Morphine VIAL* 4 MG/ML VIAL (1 ml vial) IV ONE ×2 (21:42→21:44)
[2017-12-02] MEDS ORDERED: Ondansetron INJ* 2 MG/ML VIAL IV ONE (21:43)
[2017-12-02] MEDS ORDERED: Albuterol 2.5 MG/3 ML NEB.SOL* (0.083%) ONE (21:44)
[2017-12-02] MEDS: Albuterol 2.5 MG/3 ML NEB.SOL* (0.083%) INH SCH ×3 (22:01→22:30)
[2017-12-02 22:06] LABS: ABS Basophils 0 10^3/ul (0-0.2); ABS Eosinophils 0 10^3/ul (0-0.6); ABS Lymphocytes 3.1 10^3/ul (1.0-4.8); ABS Monocytes 0.9 10^3/ul (0-0.8); ABS Neutrophils 12.2 10^3/ul (1.5-7.7); ABS Nucleated RBC 0 10^3/ul; Eosinophil % 0.2 % (0-6); Hematocrit 40 % (35-47); Lymphocyte % 19.1 % (25-47); Mean Corpuscular HGB Conc 33 g/dl (31-36); Mean Corpuscular Hemoglobin 33 pg (27-31); Mean Corpuscular Volume 99 fL (80-97); Mean Platelet Volume 6.9 um3 (7.4-10.4); Nucleated Red Blood Cells % 0; Platelet Count 366 10^3/ul (150-450); Red Cell Distribution Width 13 % (10.5-15); White Blood Count 16.2 10^3/ul (3.5-10.8)
[2017-12-02] MEDS ORDERED: Propofol* 100 ML ONE (22:12)
[2017-12-02] MEDS ORDERED: Etomidate* 2 MG/ML 20 ML VIAL (40 MG) ONE (22:15)
[2017-12-02] MEDS ORDERED: Succinylcholine* 20 MG/ML 10 ML VIAL ONE (22:15)
[2017-12-02 22:19] LABS: INR 0.86 (0.77-1.02)
[2017-12-02 22:23] LABS: EGFR Non-African American 59.6 (>60)
[2017-12-02] MEDS ORDERED: NS 0.9% 1000 ML* 1,000 ML IV ONE (22:27)
[2017-12-02] MEDS ORDERED: Propofol* 100 ML IV SCH (23:00)
[2017-12-02] MEDS ORDERED: fentaNYL* 50 MCG/ML 2 ML VIAL (100 MCG VIAL) IV SLOW PU ONE ×2 (23:06→23:38)
[2017-12-02] MEDS ORDERED: fentaNYL* 50 MCG/ML 2 ML VIAL (100 MCG VIAL) ONE (23:07)
[2017-12-02] MEDS ORDERED: PROCHLORPERAZINE INJ 5 MG/ML 2 ML VIAL IV PRN (23:14)
[2017-12-02] MEDS ORDERED: fentaNYL* 50 MCG/ML 2 ML VIAL (100 MCG VIAL) IV SLOW PU PRN (23:14)
[2017-12-02] MEDS ORDERED: Midazolam* 1 MG/ML 2 ML VIAL (2 MG) IV SLOW PU PRN (23:16)
--- NOTE | 2017-12-02 23:23 | ED ---
Al Miranda Nikita, scribed for Rupert Edmonds MD on 12/02/17 at 2159 . Respiratory - HPI Summary HPI Summary: This patient is a 62 year old MF BIBA to ED with a chief complaint of difficulty breathing since 1 hour ago. The patient was cpap en route, decadron 10mg IV, and one duoneb. The patient rates the pain 0/10 in severity. Symptoms aggravated by nothing. Symptoms alleviated by nothing. EMS denies wheezing and CP. The daughter reports the patient is on 3 L of O2 at home. PMHx of COPD but has since quit smoking. The patient was intubated 1 week ago and was just discharged from the ICU on . - History of Current Complaint Chief Complaint: EDRespiratoryDistress Stated Complaint: RESP. DISTRESS Time Seen by Provider: 12/02/17 21:36 Hx Obtained From: Patient Onset/Duration: Sudden Onset, Lasting Hours, Still Present Current Severity: None Pain Intensity: 0 Aggravating Factor(s): Nothing Alleviating Factor(s): Nothing - Allergy/Home Medications Allergies/Adverse Reactions: Allergies Allergy/AdvReac Type Severity Reaction Status Date / Time No Known Allergies Allergy Verified 12/02/17 21:40 PMH/Surg Hx/FS Hx/Imm Hx Endocrine/Hematology History: Denies: Hx Blood Disorders, Hx Blood Transfusions, Hx Bone Marrow Disease, Hx Diabetes, Hx Systemic Lupus Erythematosus, Hx Sickle Cell Disease, Hx Thyroid Disease, Hx Anemia, Hx Unexplained Bleeding, Other Endocrine/ Hematological Disorders Cardiovascular History: Reports: Hx Congestive Heart Failure, Hx Coronary Artery Disease, Hx Hypercholesterolemia, Hx Hypertension, Other Cardiovascular Problems/Disorders - 3 stents Denies: Hx Aneurysm, Hx Angina, Hx Angioplasty, Hx Auto Implanted Cardiovert Defib, Hx Cardiac Arrest, Hx Cardiomegaly, Hx Congenital Heart Disease, Hx Deep Vein Thrombosis, Hx Embolism, Hx Hypotension, Hx Pacemaker/ICD, Hx Peripheral Vascular Disease, Hx Rheumatic Fever, Hx Syncope, Hx Valvular Heart Disease Respiratory History: Reports: Hx Asthma, Hx Chronic Obstructive Pulmonary Disease (COPD) Denies: Hx Chronic Bronchitis, Hx Cystic Fibrosis, Hx Lung Cancer, Hx Pleural Effusion, Hx Pneumonia, Hx Pulmonary Edema, Hx Pulmonary Embolism, Hx Seasonal Allergies, Hx Sleep Apnea, Other Respiratory Problems/Disorders GI History: Denies: Hx Cirrhosis, Hx Crohn's Disease, Hx Diverticulosis, Hx Gall Bladder Disease, Hx Gastroesophageal Reflux Disease, Hx Gastrointestinal Bleed, Hx Hiatal Hernia, Hx Irritable Bowel, Hx Jaundice, Hx Obstructive Bowel, Hx Ileostomy, Hx Pyloric Stenosis, Hx Ulcer, Other GI Disorders Musculoskeletal History: Reports: Hx Arthritis Denies: Hx Back Problems, Hx Bursitis, Hx Congenital Bone Abnormalities, Hx Fibromyalgia, Hx Gout, Hx Orthopedic Injury, Hx Osteoporosis, Hx Scoliosis, Hx Tendonitis Sensory History: Reports: Hx Contacts or Glasses Denies: Hx Cataracts, Hx Eye Injury, Hx Eye Prosthesis, Hx Glaucoma, Hx Legally Blind, Hx Macular Degeneration, Hx Vision Problem, Hx Deafness, Hx Hearing Aid, Hx Hearing Problem, Other Sensory Impairments Opthamlomology History: Reports: Hx Contacts or Glasses Denies: Hx Cataracts, Hx Eye Injury, Hx Eye Prosthesis, Hx Glaucoma, Hx Legally Blind, Hx Macular Degeneration, Hx Vision Problem, Other Sensory Impairments Neurological History: Denies: Hx Dementia, Hx Developmental Delay, Hx Headaches, Hx Migraine, Hx Nerve Disease, Hx Seizures, Hx Spinal Cord Injury, Hx Transient Ischemic Attacks (TIA), Other Neuro Impairments/Disorders - Surgical History Surgery Procedure, Year, and Place: cardiac stents. hysterectomy. ectopic Hx Anesthesia Reactions: No Infectious Disease History: No Infectious Disease History: Denies: Hx Clostridium Difficile, Hx Hepatitis, Hx Human Immunodeficiency Virus (HIV), Hx of Known/Suspected MRSA, Hx Shingles, Hx Tuberculosis, Hx Known/ Suspected VRE, Hx Known/Suspected VRSA, History Other Infectious Disease, Traveled Outside the [place] in Last 30 Days - Family History Known Family History: Positive: Other - pos: Breast CA Negative: Renal Disease Family History: Family history is significant for breast cancer. - Social History Alcohol Use: None Hx Substance Use: No Substance Use Type: Reports: None Hx Tobacco Use: Yes Smoking Status (MU): Heavy Every Day Tobacco Smoker Type: Cigarettes Amount Used/How Often: 1 pack daily Have You Smoked in the Last Year: Yes Review of Systems Negative: Chest Pain - per EMS Positive: Other - difficulty breathing; no wheezing per EMS All Other Systems Reviewed And Are Negative: Yes Physical Exam - Summary Physical Exam Summary: VITAL SIGNS: Reviewed. GENERAL: ~Patient is a well-developed and nourished FEMALE who is lying comfortable in the stretcher. Patient is not in any acute respiratory distress. The patient is somewhat diaphoretic and is able to speak a few words. HEAD AND FACE: No signs of trauma. No ecchymosis, hematomas or skull depressions. No sinus tenderness. EYES: PERRLA, EOMI x 2, No injected conjunctiva, no nystagmus. EARS: Hearing grossly intact. Ear canals and tympanic membranes are within normal limits. MOUTH: Oropharynx within normal limits. NECK: Supple, trachea is midline, no adenopathy, no JVD, no carotid bruit, no c- spine tenderness, neck with full ROM. CHEST: Symmetric, no tenderness at palpation LUNGS: Decreased breath sounds bilaterally with minimal expiratory wheezing. CVS: Regular rate and rhythm, S1 and S2 present, no murmurs or gallops appreciated. ABDOMEN: Soft, non-tender. No signs of distention. No rebound, no guarding, and no masses palpated. Bowel sounds are normal. EXTREMITIES: FROM in all major joints, no edema, no cyanosis or clubbing. NEURO: Alert and oriented x 3. No acute neurological deficits. Speech is normal and follows commands. SKIN: Dry and warm Triage Information Reviewed: Yes Vital Signs On Initial Exam: Initial Vitals Temp Pulse Resp BP Pulse Ox 96.8 F 127 26 178/37 99 12/02/17 21:35 12/02/17 21:35 12/02/17 21:35 12/02/17 21:35 12/02/17 21:35 Vital Signs Reviewed: Yes Procedures - Intubation Time of Intubation: 22:14 Intubation Method: orotracheal Tube Size (cm): 7.5 Medications: Succinylcholine - and etomidate Breath Sounds after Intubation: equal - diminished bilaterally Intubation Complications: no complications Post Intubation Xray: Yes Diagnostics - Vital Signs Vital Signs Temp Pulse Resp BP Pulse Ox 12/02/17 21:45 32 12/02/17 21:35 96.8 F 127 26 178/37 99 - Laboratory Result Diagrams: 12/02/17 21:49 12/02/17 21:49 Lab Statement: Any lab studies that have been ordered have been reviewed, and results considered in the medical decision making process. - Radiology CXR Radiology Interpretation Completed By: ED Physician - 1st XR. Hyperinflation consistent with COPD. No acute process., Radiologist - Pending official report. 2 CXR Radiology Interpretation Completed By: ED Physician - 2nd XR. post-intubation. ETT about 3 cm above the ila., Radiologist - Pending official report. - EKG 2224 Cardiac Rate: Tachycardia EKG Rhythm: Sinus Rhythm - 123 bpm. PVCs. Normal axis. Normal interval. No ischemic changes. Disposition - Course Assessment/Plan: This patient is a 62 year old MF BIBA to ED with a chief complaint of difficulty breathing since 1 hour ago. In the ED course, the patient was given albuterol, reglan, and morphine. Upon arrival she resisted to be intubated and wanted a BPAP mask which we did, she had it on for about 25 minutes. She was feeling worse and her ABG showed acute respiratory acidosis, so we decided to intubate. With the daughter in the room, she agreed to be intubated. Consulted Dr. Tyson at 2226 who accepts the patient to the ICU. The patient will be admitted to the ICU with a diagnosis of acute respiratory failure and COPD. - Differential Dx - Cardiopulmonary Differential Diagnoses - Cardiopulmonary: Other - COPD and acute respiratory failure - Diagnoses Provider Diagnoses: COPD (chronic obstructive pulmonary disease), Acute respiratory failure - Physician Notifications Discussed Care Of Patient With: Alberta Tyson Time Discussed With Above Provider: 22:26 Instructed by Provider To: Other - Consulted Dr. Tyson who accepts the patient for admission to the ICU. - Critical Care Time Critical Care Time: 30-74 min - 40 minutes Discharge - Sign-Out/Discharge Documenting (check all that apply): Discharge/Admit/Transfer - Discharge Plan Condition: Stable Disposition: ADMITTED TO [facility] Referrals: Yaneth Evangelista MD [Primary Care Provider] - The documentation as recorded by the Al peters Nikita accurately reflects the service I personally performed and the decisions made by , Rupert Edmonds MD.
[2017-12-03] MEDS: Ipratropium 0.5MG/2.5ML NEB* 0.5 MG/2.5 ML NEB.SOLN INH PRN ×2 (00:48→10:26)
[2017-12-03] MEDS: NS 0.9% 1000 ML* 1,000 ML IV SCH ×2 (01:49→10:01)
[2017-12-03] MEDS: Propofol* 100 ML IV SCH ×2 (01:49→05:34)
[2017-12-03] MEDS: methylPREDNISolone SOD 40 MG* 1 ML VIAL IV SCH ×2 (01:49→08:09)
[2017-12-03] MEDS ORDERED: Pantoprazole IV* 40 MG IV SCH (02:00)
[2017-12-03] MEDS: Albuterol 2.5 MG/3 ML NEB.SOL* (0.083%) INH SCH ×6 (03:14→23:11)
--- NOTE | 2017-12-03 03:43 | HP ---
CC: Dr. Evangelista HISTORY AND PHYSICAL: DATE OF ADMISSION: 12/02/17 PRIMARY CARE PROVIDER: Dr. Evangelista. CHIEF COMPLAINT: Shortness of breath. HISTORY OF PRESENT ILLNESS: Ms. Hurtado is a 62-year-old female with a history of O2 dependent COPD, c hronic hypoxic respiratory failure and coronary artery disease who presents to the emergency room wit h complaints of sudden onset of shortness of breath. The patient was recently admitted from 11/20/17 through 11/27/17 for a COPD exacerbation, which required intubation. The patient states via nodding her head and her daughter being present that after discharge she was doing quite well. She even seem ed fine on the day of admission per her daughter. The patient reportedly had good dinner. She was p laying outside and suddenly she became very short of breath. She was brought emergently to the [facility] ency room. In the ER, the patient had an ABG obtained, which revealed a pCO2 of 87 and a pH of 7.21. At that time, she was intubated. The patient is currently on propofol 50 mcg per kilogram per jean te and still able to nod and shake her head. The patient denies any pain at this point. There had b een no changes in her condition since her discharge until the evening of admission. PAST MEDICAL HISTORY: 1. COPD with 3 L oxygen continuous. 2. Chronic hypoxic and hypercarbic respiratory failure. 3. Coronary artery disease status post stenting x3. 4. Hyperlipidemia. PAST SURGICAL HISTORY: 1. Ectopic excision. 2. Hysterectomy. 3. Tonsillectomy. MEDICATIONS: 1. Prednisone 40 mg p.o. daily. 2. Spiriva 1 puff inhaled daily. 3. Nitroglycerin 0.4 mg SL q.5 minutes p.r.n. chest pain. 4. Metoprolol tartrate 50 mg p.o. b.i.d. 5. Atrovent 1 neb inhaled q.6 hours p.r.n. shortness of breath. 6. Plavix 75 mg p.o. daily. 7. Symbicort 80/4.5, 1 puff inhaled twice daily. 8. Lipitor 40 mg p.o. daily. 9. Aspirin 81 mg p.o. daily. 10. Combivent Respimat 1 puff inhaled daily. 11. DuoNeb 1 neb inhaled q.6 hours while awake. 12. Albuterol HFA 1 to 2 puffs inhaled q.4 hours p.r.n. shortness of breath. 13. Albuterol 1 neb inhaled q.4 hours p.r.n. shortness of breath. ALLERGIES: No known drug allergies. FAMILY HISTORY: Mom had a history of ovarian cancer. Dad had coronary artery disease. SOCIAL HISTORY: The patient is a former smoker. She quit in approximately 2004. She does not drink alcohol routinely. She lives alone with her daughter nearby. She is a former nurse. REVIEW OF SYSTEMS: Per HPI and otherwise, the review of systems is not reviewed with the patient giv en her intubated status. PHYSICAL EXAMINATION GENERAL: The patient is a well-developed middle aged female, seen lying in the stretcher, intubated, but awake, answering simple questions and in no acute distress. VITAL SIGNS: Blood pressure 105/78, pulse 104, respirations 26, temp 96.8, O2 sat 100% on FiO2 50%. HEENT: Pupils are equal and round. Extraocular muscles are intact. Oropharynx is intubated. There is no submandibular, cervical or supraclavicular adenopathy. Thyroid is not enlarged. No thyroid no dules noted. PULMONARY: Breath sounds are diminished anteriorly. CARDIAC: Normal S1 and S2. Regular rate and rhythm. I do not appreciate any murmurs. There is no lower extremity edema. ABDOMEN: Bowel sounds are present. Abdomen is soft, nontender, nondistended. MUSCULOSKELETAL: The patient moves all 4 extremities symmetrically. NEURO: Cranial nerves II through XII appear to be grossly intact. Sensation is intact to light touc h throughout. Strength is 5/5 and symmetric in the upper and lower extremities bilaterally. SKIN: Warm and dry. There are no rashes. There are a few purpuric lesions on the bilateral lower l egs. The patient's daughter states that when she shaves, she will sometimes shar the skin and cause these lesions to occur. PSYCH: The patient is awake. She is alert. She appears to be oriented to situation. She remembers me from our time working together. LABORATORY DATA/DIAGNOSTIC STUDIES: WBC 16.2, hemoglobin 13.0, hematocrit 40, platelets 366,000. I NR 0.86. Sodium 141, potassium 5.0, chloride 99, CO2 of 34, BUN 15, creatinine 0.95, glucose 205, la ctic acid 1.4, calcium 9.6, bilirubin 0.3, AST 114, ALT 117, alk phos 108, troponin 0.03. CRP 1.20, BNP 79, albumin 4.3. AB.21/87/126, approximately 1 hour intubated 7./74/228. EKG reveals sinus tachycardia without any acute ST-T wave abnormalities. Chest x-ray appears to have hyperinflated lungs without any clear infiltrate. ASSESSMENT AND PLAN: Ms. Hurtado is a 62-year-old female with history of O2 dependent chronic obstruct foster pulmonary disease, chronic hypoxic and hypercarbic respiratory failure who presents to the emerge ncy room with complaints of sudden onset of shortness of breath. 1. Acute hypercarbic respiratory failure. It is likely secondary to the patient's underlying chroni c obstructive pulmonary disease. She reportedly had been doing quite well since discharge. At this point, she is intubated. She will remain on propofol, which will be titrated to a RASS of -2. Addit ionally, she will have fentanyl and Versed available for more acute episodes of dyssynchrony with the vent. Last time the patient was admitted, she did require paralytics to improve her mechanics with the ventilator. She will be observed closely in the intensive care unit. I am going to hold off on antibiotic therapy at this point despite the patient having an elevated white blood cell count as she is afebrile and her lungs do not show clear infiltrate. The patient was treated with antibiotics la hospitalization. She was also started on prednisone. I will continue Solu-Medrol 40 mg IV q.8 ho urs and she will have nebs every 4 hours. Procalcitonin has been ordered and the results of this are pending. If the procalcitonin comes back elevated, she will be started on antibiotic therapy. 2. Transaminitis. The patient during her last hospitalization was diagnosed with shock liver due to elevated AST and ALT. Her values were trending down during the course of the hospitalization. Her AST is higher than where it was on 11/22/17, but not as high as where it was on admission. The ALT c ontinues to fall. This can be monitored intermittently. 3. Coronary artery disease. We will continue aspirin 81 mg daily, Lipitor 40 mg daily, Plavix 75 mg daily and metoprolol tartrate 50 mg twice daily. Her first troponin is negative. 4. DVT prophylaxis. According to the Adult Thrombosis Prophylaxis Risk Factor Assessment Guide, the patient has a total risk factor score of 3, making her high risk. Heparin 5000 units subcutaneous q .8 hours will be utilized as DVT prophylaxis. 5. Code status is full code with 3-day trial of intubation. MOLST form was updated. TIME SPENT: Sixty five minutes were spent admitting this patient. [id number]/[facility] #: [id number]
[2017-12-03 04:35] LABS: Urine Appearance Turbid; Urine Blood Negative (Negative); Urine Color Yellow; Urine Ketones Negative (Negative); Urine Protein Negative (Negative); Urine Specific Gravity 1.021 (1.010-1.030); Urine Urobilinogen Negative (Negative)
[2017-12-03] MEDS ORDERED: Heparin VIAL(*) 5000 UNITS/ML VIAL (FIVE THOUSAND) SUBCUT SCH (06:00)
[2017-12-03 06:14] LABS: Hematocrit 35 % (35-47); Hemoglobin 11.4 g/dl (12.0-16.0); Mean Corpuscular HGB Conc 33 g/dl (31-36); Mean Corpuscular Hemoglobin 32 pg (27-31); Mean Corpuscular Volume 99 fL (80-97); Platelet Count 275 10^3/ul (150-450); Red Blood Count 3.53 10^6/ul (4.0-5.4); Red Cell Distribution Width 14 % (10.5-15); White Blood Count 15.4 10^3/ul (3.5-10.8)
--- NOTE | 2017-12-03 06:58 | RAD ---
INDICATION: Shortness of breath. COMPARISON: Comparison is made with a prior study from November 21, 2017. TECHNIQUE: A portable view of the chest was obtained. FINDINGS: Cardiac and mediastinal contours appear to be within normal limits. The lungs are hyperinflated and clear. No pleural effusion is seen. IMPRESSION: FINDINGS SUGGESTIVE OF COPD, NO EVIDENCE FOR ACUTE FINDING.
--- NOTE | 2017-12-03 06:59 | RAD ---
INDICATION: Status post intubation respiratory failure. COMPARISON: Comparison is made with a prior chest x-ray study of the seminal date of approximately 30 minutes earlier. TECHNIQUE: A portable view of the chest was obtained. FINDINGS: Cardiac and mediastinal contours appear to be within normal limits. The patient is status post intubation. The endotracheal tube projects over the midline and is located approximately 4 cm above the ila. The lungs are hyperinflated and clear. No pleural effusion is seen. IMPRESSION: STATUS POST INTUBATION, NO EVIDENCE FOR ACUTE FINDING.
[2017-12-03] MEDS ORDERED: Morphine VIAL* 4 MG/ML VIAL (1 ml vial) IV PRN (10:43)
[2017-12-03] MEDS ORDERED: predniSONE TAB* 20 MG PO ONE (10:59)
[2017-12-03] MEDS ORDERED: ALPRAZolam TAB* 0.25 MG PO PRN (11:00)
[2017-12-03] MEDS: Atorvastatin* 40 MG TAB PO SCH (11:16)
[2017-12-03] MEDS: Enoxaparin(*) 40 MG/0.4 ML SYR SUBCUT SCH (11:16)
[2017-12-03] MEDS: Clopidogrel TAB* 75 MG PO SCH (11:16)
[2017-12-03] MEDS: Metoprolol Tartrate TAB* 50 mg PO SCH ×2 (11:17→21:37)
[2017-12-03] MEDS: Aspirin 81 mg CHEW TAB* 81 MG TAB.CHEW PO SCH (11:17)
[2017-12-03] MEDS: Mometasone/Formoter 200/5 MDI INH SCH ×2 (13:01→19:31)
[2017-12-04] MEDS: Albuterol 2.5 MG/3 ML NEB.SOL* (0.083%) INH SCH ×6 (03:04→23:42)
[2017-12-04 06:26] LABS: ABS Basophils 0 10^3/ul (0-0.2); ABS Eosinophils 0 10^3/ul (0-0.6); ABS Lymphocytes 1.7 10^3/ul (1.0-4.8); ABS Monocytes 0.8 10^3/ul (0-0.8); ABS Nucleated RBC 0 10^3/ul; Eosinophil % 0.1 % (0-6); Hematocrit 33 % (35-47); Hemoglobin 10.7 g/dl (12.0-16.0); Lymphocyte % 11.6 % (25-47); Mean Corpuscular HGB Conc 33 g/dl (31-36); Mean Corpuscular Hemoglobin 32 pg (27-31); Mean Corpuscular Volume 99 fL (80-97); Mean Platelet Volume 7.1 um3 (7.4-10.4); Nucleated Red Blood Cells % 0; Platelet Count 230 10^3/ul (150-450); Red Blood Count 3.31 10^6/ul (4.0-5.4); Red Cell Distribution Width 14 % (10.5-15); White Blood Count 14.5 10^3/ul (3.5-10.8)
[2017-12-04 06:43] LABS: EGFR Non-African American 97.5 (>60)
[2017-12-04] MEDS: Mometasone/Formoter 200/5 MDI INH SCH ×2 (07:13→20:13)
[2017-12-04] MEDS: Ipratropium 0.5MG/2.5ML NEB* 0.5 MG/2.5 ML NEB.SOLN INH PRN ×2 (07:13→16:55)
[2017-12-04] MEDS: Clopidogrel TAB* 75 MG PO SCH (09:20)
[2017-12-04] MEDS: predniSONE TAB* 20 MG PO SCH (09:20)
[2017-12-04] MEDS: Atorvastatin* 40 MG TAB PO SCH (09:20)
[2017-12-04] MEDS: Aspirin 81 mg CHEW TAB* 81 MG TAB.CHEW PO SCH (09:21)
[2017-12-04] MEDS: Metoprolol Tartrate TAB* 50 mg PO SCH ×2 (09:21→21:25)
[2017-12-04] MEDS: Enoxaparin(*) 40 MG/0.4 ML SYR SUBCUT SCH (10:54)
--- NOTE | 2017-12-04 11:15 | PN ---
Progress Note - Progress Note Date of Service: 12/03/17 Note: CRITICAL CARE MEDICINE Date: 12/03/17 Time: 830 late entry SUBJECTIVE: Patient seen and examined. known well to me. PHYSICAL EXAM: Vital Signs: Reviewed. stable on vent. Neurologic: communcating fine HEENT: pupils equal. Sclera anicteric. Trachea midline. Cardiovascular: S1 S2 Respiratory: dec but some adequate air movement; cpap with high peep needs Abdomen: Soft, nt. Extremities: Warm. LABS: Reviewed. IMAGING: Reviewed. MEDICATIONS: Reviewed. ASSESSMENT: 62 F Acute on chronic hypoxic and hypercapnic resp failure copd exac deconditioning prior intubation previous tob use PLAN: Doing well and can liberate directly to high flow as no further benefit from vent. luckily abg not as bad as last admit but unfortunately still required intubation. see how she liberates to hfo2. would be nice to have outpt hfo2 therapy for her. copd adjunctives. no abx. steroid taper. bipap at night. prn anxiolytics and morphine Supportive and preventative care as ordered. SUP: ppi VTE prophylaxis: lovenox Izquierdo catheter out later Disposition: ICU Code Status: Full Critical Care Time: 45min Adan Mir DO
--- NOTE | 2017-12-04 11:18 | PN ---
Progress Note - Progress Note Date of Service: 12/04/17 Note: CRITICAL CARE MEDICINE Date: 12/04/17 Time: 830 SUBJECTIVE: Patient seen and examined. sitting up. PHYSICAL EXAM: Vital Signs: Reviewed. stable Neurologic: communcating fine HEENT: pupils equal. Sclera anicteric. Trachea midline. Cardiovascular: S1 S2 Respiratory: dec but ok. mild accessory msk use. feels better in tripod Abdomen: Soft, nt. Extremities: Warm. LABS: Reviewed. IMAGING: Reviewed. MEDICATIONS: Reviewed. ASSESSMENT: 62 F Acute on chronic hypoxic and hypercapnic resp failure copd exac deconditioning prior intubation previous tob use PLAN: Doing ok. chronic nature looks bad with poor reserve. allow HFO2 as is today and rest. bipap tonight. copd adjunctives. steroid taper. bipap at night and then can go to [place] in am. will need to work on oupt plans prn anxiolytics and morphine She expressed understanding Supportive and preventative care as ordered. SUP: ppi VTE prophylaxis: lovenox Disposition: ICU today Code Status: Full Critical Care Time: 30min Adan Mir DO
[2017-12-04] MEDS: guaiFENesin ER TAB 600 MG PO PRN (18:25)
[2017-12-05] MEDS: Albuterol 2.5 MG/3 ML NEB.SOL* (0.083%) INH SCH ×6 (03:34→23:17)
[2017-12-05] MEDS: Mometasone/Formoter 200/5 MDI INH SCH ×2 (07:13→19:55)
[2017-12-05] MEDS: Tiotropium CAP.INH* CAP.INH/18 MCG (USE ORDER SET !) INH SCH (07:13)
[2017-12-05] MEDS: Metoprolol Tartrate TAB* 50 mg PO SCH ×2 (07:59→21:19)
[2017-12-05] MEDS: Clopidogrel TAB* 75 MG PO SCH (07:59)
[2017-12-05] MEDS: predniSONE TAB* 20 MG PO SCH (07:59)
[2017-12-05] MEDS: Aspirin 81 mg CHEW TAB* 81 MG TAB.CHEW PO SCH (07:59)
[2017-12-05] MEDS: Atorvastatin* 40 MG TAB PO SCH (07:59)
[2017-12-05] MEDS ORDERED: Spiriva Inhaler DEVICE* 1 EACH DEVICE SCH (09:00)
--- NOTE | 2017-12-05 11:35 | PN ---
Progress Note - Progress Note Date of Service: 12/05/17 Note: CRITICAL CARE MEDICINE Date: 12/05/17 Time: 1100 SUBJECTIVE: Patient seen and examined. sitting up in chair. 35lpm, 40% PHYSICAL EXAM: Vital Signs: Reviewed. stable Neurologic: communicating HEENT: pupils equal. Sclera anicteric. Trachea midline. Cardiovascular: S1 S2 Respiratory: dec but force exhalation still and mild accessory msk use. Abdomen: Soft, nt. Extremities: Warm. LABS: Reviewed. IMAGING: Reviewed. MEDICATIONS: Reviewed. ASSESSMENT: 62 F Acute on chronic hypoxic and hypercapnic resp failure copd exac deconditioning prior intubation previous tob use PLAN: Doing ok. chronic nature still with poor reserve. allow HFO2 wean today. try metaneb. bipap tonight. have pulm eval for potential trilogy home use copd adjunctives. steroid slow taper. prn anxiolytics and morphine She expressed understanding Supportive and preventative care as ordered. SUP: ppi VTE prophylaxis: lovenox Disposition: ICU required Code Status: Full Critical Care Time: 30min FDakota Mir DO
[2017-12-05] MEDS: Enoxaparin(*) 40 MG/0.4 ML SYR SUBCUT SCH (13:34)
[2017-12-05] MEDS: guaiFENesin ER TAB 600 MG PO PRN (15:45)
--- NOTE | 2017-12-05 23:24 | CONS ---
PULMONARY CONSULTATION REPORT: DATE OF CONSULT: 12/05/17 CONSULTATION REQUESTED BY: Dr. Andres Mir. HISTORY OF PRESENT ILLNESS: 62-year-old female with O2 dependent COPD, chronic hypoxemic respiratory failure, coronary artery disease, known to me from recent outpatient and inpatient evaluation. The patient was recently admitted a month ago for COPD exacerbation, required intubation. The patient has been doing well since she was discharged home. She has had sick contacts with grandchildren being sick with viral syndrome. The patient reported worsening shortness of breath and was brought into the ED for evaluation. The patient was noted to be in severe respiratory acidosis with pCO2 of 87, pH of 7.21. The patient was intubated in the ED. The patient was extubated on 12/04/17. The patient is alert and awake. The patient reports improvement in breathing. The patient reports significant dyspnea on exertion at baseline. She has been compliant with inhalers. Reports sick contacts recently. Has a BiPAP at home, which she is compliant with. She has hypoxemia, not able to receive portable oxygen as she did not want to use oxygen with exertion. Has been using oxygen at home and at night. She has been limited with activities of daily living. PAST MEDICAL HISTORY: 1. COPD, on 3 L oxygen. 2. Chronic hypoxemic and hypercapnic respiratory failure with recent admissions and intubations. 3. Coronary artery disease, status post stent. 4. Hyperlipidemia. PAST SURGICAL HISTORY: 1. Ectopic excision. 2. Hysterectomy. 3. Tonsillectomy. MEDICATIONS: 1. Prednisone. 2. Spiriva. 3. Nitroglycerin. 4. Metoprolol. 5. Atrovent. 6. Plavix. 7. Symbicort. 8. Lipitor. 9. Aspirin. 10. Combivent. 11. DuoNeb. 12. Albuterol. ALLERGIES: No known drug allergies. FAMILY HISTORY: Ovarian cancer in mom, coronary artery disease in dad. SOCIAL HISTORY: Former smoker, quit in 2004. Does not drink alcohol. REVIEW OF SYSTEMS: All 14 systems reviewed and as per HPI. PHYSICAL EXAM: The patient is in bed, in no apparent distress. Vital Signs: Temperature 98.6, pulse 81 beats per minute, respiratory rate 16 per minute, O2 sat 100% on 50% FiO2. HEENT: Pupils equal, reactive to light. Mucous membranes moist. Lungs: Diminished air entry bilaterally. No wheeze. Cardiovascular: S1, S2 present, regular. Skin: No rash or bruise. Abdomen: Soft. Bowel sounds present. Nontender, nondistended. Extremities: Normal range of motion. Neuro: No focal deficits. DIAGNOSTIC STUDIES/LAB DATA: WBC count 14.5, hemoglobin 10.7, hematocrit 33, platelet count 230,000. Blood gas analysis showed respiratory acidosis, pH of 7.25, pCO2 of 74, O2 of 228, bicarb of 27. Sodium was 141, potassium 4.1, chloride 107, bicarb elevated at 33, BUN 13, creatinine 0.62. BNP within normal limits. Procalcitonin normal. Chest x-ray showed evidence of hyperinflation, no acute airspace opacities. IMPRESSION AND RECOMMENDATIONS: 62-year-old female with severe chronic obstructive pulmonary disease with recent recurrent acute hypercapnic respiratory failure and chronic obstructive pulmonary disease exacerbations. The patient is on BiPAP at home. She would benefit from Trilogy given recurrent hospitalizations for chronic obstructive pulmonary disease exacerbation and evidence of hypercapnia. The patient will also need portable oxygen at home. I agree with current management for chronic obstructive pulmonary disease, recommend tapering off oxygen as tolerated. Continue with BiPAP at night. The patient was evaluated for lung transplant in the past; however, did not want to go through. She will benefit from pulmonary rehab. Will send referral. Will arrange for portable oxygen concentrator. Thank you for allowing me to participate in the care of your patient. Will follow up with you. [id number]/[facility] #: [id number] KEVIN
[2017-12-06] MEDS: Albuterol 2.5 MG/3 ML NEB.SOL* (0.083%) INH SCH ×5 (03:54→19:10)
[2017-12-06] MEDS: Aspirin 81 mg CHEW TAB* 81 MG TAB.CHEW PO SCH (07:47)
[2017-12-06] MEDS: Clopidogrel TAB* 75 MG PO SCH (07:47)
[2017-12-06] MEDS: Metoprolol Tartrate TAB* 50 mg PO SCH ×2 (07:47→20:15)
[2017-12-06] MEDS: Atorvastatin* 40 MG TAB PO SCH (07:47)
[2017-12-06] MEDS: Tiotropium CAP.INH* CAP.INH/18 MCG (USE ORDER SET !) INH SCH (07:51)
[2017-12-06] MEDS: Mometasone/Formoter 200/5 MDI INH SCH ×2 (07:51→19:10)
[2017-12-06] MEDS ORDERED: predniSONE TAB* 20 MG PO SCH (09:00)
[2017-12-06] MEDS ORDERED: predniSONE TAB* 20 MG PO ONE (09:50)
[2017-12-06] MEDS: Ipratropium 0.5MG/2.5ML NEB* 0.5 MG/2.5 ML NEB.SOLN INH PRN (11:22)
--- NOTE | 2017-12-06 12:14 | PN ---
Progress Note - Progress Note Date of Service: 12/06/17 Note: CRITICAL CARE MEDICINE Date: 12/06/17 Time: 1100 SUBJECTIVE: Patient seen and examined. PHYSICAL EXAM: Vital Signs: Reviewed. stable Neurologic: communicating HEENT: pupils equal. Sclera anicteric. Trachea midline. Cardiovascular: S1 S2 Respiratory: same Abdomen: Soft, nt. Extremities: Warm. LABS: Reviewed. IMAGING: Reviewed. MEDICATIONS: Reviewed. ASSESSMENT: 62 F Acute on chronic hypoxic and hypercapnic resp failure copd exac deconditioning prior intubation previous tob use PLAN: Doing ok. off HFO2 now. NC. titrate as able. metaneb today bipap tonight. pulm eval appreciated. copd adjunctives. steroid slow taper with pulm f/u prn anxiolytics oob. ambulate. She expressed understanding Supportive and preventative care as ordered. SUP: ppi VTE prophylaxis: lovenox Disposition: ICU required still but getting closer to dispo needs Code Status: Full Critical Care Time: 30min FDakota Mir DO
--- NOTE | 2017-12-06 16:20 | PN ---
Progress Note - Progress Note Date of Service: 12/06/17 - Pulm f/u note Note: Pt seen and examined at bedside. Pt sitting up in chair. Reports feeling better Active Medications Generic Name Dose Route Start Last Admin Trade Name Freq PRN Reason Stop Dose Admin Albuterol 2.5 mg 12/03/17 03:00 12/06/17 11:22 Ventolin 2.5 Mg/3 Ml Neb.Zita* INH 2.5 mg [id number] AWAKE SITA Administration Alprazolam 0.25 mg 12/03/17 11:00 Xanax Tab* PO Q8H PRN ANXIETY Aspirin 81 mg 12/03/17 09:00 12/06/17 07:47 Aspirin 81 Mg Chew Tab* PO 81 mg DAILY SITA Administration Atorvastatin Calcium 40 mg 12/03/17 09:00 12/06/17 07:47 Lipitor* PO 40 mg DAILY SITA Administration Clopidogrel Bisulfate 75 mg 12/03/17 09:00 12/06/17 07:47 Plavix Tab* PO 75 mg DAILY SITA Administration Device 1 each 12/05/17 09:00 Tiotropium Inhaler Device* .SEE ORDER .USE w/ SPIRIVA CAPS SITA Guaifenesin 1,200 mg 12/04/17 17:22 12/05/17 15:45 Mucinex* PO 1,200 mg BID PRN Administration CONGESTION/COUGH Ipratropium [place] 0.5 mg 12/02/17 23:30 12/06/17 11:22 Atrovent 0.5 Mg Neb.Zita* INH 0.5 mg Q6H PRN Administration SOB/WHEEZING Metoprolol Tartrate 50 mg 12/03/17 09:00 12/06/17 07:47 Lopressor Tab* PO 50 mg BID SITA Administration Mometasone Furoate/Formoterol Fumar 2 puff 12/03/17 11:00 12/06/17 07:51 Dulera 200/5 Mdi* INH 2 puff BID SITA Administration Morphine Sulfate 4 mg 12/03/17 10:43 Morphine Vial* IV Q2H PRN PAIN Prednisone 40 mg 12/07/17 09:00 Deltasone Tab* PO DAILY SITA Prochlorperazine Edisylate 10 mg 12/02/17 23:14 Compazine Inj* IV Q6H PRN NAUSEA/VOMITING Tiotropium [place] 1 cap 12/05/17 09:00 12/06/17 07:51 Spiriva Cap.Inh* INH 1 cap DAILY SITA Administration Vital Signs Temp Pulse Resp BP Pulse Ox 98.1 F 79 18 93/62 100 12/06/17 12:00 12/06/17 14:00 12/06/17 14:00 12/06/17 12:00 12/06/17 14:00 O/E: Pt in NAD HEENT: PERRLA, No JVD Lungs: Diminished breath sounds b/l, no wheeze CVS: S1, S2+, regular Abd: Soft, BS+ Ext: No edema Neuro: No focal defecits Skin: NO rash or bruise Laboratory Results - last 24 hr 12/07/17 12/07/17 05:11 05:11 WBC 8.6 RBC 3.29 L Hgb 10.8 L Hct 32 L MCV 99 H MCH 33 H MCHC 33 RDW 14 Plt Count 203 MPV 7.1 L Sodium 141 Potassium 4.0 Chloride 104 Carbon Dioxide 32 Anion Gap 5 BUN 13 Creatinine 0.60 Est GFR ( Amer) 130.3 Est GFR (Non-Af Amer) 101.3 BUN/Creatinine Ratio 21.7 H Glucose 111 H Calcium 8.7 I/R: 62 y o f , former smoker with severe COPD with recent recurrent exacerbations, a/w worsening SOB, was intubated for acute COPD exacerbation, doing better post extubation Pt also with significant hypoxia, at rest and with exertion, didnot want to use portable O2 in the past Understands concern with hypoxia, agreed to be compliant with O2 Prescription sent to [facility] for portable O2 concentrator She was also referred for pulm rehab Didnot want to pursue lung transplant c/w bronchodilators
[2017-12-06] MEDS: guaiFENesin ER TAB 600 MG PO PRN (17:20)
[2017-12-06] MEDS ORDERED: Acetaminophen TAB* 325 MG PO PRN (21:45)
[2017-12-07] MEDS: Albuterol 2.5 MG/3 ML NEB.SOL* (0.083%) INH SCH ×4 (02:36→11:20)
[2017-12-07 05:30] LABS: Hematocrit 32 % (35-47); Hemoglobin 10.8 g/dl (12.0-16.0); Mean Corpuscular HGB Conc 33 g/dl (31-36); Mean Corpuscular Hemoglobin 33 pg (27-31); Mean Corpuscular Volume 99 fL (80-97); Mean Platelet Volume 7.1 um3 (7.4-10.4); Platelet Count 203 10^3/ul (150-450); Red Blood Count 3.29 10^6/ul (4.0-5.4); Red Cell Distribution Width 14 % (10.5-15); White Blood Count 8.6 10^3/ul (3.5-10.8)
[2017-12-07 05:47] LABS: EGFR Non-African American 101.3 (>60)
[2017-12-07] MEDS: Tiotropium CAP.INH* CAP.INH/18 MCG (USE ORDER SET !) INH SCH (08:00)
[2017-12-07] MEDS: Mometasone/Formoter 200/5 MDI INH SCH (08:00)
[2017-12-07] MEDS ORDERED: predniSONE TAB* 20 MG PO SCH (09:00)
[2017-12-07] MEDS: Clopidogrel TAB* 75 MG PO SCH (09:23)
[2017-12-07] MEDS: Atorvastatin* 40 MG TAB PO SCH (09:23)
[2017-12-07] MEDS: Metoprolol Tartrate TAB* 50 mg PO SCH (09:23)
[2017-12-07] MEDS: Aspirin 81 mg CHEW TAB* 81 MG TAB.CHEW PO SCH (09:23)
--- NOTE | 2017-12-07 11:03 | PN ---
Progress Note - Progress Note Date of Service: 12/07/17 Note: CRITICAL CARE MEDICINE Date: 12/07/17 Time: 905 SUBJECTIVE: Patient seen and examined. PHYSICAL EXAM: Vital Signs: Reviewed. stable Neurologic: communicating HEENT: pupils equal. Sclera anicteric. Trachea midline. Cardiovascular: S1 S2 Respiratory: same Abdomen: Soft, nt. Extremities: Warm. LABS: Reviewed. IMAGING: Reviewed. MEDICATIONS: Reviewed. ASSESSMENT: 62 F Acute on chronic hypoxic and hypercapnic resp failure copd exac deconditioning prior intubation previous tob use PLAN: Doing well. Nc daily use. nocturnal bipap. Pulm rehab Continued outpt rx and prednisone taper She expresses understanding Supportive and preventative care as ordered. SUP: ppi VTE prophylaxis: ambulatory Disposition: home today Code Status: Full Critical Care Time: 25min FDakota Mir DO
[2017-12-07 12:04] VITALS: BP 110/68
--- NOTE | 2017-12-07 12:29 | DS ---
CRITICAL CARE MEDICINE DISCHARGE SUMMARY ADMISSION DATE: 12/02/2017 ICU ADMISSION DATE: 12/02/2017 ICU DISCHARGE DATE: 12/07/2017 PRIMARY CARE PROVIDER: Hector. REFERRING PHYSICIAN: Kendal. DIAGNOSIS: 1. Acute on chronic hypoxic and hypercarbic respiratory failure. 2. Chronic obstructive pulmonary disease. 3. History of tobacco use. MEDICATIONS AT DISCHARGE: Resume all prior outpatient medications. ALLERGIES: None. 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 She was previously admitted just over a week prior with respiratory failure requiring intubation. She wasn't as severe this time. She was treated, without any infective signs, and able to liberate the next morning directly to high flow oxygen. Utilized nocturnal bipap from there and slowly weaned off high flow needs. Returning closer to baseline but still deconditioned. Advised on home activities and care and can transition back home with out patient follow ups. DISPOSITION: Home. DIET: Regular. ACTIVITY: At liberty. CODE STATUS: FULL. SPECIAL INSTRUCTIONS: Follow up with pulmonary rehab. FOLLOW UP: with treating medical and pulmonary services. Adan Mir DO
== END 2017-12-07 15:23 | disposition home or self-care (01) | DRG 140 ==
LOC: ED 21:35 → ICU 23:14
PROVIDERS: ADMIT Hospitalist; ATTEND Internal Medicine Critical Care Medicine
PROC: 0BH17EZ Insertion of Endotracheal Airway into Trachea, Via Natural or Artificial Opening (ICD-10-PCS; principal; 2017-12-02)
PROC: 5A1935Z Respiratory Ventilation, Less than 24 Consecutive Hours (ICD-10-PCS; 2017-12-02)
PROC: 5A09457 Assistance with Respiratory Ventilation, 24-96 Consecutive Hours, Continuous Positive Airway Pressure (ICD-10-PCS; 2017-12-03)
DX: J44.1 Chronic obstructive pulmonary disease with (acute) exacerbation (principal); J96.21 Acute and chronic respiratory failure with hypoxia; J96.22 Acute and chronic respiratory failure with hypercapnia; Z99.81 Dependence on supplemental oxygen; I25.10 Atherosclerotic heart disease of native coronary artery without angina pectoris; E78.5 Hyperlipidemia, unspecified; R74.0 Nonspecific elevation of levels of transaminase and lactic acid dehydrogenase [LDH]; Z95.5 Presence of coronary angioplasty implant and graft; Z87.891 Personal history of nicotine dependence; Z79.02 Long term (current) use of antithrombotics/antiplatelets; Z79.82 Long term (current) use of aspirin; Z79.52 Long term (current) use of systemic steroids; Z79.899 Other long term (current) drug therapy; Z80.41 Family history of malignant neoplasm of ovary; Z82.49 Family history of ischemic heart disease and other diseases of the circulatory system
CPT/HCPCS: 36415; 71045; 80048; 80053; 81003; 82803; 83605; 83735; 83880; 84100; 84145; 84484; 85025; 85027; 85610; 85730; 86140; 87040; 93005; 94003; 94640; 94660; 94664; 94668; 99285; A9270-GY; J0330; J1644; J1650; J2250; J2270; J2405; J2704; J2920; J3010; J3475; J7512

== ENCOUNTER 2018-08-14 06:50 | Inpatient (IN) | payer BC, MEDICAID, OTHER ==
[2018-08-14] MEDS ORDERED: Albuterol/Ipratropium NEB.SOL* Albuterol 2.5 MG/Ipratropium 0.5 MG 3 ML INH ONE (06:51)
[2018-08-14] MEDS ORDERED: methylPREDNISolone 125 MG* 2 ML VIAL IV ONE (06:51)
[2018-08-14] MEDS ORDERED: Magnesium Sulfate 2 GM IV* 2 GM/50 ML BAG IVPB ONE (06:54)
--- NOTE | 2018-08-14 06:55 | ED ---
Respiratory - HPI Summary HPI Summary: This patient is a 62 year old F brought in by ambulance to [facility] with a chief complaint of SOB that began approximately one week ago and worsened today. Symptoms aggravated by nothing. Symptoms alleviated by nothing. Patient reports cough and congestion. Per EMS, patient has a history of pneumonia and bronchitis. - History of Current Complaint Stated Complaint: RESPIRATORY DISTRESS Time Seen by Provider: 08/14/18 06:51 Hx Obtained From: Patient Onset/Duration: Sudden Onset, Lasting Weeks, Still Present, Worse Since - Today Timing: Constant Initial Severity: Severe Current Severity: Severe Character: Dyspnea at Rest Sputum Amount: None Aggravating Factor(s): Nothing Alleviating Factor(s): Nothing Associated Signs and Symptoms: SOB - Allergy/Home Medications Allergies/Adverse Reactions: Allergies Allergy/AdvReac Type Severity Reaction Status Date / Time No Known Allergies Allergy Verified 12/02/17 21:40 PMH/Surg Hx/FS Hx/Imm Hx Previously Healthy: No Endocrine/Hematology History: Denies: Hx Blood Disorders, Hx Blood Transfusions, Hx Bone Marrow Disease, Hx Diabetes, Hx Systemic Lupus Erythematosus, Hx Sickle Cell Disease, Hx Thyroid Disease, Hx Anemia, Hx Unexplained Bleeding, Other Endocrine/ Hematological Disorders Cardiovascular History: Reports: Hx Congestive Heart Failure, Hx Coronary Artery Disease, Hx Hypercholesterolemia, Hx Hypertension, Other Cardiovascular Problems/Disorders - 3 stents Denies: Hx Aneurysm, Hx Angina, Hx Angioplasty, Hx Auto Implanted Cardiovert Defib, Hx Cardiac Arrest, Hx Cardiomegaly, Hx Congenital Heart Disease, Hx Deep Vein Thrombosis, Hx Embolism, Hx Hypotension, Hx Pacemaker/ICD, Hx Peripheral Vascular Disease, Hx Rheumatic Fever, Hx Syncope, Hx Valvular Heart Disease Respiratory History: Reports: Hx Asthma, Hx Chronic Obstructive Pulmonary Disease (COPD) Denies: Hx Chronic Bronchitis, Hx Cystic Fibrosis, Hx Lung Cancer, Hx Pleural Effusion, Hx Pneumonia, Hx Pulmonary Edema, Hx Pulmonary Embolism, Hx Seasonal Allergies, Hx Sleep Apnea, Other Respiratory Problems/Disorders GI History: Denies: Hx Cirrhosis, Hx Crohn's Disease, Hx Diverticulosis, Hx Gall Bladder Disease, Hx Gastroesophageal Reflux Disease, Hx Gastrointestinal Bleed, Hx Hiatal Hernia, Hx Irritable Bowel, Hx Jaundice, Hx Obstructive Bowel, Hx Ileostomy, Hx Pyloric Stenosis, Hx Ulcer, Other GI Disorders Musculoskeletal History: Reports: Hx Arthritis Denies: Hx Back Problems, Hx Bursitis, Hx Congenital Bone Abnormalities, Hx Fibromyalgia, Hx Gout, Hx Orthopedic Injury, Hx Osteoporosis, Hx Scoliosis, Hx Tendonitis Sensory History: Reports: Hx Contacts or Glasses Denies: Hx Cataracts, Hx Eye Injury, Hx Eye Prosthesis, Hx Glaucoma, Hx Legally Blind, Hx Macular Degeneration, Hx Vision Problem, Hx Deafness, Hx Hearing Aid, Hx Hearing Problem, Other Sensory Impairments Opthamlomology History: Reports: Hx Contacts or Glasses Denies: Hx Cataracts, Hx Eye Injury, Hx Eye Prosthesis, Hx Glaucoma, Hx Legally Blind, Hx Macular Degeneration, Hx Vision Problem, Other Sensory Impairments Neurological History: Denies: Hx Dementia, Hx Developmental Delay, Hx Headaches, Hx Migraine, Hx Nerve Disease, Hx Seizures, Hx Spinal Cord Injury, Hx Transient Ischemic Attacks (TIA), Other Neuro Impairments/Disorders - Surgical History Surgery Procedure, Year, and Place: cardiac stents. hysterectomy. ectopic Hx Anesthesia Reactions: No Infectious Disease History: Denies: Hx Clostridium Difficile, Hx Hepatitis, Hx Human Immunodeficiency Virus (HIV), Hx of Known/Suspected MRSA, Hx Shingles, Hx Tuberculosis, Hx Known/ Suspected VRE, Hx Known/Suspected VRSA, History Other Infectious Disease - Family History Known Family History: Positive: Other - pos: Breast CA Negative: Renal Disease Family History: Family history is significant for breast cancer. - Social History Occupation: Disabled Lives: With Family Alcohol Use: None Hx Substance Use: No Substance Use Type: Reports: None Hx Tobacco Use: Yes Smoking Status (MU): Heavy Every Day Tobacco Smoker Type: Cigarettes Amount Used/How Often: 1 pack daily Have You Smoked in the Last Year: Yes Review of Systems Positive: Other - Positive congestion Positive: Shortness Of Breath, Cough All Other Systems Reviewed And Are Negative: Yes Physical Exam - Summary Physical Exam Summary: VITAL SIGNS: Reviewed. GENERAL: Patient is a well-developed and nourished female who is lying comfortable in the stretcher. Patient is respiratory distress. HEAD AND FACE: No signs of trauma. No ecchymosis, hematomas or skull depressions. No sinus tenderness. EYES: PERRLA, EOMI x 2, No injected conjunctiva, no nystagmus. EARS: Hearing grossly intact. Ear canals and tympanic membranes are within normal limits. MOUTH: Oropharynx within normal limits. NECK: Supple, trachea is midline, no adenopathy, no JVD, no carotid bruit, no c- spine tenderness, neck with full ROM. CHEST: Symmetric, no tenderness at palpation LUNGS: Decreased breath sounds bilaterally. No wheezing or crackles. CVS: Tachycardia, S1 and S2 present, no murmurs or gallops appreciated. ABDOMEN: Soft, non-tender. No signs of distention. No rebound no guarding, and no masses palpated. Bowel sounds are normal. EXTREMITIES: FROM in all major joints, no edema, no cyanosis or clubbing. NEURO: Alert and oriented x 3. No acute neurological deficits. Speech is normal and follows commands. SKIN: Dry and warm Disposition - Course Course Of Treatment: This patient is a 62 year old F brought in by ambulance to [facility] with a chief complaint of SOB that began approximately one week ago and worsened today. Physical Exam Findings: Respiratory distress. Decreased breath sounds bilaterally. Tachycardic. Patient will be signed out to Dr. Botello upon shift change pending labs, XR, and EKG. Patient is agreeable with plan. - Diagnoses Provider Diagnoses: COPD (chronic obstructive pulmonary disease), Respiratory distress Discharge - Sign-Out/Discharge Documenting (check all that apply): Sign-Out Patient Signing out patient TO: Marquis Botello - Upon shift change pending labs, XR, and EKG - Discharge Plan Condition: Stable Referrals: Yaneth Evangelista MD [Primary Care Provider] - - Attestation Statements Document Initiated by Scribe: Yes Documenting Scribe: Ana Maria Landon Provider For Whom Scribe is Documenting (Include Credential): Dr. Rupert Edmonds MD Scribe Attestation: I, Ana Maria Landon, scribed for Dr. Rupert Edmonds MD on 08/14/18 at 0655. Status of Scribe Document: Ready
[2018-08-14] MEDS ORDERED: Magnesium Sulfate 2 GM IV* 2 GM/50 ML BAG ONE (06:56)
[2018-08-14] MEDS: Albuterol 2.5 MG/3 ML NEB.SOL* (0.083%) INH SCH ×2 (06:56→06:57)
[2018-08-14] MEDS ORDERED: Albuterol 2.5 MG/3 ML NEB.SOL* (0.083%) INH ONE (07:00)
[2018-08-14 07:13] LABS: Hematocrit 44 % (35-47); Hemoglobin 14.4 g/dl (12.0-16.0); Mean Corpuscular HGB Conc 33 g/dl (31-36); Mean Corpuscular Hemoglobin 32 pg (27-31); Mean Corpuscular Volume 97 fL (80-97); Mean Platelet Volume 7.6 fL (7.4-10.4); Platelet Count 276 10^3/ul (150-450); Red Blood Count 4.53 10^6/ul (4.00-5.40); Red Cell Distribution Width 14 % (10.5-15); White Blood Count 12.9 10^3/ul (3.5-10.8)
[2018-08-14 07:20] LABS: Activated Partial Thrombo Time 19.7 seconds (26.0-36.3); INR 0.96 (0.77-1.02)
[2018-08-14] MEDS ORDERED: cefTRIAXone(*) 1 GM in NS 0.9% 50 ML* 50 ML IVPB ONE (07:20)
--- NOTE | 2018-08-14 07:23 | ED ---
Progress - Progress Note Progress Note: This patient was signed out from Dr. Edmonds awaiting a full work up as she had just recently arrived in the ED. The patient was brought in by EMS from home. The patient is unable to speak in full sentences so history was obtained from the nurse that was here as patient arrived. The patient was tripoding at home and has had a productive cough for the last week that has gotten worse. She has a hx of COPD, PNA, and bronchitis. So medications have been administered and the patient is on a BiPAP on exam. She does nod yes to if the treatment has helped her and no to if she is having chest pain. The patient was previously a DNR but that has been redacted. LEVEL 5 CAVEAT: Exam limited due to the patients respiratory distress VITAL SIGNS: Reviewed. GENERAL: Patient is a well-developed and nourished female. The patient is in severe respiratory distress. She cannot speak in full sentences HEAD AND FACE: No signs of trauma. No ecchymosis, hematomas or skull depressions. No sinus tenderness. EYES: PERRLA, EOMI x 2, No injected conjunctiva, no nystagmus. EARS: Hearing grossly intact. Ear canals and tympanic membranes are within normal limits. MOUTH: Oropharynx within normal limits. NECK: Supple, trachea is midline, no adenopathy, no JVD, no carotid bruit, no c- spine tenderness, neck with full ROM. CHEST: Symmetric, no tenderness at palpation LUNGS: patient is on a BiPAP and has very diminished lung sounds with a slight wheeze. CVS: Regular rate and rhythm, S1 and S2 present, no murmurs or gallops appreciated. ABDOMEN: Soft, non-tender. No signs of distention. No rebound no guarding, and no masses palpated. Bowel sounds are normal. EXTREMITIES: FROM in all major joints, no edema, no cyanosis or clubbing. NEURO: Alert and oriented x 3. No acute neurological deficits. follows commands. SKIN: Dry and warm An EKG done at 0725 shows heart rate of 113BPM sinus tachycardia with no st elevations there are depressions in V4, V5, V6 CXR as read by radiology, COPD. Dr Botello has reviewed this report. [address] Faria of the patients case and he has agreed to consult on the patient. The patient was admitted to the ICU by Dr. Resendez Course/Dx - Course Course Of Treatment: This patient was signed out to Dr. Edmonds. This patient is a 62-year-old female who presents to the emergency department with chief complaint of having shortness of breath. The patient reported that she has been having productive cough and she has history of COPD. She has been taking her medications and she has been wearing her CPAP that she wears at nighttime however, this morning the patient was with severe shortness of breath. The patient is unable to speak in full sentences. Patient is in severe respiratory distress. At this time the patient is in the BiPAP machine. She is a full code. Right now the patient reports that she is doing better with a BiPAP. Therefore the patient will be kept in the BiPAP machine. However, if the symptoms worsen she will have to have endotracheal intubation to maintain the airway. Blood work shows a doses of 12.9, ABG shows a pH of 7.12, PCO2 99, PO2 is 158 ultrasound is 99.5 in the BiPAP machine. CMP shows a potassium of 5.2, carbon dioxide 33, creatinine 1.08, glucose 176, troponin 0.55, CRP 99.82, and BMP 218. Influenza A and B is negative. Chest x-ray impression: COPD. In the ED course the patient was given multiple DuoNebs, the patient is of the BiPAP machine, Solu-Medrol, magnesium for the COPD exacerbation. The patient also was given Rocephin since the patient reports that she is having productive cough possible bronchitis. After one hour we repeated the ABG and he shows a pH of 7.22, PCO2 of 73 which both are improving, PO2 159 and O2 sat is 99.5 in the BiPAP machine. At this point I discussed the case with Dr. Resendez from the hospital services who accepted the patient for admission. - Diagnoses Provider Diagnoses: COPD (chronic obstructive pulmonary disease), Respiratory distress, Hypercapnia , Hypoxia - Critical Care Time Critical Care Time: 75-104 min Discharge - Sign-Out/Discharge Documenting (check all that apply): Patient Departure - admitted , Receiving Sign-Out Receiving patient FROM: Rupert Edmonds All imaging exams completed and their final reports reviewed: Yes - Discharge Plan Condition: Stable Disposition: ADMITTED TO [facility] - Billing Disposition and Condition Condition: STABLE Disposition: Admitted to [facility] - Attestation Statements Document Initiated by Scribe: Yes Documenting Scribe: Scooby Sr Provider For Whom Scribe is Documenting (Include Credential): Marquis Botello MD Scribe Attestation: I, Scooby Sr , scribed for Marquis Botello MD on 08/14/18 at 1733. Scribe Documentation Reviewed: Yes Provider Attestation: The documentation as recorded by the Scooby peters accurately reflects the service I personally performed and the decisions made by me, Marquis Botello MD Status of Scribe Document: Viewed
[2018-08-14] MEDS: Morphine VIAL* 4 MG/ML VIAL (1 ml vial) IV ONE (07:28)
[2018-08-14 07:38] LABS: Albumin 4.3 g/dL (3.2-5.2); Albumin/Globulin Ratio 1.3 (1-3); BUN/Creatinine Ratio 14.8 (8-20); C Reactive Protein 99.82 mg/L (<8.01); Calcium 10.2 mg/dL (8.6-10.3); EGFR African American 62.2 (>60); EGFR Non-African American 51.4 (>60); Globulin 3.4 g/dL (2-4); Potassium 5.2 mmol/L (3.5-5.0); Total Bilirubin 0.4 mg/dL (0.2-1.0); Total Protein 7.7 g/dL (6.4-8.9)
[2018-08-14 07:43] LABS: ABS Basophils 0 10^3/ul (0-0.2); ABS Eosinophils 0 10^3/ul (0-0.6); ABS Lymphocytes 2.4 10^3/ul (1.0-4.8); ABS Monocytes 1.9 10^3/ul (0-0.8); ABS Neutrophils 8.6 10^3/ul (1.5-7.7); ABS Nucleated RBC 0 10^3/ul; Eosinophil % 0.1 %; Lymphocyte % 18.9 %; Nucleated Red Blood Cells % 0
[2018-08-14 07:52] LABS: Troponin I 0.04 ng/mL (<0.04)
[2018-08-14 08:26] LABS: Influenza A Molecular NEGATIVE (Negative); Influenza B Molecular NEGATIVE (Negative)
[2018-08-14] MEDS ORDERED: Spiriva Inhaler DEVICE* 1 EACH DEVICE INH ONE (09:00)
--- NOTE | 2018-08-14 09:18 | HP ---
History of Present Illness - History of Present Illness Reason for Visit: shortness of breath History of Present Illness: 62 yo F with PMH of COPD and chronic hypercarbic and hypoxic respiratory failure on home O2 presents to the ED on 08/14 with several days of shortness of breath, worsening overnight. Similar to previous episodes of COPD exacerbation. She also reports productive sputum, yellow, and feeling febrile. She tried taking some steriods which she had at home but they did not seem to help. On evaluation in ED found to have an acute respiratory acidosis. WBC elevated. Tachycardic and tachypnic. Started on Rocephin and BiPAP. Admitted to ICU for further care - Past Medical History Cardiac: CAD, Hyperlipidemia Pulmonary: COPD, Previously intubated - Past Surgical History Past Surgical History: Hysterectomy, Other - Ectopic excision, coronary stents, Tonsillectomy - Past Family History Family History: Cancer - ovarian in mother, CAD - in father - Past Social History Smoke: Quit - 2004 Occupation: retired ICU nurse Alcohol: Rare Drugs: None Lives: Alone - Health Maintenance Health Maintenance: Mammogram Review of Systems - Review of Systems Constitutional: Positive: Fever, Weakness Eyes: Negative: Pain, Vision Change, Conjunctivae Inflammation, Eyelid Inflammation, Redness, Other ENT: Negative: Ear Pain, Ear Discharge, Nose Pain, Nose Discharge, Nose Congestion, Mouth Pain, Mouth Swelling, Throat Pain, Throat Swelling, Other Respiratory: Positive: Cough, Shortness of Breath, SOB with Excertion, Sputum Cardiovascular: Negative: Chest Pain, Palpitations, Orthopnea, Paroxysmal Noc. Dyspnea, Edema, Light Headedness, Other Gastrointestinal: Negative: Nausea, Vomiting, Abdominal Pain, Diarrhea, Constipation, Melena, Hematochezia, Other Genitourinary: Negative: Dysuria, Frequency, Incontinence, Hematuria, Retention , Other Musculoskeletal: Negative: Neck Pain, Shoulder Pain, Arm Pain, Back Pain, Hand Pain, Leg Pain, Foot Pain, Other Skin: Negative: Rash, Lesions, Jose [place], Bruising, Other Neurological: Positive: Weakness - generalized - Medications/Allergies Allergies/Adverse Reactions: Allergies Allergy/AdvReac Type Severity Reaction Status Date / Time No Known Allergies Allergy Verified 08/14/18 07:40 Exam - Exam Vital Signs: Vital Signs (72 hours) 08/14/18 08/14/18 08/14/18 07:00 07:05 07:06 Temperature 96.8 F Pulse Rate 107 109 110 Respiratory 25 17 28 Rate Blood Pressure 144/100 (mmHg) O2 Sat by Pulse 98 98 94 Oximetry 08/14/18 08/14/18 08/14/18 07:09 07:28 07:36 Temperature Pulse Rate 111 114 Respiratory 23 19 30 Rate Blood Pressure 144/100 168/115 (mmHg) O2 Sat by Pulse 97 98 Oximetry 08/14/18 08/14/18 08/14/18 08:00 08:06 08:12 Temperature Pulse Rate 115 115 112 Respiratory 28 18 16 Rate Blood Pressure 124/101 (mmHg) O2 Sat by Pulse 99 98 99 Oximetry Assessment/Plan - Assessment/Plan Assessment: 62 yo F with PMH of CAD, O2 dependent COPD with chronic hypoxic and hypercapneic respiratory failure. She has had multiple prior admissions for COPD exacerbation, most recent of which was 12/02/2017, at which time she required intubation. She presents today with COPD exacerbation and acute on chronic hypoxic and hypercarbic respiratory failure which has stabilized on BiPAP. WBC and CRP elevated concerning for possible bronchitis. CXR clear. Plan: Cardiovascular: (1) Sinus tachycardia; (2) Elevated Troponin; (3) HTN; (4) CAD ; (5) hx of stenting x 3; (6) Hyperlipidemia -- HR 107-116 -- SBP 124-168 -- Telemetry -- Troponin 0.04, follow trend. -- BNP 218, follow trend -- resume home meds Home meds: ASA, atorvastatin, Plavix, Metoprolol Pulmonary: (1) Acute on chronic hypoxic and hypercarbic respiratory failure; (2 ) COPD exacerbation; (3) Suspected bronchitis -- RR 16-30 -- sats 94-99 on BiPAP -- CXR: hyperinflation consistent with COPD -- ABG, preBiPAP: pH 7.12; pCO2 99; pO2 158; HCO3 24.7 BE -0.2; %O2 Sat 99.5. -- ABG, postBIPAP: pH 7.22, pCO2 73, pO2 129, HCO3 25.1, BE 0.2, %O2 Sat 99.5 -- Bronchodilators, steriods and abx for COPD exacerbation and likely bronchitis -- resume home Symbicort and Spiriva Home meds: Albuterol, Duoneb, Combivent respimat, Symbicort, Spiriva, 3L home O2 Gastrointestinal: No acute issues -- diet: NPO until respiratory status improved -- bowel regimen: None -- ulcer prophylaxis: Protonix Home meds: None Endocrine: No acute issues -- monitor BGs Home meds: None Renal: (1) Prerenal azotemia; (2) Hyperkalemia -- strict Is and Os -- Cr 1.08, follow trend -- Lytes Na 138 K 5.2, follow trend. currently asymptomatic Ca 10.2 Mag ordered for AM Phos ordered for AM -- IVF: NS @ 75 ml/hr Home meds: None Infectious disease: (1) Possible sepsis; (2) Acute bronchitis -- Tmax 96.8 -- WBC 12.9, follow trend -- CRP 99.82 -- Micro 08/14 Flu screen negative Blood ordered -- ABX x 7 days Rocephin Azithromycin Home meds: None Neurologic: No acute issues Home meds: None Hematological: No acute issues -- Hgb 14.4 -- Plt 276 -- Coags INR 0.96 -- DVT prophylaxis: SQ Lovenox -- resume home ASA & Plavix Home meds: ASA, Plavix Metabolic: (1) Respiratory acidosis -- BiPAP Home meds: None Deep vein thrombosis prophylaxis: SQ Lovenox Dietary: Protonix while on BiPAP Condition: Critical Prognosis: Good Code status: Full Disposition: Admit to ICU Cumulative time spent in the care of this patient (excluding any procedure time) : at least 50 minutes. Patient care included clinical interview (with patient and/or family), bedside exam of the patient, review of labs, x-rays, and other ancillary data, coordination of (respiratory, nursing care, review of patient's records, discussion regarding patients management with involved consultants, primary physician, pharmacists, and other healthcare personnel (dietary, case management , physical/occupational therapy etc.)
[2018-08-14] MEDS ORDERED: Morphine INJ* 10 MG/ML 1 ML CARPUJECT IV PRN (09:39)
[2018-08-14] MEDS ORDERED: hydrALAZINE IV* 20 MG/ML VIAL IV SLOW PU PRN (09:41)
[2018-08-14] MEDS ORDERED: Albuterol/Ipratropium NEB.SOL* Albuterol 2.5 MG/Ipratropium 0.5 MG 3 ML INH SCH (10:00)
[2018-08-14] MEDS: Pantoprazole IV* 40 MG IV SCH (10:03)
[2018-08-14] MEDS: Enoxaparin(*) 40 MG/0.4 ML SYR SUBCUT SCH (10:03)
[2018-08-14] MEDS: methylPREDNISolone SOD 40 MG* 1 ML VIAL IV SCH ×2 (10:03→18:02)
[2018-08-14] MEDS: Midazolam* 1 MG/ML 2 ML VIAL (2 MG) IV SLOW PU PRN ×2 (10:03→21:47)
[2018-08-14] MEDS: NS 0.9% 1000 ML** 1,000 ML IV SCH (10:03)
[2018-08-14] MEDS: Azithromycin IV(*) 500 MG in NS 0.9% 250 ML* 250 ML IVPB SCH (10:03)
[2018-08-14] MEDS: Mometasone/Formoter 100/5 MDI INH SCH ×2 (10:06→23:05)
[2018-08-14] MEDS ORDERED: Morphine VIAL* 10 MG/ML 1 ML VIAL ONE (12:04)
[2018-08-14] MEDS: Albuterol/Ipratropium NEB.SOL* Albuterol 2.5 MG/Ipratropium 0.5 MG 3 ML INH SCH ×2 (13:06→19:26)
[2018-08-14] MEDS: Morphine VIAL* 10 MG/ML 1 ML VIAL IV PRN ×2 (16:49→19:39)
[2018-08-14] MEDS ORDERED: Metoprolol Tartrate IV* 1 MG/ML 5 ML VIAL IV ONE (21:04)
[2018-08-14] MEDS: Metoprolol Tartrate TAB* 50 mg PO SCH (21:30)
[2018-08-15] MEDS: NS 0.9% 1000 ML** 1,000 ML IV SCH (00:04)
[2018-08-15] MEDS: Albuterol/Ipratropium NEB.SOL* Albuterol 2.5 MG/Ipratropium 0.5 MG 3 ML INH SCH ×6 (01:17→22:50)
[2018-08-15] MEDS: Morphine VIAL* 10 MG/ML 1 ML VIAL IV PRN ×3 (01:46→11:47)
[2018-08-15] MEDS: methylPREDNISolone SOD 40 MG* 1 ML VIAL IV SCH ×3 (01:49→18:22)
[2018-08-15 03:40] LABS: Hematocrit 38 % (35-47); Hemoglobin 12.5 g/dl (12.0-16.0); Mean Corpuscular HGB Conc 33 g/dl (31-36); Mean Corpuscular Hemoglobin 32 pg (27-31); Mean Corpuscular Volume 96 fL (80-97); Mean Platelet Volume 7.4 fL (7.4-10.4); Platelet Count 204 10^3/ul (150-450); Red Blood Count 3.92 10^6/ul (4.00-5.40); Red Cell Distribution Width 14 % (10.5-15); White Blood Count 6.8 10^3/ul (3.5-10.8)
[2018-08-15] MEDS: Midazolam* 1 MG/ML 2 ML VIAL (2 MG) IV SLOW PU PRN ×2 (03:48→08:33)
[2018-08-15] MEDS ORDERED: Albuterol 2.5 MG/3 ML NEB.SOL* (0.083%) INH PRN (03:51)
[2018-08-15 03:54] LABS: BUN/Creatinine Ratio 32.5 (8-20); Calcium 9.5 mg/dL (8.6-10.3); EGFR African American 87.9 (>60); EGFR Non-African American 72.7 (>60); Magnesium 2.4 mg/dL (1.9-2.7); Potassium 4.9 mmol/L (3.5-5.0)
[2018-08-15] MEDS ORDERED: Albuterol 2.5 MG/3 ML NEB.SOL* (0.083%) INH ONE (03:57)
[2018-08-15] MEDS: Mometasone/Formoter 100/5 MDI INH SCH ×2 (08:05→19:55)
[2018-08-15] MEDS: Tiotropium CAP.INH* CAP.INH/18 MCG (USE ORDER SET !) INH SCH (08:05)
[2018-08-15] MEDS: Clopidogrel TAB* 75 MG PO SCH (08:27)
[2018-08-15] MEDS: Aspirin 81 mg CHEW TAB* 81 MG TAB.CHEW PO SCH (08:27)
[2018-08-15] MEDS: Metoprolol Tartrate TAB* 50 mg PO SCH ×2 (08:28→20:07)
[2018-08-15] MEDS: Atorvastatin* 40 MG TAB PO SCH (08:28)
[2018-08-15] MEDS: Pantoprazole IV* 40 MG IV SCH (10:02)
[2018-08-15] MEDS: Enoxaparin(*) 40 MG/0.4 ML SYR SUBCUT SCH (10:07)
[2018-08-15] MEDS: cefTRIAXone(*) 1 GM in NS 0.9% 50 ML* 50 ML IVPB SCH (10:08)
[2018-08-15] MEDS: Azithromycin IV(*) 500 MG in NS 0.9% 250 ML* 250 ML IVPB SCH (10:51)
[2018-08-15] MEDS ORDERED: Vancomycin per Pharmacy* NOTE FOLLOW UP PRN (11:52)
[2018-08-15] MEDS ORDERED: Vancomycin(*) 1,000 MG in NS 0.9% 250 ML* 250 ML IVPB ONE (12:00)
[2018-08-15] MEDS ORDERED: Albuterol/Ipratropium NEB.SOL* Albuterol 2.5 MG/Ipratropium 0.5 MG 3 ML ONE (12:03)
[2018-08-15] MEDS ORDERED: Albuterol/Ipratropium NEB.SOL* Albuterol 2.5 MG/Ipratropium 0.5 MG 3 ML INH ONE (12:05)
[2018-08-15] MEDS ORDERED: Zosyn 3.375 gm X 1 dose, then dose per Pharmacy IVPB ONE ×2 (14:00)
[2018-08-15] MEDS: clonazePAM TAB(*) 0.5 MG PO SCH ×2 (16:06→20:07)
[2018-08-15] MEDS ORDERED: ZOSYN 3.375 GM Q8H per EXTENDED INFUSION IVPB SCH ×2 (18:00)
--- NOTE | 2018-08-15 19:40 | PN ---
Date of Service: 08/15/18 Critical Care Services: 62 yo F with PMH of COPD and chronic hypercarbic and hypoxic respiratory failure on home O2 presents to the ED on 08/14 with several days of shortness of breath, worsening overnight. Similar to previous episodes of COPD exacerbation. She also reports productive sputum, yellow, and feeling febrile. She tried taking some steriods which she had at home but they did not seem to help. On evaluation in ED found to have an acute respiratory acidosis. WBC elevated. Tachycardic and tachypnic. Started on Rocephin and BiPAP. 08/15: On Bipap with improvement in work of breathing. Patient denies any pain and feels she is improving Vital Signs: Temp Pulse Resp BP SpO2 FiO2 98.9 F 90 16 129/79 95 30 08/15/18 15:39 08/15/18 19:01 08/15/18 19:01 08/15/18 19:00 08/15/18 19:01 08/15 15:33 Physical Exam: Gen:NAD HEENT: NCAT. Neck midline. No LA Lungs:distant breath sounds with occasional generalized wheezes Cardiac: S1S2, RRR Abdomen:SNTND, +BS Extremities: No edema, no cyanosis Neuro:Non focal Fluid Balance (Past 24 Hours): I= O= Net Intake & Output 08/13/18 08/14/18 08/15/18 08/16/18 06:59 06:59 06:59 06:59 Intake Total 1946 1001 Output Total 550 700 Balance 1396 301 Weight 119 lb 7.849 oz Intake: IV Fluids 1776 245 NS 1676 245 IVPB 296 NS 296 Oral 170 460 Output: Urine 550 700 Other: # Voids 1 ADLs: Meal Record Start: 08/14/18 09: 31 Freq: 09,13,18 Status: Active Protocol: Created 08/14/18 09:31 System (Rec: 08/14/18 09:31 System [id number]-C14) Document 08/14/18 13:00 [id number] (Rec: 08/14/18 14:50 [id number] ICU-C07) Document 08/14/18 18:00 [id number] (Rec: 08/14/18 19:02 [id number] ICU-C07) Document 08/15/18 09:00 [id number] (Rec: 08/15/18 09:39 [id number] ICU-C07) Document 08/15/18 13:00 [id number] (Rec: 08/15/18 16:19 [id number] ICU-C07) Document 08/15/18 18:00 [id number] (Rec: 08/15/18 18:32 [id number] ICU-C07) Intake and Output Start: 08/14/18 07: 10 Freq: Status: Active Protocol: Created 08/14/18 07:10 System (Rec: 08/14/18 07:10 System [id number]) Intake and Output Start: 08/14/18 09: 31 Freq: Q1HR Status: Active Protocol: Created 08/14/18 09:31 System (Rec: 08/14/18 09:31 System ICU-C14) Document 08/14/18 10:00 [id number] (Rec: 08/14/18 11:13 [id number] ICU-C07) Document 08/14/18 11:13 [id number] (Rec: 08/14/18 11:17 [id number] ICU-C07) Document 08/14/18 12:47 [id number] (Rec: 08/14/18 12:48 [id number] ICU-C07) Document 08/14/18 13:00 [id number] (Rec: 08/14/18 14:50 [id number] ICU-C07) Document 08/14/18 14:00 [id number] (Rec: 08/14/18 15:31 [id number] ICU-C07) Document 08/14/18 15:00 [id number] (Rec: 08/14/18 15:32 [id number] ICU-C07) Document 08/14/18 16:53 [id number] (Rec: 08/14/18 16:53 [id number] ICU-C07) Document 08/14/18 17:00 [id number] (Rec: 08/14/18 17:22 [id number] ICU-C07) Document 08/14/18 18:00 [id number] (Rec: 08/14/18 19:02 [id number] ICU-C07) Document 08/14/18 19:00 [id number] (Rec: 08/14/18 19:55 [id number] ICU-C07) Document 08/14/18 21:00 [id number] (Rec: 08/14/18 21:55 [id number] ICU-C07) Document 08/14/18 22:00 [id number] (Rec: 08/14/18 22:07 [id number] ICU-C07) Document 08/15/18 00:00 [id number] (Rec: 08/15/18 00:20 [id number] ICU-C07) Document 08/15/18 08:00 [id number] (Rec: 08/15/18 09:37 [id number] ICU-C07) Document 08/15/18 12:00 [id number] (Rec: 08/15/18 12:40 [id number] ICU-C07) Document 08/15/18 16:00 [id number] (Rec: 08/15/18 16:19 [id number] ICU-C07) Document 08/15/18 17:00 [id number] (Rec: 08/15/18 17:31 [id number] ICU-C07) Labs: Laboratory Results - last 24 hr 08/15/18 08/15/18 08/15/18 03:25 03:32 03:32 WBC RBC Hgb Hct MCV MCH MCHC RDW Plt Count MPV Patient Temperature Not Reportable ABG pH 7.25 L ABG pH (Temp Correct) Not Reportable ABG pCO2 59 H ABG pCO2 (Temp Corrct Not Reportable ABG pO2 140 H ABG pO2 (Temp Correct Not Reportable ABG HCO3 23.1 ABG O2 Saturation 99.7 H ABG Base Excess -2.4 L Respiration Rate Not Reportable Ventilator Type Not Reportable Vent Mode Bipap 12/5 FiO2 35 Inspiratory Time Not Reportable PEEP Not Reportable Pressure Support Not Reportable Pressure Control Not Reportable EPAP 5 IPAP 12 BiPAP Not Reportable Sodium 136 Potassium 4.9 Chloride 101 Carbon Dioxide 26 Anion Gap 9 BUN 26 H Creatinine 0.80 Est GFR ( Amer) 87.9 Est GFR (Non-Af Amer) 72.7 BUN/Creatinine Ratio 32.5 H Glucose 131 H Calcium 9.5 Phosphorus 4.0 Magnesium 2.4 B-Natriuretic Peptide 340 H 08/15/18 03:32 WBC 6.8 RBC 3.92 L Hgb 12.5 Hct 38 MCV 96 MCH 32 H MCHC 33 RDW 14 Plt Count 204 MPV 7.4 Patient Temperature ABG pH ABG pH (Temp Correct) ABG pCO2 ABG pCO2 (Temp Corrct ABG pO2 ABG pO2 (Temp Correct ABG HCO3 ABG O2 Saturation ABG Base Excess Respiration Rate Ventilator Type Vent Mode FiO2 Inspiratory Time PEEP Pressure Support Pressure Control EPAP IPAP BiPAP Sodium Potassium Chloride Carbon Dioxide Anion Gap BUN Creatinine Est GFR ( Amer) Est GFR (Non-Af Amer) BUN/Creatinine Ratio Glucose Calcium Phosphorus Magnesium B-Natriuretic Peptide Studies: CXR 08/14: hyperinflated lungs. No acute cardiopulmonary abnormalities appreciated Nutrition: regular diet as per patient request Impression: 62 yo F with PMH of CAD, O2 dependent COPD with chronic hypoxic and hypercapneic respiratory failure. She has had multiple prior admissions for COPD exacerbation, most recent of which was 12/02/2017, at which time she required intubation. She presents today with COPD exacerbation and acute on chronic hypoxic and hypercarbic respiratory failure which has stabilized on BiPAP. WBC and CRP elevated concerning for possible bronchitis. CXR clear. AECOPD Acute on chronic respiratory failure due to hypoxemia and hypercapneia CAD Anxiety Plan: Plan: Cardiovascular: (1) Sinus tachycardia resolved; (2) Elevated Troponin likely demand ischemia 0.04-->0.06 (3) HTN; (4) CAD; (5) hx of stenting x 3; (6) Hyperlipidemia EKG not suggestive of ACI will follow trop -- resume home meds Home meds: ASA, atorvastatin, Plavix, Metoprolol Pulmonary: (1) Acute on chronic hypoxic and hypercarbic respiratory failure; (2) COPD exacerbation; (3) Suspected bronchitis --Improved with BIPAP and conservative mgmt on systemic steroids, bronchodilators, and abx. --discharge on Azithro MWF --hold dulera and spiriva till more stable --start neb budesonide -- palliative for end stage lung disease with recurrent hospitalization Home meds: Albuterol, Duoneb, Combivent respimat, Symbicort, Spiriva, 3L home O2 Gastrointestinal: No acute issues -- bowel regimen: None -- ulcer prophylaxis: Protonix Home meds: None Endocrine: No acute issues -- monitor BGs Home meds: None Renal: (1) MIKE resolved Home meds: None Infectious disease: (1) AECOPD abx as per respiratory section Neurologic: No acute issues Home meds: None Hematological: No acute issues -- DVT prophylaxis: SQ Lovenox -- resume home ASA & Plavix Home meds: ASA, Plavix Metabolic: (1) Respiratory acidosis -- BiPAP Home meds: None Deep vein thrombosis prophylaxis: SQ Lovenox Dietary: Protonix while on BiPAP Condition: Critical Prognosis: Good Code status: Full Disposition: Admit to ICU Cumulative time spent in the care of this patient (excluding any procedure time) : at least 40 minutes. Patient care included clinical interview (with patient and/or family), bedside exam of the patient, review of labs, x-rays, and other ancillary data, coordination of (respiratory, nursing care, review of patient's records, discussion regarding patients management with involved consultants, primary physician, pharmacists, and other healthcare personnel (dietary, case management , physical/occupational therapy etc.)
[2018-08-15] MEDS: Budesonide NEB* 0.5 MG/2 ML NEB.SOLN INH SCH (19:54)
[2018-08-15] MEDS ORDERED: Vancomycin(*) 750 MG in NS 0.9% 250 ML* 250 ML IVPB SCH (20:00)
[2018-08-15] MEDS: Morphine VIAL* 4 MG/ML VIAL (1 ml vial) IV ONE (20:28)
[2018-08-16] MEDS: methylPREDNISolone SOD 40 MG* 1 ML VIAL IV SCH ×2 (02:03→10:00)
[2018-08-16] MEDS: Albuterol/Ipratropium NEB.SOL* Albuterol 2.5 MG/Ipratropium 0.5 MG 3 ML INH SCH ×5 (03:34→20:05)
[2018-08-16] MEDS: Morphine VIAL* 4 MG/ML VIAL (1 ml vial) IV PRN ×4 (04:47→18:24)
[2018-08-16 05:40] LABS: Hematocrit 35 % (35-47); Hemoglobin 11.5 g/dl (12.0-16.0); Mean Corpuscular HGB Conc 33 g/dl (31-36); Mean Corpuscular Hemoglobin 32 pg (27-31); Mean Corpuscular Volume 96 fL (80-97); Mean Platelet Volume 7.6 fL (7.4-10.4); Platelet Count 198 10^3/ul (150-450); Red Blood Count 3.63 10^6/ul (4.00-5.40); Red Cell Distribution Width 14 % (10.5-15); White Blood Count 6.1 10^3/ul (3.5-10.8)
[2018-08-16 05:48] LABS: BUN/Creatinine Ratio 34.3 (8-20); Calcium 9.5 mg/dL (8.6-10.3); EGFR African American 107.9 (>60); EGFR Non-African American 89.2 (>60); Magnesium 2.4 mg/dL (1.9-2.7); Phosphorus 3.4 mg/dL (2.5-5.0)
[2018-08-16] MEDS: Budesonide NEB* 0.5 MG/2 ML NEB.SOLN INH SCH ×2 (07:22→20:05)
[2018-08-16] MEDS: Mometasone/Formoter 100/5 MDI INH SCH ×2 (07:23→20:30)
[2018-08-16] MEDS: Tiotropium CAP.INH* CAP.INH/18 MCG (USE ORDER SET !) INH SCH (07:24)
[2018-08-16] MEDS: Aspirin 81 mg CHEW TAB* 81 MG TAB.CHEW PO SCH (08:37)
[2018-08-16] MEDS: Metoprolol Tartrate TAB* 50 mg PO SCH ×2 (08:37→23:17)
[2018-08-16] MEDS: clonazePAM TAB(*) 0.5 MG PO SCH ×2 (08:37→23:17)
[2018-08-16] MEDS: Clopidogrel TAB* 75 MG PO SCH (08:37)
[2018-08-16] MEDS: Atorvastatin* 40 MG TAB PO SCH (08:37)
[2018-08-16] MEDS: cefTRIAXone(*) 1 GM in NS 0.9% 50 ML* 50 ML IVPB SCH (09:56)
[2018-08-16] MEDS: Enoxaparin(*) 40 MG/0.4 ML SYR SUBCUT SCH (09:59)
[2018-08-16] MEDS: Azithromycin IV(*) 500 MG in NS 0.9% 250 ML* 250 ML IVPB SCH (09:59)
[2018-08-16] MEDS: Pantoprazole IV* 40 MG IV SCH (10:00)
--- NOTE | 2018-08-16 11:22 | PN ---
Date of Service: 08/16/18 Critical Care Services: 62F with htn, hld, cad, copd on home o2, presents with copd exacerbation 2/2 viral uri, nstemi 08/15: On Bipap with improvement in work of breathing. Patient denies any pain and feels she is improving 08/16: comfortable this am. no complaints. Vital Signs: Temp Pulse Resp BP SpO2 FiO2 98.7 F 77 20 106/75 96 30 08/16/18 07:22 08/16/18 11:02 08/16/18 11:02 08/16/18 10:00 08/16/18 11:02 08/16 11:02 Physical Exam: Gen - nad on bipap heent - ncat, eomi, perrl neck - no jvd, no thyromegaly cv - s1/s2, no murmur lungs - cta, + exp wheeze abd - soft, nt ext - no cce neuro - non-focal Fluid Balance (Past 24 Hours): I= O= Net Intake & Output 08/14/18 08/15/18 08/16/18 08/17/18 06:59 06:59 06:59 06:59 Intake Total 1946 1161 60 Output Total 550 1650 Balance 1396 -489 60 Weight 54.2 kg 53.4 kg Intake: IV Fluids 1776 245 NS 1676 245 IVPB 296 NS 296 Oral 170 620 60 Output: Urine 550 1650 Other: Estimated Void Medium # Voids 1 0 0 Labs: Laboratory Results - last 24 hr 08/15/18 08/16/18 08/16/18 20:50 05:05 05:05 WBC 6.1 RBC 3.63 L Hgb 11.5 L Hct 35 MCV 96 MCH 32 H MCHC 33 RDW 14 Plt Count 198 MPV 7.6 Sodium 138 Potassium 5.0 Chloride 99 L Carbon Dioxide 32 Anion Gap 7 BUN 23 Creatinine 0.67 Est GFR ( Amer) 107.9 Est GFR (Non-Af Amer) 89.2 BUN/Creatinine Ratio 34.3 H Glucose 100 Calcium 9.5 Phosphorus 3.4 Magnesium 2.4 Troponin I 0.05 H* Studies: CXR 08/15 IMPRESSION: COPD. NO ACTIVE CARDIOPULMONARY DISEASE. Impression: 62F with htn, hld, cad, copd on home o2, presents with copd exacerbation 2/2 viral uri, nstemi Plan: Neuro - pain control cv - htn, hld, cad, nstemi - c/w asa/statin/plavix/bblocker - elevated trop 2/2 demain - check tte pulm - hypoxic/hypercapnic respiratory failure - 2/2 copd exacerbation - nebs q4h - taper steriods - zpak - wean bipap - morphine prn dyspnea id - wbc normal - cxr without infiltrate - afebrile - dc abx - f/u cultures gi - diet as tolerated renal - monitor i/o - monitor lytes heme - monitor cbc endo - fs ok lines - piv ppx - gi/dvt full code Critical Care Time: 45 mins
[2018-08-16] MEDS ORDERED: Vancomycin Trough Check NOTE FOLLOW UP ONE (11:30)
--- NOTE | 2018-08-16 16:53 | ECHO ---
Patient: ADRIANA HDEZ [facility] Rec#: [id number] : 1955 Date: 08/16/2018 Age: 62y Height: 218 cm / 85.8 in Weight: 53 kg / 116.8 lbs Sex: F BSA: 1.93 Room#: ICU 11 Admit Date#: 08/14/2018 Type: Inpatient Referring: Armando Sparks DO Reading: Marlin Farley MD Top Tile Decorator: Shwetha Gross,AURELIOCS,RDMS CC: JULITA HICKEY Transthoracic Echocardiogram Indication: CHF BP: 106/75 HR: 76 Rhythm: NSR Findings History: PNA, HTN, HLD, COPD, NSTEMI Technical Comments: The study quality is fair. The study is technically limited due to the patient's history of COPD. The study is technically limited due to patient being on BIPAP during study. Left Ventricle: The left ventricular chamber size is normal. Global left ventricular wall motion and contractility are within normal limits. The estimated ejection fraction is 60-65%. Normal left ventricular diastolic filling is observed. Left Atrium: The left atrial chamber size is normal. Right Ventricle: The right ventricular chamber size and systolic function are within normal limits. The right ventricle wall thickness is moderately increased. Right Atrium: The right atrial cavity size is normal. Aortic Valve: The aortic valve is trileaflet. There is no evidence of aortic valve thickening. Systolic excursion of the aortic valve is normal. There is no evidence of aortic regurgitation. There is no evidence of aortic stenosis. Mitral Valve: The mitral valve leaflets appear normal. There is no evidence of mitral regurgitation. There is no evidence of mitral stenosis. Tricuspid Valve: The tricuspid valve leaflets are normal. There is trace tricuspid regurgitation. Pulmonic Valve: The pulmonic valve structure is not well visualized. Pericardium: There is no significant pericardial effusion. Aorta: The aortic root appears normal. The aortic arch is not well visualized. Pulmonary Artery: The main pulmonary artery is not well visualized. Venous: The inferior vena cava is dilated. There is a greater than 50% respiratory change in the inferior vena cava dimension. Conclusions The study is technically limited due to the patient's history of COPD. The left ventricular chamber size is normal. Global left ventricular wall motion and contractility are within normal limits. The estimated ejection fraction is 60-65%. The right ventricle wall thickness is moderately increased. The right ventricular chamber size and systolic function are within normal limits. All valves show grossly normal function. Unable to estimate PA pressure. No prior echo available at this time to compare. Measurements Name Value Normal Range RVIDd (AP) 2D 2.5 cm (0.9 - 2.6) RVDdMajor (2D) 1.6 cm (2.2 - 4.4) RAd ISD 4CH 3.5 cm (3.4 - 4.9) RA (A4C)W 2.8 cm (2.9 - 4.6) IVSd (2D) 0.7 cm (0.6 - 1) LVPWd (2D) 0.9 cm (0.6 - 1) LVIDd (2D) 4.1 cm (3.6 - 5.4) LVIDs (2D) 3.3 cm - LV FS (2D) 19 % (25 - 45) Aortic Annulus 2 cm (1.4 - 2.6) Ao root diameter (2D) 2.5 cm (2.1 - 3.5) Ascending Ao 2.3 cm (2.1 - 3.4) LAd ISD 4CH 3.4 cm (2.9 - 5.3) LA ISD 4CH W 3.2 cm (2.5 - 4.5) Name Value Normal Range MV E-wave Vmax 0.7 m/sec - MV deceleration time 169 msec - MV A-wave Vmax 0.6 m/sec - MV E:A ratio 1.2 ratio - LV septal e' Vmax 0.08 m/sec - LV lateral e' Vmax 0.1 m/sec - LV E:e' septal ratio 9 ratio - LV E:e' lateral ratio 7 ratio - Name Value Normal Range AV Vmax 0.9 m/sec - AV VTI 15.5 cm - AV peak gradient 3.2 mmHg - AV mean gradient 1 mmHg - LVOT Vmax 0.8 m/sec - LVOT VTI 16 cm - LVOT peak gradient 2.6 mmHg - LVOT mean gradient 1 mmHg - JOSEMANUEL Vmax 0.7 m/sec - Name Value Normal Range RAP 8 mmHg - IVC diameter 2.5 cm - Name Value Normal Range PV Vmax 0.9 m/sec - PV peak gradient 3.2 mmHg -
[2018-08-17] MEDS: Albuterol/Ipratropium NEB.SOL* Albuterol 2.5 MG/Ipratropium 0.5 MG 3 ML INH SCH ×7 (00:15→23:33)
[2018-08-17] MEDS: methylPREDNISolone SOD 40 MG* 1 ML VIAL IV SCH ×3 (00:39→19:55)
[2018-08-17] MEDS: Morphine VIAL* 4 MG/ML VIAL (1 ml vial) IV PRN ×3 (00:45→21:09)
[2018-08-17 05:55] LABS: Hematocrit 33 % (35-47); Hemoglobin 11.3 g/dl (12.0-16.0); Mean Corpuscular HGB Conc 34 g/dl (31-36); Mean Corpuscular Hemoglobin 32 pg (27-31); Mean Corpuscular Volume 94 fL (80-97); Platelet Count 178 10^3/ul (150-450); Red Blood Count 3.53 10^6/ul (4.00-5.40); Red Cell Distribution Width 14 % (10.5-15); White Blood Count 5.6 10^3/ul (3.5-10.8)
[2018-08-17 06:11] LABS: BUN/Creatinine Ratio 41.1 (8-20); Calcium 9.3 mg/dL (8.6-10.3); EGFR African American 132.7 (>60); EGFR Non-African American 109.7 (>60); Magnesium 2.4 mg/dL (1.9-2.7); Potassium 4.5 mmol/L (3.5-5.0)
[2018-08-17] MEDS: Budesonide NEB* 0.5 MG/2 ML NEB.SOLN INH SCH ×2 (07:17→19:32)
[2018-08-17] MEDS: Mometasone/Formoter 100/5 MDI INH SCH ×2 (07:18→19:32)
[2018-08-17] MEDS: Tiotropium CAP.INH* CAP.INH/18 MCG (USE ORDER SET !) INH SCH (07:18)
[2018-08-17] MEDS: Aspirin 81 mg CHEW TAB* 81 MG TAB.CHEW PO SCH (07:46)
[2018-08-17] MEDS: Azithromycin TAB* 250 MG PO SCH (07:46)
[2018-08-17] MEDS: clonazePAM TAB(*) 0.5 MG PO SCH ×2 (07:47→19:55)
[2018-08-17] MEDS: Metoprolol Tartrate TAB* 50 mg PO SCH ×2 (07:47→19:55)
[2018-08-17] MEDS: Atorvastatin* 40 MG TAB PO SCH (07:47)
[2018-08-17] MEDS: Clopidogrel TAB* 75 MG PO SCH (07:47)
--- NOTE | 2018-08-17 09:26 | PN ---
Date of Service: 08/17/18 Critical Care Services: 62F with htn, hld, cad, copd on home o2, presents with copd exacerbation 2/2 viral uri, nstemi 08/15: On Bipap with improvement in work of breathing. Patient denies any pain and feels she is improving 08/16: comfortable this am. no complaints. 08/17: placed on HFNC this am and tolerating it well Vital Signs: Temp Pulse Resp BP SpO2 FiO2 97.1 F 85 18 160/105 97 30 08/17/18 08:00 08/17/18 09:01 08/17/18 09:01 08/17/18 09:00 08/17/18 09:01 08/17 08:00 Physical Exam: Gen - nad on hfnc heent - ncat, eomi, perrl neck - no jvd, no thyromegaly cv - s1/s2, no murmur lungs - cta, + exp wheeze abd - soft, nt ext - no cce neuro - non-focal Fluid Balance (Past 24 Hours): I= O= Net Intake & Output 08/15/18 08/16/18 08/17/18 08/18/18 06:59 06:59 06:59 06:59 Intake Total 1946 1161 552 Output Total 550 1650 1250 Balance 1396 -489 -698 Weight 54.2 kg 53.4 kg 52.4 kg Intake: IV Fluids 1776 245 322 NS 1676 245 322 IVPB 296 NS 296 Oral 170 620 230 Output: Urine 550 1650 1250 Other: Estimated Void Medium # Voids 1 0 0 Labs: Laboratory Results - last 24 hr 08/17/18 08/17/18 05:46 05:46 WBC 5.6 RBC 3.53 L Hgb 11.3 L Hct 33 L MCV 94 MCH 32 H MCHC 34 RDW 14 Plt Count 178 MPV 7.0 L Sodium 140 Potassium 4.5 Chloride 99 L Carbon Dioxide 36 H Anion Gap 5 BUN 23 Creatinine 0.56 Est GFR ( Amer) 132.7 Est GFR (Non-Af Amer) 109.7 BUN/Creatinine Ratio 41.1 H Glucose 111 H Calcium 9.3 Magnesium 2.4 Studies: CXR 08/15 IMPRESSION: COPD. NO ACTIVE CARDIOPULMONARY DISEASE. TTE 08/16 The study is technically limited due to the patient's history of COPD. The left ventricular chamber size is normal. Global left ventricular wall motion and contractility are within normal limits. The estimated ejection fraction is 60-65%. The right ventricle wall thickness is moderately increased. The right ventricular chamber size and systolic function are within normal limits. All valves show grossly normal function. Unable to estimate PA pressure. No prior echo available at this time to compare. Impression: 62F with htn, hld, cad, copd on home o2, presents with copd exacerbation 2/2 viral uri, nstemi Plan: Neuro - pain control cv - htn, hld, cad, nstemi - c/w asa/statin/plavix/bblocker - elevated trop 2/2 demain - tte without significant abnormality pulm - hypoxic/hypercapnic respiratory failure - 2/2 copd exacerbation - nebs q4h - taper steriods - zpak - wean bipap - morphine prn dyspnea id - wbc normal - cxr without infiltrate - afebrile - dc abx - f/u cultures gi - diet as tolerated renal - monitor i/o - monitor lytes heme - monitor cbc endo - fs ok lines - piv ppx - gi/dvt full code Critical Care Time: 40 mins
[2018-08-17] MEDS: Enoxaparin(*) 40 MG/0.4 ML SYR SUBCUT SCH (10:19)
[2018-08-17] MEDS: Pantoprazole IV* 40 MG IV SCH (10:19)
[2018-08-18] MEDS: Albuterol/Ipratropium NEB.SOL* Albuterol 2.5 MG/Ipratropium 0.5 MG 3 ML INH SCH ×6 (03:08→23:04)
[2018-08-18] MEDS: Budesonide NEB* 0.5 MG/2 ML NEB.SOLN INH SCH ×2 (07:06→19:58)
[2018-08-18] MEDS: Tiotropium CAP.INH* CAP.INH/18 MCG (USE ORDER SET !) INH SCH (07:07)
[2018-08-18] MEDS: Mometasone/Formoter 100/5 MDI INH SCH ×2 (07:07→19:55)
--- NOTE | 2018-08-18 08:21 | PN ---
Date of Service: 08/18/18 Critical Care Services: 62F with htn, hld, cad, copd on home o2, presents with copd exacerbation 2/2 viral uri, nstemi 08/15: On Bipap with improvement in work of breathing. Patient denies any pain and feels she is improving 08/16: comfortable this am. no complaints. 08/17: placed on HFNC this am and tolerating it well 08/18: comfortable but still wheezing Vital Signs: Temp Pulse Resp BP SpO2 FiO2 97.1 F 66 18 141/91 96 30 08/18/18 07:33 08/18/18 07:31 08/18/18 07:39 08/18/18 07:31 08/18/18 07:31 08/18 07:39 Physical Exam: Gen - nad on hfnc heent - ncat, eomi, perrl neck - no jvd, no thyromegaly cv - s1/s2, no murmur lungs - cta, + exp wheeze abd - soft, nt ext - no cce neuro - non-focal Fluid Balance (Past 24 Hours): I= O= Net Intake & Output 08/16/18 08/17/18 08/18/18 08/19/18 06:59 06:59 06:59 06:59 Intake Total 1161 552 850 Output Total 1650 1250 450 Balance -489 -698 400 Weight 53.4 kg 52.4 kg 52.7 kg Intake: IV Fluids 245 322 NS 245 322 IVPB 296 NS 296 Oral 620 230 850 Output: Urine 1650 1250 450 Other: Estimated Void Medium Small # Voids 0 0 1 Studies: CXR 08/15 IMPRESSION: COPD. NO ACTIVE CARDIOPULMONARY DISEASE. TTE 08/16 The study is technically limited due to the patient's history of COPD. The left ventricular chamber size is normal. Global left ventricular wall motion and contractility are within normal limits. The estimated ejection fraction is 60-65%. The right ventricle wall thickness is moderately increased. The right ventricular chamber size and systolic function are within normal limits. All valves show grossly normal function. Unable to estimate PA pressure. No prior echo available at this time to compare. Impression: 62F with htn, hld, cad, copd on home o2, presents with copd exacerbation 2/2 viral uri, nstemi Plan: Neuro - pain control cv - htn, hld, cad, nstemi - c/w asa/statin/plavix/bblocker - elevated trop 2/2 demand - tte without significant abnormality pulm - hypoxic/hypercapnic respiratory failure - 2/2 copd exacerbation - nebs q4h - taper steriods - zpak - wean bipap - morphine prn dyspnea id - wbc normal - cxr without infiltrate - afebrile - dc abx - f/u cultures gi - diet as tolerated renal - monitor i/o - monitor lytes heme - monitor cbc endo - fs ok lines - piv ppx - gi/dvt full code
[2018-08-18] MEDS: Aspirin 81 mg CHEW TAB* 81 MG TAB.CHEW PO SCH (09:04)
[2018-08-18] MEDS: clonazePAM TAB(*) 0.5 MG PO SCH ×2 (09:04→21:09)
[2018-08-18] MEDS: Clopidogrel TAB* 75 MG PO SCH (09:04)
[2018-08-18] MEDS: Atorvastatin* 40 MG TAB PO SCH (09:04)
[2018-08-18] MEDS: Metoprolol Tartrate TAB* 50 mg PO SCH ×2 (09:04→21:08)
[2018-08-18] MEDS: Azithromycin TAB* 250 MG PO SCH (09:05)
[2018-08-18] MEDS: Pantoprazole IV* 40 MG IV SCH (09:05)
[2018-08-18] MEDS: methylPREDNISolone SOD 40 MG* 1 ML VIAL IV SCH ×2 (09:05→21:08)
[2018-08-18] MEDS: Enoxaparin(*) 40 MG/0.4 ML SYR SUBCUT SCH (09:05)
[2018-08-18] MEDS: Morphine VIAL* 4 MG/ML VIAL (1 ml vial) IV PRN ×2 (13:31→21:08)
[2018-08-19] MEDS: Albuterol/Ipratropium NEB.SOL* Albuterol 2.5 MG/Ipratropium 0.5 MG 3 ML INH SCH ×5 (03:00→19:40)
[2018-08-19 05:17] LABS: Hematocrit 36 % (35-47); Hemoglobin 12.3 g/dl (12.0-16.0); Mean Corpuscular HGB Conc 34 g/dl (31-36); Mean Corpuscular Hemoglobin 32 pg (27-31); Mean Corpuscular Volume 94 fL (80-97); Mean Platelet Volume 7.2 fL (7.4-10.4); Platelet Count 214 10^3/ul (150-450); Red Blood Count 3.88 10^6/ul (4.00-5.40); Red Cell Distribution Width 13 % (10.5-15); White Blood Count 8.3 10^3/ul (3.5-10.8)
[2018-08-19 05:41] LABS: ABS Basophils 0 10^3/ul (0-0.2); ABS Eosinophils 0 10^3/ul (0-0.6); ABS Lymphocytes 0.9 10^3/ul (1.0-4.8); ABS Monocytes 0.6 10^3/ul (0-0.8); ABS Neutrophils 6.8 10^3/ul (1.5-7.7); ABS Nucleated RBC 0 10^3/ul; BUN/Creatinine Ratio 35.1 (8-20); Calcium 9.1 mg/dL (8.6-10.3); EGFR Non-African American 107.5 (>60); Eosinophil % 0 %; Lymphocyte % 11.2 %; Magnesium 2.3 mg/dL (1.9-2.7); Nucleated Red Blood Cells % 0; Potassium 4.5 mmol/L (3.5-5.0)
[2018-08-19] MEDS: Mometasone/Formoter 100/5 MDI INH SCH ×2 (07:56→19:39)
[2018-08-19] MEDS: Budesonide NEB* 0.5 MG/2 ML NEB.SOLN INH SCH ×2 (08:03→19:49)
[2018-08-19] MEDS: Tiotropium CAP.INH* CAP.INH/18 MCG (USE ORDER SET !) INH SCH (08:06)
[2018-08-19] MEDS: clonazePAM TAB(*) 0.5 MG PO SCH ×2 (08:13→20:53)
[2018-08-19] MEDS: Atorvastatin* 40 MG TAB PO SCH (08:13)
[2018-08-19] MEDS: Aspirin 81 mg CHEW TAB* 81 MG TAB.CHEW PO SCH (08:13)
[2018-08-19] MEDS: Clopidogrel TAB* 75 MG PO SCH (08:13)
[2018-08-19] MEDS: Metoprolol Tartrate TAB* 50 mg PO SCH ×2 (08:13→20:53)
[2018-08-19] MEDS: Azithromycin TAB* 250 MG PO SCH (08:13)
[2018-08-19] MEDS: Enoxaparin(*) 40 MG/0.4 ML SYR SUBCUT SCH (08:14)
[2018-08-19] MEDS: Pantoprazole IV* 40 MG IV SCH (08:14)
[2018-08-19] MEDS: methylPREDNISolone SOD 40 MG* 1 ML VIAL IV SCH ×2 (08:14→20:54)
[2018-08-19] MEDS: guaiFENesin ER TAB 600 MG PO SCH ×2 (12:52→20:53)
--- NOTE | 2018-08-19 15:15 | PN ---
Progress Note - Progress Note Date of Service: 08/19/18 - Pulm progress note Note: Pt seen and examined at bedside, reports feeling slightly better. Still requiring high flow during daytime and BiPAP at night. No acute events o/n Active Medications Generic Name Dose Route Start Last Admin Trade Name Freq PRN Reason Stop Dose Admin Albuterol 2.5 mg 08/15/18 03:51 Ventolin 2.5 Mg/3 Ml Neb.Zita* INH Q2H PRN SOB/WHEEZING Albuterol/Ipratropium 1 neb 08/15/18 07:00 08/19/18 13:33 Duoneb (Albuterol 2.5 Mg/Ipratropium 0.5 Mg) INH 1 neb [id number] AWAKE SITA Administration Aspirin 324 mg 08/15/18 09:00 08/19/18 08:13 Aspirin 81 Mg Chew Tab* PO 324 mg DAILY SITA Administration Atorvastatin Calcium 40 mg 08/15/18 09:00 08/19/18 08:13 Lipitor* PO 40 mg DAILY SITA Administration Azithromycin 250 mg 08/17/18 09:00 08/19/18 08:13 Zithromax Tab* PO 08/21/18 08:59 250 mg DAILY SITA Administration Budesonide 0.5 mg 08/15/18 19:00 08/19/18 08:03 Pulmicort Neb* INH 0.5 mg RT.BID SITA Administration Clonazepam 0.5 mg 08/15/18 16:00 08/19/18 08:13 Klonopin Tab(*) PO 08/20/18 15:59 0.5 mg BID SITA Administration Clopidogrel Bisulfate 75 mg 08/15/18 09:00 08/19/18 08:13 Plavix Tab* PO 75 mg DAILY SITA Administration Enoxaparin Sodium 40 mg 08/14/18 10:00 08/19/18 08:14 Lovenox(*) SUBCUT 40 mg Q24H SITA Administration Guaifenesin 600 mg 08/19/18 13:00 08/19/18 12:52 Mucinex* PO 600 mg BID SITA Administration Methylprednisolone Sodium Succinate 40 mg 08/16/18 21:00 08/19/18 08:14 Solu-Medrol 40 Mg IV 08/22/18 20:59 40 mg Q12H SITA Administration Metoprolol Tartrate 50 mg 08/14/18 21:00 08/19/18 08:13 Lopressor Tab* PO 50 mg BID SITA Administration Mometasone Furoate/Formoterol Fumar 2 puff 08/14/18 10:00 08/18/18 19:55 Dulera 100/5 Mdi* INH 2 puff BID SITA Administration Morphine Sulfate 2 mg 08/16/18 15:17 08/18/18 21:08 Morphine Vial* IV 2 mg Q2H PRN Administration pain or air hunger Pantoprazole Sodium 40 mg 08/14/18 10:00 08/19/18 08:14 Protonix Iv* IV 40 mg Q24H SITA Administration Tiotropium Daisy 1 cap 08/15/18 09:00 08/19/18 08:06 Spiriva Cap.Inh* INH 1 cap DAILY SITA Administration Vital Signs Temp Pulse Resp BP Pulse Ox 97.6 F 67 21 123/76 94 08/19/18 12:54 08/19/18 14:00 08/19/18 14:00 08/19/18 12:00 08/19/18 14:00 O/E: Pt in NAD HEENT: PERRLA, No JVD Lungs: Diminished air entry b/l, prolonged exp phase and diffuse wheeze+ CVS: S1, S2+, regualr Abd: Soft, BS+ Ext: No edema Neuro: Alert, awake, no focal deficits Skin: No rash Laboratory Results - last 24 hr 08/19/18 08/19/18 05:10 05:10 WBC 8.3 RBC 3.88 L Hgb 12.3 Hct 36 MCV 94 MCH 32 H MCHC 34 RDW 13 Plt Count 214 MPV 7.2 L Neut % (Auto) 81.6 Lymph % (Auto) 11.2 [place] % (Auto) 7.0 Eos % (Auto) 0 Baso % (Auto) 0.2 Absolute Neuts (auto) 6.8 Absolute Lymphs (auto) 0.9 L Absolute Monos (auto) 0.6 Absolute Eos (auto) 0 Absolute Basos (auto) 0 Absolute Nucleated RBC 0 Nucleated RBC % 0 Sodium 138 Potassium 4.5 Chloride 98 L Carbon Dioxide 38 H Anion Gap 2 BUN 20 Creatinine 0.57 Est GFR ( Amer) 130.0 Est GFR (Non-Af Amer) 107.5 BUN/Creatinine Ratio 35.1 H Glucose 139 H Calcium 9.1 Magnesium 2.3 CXR 08/16: No acute air space opacities, evidence of hyperinflation noted ECHO: Normal EF, no significant changes I/R: 62 y o f with h/o severe COPD a/w worsening SOB sec to acute COPD exacerbation from viral bronchitis, also noted to have acute NSTEMI sec to demand ischemia Pt improving slowly, still has significant wheeze Pt able to tolerate BiPAP Will titrate high flow as tolerated c/w bronchodilators, IV steroids, empiric abx Receiving Morphine prn Has significant cough with thick secretions Will order flutter device and mucinex OOB to chair as tolerated No EKG changes Will need to be monitored closely in ICU
[2018-08-19] MEDS: Morphine VIAL* 4 MG/ML VIAL (1 ml vial) IV PRN (20:59)
[2018-08-20] MEDS: Albuterol/Ipratropium NEB.SOL* Albuterol 2.5 MG/Ipratropium 0.5 MG 3 ML INH SCH ×7 (01:11→22:45)
[2018-08-20] MEDS: Mometasone/Formoter 100/5 MDI INH SCH ×2 (08:16→19:49)
[2018-08-20] MEDS: Tiotropium CAP.INH* CAP.INH/18 MCG (USE ORDER SET !) INH SCH (08:16)
[2018-08-20] MEDS: Budesonide NEB* 0.5 MG/2 ML NEB.SOLN INH SCH ×2 (08:16→19:49)
[2018-08-20] MEDS: Aspirin 81 mg CHEW TAB* 81 MG TAB.CHEW PO SCH (08:24)
[2018-08-20] MEDS: clonazePAM TAB(*) 0.5 MG PO SCH (08:24)
[2018-08-20] MEDS: Atorvastatin* 40 MG TAB PO SCH (08:25)
[2018-08-20] MEDS: guaiFENesin ER TAB 600 MG PO SCH ×2 (08:25→21:15)
[2018-08-20] MEDS: Azithromycin TAB* 250 MG PO SCH (08:25)
[2018-08-20] MEDS: Clopidogrel TAB* 75 MG PO SCH (08:26)
[2018-08-20] MEDS: methylPREDNISolone SOD 40 MG* 1 ML VIAL IV SCH ×2 (08:26→21:15)
[2018-08-20] MEDS: Metoprolol Tartrate TAB* 50 mg PO SCH ×2 (08:26→21:15)
[2018-08-20] MEDS: Pantoprazole IV* 40 MG IV SCH (08:26)
[2018-08-20] MEDS: Enoxaparin(*) 40 MG/0.4 ML SYR SUBCUT SCH (09:59)
--- NOTE | 2018-08-20 16:09 | PN ---
Progress Note - Progress Note Date of Service: 08/20/18 - Pulm progress note Note: Pt seen and examined at bedside this am. Pt reported feeling better. Still dyspneic with minimal movement. Has cough productive of thick phleghm Active Medications Generic Name Dose Route Start Last Admin Trade Name Freq PRN Reason Stop Dose Admin Albuterol 2.5 mg 08/15/18 03:51 Ventolin 2.5 Mg/3 Ml Neb.Zita* INH Q2H PRN SOB/WHEEZING Albuterol/Ipratropium 1 neb 08/15/18 07:00 08/20/18 12:10 Duoneb (Albuterol 2.5 Mg/Ipratropium 0.5 Mg) INH 1 neb [id number] AWAKE SITA Administration Aspirin 324 mg 08/15/18 09:00 08/20/18 08:24 Aspirin 81 Mg Chew Tab* PO 324 mg DAILY SITA Administration Atorvastatin Calcium 40 mg 08/15/18 09:00 08/20/18 08:25 Lipitor* PO 40 mg DAILY SITA Administration Azithromycin 250 mg 08/17/18 09:00 08/20/18 08:25 Zithromax Tab* PO 08/21/18 08:59 250 mg DAILY SITA Administration Budesonide 0.5 mg 08/15/18 19:00 08/20/18 08:16 Pulmicort Neb* INH 0.5 mg RT.BID SITA Administration Clopidogrel Bisulfate 75 mg 08/15/18 09:00 08/20/18 08:26 Plavix Tab* PO 75 mg DAILY SITA Administration Enoxaparin Sodium 40 mg 08/14/18 10:00 08/20/18 09:59 Lovenox(*) SUBCUT 40 mg Q24H SITA Administration Guaifenesin 600 mg 08/19/18 13:00 08/20/18 08:25 Mucinex* PO 600 mg BID SITA Administration Methylprednisolone Sodium Succinate 40 mg 08/16/18 21:00 08/20/18 08:26 Solu-Medrol 40 Mg IV 08/22/18 20:59 40 mg Q12H SITA Administration Metoprolol Tartrate 50 mg 08/14/18 21:00 08/20/18 08:26 Lopressor Tab* PO 50 mg BID SITA Administration Mometasone Furoate/Formoterol Fumar 2 puff 08/14/18 10:00 08/20/18 08:16 Dulera 100/5 Mdi* INH 2 puff BID SITA Administration Morphine Sulfate 2 mg 08/16/18 15:17 08/19/18 20:59 Morphine Vial* IV 2 mg Q2H PRN Administration pain or air hunger Pantoprazole Sodium 40 mg 08/14/18 10:00 08/20/18 08:26 Protonix Iv* IV 40 mg Q24H SITA Administration Tiotropium [place] 1 cap 08/15/18 09:00 08/20/18 08:16 Spiriva Cap.Inh* INH 1 cap DAILY SITA Administration Vital Signs Temp Pulse Resp BP Pulse Ox 98.9 F 71 18 105/69 73 08/20/18 15:38 08/20/18 15:00 08/20/18 15:00 08/20/18 12:00 08/20/18 15:00 O/E: Pt in NAD HEENT: PERRLA, No JVD Lungs: Diminished air entry b/l, wheeze+ CVS: S1, S2+, regular Abd: Soft, BS+ Ext: Normal ROM Skin: No rash Neuro: AAOx3 Labs: No new labs CXR 08/16: No acute air space opacities, evidence of hyperinflation noted ECHO: Normal EF, no significant changes I/R: 62 y o f with h/o severe COPD a/w worsening SOB sec to acute COPD exacerbation from viral bronchitis, also noted to have acute NSTEMI sec to demand ischemia Pt improving slowly, still has significant wheeze, slightly better today Pt able to tolerate BiPAP at night, is on high flow during the day Will titrate FiO2 as tolerated c/w bronchodilators, IV steroids, empiric abx Receiving Morphine prn Has significant cough with thick secretions Ordered flutter device and mucinex OOB to chair as tolerated Will need to be monitored closely in ICU
[2018-08-20] MEDS: Morphine VIAL* 4 MG/ML VIAL (1 ml vial) IV PRN (21:16)
[2018-08-21] MEDS: Albuterol/Ipratropium NEB.SOL* Albuterol 2.5 MG/Ipratropium 0.5 MG 3 ML INH SCH ×4 (03:48→19:48)
[2018-08-21] MEDS: Tiotropium CAP.INH* CAP.INH/18 MCG (USE ORDER SET !) INH SCH (07:04)
[2018-08-21] MEDS: Mometasone/Formoter 100/5 MDI INH SCH ×2 (07:04→19:49)
[2018-08-21] MEDS: Budesonide NEB* 0.5 MG/2 ML NEB.SOLN INH SCH ×2 (07:05→19:49)
[2018-08-21] MEDS ORDERED: Azithromycin TAB* 250 MG PO SCH (09:00)
[2018-08-21] MEDS: Aspirin 81 mg CHEW TAB* 81 MG TAB.CHEW PO SCH (09:27)
[2018-08-21] MEDS: Atorvastatin* 40 MG TAB PO SCH (09:27)
[2018-08-21] MEDS: methylPREDNISolone SOD 40 MG* 1 ML VIAL IV SCH ×2 (09:28→21:04)
[2018-08-21] MEDS: guaiFENesin ER TAB 600 MG PO SCH ×2 (09:28→21:05)
[2018-08-21] MEDS: Pantoprazole IV* 40 MG IV SCH (09:28)
[2018-08-21] MEDS: Metoprolol Tartrate TAB* 50 mg PO SCH ×2 (09:28→21:05)
[2018-08-21] MEDS: Enoxaparin(*) 40 MG/0.4 ML SYR SUBCUT SCH (09:28)
[2018-08-21] MEDS: Clopidogrel TAB* 75 MG PO SCH (09:28)
[2018-08-21] MEDS ORDERED: Azithromycin IV(*) 250 MG in NS 0.9% 250 ML* 250 ML IVPB SCH (10:00)
--- NOTE | 2018-08-21 15:35 | PN ---
Date of Service: 08/21/18 Critical Care Services: Doing better today - less SOB. Still has cough, but sputum production has decreased. Vital Signs: Temp Pulse Resp BP SpO2 FiO2 98.6 F 77 17 100/80 97 30 Physical Exam: Gen:Alert, oriented Lungs: Prolonged expiration. Otherwise, no wheezing heard Cardiac: Reg Rhythm Extremities:No cyanosis or edema Fluid Balance (Past 24 Hours): 08/20/18 08/21/18 06:59 06:59 Intake Total 920 610 Output Total 50 125 Balance 870 485 Weight 117 lb 1.047 oz 116 lb 13.52 oz Intake: Oral 920 610 Output: Urine 50 125 Izquierdo Other: Estimated Void Large Large Date of Last Bowel 08/20/18 Movement # Bowel Movements 1 Estimated Stool Amount Large # Voids 1 1 Labs: None today Nutrition: Oral diet Impression: COPD with exacerbation - is improving - no evidence of a treatable infection Plan: Can probably go home tomorrow if improvement continues. Critical Care Time: 25 minutes
[2018-08-22] MEDS: Albuterol/Ipratropium NEB.SOL* Albuterol 2.5 MG/Ipratropium 0.5 MG 3 ML INH SCH ×3 (01:30→13:33)
[2018-08-22] MEDS: Mometasone/Formoter 100/5 MDI INH SCH (07:21)
[2018-08-22] MEDS: Budesonide NEB* 0.5 MG/2 ML NEB.SOLN INH SCH (07:21)
[2018-08-22] MEDS: Tiotropium CAP.INH* CAP.INH/18 MCG (USE ORDER SET !) INH SCH (07:21)
[2018-08-22] MEDS: Aspirin 81 mg CHEW TAB* 81 MG TAB.CHEW PO SCH (09:05)
[2018-08-22] MEDS: Clopidogrel TAB* 75 MG PO SCH (09:05)
[2018-08-22] MEDS: Metoprolol Tartrate TAB* 50 mg PO SCH (09:06)
[2018-08-22] MEDS: Atorvastatin* 40 MG TAB PO SCH (09:06)
[2018-08-22] MEDS: guaiFENesin ER TAB 600 MG PO SCH (09:06)
[2018-08-22] MEDS: Enoxaparin(*) 40 MG/0.4 ML SYR SUBCUT SCH (09:11)
[2018-08-22] MEDS: methylPREDNISolone SOD 40 MG* 1 ML VIAL IV SCH (09:16)
[2018-08-22] MEDS: Pantoprazole IV* 40 MG IV SCH (09:30)
[2018-08-22 09:41] VITALS: BP 124/74
--- NOTE | 2018-08-22 21:30 | DS ---
DISCHARGE SUMMARY: DATE OF ADMISSION: 08/14/18 DATE OF DISCHARGE: 08/22/18 HISTORY AND HOSPITAL COURSE: This patient is a 62-year-old white female with a history of COPD, who was admitted with an acute exacerbation, with hypoxemia, hypercapnia. The patient was admitted to the intensive care unit and was placed on bronchodilators, steroids, and antibiotics. Cultures of sputum were negative and chest x-ray did not show any signs of pulmonary infiltration. The patient's antibiotics were subsequently discontinued and on 08/22/18, the patient was discharged on her usual regimen of bronchodilators plusl steroids ( Prednisone, 40 mg daily) to be tapered over the next month or so. FINAL DIAGNOSES: 1. Acute exacerbation of chronic obstructive pulmonary disease due to viral bronchitis. 2. Hypoxic and hyparcapnic respiratory failure: acute on chronic 3. History of coronary stent placement [id number]/[facility] #: [id number] MTDD
== END 2018-08-22 17:22 | disposition home or self-care (01) | DRG 140 ==
LOC: ED 06:50 → ICU 08:53
PROVIDERS: ADMIT Internal Medicine Critical Care Medicine; ATTEND Internal Medicine Critical Care Medicine
PROC: 5A09457 Assistance with Respiratory Ventilation, 24-96 Consecutive Hours, Continuous Positive Airway Pressure (ICD-10-PCS; principal; 2018-08-14)
DX: J44.1 Chronic obstructive pulmonary disease with (acute) exacerbation (principal); J96.21 Acute and chronic respiratory failure with hypoxia; J96.22 Acute and chronic respiratory failure with hypercapnia; E87.2 Acidosis; I24.8 Other forms of acute ischemic heart disease; I50.9 Heart failure, unspecified; I25.10 Atherosclerotic heart disease of native coronary artery without angina pectoris; E78.5 Hyperlipidemia, unspecified; I11.0 Hypertensive heart disease with heart failure; M19.90 Unspecified osteoarthritis, unspecified site; F17.210 Nicotine dependence, cigarettes, uncomplicated; E87.5 Hyperkalemia; R00.0 Tachycardia, unspecified; J20.8 Acute bronchitis due to other specified organisms; Z90.710 Acquired absence of both cervix and uterus; Z95.5 Presence of coronary angioplasty implant and graft; Z80.3 Family history of malignant neoplasm of breast; Z82.49 Family history of ischemic heart disease and other diseases of the circulatory system; Z80.41 Family history of malignant neoplasm of ovary; Z99.81 Dependence on supplemental oxygen
CPT/HCPCS: 36415; 36600; 71045; 80048; 80053; 82803; 83605; 83735; 83880; 84100; 84484; 85025; 85027; 85610; 85730; 86140; 87040; 90686; 93005; 93306; 94640; 94660; 99284; A9270-GY; J0360; J0456; J0696; J1650; J2250; J2270; J2543; J2920; J2930; J3370; J3475; J3490

== ENCOUNTER 2019-09-14 17:10 | Inpatient (IN) | payer BC, MEDICARE ==
[2019-09-14] MEDS ORDERED: NS 0.9% 1000 ML** 1,000 ML IV ONE (17:42)
[2019-09-14] MEDS ORDERED: Albuterol/Ipratropium NEB.SOL* Albuterol 2.5 MG/Ipratropium 0.5 MG 3 ML INH ONE (17:42)
[2019-09-14] MEDS ORDERED: methylPREDNISolone 125 MG* 2 ML VIAL IV ONE (17:42)
--- NOTE | 2019-09-14 17:48 | ED ---
Shortness of Breath - HPI Summary HPI Summary: Patient is a 64 y/o F w/ Hx of COPD who presents to [facility] with complaints of SOB and non-productive cough. She states that her current presentation is similar to previous COPD exacerbations but notes that the cough is atypical. Patient is on 3L o2 at home at baseline but is currently on 6L o2. Patient states that it is difficult to talk in full sentences. She denies fever, CP, abdominal pain, and calf pain/swelling. Hx of [place] with three cardiac stents reported. She denies Hx of heart failure, blood clots, and diabetes. Patient has been taking a nebulizer treatment every three hours with no relief in Sx. Patient claims that she had to be admitted to ICU and intubated for previous COPD exacerbations. Home medications and allergies are reviewed. - History of Current Complaint Chief Complaint: EDRespiratoryDistress Time Seen by Provider: 09/14/19 17:32 Hx Obtained From: Patient Onset/Duration: Still Present Timing: Constant Dyspnea At: Rest Associated Signs & Symptoms: Cough (Nonproductive) - Allergy/Home Medications Allergies/Adverse Reactions: Allergies Allergy/AdvReac Type Severity Reaction Status Date / Time No Known Allergies Allergy Verified 09/14/19 17:18 PMH/Surg Hx/FS Hx/Imm Hx Endocrine/Hematology History: Denies: Hx Blood Disorders, Hx Blood Transfusions, Hx Bone Marrow Disease, Hx Diabetes, Hx Systemic Lupus Erythematosus, Hx Sickle Cell Disease, Hx Thyroid Disease, Hx Anemia, Hx Unexplained Bleeding, Other Endocrine/ Hematological Disorders Cardiovascular History: Reports: Hx Congestive Heart Failure, Hx Coronary Artery Disease, Hx Hypercholesterolemia, Hx Hypertension, Other Cardiovascular Problems/Disorders - 3 stents Denies: Hx Aneurysm, Hx Angina, Hx Angioplasty, Hx Auto Implanted Cardiovert Defib, Hx Cardiac Arrest, Hx Cardiomegaly, Hx Congenital Heart Disease, Hx Deep Vein Thrombosis, Hx Embolism, Hx Hypotension, Hx Pacemaker/ICD, Hx Peripheral Vascular Disease, Hx Rheumatic Fever, Hx Syncope, Hx Valvular Heart Disease Respiratory History: Reports: Hx Asthma, Hx Chronic Obstructive Pulmonary Disease (COPD) Denies: Hx Chronic Bronchitis, Hx Cystic Fibrosis, Hx Lung Cancer, Hx Pleural Effusion, Hx Pneumonia, Hx Pulmonary Edema, Hx Pulmonary Embolism, Hx Seasonal Allergies, Hx Sleep Apnea, Other Respiratory Problems/Disorders GI History: Denies: Hx Cirrhosis, Hx Crohn's Disease, Hx Diverticulosis, Hx Gall Bladder Disease, Hx Gastroesophageal Reflux Disease, Hx Gastrointestinal Bleed, Hx Hiatal Hernia, Hx Irritable Bowel, Hx Jaundice, Hx Obstructive Bowel, Hx Ileostomy, Hx Pyloric Stenosis, Hx Ulcer, Other GI Disorders Musculoskeletal History: Reports: Hx Arthritis Denies: Hx Back Problems, Hx Bursitis, Hx Congenital Bone Abnormalities, Hx Fibromyalgia, Hx Gout, Hx Orthopedic Injury, Hx Osteoporosis, Hx Scoliosis, Hx Tendonitis Sensory History: Reports: Hx Contacts or Glasses Denies: Hx Cataracts, Hx Eye Injury, Hx Eye Prosthesis, Hx Glaucoma, Hx Legally Blind, Hx Macular Degeneration, Hx Vision Problem, Hx Hearing Aid, Other Sensory Impairments Opthamlomology History: Reports: Hx Contacts or Glasses Denies: Hx Cataracts, Hx Eye Injury, Hx Eye Prosthesis, Hx Glaucoma, Hx Legally Blind, Hx Macular Degeneration, Hx Vision Problem, Other Sensory Impairments Neurological History: Denies: Hx Dementia, Hx Developmental Delay, Hx Headaches, Hx Migraine, Hx Nerve Disease, Hx Seizures, Hx Spinal Cord Injury, Hx Transient Ischemic Attacks (TIA), Other Neuro Impairments/Disorders - Surgical History Surgery Procedure, Year, and Place: cardiac stents. hysterectomy. ectopic Hx Anesthesia Reactions: No Infectious Disease History: No Infectious Disease History: Denies: Hx Clostridium Difficile, Hx Hepatitis, Hx Human Immunodeficiency Virus (HIV), Hx of Known/Suspected MRSA, Hx Shingles, Hx Tuberculosis, Hx Known/ Suspected VRE, Hx Known/Suspected VRSA, History Other Infectious Disease, Traveled Outside the [place] in Last 30 Days - Family History Known Family History: Positive: Other - pos: Breast CA Negative: Renal Disease Family History: Family history is significant for breast cancer. - Social History Alcohol Use: None Hx Substance Use: No Substance Use Type: Reports: Excessive Caffeine Hx Tobacco Use: Yes Smoking Status (MU): Former Smoker Type: Cigarettes Amount Used/How Often: 1 pack daily Have You Smoked in the Last Year: Yes Review of Systems Negative: Fever Negative: Chest Pain Positive: Shortness Of Breath, Cough Negative: Abdominal Pain Negative: Myalgia - CALVES , Edema - CALVES All Other Systems Reviewed And Are Negative: Yes Physical Exam - Summary Physical Exam Summary: Constitutional: Well-developed, Well-nourished, Alert. (-) Distressed Skin: Warm, Dry HENT: Normocephalic; Atraumatic Eyes: Conjunctiva normal Neck: Musculoskeletal ROM normal neck. (-) JVD, (-) Stridor, (-) Tracheal deviation Cardio: Tachycardic; Heart sounds normal; Intact distal pulses; The pedal pulses are 2+ and symmetric. Radial pulses are 2+ and symmetric. (-) Murmur Pulmonary/Chest wall: Decreased breath sounds, increased respiratory rate; (-) Wheezes, (-) Rales Abd: Soft, (-) tenderness, (-) Distension, (-) Guarding, (-) Rebound Musculoskeletal: (-) Edema Lymph: (-) Cervical adenopathy Neuro: Alert, Oriented x3 Psych: Mood and affect Normal Triage Information Reviewed: Yes Vital Signs On Initial Exam: Initial Vitals Temp Pulse Resp BP Pulse Ox 98.2 F 109 22 141/87 92 09/14/19 17:12 09/14/19 17:12 09/14/19 17:12 09/14/19 17:12 09/14/19 17:12 Vital Signs Reviewed: Yes Procedures - Sedation Patient Received Moderate/Deep Sedation with Procedure: No Diagnostics - Vital Signs Vital Signs Temp Pulse Resp BP Pulse Ox 09/14/19 17:12 98.2 F 109 22 141/87 92 - Laboratory Result Diagrams: 09/15/19 05:45 09/15/19 05:45 Lab Statement: Any lab studies that have been ordered have been reviewed, and results considered in the medical decision making process. - Radiology CXR Radiology Interpretation Completed By: Radiologist Summary of Radiographic Findings: IMPRESSION: 1. SLIGHT PROMINENCE OF THE LEFT HILUM RECOMMEND OBTAINING A CT OF THE CHEST WITH CONTRAST. FOR FURTHER EVALUATION. 2. COPD, NO EVIDENCE FOR ACUTE FINDING. THIS REPORT WAS REVIEWED BY ED PHYSICIAN. - EKG 1800 Cardiac Rate: Tachycardia - rate of 105 BPM EKG Rhythm: Sinus Tachycardia Summary of EKG Findings: EKG showed sinus tachycardia with rate of 105 BPM, minimal ST depression in inferior leads. ED physician has reviewed and interpreted this EKG. Course/Dx - Course Course Of Treatment: Patient is a 64 y/o F w/ Hx of COPD who presents to [facility] with complaints of SOB and non-productive cough. She states that her current presentation is similar to previous COPD exacerbations but notes that the cough is atypical. Patient is on 3L o2 at home at baseline but is currently on 6L o2. Patient states that it is difficult to talk in full sentences. She denies fever , CP, abdominal pain, and calf pain/swelling. Hx of [place] with three cardiac stents reported. She denies Hx of heart failure, blood clots, and diabetes. Patient has been taking a nebulizer treatment every three hours with no relief in Sx. Patient claims that she had to be admitted to ICU and intubated for previous COPD exacerbations. On physical exam, decreased breath sounds, increased respiratory rate noted. Patient is tachycardic. EKG showed sinus tachycardia with rate of 105 BPM, minimal ST depression in inferior leads. CXR IMPRESSION: 1. SLIGHT PROMINENCE OF THE LEFT HILUM RECOMMEND OBTAINING A CT OF THE CHEST WITH CONTRAST. FOR FURTHER EVALUATION. 2. COPD, NO EVIDENCE FOR ACUTE FINDING. Bloodwork was obtained, abnormal values include Hgb 11.6, RDW 17 , absolute lymphs 0.5, creatinine 0.50, BUN/creatinine ratio 22, glucose 117. ABG was obtained, pH was 7.32, pCO2 98, pO2 164, HCO3 39.6, o2 saturation 100, base excess 19. During ED course, patient received fluids, solu-medrol 125 mg IV and duoneb. 1854 - Patient's case was discussed with Dr. Saleh, Dr. Saleh accepts for admission. - Diagnoses Provider Diagnoses: COPD exacerbation, Hypercarbia - Physician Notifications Discussed Care of Patient With: Dee Saleh Time Discussed With Above Provider: 18:55 Instructed by Provider To: Other - 1854 - Patient's case was discussed with Dr. Saleh, Dr. Saleh accepts for admission. - Critical Care Time Critical Care Time: 30-74 min - 60 minutes Discharge ED - Sign-Out/Discharge Documenting (check all that apply): Patient Departure - admit - Discharge Plan Condition: Stable Disposition: ADMITTED TO [facility] - Billing Disposition and Condition Condition: STABLE Disposition: Admitted to [facility] - Attestation Statements Document Initiated by Lito: Yes Documenting Kianaibe: VELVET NASH Provider For Whom Lito is Documenting (Include Credential): ALONZO LIPSCOMB DO Scribe Attestation: VELVET Miranda scribed for ALONZO LIPSCOMB DO on 09/15/19 at 1308. Scribe Documentation Reviewed: Yes Provider Attestation: The documentation as recorded by the VELVET peters accurately reflects the service I personally performed and the decisions made by me, ALONZO LIPSCOMB, DO Status of Scribe Document: Viewed
[2019-09-14 18:03] LABS: ABS Lymphocytes 0.5 10^3/ul (1.0-4.8); ABS Monocytes 0.6 10^3/ul (0-0.8); ABS Neutrophils 7.5 10^3/ul (1.5-7.7); Eosinophil % 0.2 %; Hematocrit 36 % (35-47); Hemoglobin 11.6 g/dL (12.0-16.0); Lymphocyte % 5.4 %; Mean Corpuscular HGB Conc 32 g/dL (31-36); Mean Corpuscular Hemoglobin 31 pg (27-31); Mean Corpuscular Volume 95 fL (80-97); Mean Platelet Volume 8.1 fL (7.4-10.4); Platelet Count 159 10^3/uL (150-450); Red Blood Count 3.78 10^6 /uL (3.70-4.87); Red Cell Distribution Width 17 % (10-15); White Blood Count 8.5 10^3/uL (3.5-10.8)
[2019-09-14 18:26] LABS: Albumin 4.6 g/dL (3.2-5.2); Albumin/Globulin Ratio 1.5 (1-3); EGFR African American 150.3 (>60); EGFR Non-African American 124.2 (>60); Globulin 3.1 g/dL (2-4); Potassium 4.2 mmol/L (3.5-5.0); Total Bilirubin 0.4 mg/dL (0.2-1.0); Total Protein 7.7 g/dL (6.4-8.9)
[2019-09-14 18:27] LABS: Troponin I 0.01 ng/mL (<0.03)
[2019-09-14] MEDS ORDERED: Iohexol 300* (CONTRAST) 10 ML SDV IV ONE (18:41)
[2019-09-14 19:08] LABS: Influenza A Molecular Negative (Negative); Influenza B Molecular Negative (Negative)
[2019-09-14] MEDS ORDERED: LORazepam INJ* 2 MG/ML 1 ML VIAL IV PUSH PRN (20:35)
[2019-09-14] MEDS ORDERED: Lorazepam PYXIS KEY PRN (20:35)
[2019-09-14] MEDS: Morphine INJ* 2 MG/ML 1 ML SYRINGE (TWO MG - NEW SYRINGE VERSION) IV PRN (21:21)
[2019-09-14] MEDS: Enoxaparin(*) 40 MG/0.4 ML SYR SUBCUT SCH (21:21)
[2019-09-14] MEDS: Levofloxacin 750 MG IVPREMIX(* 750 MG/150 ML BAG IVPB SCH (21:21)
[2019-09-14] MEDS: Lactated Ringers 1000 ML Bag* 1,000 ML IV SCH (21:22)
[2019-09-14] MEDS: Albuterol/Ipratropium NEB.SOL* Albuterol 2.5 MG/Ipratropium 0.5 MG 3 ML INH PRN (23:16)
[2019-09-14] MEDS ORDERED: Lorazepam PYXIS KEY ONE (23:46)
[2019-09-14] MEDS ORDERED: LORazepam INJ* 2 MG/ML 1 ML VIAL ONE (23:46)
[2019-09-14] MEDS: LORazepam INJ* 2 MG/ML 1 ML VIAL IV PUSH PRN (23:52)
--- NOTE | 2019-09-15 00:26 | HP ---
CC: Dr. Gary Houston * HISTORY AND PHYSICAL: DATE OF ADMISSION: 09/14/19 PRIMARY CARE PHYSICIAN: Dr. Houston. CHIEF TECHNICIAN X RAY: Dr. Panchal. HOUSEKEEPER CHILD CARE: Dr. Brandt. CHIEF COMPLAINT: Shortness of breath. HISTORY OF PRESENT ILLNESS: This is a 64-year-old female with past medical history of O2-dependent COPD on 4 L nasal cannula over the last month, increased to 5 L over the last 3 days; history of coronary artery disease, status post 3 stents; hyperlipidemia; hypertension, only on metoprolol, came in due to worsening shortness of breath. The patient stated that she does babysit her granddaughter, who has had strep throat over the last week and for the last week she has been having worsening shortness of breath especially worse with any minimal activity, even talking is too severe for cough on exertion causing her to have difficulty talking. She denies any fever or chills. She has been having cough that is dry. She denies any chest pain, any other leg swelling, any abdominal pain, nausea, vomiting, or diarrhea. PAST MEDICAL HISTORY: 1. As mentioned, COPD, usually takes about 3 L oxygen via nasal cannula but has increased to 4 L over the last month and back to 5 L over the last 3 days without much significant improvement. 2. Chronic hypoxic and hypercapnic respiratory failure. 3. Coronary artery disease, status post 3 stentings. 4. Hyperlipidemia. 5. Hypertension, only on metoprolol mainly due to her coronary artery disease. PAST SURGICAL HISTORY: She has had multiple uterine surgeries followed by a hysterectomy, history of ectopic excision, tonsillectomy, and coronary stents as mentioned. HOME MEDICATIONS: The patient is currently on: 1. Combivent Respimat 1 puff by inhalation q.4 hours p.r.n. 2. DuoNeb by nebulizer q.4 hours p.r.n. 3. Ventolin HFA 2 puffs by inhalation q.4 hours p.r.n. 4. Symbicort 2 puffs by inhalation b.i.d. 5. Aspirin 81 mg tab, 325 mg p.o. daily. 6. Atorvastatin 40 mg oral daily. 7. Plavix 75 mg oral daily. 8. Lopressor 50 mg p.o. b.i.d. 9. Spiriva 2 capsules by inhalation daily. ALLERGIES: No known drug allergies. FAMILY HISTORY: Mom had a history of ovarian cancer. Dad had coronary disease. SOCIAL HISTORY: She is a former smoker, quit smoking in 2004, prior to that had about [id number] history of smoking. Does not drink alcohol. Lives at a duplex with her daughter living in the upstairs. She is a former nurse, used to work in the ICU, and is otherwise full code and trial of intubation for 3 to 4 days. REVIEW OF SYSTEMS: A 14-point review of systems did not reveal any new information other than what is mentioned in the HPI. PHYSICAL EXAMINATION GENERAL: The patient is awake, alert, oriented x3, was noted to be in mild respiratory distress. VITAL SIGNS: BP was noted to be 116/72, heart rate of 107, respiration rate 17 , saturating 100% on 5 L nasal cannula, temperature 98.7. HEAD AND NECK: Atraumatic, normocephalic. Bilateral pupils reactive. Oral mucosa was dry. Neck: Supple. No jugular venous distention. LUNGS: The patient had diffuse expiratory wheezes. HEART: S1, S2. Tachycardia. ABDOMEN: Soft, nontender, nondistended. EXTREMITIES: No cyanosis, clubbing, or edema. DIAGNOSTIC STUDIES/LAB DATA: CBC was unremarkable except for mild anemia with hemoglobin of 11.6. ABG shows pCO2 of 98, pO2 of 7.32, and oxygen saturation 100% on OxyMask of 10 L. Comprehensive metabolic panel shows elevated bicarb at 44. Creatinine decreased at 0.5. Random glucose elevated at 117. Influenza A and B were both negative. Chest x-ray shows slight prominence in the left hilum, recommend obtaining CT; COPD but no acute findings. CT chest, stable, moderate centrilobar emphysema, no acute CT pathology, stable 5.5 mm right lower lobe pulmonary nodule since September 2014, therefore no need to follow up. EKG showed sinus tachycardia with right axis deviation. IMPRESSION: This is a 64-year-old female with chronic obstructive pulmonary disease, coronary artery disease, status post stenting, here due to shortness of breath likely secondary to hypercapnic respiratory failure secondary to chronic obstructive pulmonary disease exacerbation. ASSESSMENT AND PLAN: 1. Hypoxic hypercapnic respiratory failure secondary to chronic obstructive pulmonary disease exacerbation. Continue with steroids, DuoNeb. I will also add Levaquin given history of recent strep throat in the family and follow up sputum cultures if the patient is able to produce any sputum. 2. History of coronary artery disease. Restart her aspirin, Plavix, and statin. 3. History of dyslipidemia. Continue statin. 4. History of hypertension, was on metoprolol but currently normotensive. We will monitor blood pressure and hold metoprolol. Once blood pressure has worsened, we could consider restarting her blood pressure medication with metoprolol. 5. DVT prophylaxis: With Lovenox. 6. Code status: Full code with a trial of intubation and BiPAP therapy as necessary. TIME SPENT: Over 65 minutes were spent discussing the case with the patient and reviewing the chart. [id number]/[facility] #: [id number] KEVIN
[2019-09-15 06:02] LABS: ABS Lymphocytes 0.4 10^3/ul (1.0-4.8); ABS Monocytes 0.1 10^3/ul (0-0.8); ABS Neutrophils 4.7 10^3/ul (1.5-7.7); Hematocrit 31 % (35-47); Hemoglobin 10.1 g/dL (12.0-16.0); Lymphocyte % 8.4 %; Mean Corpuscular HGB Conc 33 g/dL (31-36); Mean Corpuscular Hemoglobin 31 pg (27-31); Mean Corpuscular Volume 95 fL (80-97); Mean Platelet Volume 8.4 fL (7.4-10.4); Nucleated Red Blood Cells % 0.1; Platelet Count 124 10^3/uL (150-450); Red Blood Count 3.25 10^6 /uL (3.70-4.87); Red Cell Distribution Width 17 % (10-15); White Blood Count 5.3 10^3/uL (3.5-10.8)
[2019-09-15 06:14] LABS: Potassium 4.7 mmol/L (3.5-5.0)
[2019-09-15 06:20] LABS: BUN/Creatinine Ratio 25.6 (8-20); EGFR African American 200.2 (>60); EGFR Non-African American 165.5 (>60)
[2019-09-15] MEDS: SPIRIVA Respimat* (tiotropium) 2.5 mcg/inh Inhaler INH SCH (07:34)
[2019-09-15] MEDS: Mometasone/Formoter 100/5 MDI INH SCH ×2 (07:34→19:14)
[2019-09-15] MEDS: Clopidogrel TAB* 75 MG PO SCH (08:55)
[2019-09-15] MEDS: Atorvastatin* 40 MG TAB PO SCH (08:55)
[2019-09-15] MEDS: Aspirin TAB* 325 MG PO SCH (08:56)
[2019-09-15] MEDS: methylPREDNISolone SOD 40 MG* 1 ML VIAL IV SCH ×2 (08:56→20:25)
[2019-09-15] MEDS ORDERED: Aspirin 81 mg CHEW TAB* 81 MG TAB.CHEW PO SCH (09:00)
--- NOTE | 2019-09-15 09:21 | PN ---
Date of Service: 09/15/19 Critical Care Services: Patient seen and examined. Admitted last evening for increasing shortness of breath. Patient has longstanding hx of advanced COPD. Currently in acute exacerbation. She was taken off Bipap this morning for a few minutes with increased work of breathing but states she is trying to see if she can tolerate being off the Bipap for now. She denies chest pain, no fevers or chills. She does endorse dyspnea and tachypnea and some fatigue. No further overnight events noted. Vital Signs: Temp Pulse Resp BP SpO2 FiO2 99.0 F 104 17 154/82 100 35 09/15/19 08:30 09/15/19 08:06 09/15/19 08:06 09/15/19 08:06 09/15/19 08:06 09/15 05:29 Physical Exam: HEENT: Normocephalic, atraumatic, non-icteric sclera, moist oral mucosa Neck: soft, supple, no JVD CV: tachycardic, no murmurs or rubs Pulm/Chest: poor air entry throughout lung castillo, bilateral expiratory wheeze L >R Abdomen/GI: soft, nontender, nondistended, +BS noted MSK/Skin: warm, dry, intact, +2 pulses+, no edema or cyanosis Neuro: A&Ox3, no gross focal deficits Psych: Appropriate affect and mood Fluid Balance (Past 24 Hours): Intake & Output 09/13/19 09/14/19 09/15/19 09/16/19 06:59 06:59 06:59 06:59 Intake Total 1780 Output Total 300 Balance 1780 -300 Weight 106 lb 4.205 oz Intake: IV Fluids 1623 LR 623 IVPB 157 ABX 157 Output: Urine 300 Other: Estimated Void Medium Labs: Laboratory Results - last 24 hr 09/14/19 09/14/19 09/14/19 17:53 17:57 17:57 WBC 8.5 RBC 3.78 Hgb 11.6 L Hct 36 MCV 95 MCH 31 MCHC 32 RDW 17 H Plt Count 159 MPV 8.1 Neut % (Auto) 87.5 Lymph % (Auto) 5.4 [place] % (Auto) 6.8 Eos % (Auto) 0.2 Baso % (Auto) 0.1 Absolute Neuts (auto) 7.5 Absolute Lymphs (auto) 0.5 L Absolute Monos (auto) 0.6 Absolute Eos (auto) 0.0 Absolute Basos (auto) 0.0 Absolute Nucleated RBC 0.0 Nucleated RBC % 0.0 Patient Temperature ABG pH ABG pH (Temp Correct) ABG pCO2 ABG pCO2 (Temp Corrct ABG pO2 ABG pO2 (Temp Correct ABG HCO3 ABG O2 Saturation ABG Base Excess Respiration Rate O2 Delivery Device Ventilator Type Vent Mode FiO2 Inspiratory Time PEEP Pressure Support Pressure Control EPAP IPAP BiPAP Sodium 141 Potassium 4.2 Chloride 93 L Carbon Dioxide 44 H* Anion Gap 4 BUN 11 Creatinine 0.50 L Est GFR ( Amer) 150.3 Est GFR (Non-Af Amer) 124.2 BUN/Creatinine Ratio 22.0 H Glucose 117 H Lactic Acid Calcium 10.0 Total Bilirubin 0.40 AST 16 ALT 14 Alkaline Phosphatase 85 Troponin I 0.01 Total Protein 7.7 Albumin 4.6 Globulin 3.1 Albumin/Globulin Ratio 1.5 Influenza A (Rapid) Negative Influenza B (Rapid) Negative 09/14/19 09/14/19 09/14/19 17:57 18:09 20:45 WBC RBC Hgb Hct MCV MCH MCHC RDW Plt Count MPV Neut % (Auto) Lymph % (Auto) [place] % (Auto) Eos % (Auto) Baso % (Auto) Absolute Neuts (auto) Absolute Lymphs (auto) Absolute Monos (auto) Absolute Eos (auto) Absolute Basos (auto) Absolute Nucleated RBC Nucleated RBC % Patient Temperature Not Reportable Not Reportable ABG pH 7.32 L 7.34 L ABG pH (Temp Correct) Not Reportable Not Reportable ABG pCO2 98 H* 91 H* ABG pCO2 (Temp Corrct Not Reportable Not Reportable ABG pO2 164 H 117 H ABG pO2 (Temp Correct Not Reportable Not Reportable ABG HCO3 39.6 H 39.2 H ABG O2 Saturation 100.0 H 99.8 H ABG Base Excess 19.0 H 18.4 H Respiration Rate Not Reportable Not Reportable O2 Delivery Device oxymask 10lpm bipap Ventilator Type Not Reportable Not Reportable Vent Mode Not Reportable Not Reportable FiO2 Not Reportable 40 Inspiratory Time Not Reportable Not Reportable PEEP Not Reportable Not Reportable Pressure Support Not Reportable Not Reportable Pressure Control Not Reportable Not Reportable EPAP Not Reportable Not Reportable IPAP Not Reportable Not Reportable BiPAP Not Reportable Not Reportable Sodium Potassium Chloride Carbon Dioxide Anion Gap BUN Creatinine Est GFR ( Amer) Est GFR (Non-Af Amer) BUN/Creatinine Ratio Glucose Lactic Acid 1.4 Calcium Total Bilirubin AST ALT Alkaline Phosphatase Troponin I Total Protein Albumin Globulin Albumin/Globulin Ratio Influenza A (Rapid) Influenza B (Rapid) 09/14/19 09/14/19 09/15/19 21:05 23:35 05:30 WBC RBC Hgb Hct MCV MCH MCHC RDW Plt Count MPV Neut % (Auto) Lymph % (Auto) [place] % (Auto) Eos % (Auto) Baso % (Auto) Absolute Neuts (auto) Absolute Lymphs (auto) Absolute Monos (auto) Absolute Eos (auto) Absolute Basos (auto) Absolute Nucleated RBC Nucleated RBC % Patient Temperature Not Reportable ABG pH 7.33 L ABG pH (Temp Correct) Not Reportable ABG pCO2 84 H* ABG pCO2 (Temp Corrct Not Reportable ABG pO2 79 L ABG pO2 (Temp Correct Not Reportable ABG HCO3 35.9 H ABG O2 Saturation 98.3 H ABG Base Excess 14.2 H Respiration Rate Not Reportable O2 Delivery Device bipap Ventilator Type Not Reportable Vent Mode Not Reportable FiO2 35 Inspiratory Time Not Reportable PEEP Not Reportable Pressure Support Not Reportable Pressure Control Not Reportable EPAP 6 IPAP 20 BiPAP Not Reportable Sodium Potassium Chloride Carbon Dioxide Anion Gap BUN Creatinine Est GFR ( Amer) Est GFR (Non-Af Amer) BUN/Creatinine Ratio Glucose Lactic Acid Calcium Total Bilirubin AST ALT Alkaline Phosphatase Troponin I 0.01 0.01 Total Protein Albumin Globulin Albumin/Globulin Ratio Influenza A (Rapid) Influenza B (Rapid) 09/15/19 09/15/19 05:45 05:45 WBC 5.3 RBC 3.25 L Hgb 10.1 L Hct 31 L MCV 95 MCH 31 MCHC 33 RDW 17 H Plt Count 124 L MPV 8.4 Neut % (Auto) 89.7 Lymph % (Auto) 8.4 [place] % (Auto) 1.9 Eos % (Auto) 0.0 Baso % (Auto) 0.0 Absolute Neuts (auto) 4.7 Absolute Lymphs (auto) 0.4 L Absolute Monos (auto) 0.1 Absolute Eos (auto) 0.0 Absolute Basos (auto) 0.0 Absolute Nucleated RBC 0.0 Nucleated RBC % 0.1 Patient Temperature ABG pH ABG pH (Temp Correct) ABG pCO2 ABG pCO2 (Temp Corrct ABG pO2 ABG pO2 (Temp Correct ABG HCO3 ABG O2 Saturation ABG Base Excess Respiration Rate O2 Delivery Device Ventilator Type Vent Mode FiO2 Inspiratory Time PEEP Pressure Support Pressure Control EPAP IPAP BiPAP Sodium 140 Potassium 4.7 Chloride 96 L Carbon Dioxide 42 H* Anion Gap 2 BUN 10 Creatinine 0.39 L Est GFR ( Amer) 200.2 Est GFR (Non-Af Amer) 165.5 BUN/Creatinine Ratio 25.6 H Glucose 125 H Lactic Acid Calcium 9.0 Total Bilirubin AST ALT Alkaline Phosphatase Troponin I Total Protein Albumin Globulin Albumin/Globulin Ratio Influenza A (Rapid) Influenza B (Rapid) Studies: Patient Name: ADRIANA HDEZ Medical Record#: [id number] Ordering Physician: Milan Chisholm DO Acct.#: [id number] : 1955 Age: 64 Sex: F Location: EMERGENCY DEPARTMENT Exam Date: 09/14/191836 ADM Status: REG ER Order Information: CT CHEST W Accession Number: [id number] CPT: 98222 PROCEDURE INFORMATION: Exam: CT Chest With Contrast Exam date and time: 09/14/2019 7:04 PM Age: 64 years old Clinical indication: Abnormal findings; Abnormal radiologic exam of lung or chest; Additional info: Copd/sob, abnormal cxr TECHNIQUE: Imaging protocol: Computed tomography of the chest with intravenous contrast. Radiation optimization: All CT scans at this facility use at least one of these dose optimization techniques: automated exposure control; mA and/or kV adjustment per patient size (includes targeted exams where dose is matched to clinical indication); or iterative reconstruction. Contrast material: OMNIPAQUE 300; Contrast volume: 80 ml; Contrast route: IV; COMPARISON: KO CHEST W CT CHEST W 09/10/2014 10:32 PM FINDINGS: Lungs: There is stable moderate centrilobular emphysema. Stable 5.5 mm right lower lobe pulmonary nodule since September 10, 2014, therefore benign and no follow-up is indicated. Pleural space: There is increased biapical pleural and parenchymal scarring. Heart: Stable atherosclerotic aortic and coronary artery calcifications. Aorta: Unremarkable. No aortic aneurysm. Lymph nodes: Unremarkable. No enlarged lymph nodes. Bones/joints: Stable diffuse osteopenia and degenerative changes of the spine. Soft tissues: Unremarkable. IMPRESSION: 1. There is stable moderate centrilobular emphysema. 2. No acute CT pathology. Dictated and Authenticated by: Efren Bates MD 09/14/2019 7:18 PM Eastern Time ([place] and [place]) To contact [facility] with a general question: [facility] - [phone] For direct physician to physician contact: Physician Hotline - [phone] [facility] ([facility] Facility ID #[id number]) Patient Name: ADRIANA HDEZ Medical Record#: [id number] Ordering Physician: Milan Chisholm DO Acct.#: [id number] : 1955 Age: 64 Sex: F Location: EMERGENCY DEPARTMENT Exam Date: 09/14/191741 ADM Status: PRE ER Order Information: CHEST AP/PORT Accession Number: [id number] CPT: 74533 INDICATION: Shortness of breath. COMPARISON: Comparison is made prior chest x-ray studies from October 19, 2016 and October 15, 2016 and August 16, 2018. TECHNIQUE: A portable view of the chest was obtained. FINDINGS: The heart appears to be within normal limits in size. The left hilum appears slightly prominent. The lungs are hyperinflated and clear. No pleural effusion is seen. IMPRESSION: 1. SLIGHT PROMINENCE OF THE LEFT HILUM RECOMMEND OBTAINING A CT OF THE CHEST WITH CONTRAST FOR FURTHER EVALUATION. 2. COPD, NO EVIDENCE FOR ACUTE FINDING. Nutrition: Regular diet Impression: This is a 64 year old female with history of advanced emphysema, CAD, and HTN that presented to the ED last night with complaints of worsening shortness of breath, admitted for: Diagnoses: 1. COPD with acute exacerbation 2. Acute on chronic respiratory failure 3. Hx of CAD 4. HTN 5. HLP Plan: Neuro - Mentation intact, monitor closely given elevated CO2, no further issues CV - sinus tach on tele - EKG with sinus tach, no acute changes from August EKG - Continue clopidigrel and atorvastatin Resp- - Goal sat >92% - Titrate bipap and wean as tolerated: 20/6 35% fio2 - Continue solumedrol 40mg IV BID and dulera - Continue levaquin Q24h with duonebs Q4h prn - Influenza negative, afebrile, no leukocytosis - Initial ABG 7.32/98/164/39.6, this morning 7.33/84/79/35.9. Concern that PO2 dropped, but patient appears clinically improving. Will continue to titrate. - CXR with hyperinflation, no consolidation. CT chest with emphysematous changes ID - Levaquin 750mg daily GI - Regular diet Renal - Strict I/O, replete to keep K>4, Mg>2 - Voiding freely Heme - No active issues Endo - No active issues, monitor daily glucose while on steroids MSK/SKIN - OOB to chair as tolerated DVT prophylaxis - HSQ GI prophylaxis - PPI Central Lines - None Disposition: Patient requires Critical Care/ICU for acute bipap Patient clinical status: Stable/fair Code Status - Full code Total Critical Care time is 35 minutes
[2019-09-15] MEDS: Lactated Ringers 1000 ML Bag* 1,000 ML IV SCH (10:44)
[2019-09-15] MEDS: Albuterol/Ipratropium NEB.SOL* Albuterol 2.5 MG/Ipratropium 0.5 MG 3 ML INH PRN ×2 (13:45→21:08)
[2019-09-15] MEDS: LORazepam INJ* 2 MG/ML 1 ML VIAL IV PUSH PRN ×2 (13:53→20:50)
[2019-09-15] MEDS: Levofloxacin 750 MG IVPREMIX(* 750 MG/150 ML BAG IVPB SCH (20:25)
[2019-09-15] MEDS: Enoxaparin(*) 40 MG/0.4 ML SYR SUBCUT SCH (20:25)
[2019-09-16] MEDS: Lactated Ringers 1000 ML Bag* 1,000 ML IV SCH ×2 (00:22→12:50)
[2019-09-16] MEDS: Albuterol/Ipratropium NEB.SOL* Albuterol 2.5 MG/Ipratropium 0.5 MG 3 ML INH PRN ×3 (01:32→11:16)
[2019-09-16] MEDS: LORazepam INJ* 2 MG/ML 1 ML VIAL IV PUSH PRN ×3 (06:07→21:06)
[2019-09-16 06:11] LABS: ABS Lymphocytes 0.5 10^3/ul (1.0-4.8); ABS Monocytes 0.3 10^3/ul (0-0.8); ABS Neutrophils 4.7 10^3/ul (1.5-7.7); Hematocrit 29 % (35-47); Hemoglobin 9.2 g/dL (12.0-16.0); Lymphocyte % 8.9 %; Mean Corpuscular HGB Conc 32 g/dL (31-36); Mean Corpuscular Hemoglobin 31 pg (27-31); Mean Corpuscular Volume 95 fL (80-97); Mean Platelet Volume 8.3 fL (7.4-10.4); Nucleated Red Blood Cells % 0.1; Platelet Count 123 10^3/uL (150-450); Red Cell Distribution Width 18 % (10-15); White Blood Count 5.4 10^3/uL (3.5-10.8)
[2019-09-16 06:24] LABS: Calcium 9.1 mg/dL (8.6-10.3); Potassium 4.2 mmol/L (3.5-5.0)
[2019-09-16 06:30] LABS: BUN/Creatinine Ratio 27.9 (8-20); EGFR African American 178.9 (>60); EGFR Non-African American 147.8 (>60)
--- NOTE | 2019-09-16 09:06 | PN ---
Date of Service: 09/16/19 Critical Care Services: On BIPAP this AM but is alert and appears comfortable - PCO2 has come down from 98 to 84 mm Hg. Vital Signs: Temp Pulse Resp BP SpO2 FiO2 98.9 F 81 19 123/82 98 30 Physical Exam: Gen:Alert and appripriate HEENT:BIPA mask in place Lungs: Diffusew rhonchi with occasional expiratory wheeze on the left Cardiac: No murmurs Abdomen:Not distended Extremities: No cyanosis or edema Neuro:No apparent focal findings Fluid Balance (Past 24 Hours): 09/15/19 06:59 Intake Total 1780 Output Total Balance 1780 Weight 106 lb 4.205 oz Intake: IV Fluids 1623 LR 623 IVPB 157 ABX 157 Oral Output: Urine Other: Estimated Void Medium Labs: 09/16/19 09/16/19 05:50 05:50 WBC 5.4 RBC 3.00 L Hgb 9.2 L Hct 29 L MCV 95 MCH 31 MCHC 32 RDW 18 H Plt Count 123 L MPV 8.3 Neut % (Auto) 86.5 Lymph % (Auto) 8.9 [place] % (Auto) 4.6 Eos % (Auto) 0.0 Baso % (Auto) 0.0 Absolute Neuts (auto) 4.7 Absolute Lymphs (auto) 0.5 L Absolute Monos (auto) 0.3 Absolute Eos (auto) 0.0 Absolute Basos (auto) 0.0 Absolute Nucleated RBC 0.0 Nucleated RBC % 0.1 Sodium 141 Potassium 4.2 Chloride 99 L Carbon Dioxide 40 H Anion Gap 2 BUN 12 Creatinine 0.43 L Est GFR ( Amer) 178.9 Est GFR (Non-Af Amer) 147.8 BUN/Creatinine Ratio 27.9 H Glucose 109 H Calcium 9.1 Studies: Sputum Gram's Stain: 3+ Gram-positive cocci with 3+ neutrophils. Admission CXR shows no inflitrates. Nutrition: On regular diet but intake poor Impression: Acute exacerbation of COPD due to tracheobronchitis. - Is slowly improving on BIPAP, antibiotics, steroids, and bronchodilators. Plan: Attempt to remove BIPAP today. Continue current medical regimen. Critical Care Time: 35 minutes
[2019-09-16] MEDS: Clopidogrel TAB* 75 MG PO SCH (09:13)
[2019-09-16] MEDS: Aspirin TAB* 325 MG PO SCH (09:13)
[2019-09-16] MEDS: Atorvastatin* 40 MG TAB PO SCH (09:13)
[2019-09-16] MEDS: methylPREDNISolone SOD 40 MG* 1 ML VIAL IV SCH ×2 (09:14→21:07)
[2019-09-16] MEDS: SPIRIVA Respimat* (tiotropium) 2.5 mcg/inh Inhaler INH SCH (11:09)
[2019-09-16] MEDS: Mometasone/Formoter 100/5 MDI INH SCH ×2 (11:09→19:07)
[2019-09-16] MEDS: Morphine INJ* 2 MG/ML 1 ML SYRINGE (TWO MG - NEW SYRINGE VERSION) IV PRN ×2 (11:17→19:37)
[2019-09-16] MEDS: Albuterol/Ipratropium NEB.SOL* Albuterol 2.5 MG/Ipratropium 0.5 MG 3 ML INH SCH ×4 (11:21→22:50)
[2019-09-16] MEDS ORDERED: Acetaminophen TAB* 325 MG PO PRN (19:46)
[2019-09-16] MEDS: Levofloxacin 750 MG IVPREMIX(* 750 MG/150 ML BAG IVPB SCH (21:06)
[2019-09-16] MEDS: Enoxaparin(*) 40 MG/0.4 ML SYR SUBCUT SCH (21:06)
[2019-09-17] MEDS: Albuterol/Ipratropium NEB.SOL* Albuterol 2.5 MG/Ipratropium 0.5 MG 3 ML INH SCH ×6 (02:52→22:22)
[2019-09-17] MEDS: LORazepam INJ* 2 MG/ML 1 ML VIAL IV PUSH PRN ×3 (04:32→21:58)
[2019-09-17 05:04] LABS: ABS Lymphocytes 0.5 10^3/ul (1.0-4.8); ABS Monocytes 0.2 10^3/ul (0-0.8); ABS Neutrophils 4.4 10^3/ul (1.5-7.7); Hematocrit 32 % (35-47); Hemoglobin 10.5 g/dL (12.0-16.0); Lymphocyte % 9.8 %; Mean Corpuscular HGB Conc 33 g/dL (31-36); Mean Corpuscular Hemoglobin 31 pg (27-31); Mean Corpuscular Volume 95 fL (80-97); Mean Platelet Volume 8.1 fL (7.4-10.4); Nucleated Red Blood Cells % 0.1; Platelet Count 141 10^3/uL (150-450); Red Blood Count 3.36 10^6 /uL (3.70-4.87); Red Cell Distribution Width 17 % (10-15); White Blood Count 5.1 10^3/uL (3.5-10.8)
[2019-09-17 05:12] LABS: Calcium 9.1 mg/dL (8.6-10.3); Potassium 3.8 mmol/L (3.5-5.0)
[2019-09-17 05:18] LABS: BUN/Creatinine Ratio 26.7 (8-20); EGFR African American 169.7 (>60); EGFR Non-African American 140.3 (>60)
[2019-09-17] MEDS: Clopidogrel TAB* 75 MG PO SCH (08:07)
[2019-09-17] MEDS: Atorvastatin* 40 MG TAB PO SCH (08:07)
[2019-09-17] MEDS: Morphine INJ* 2 MG/ML 1 ML SYRINGE (TWO MG - NEW SYRINGE VERSION) IV PRN ×2 (08:07→17:43)
[2019-09-17] MEDS: Aspirin TAB* 325 MG PO SCH (08:07)
[2019-09-17] MEDS: methylPREDNISolone SOD 40 MG* 1 ML VIAL IV SCH (08:07)
[2019-09-17] MEDS: Mometasone/Formoter 100/5 MDI INH SCH ×2 (08:48→19:42)
[2019-09-17] MEDS: SPIRIVA Respimat* (tiotropium) 2.5 mcg/inh Inhaler INH SCH (08:48)
--- NOTE | 2019-09-17 15:52 | PN ---
Date of Service: 09/17/19 Critical Care Services: Slightly better today, but still requiring BIPAP. Vital Signs: Temp Pulse Resp BP SpO2 FiO2 97.9 F 99 18 131/91 97 30 Physical Exam: Gen:Alert, oriented HEENT:Oropharynx clear Lungs: Occasional exp wheezes on left side. BS distant Cardiac: Reg rhythm Abdomen: Not distended Extremities:No cyanosis or edema Fluid Balance (Past 24 Hours): 09/16/19 09/17/19 06:59 06:59 Intake Total 2517 470 Output Total 2300 2750 Balance 217 -2280 Weight 109 lb 5.588 oz 107 lb 2.314 oz Intake: IV Fluids 1780 0 ABX 0 LR 1780 IVPB 167 100 ABX 167 100 Oral 570 370 Output: Urine 2300 2750 Other: Estimated Void Date of Last Bowel 09/12/19 Movement Labs: 09/17/19 09/17/19 04:55 04:55 WBC 5.1 RBC 3.36 L Hgb 10.5 L Hct 32 L MCV 95 MCH 31 MCHC 33 RDW 17 H Plt Count 141 L Sodium 140 Potassium 3.8 Chloride 98 L Carbon Dioxide 39 H Anion Gap 3 BUN 12 Creatinine 0.45 L Est GFR ( Amer) 169.7 Est GFR (Non-Af Amer) 140.3 BUN/Creatinine Ratio 26.7 H Glucose 133 H Calcium 9.1 Studies: None today Nutrition: Oral diet Impression: Acute exacerbation of COPD with slow resolution. Plan: Continue present regimen. I will speak with patient about end-of-life decisions. Critical Care Time: 35 minutes (including 20 minutes managing patient prior to BIPAP)
[2019-09-17] MEDS: Enoxaparin(*) 40 MG/0.4 ML SYR SUBCUT SCH (21:11)
[2019-09-17] MEDS: Levofloxacin 750 MG IVPREMIX(* 750 MG/150 ML BAG IVPB SCH (21:11)
[2019-09-18] MEDS: Morphine INJ* 2 MG/ML 1 ML SYRINGE (TWO MG - NEW SYRINGE VERSION) IV PRN ×2 (00:27→13:27)
[2019-09-18] MEDS: Albuterol/Ipratropium NEB.SOL* Albuterol 2.5 MG/Ipratropium 0.5 MG 3 ML INH SCH ×8 (01:06→23:02)
[2019-09-18 05:33] LABS: ABS Lymphocytes 1.5 10^3/ul (1.0-4.8); ABS Monocytes 0.5 10^3/ul (0-0.8); ABS Neutrophils 3.4 10^3/ul (1.5-7.7); Eosinophil % 0.1 %; Hematocrit 32 % (35-47); Hemoglobin 10.6 g/dL (12.0-16.0); Lymphocyte % 27.4 %; Mean Corpuscular HGB Conc 33 g/dL (31-36); Mean Corpuscular Hemoglobin 31 pg (27-31); Mean Corpuscular Volume 95 fL (80-97); Mean Platelet Volume 7.4 fL (7.4-10.4); Nucleated Red Blood Cells % 0.1; Platelet Count 160 10^3/uL (150-450); Red Blood Count 3.41 10^6 /uL (3.70-4.87); Red Cell Distribution Width 17 % (10-15); White Blood Count 5.5 10^3/uL (3.5-10.8)
[2019-09-18 05:56] LABS: Calcium 8.8 mg/dL (8.6-10.3); Potassium 3.3 mmol/L (3.5-5.0)
[2019-09-18 06:02] LABS: BUN/Creatinine Ratio 16.4 (8-20); EGFR African American 134.6 (>60); EGFR Non-African American 111.3 (>60)
[2019-09-18] MEDS: Mometasone/Formoter 100/5 MDI INH SCH ×2 (07:37→19:23)
[2019-09-18] MEDS: SPIRIVA Respimat* (tiotropium) 2.5 mcg/inh Inhaler INH SCH (07:38)
[2019-09-18] MEDS ORDERED: methylPREDNISolone SOD 40 MG* 1 ML VIAL IV SCH (09:00)
[2019-09-18] MEDS: Aspirin TAB* 325 MG PO SCH (09:44)
[2019-09-18] MEDS: Clopidogrel TAB* 75 MG PO SCH (09:44)
[2019-09-18] MEDS: Atorvastatin* 40 MG TAB PO SCH (09:44)
--- NOTE | 2019-09-18 10:06 | PN ---
Date of Service: 09/18/19 Critical Care Services: Seems much better this AM - had an uneventful night. Less SOB today. Vital Signs: Temp Pulse Resp BP SpO2 FiO2 97.7 F 116 19 136/86 100 30 Physical Exam: Gen:Alert, oriented, breathing comfortably HEENT: No change from prior exams Lungs: Minimum wheezing on left side. Otherwise OK Cardiac: Rapid rate, but reg rhythm. Abdomen:Not distended Extremities:No cyanosis or edema Fluid Balance (Past 24 Hours): 09/16/19 09/17/19 09/18/19 09/19/19 06:59 06:59 06:59 06:59 Intake Total 2517 470 870 0 Output Total 2300 2750 700 0 Balance 217 -2280 170 0 Weight 109 lb 5.588 oz 107 lb 2.314 oz 106 lb 14.787 oz Intake: IV Fluids 1780 0 ABX 0 LR 1780 IVPB 167 100 150 ABX 167 100 150 Oral 570 370 720 0 Output: Urine 2300 2750 700 0 Other: Estimated Void Medium Date of Last Bowel 09/12/19 09/12/19 09/12/19 Movement # Voids 3 Labs: 09/18/19 09/18/19 05:27 05:27 WBC 5.5 RBC 3.41 L Hgb 10.6 L Hct 32 L MCV 95 MCH 31 MCHC 33 RDW 17 H Plt Count 160 MPV 7.4 Neut % (Auto) 62.8 Lymph % (Auto) 27.4 [place] % (Auto) 9.5 Eos % (Auto) 0.1 Baso % (Auto) 0.2 Absolute Neuts (auto) 3.4 Absolute Lymphs (auto) 1.5 Absolute Monos (auto) 0.5 Absolute Eos (auto) 0.0 Absolute Basos (auto) 0.0 Absolute Nucleated RBC 0.0 Nucleated RBC % 0.1 Sodium 143 Potassium 3.3 L Chloride 97 L Carbon Dioxide 45 H* Anion Gap 1 L BUN 9 Creatinine 0.55 Est GFR ( Amer) 134.6 Est GFR (Non-Af Amer) 111.3 BUN/Creatinine Ratio 16.4 Glucose 88 Calcium 8.8 Studies: Sputum culture: normal carmina and yeast. Nutrition: Oral diet Impression: Clear clinical signs of improvement today. Plan: 1. Switch to oral steroids (prednisone, 60 mg daily) 2. D/C antibiotic 3. Taper inhaled O2 as tolerated. 4. Arrange for patient to have a BIPAP machine in her home. Critical Care Time: 30 minutes
[2019-09-18] MEDS ORDERED: Potassium Chlor TAB* 20 MEQ TAB.ER PO ONE (13:17)
[2019-09-18] MEDS: Enoxaparin(*) 40 MG/0.4 ML SYR SUBCUT SCH (20:25)
[2019-09-18] MEDS: LORazepam INJ* 2 MG/ML 1 ML VIAL IV PUSH PRN (20:32)
[2019-09-18] MEDS: Metoprolol Tartrate TAB* 25 MG PO SCH (21:21)
[2019-09-19] MEDS: Morphine INJ* 2 MG/ML 1 ML SYRINGE (TWO MG - NEW SYRINGE VERSION) IV PRN (00:31)
[2019-09-19] MEDS: Albuterol/Ipratropium NEB.SOL* Albuterol 2.5 MG/Ipratropium 0.5 MG 3 ML INH SCH ×6 (03:34→23:06)
[2019-09-19 05:20] LABS: ABS Monocytes 0.5 10^3/ul (0-0.8); Hematocrit 31 % (35-47); Hemoglobin 10.1 g/dL (12.0-16.0); Mean Corpuscular HGB Conc 33 g/dL (31-36); Mean Corpuscular Hemoglobin 31 pg (27-31); Mean Corpuscular Volume 94 fL (80-97); Mean Platelet Volume 7.8 fL (7.4-10.4); Platelet Count 161 10^3/uL (150-450); Red Cell Distribution Width 17 % (10-15); White Blood Count 5.5 10^3/uL (3.5-10.8)
[2019-09-19 05:30] LABS: BUN/Creatinine Ratio 28.2 (8-20); Calcium 8.7 mg/dL (8.6-10.3); EGFR African American 200.2 (>60); EGFR Non-African American 165.5 (>60)
[2019-09-19] MEDS: Mometasone/Formoter 100/5 MDI INH SCH ×2 (07:21→19:03)
[2019-09-19] MEDS: SPIRIVA Respimat* (tiotropium) 2.5 mcg/inh Inhaler INH SCH (07:21)
[2019-09-19] MEDS: Metoprolol Tartrate TAB* 25 MG PO SCH ×2 (08:44→20:02)
[2019-09-19] MEDS: Atorvastatin* 40 MG TAB PO SCH (08:45)
[2019-09-19] MEDS: Clopidogrel TAB* 75 MG PO SCH (08:45)
[2019-09-19] MEDS: Aspirin TAB* 325 MG PO SCH (08:45)
--- NOTE | 2019-09-19 12:14 | PN ---
Progress Note - Progress Note Date of Service: 09/19/19 Note: Left message with daughter to return my call. Stopped by to see pt but she just asked for sleeping pill will see in am
--- NOTE | 2019-09-19 12:55 | PN ---
Date of Service: 09/19/19 Critical Care Services: Continues to improve. Breathing comfortably today. Vital Signs: Temp Pulse Resp BP SpO2 FiO2 98.6 F 90 16 133/92 88 30 Physical Exam: Gen:Alert, oriented, comfortable HEENT:oropharynx clear Lungs: BS distant, but no wheezing today Cardiac: Reg rhythm Abdomen:Not distended Extremities:No cyanosis or edema Fluid Balance (Past 24 Hours): 09/18/19 06:59 Intake Total 870 Output Total 700 Balance 170 Weight 106 lb 14.787 oz Intake: IV Fluids ABX IVPB 150 ABX 150 Oral 720 Output: Urine 700 [place] Other: Estimated Void Medium Date of Last Bowel 09/12/19 Movement # Voids 3 Labs: 09/19/19 09/19/19 04:42 04:42 WBC 5.5 RBC 3.30 L Hgb 10.1 L Hct 31 L MCV 94 MCH 31 MCHC 33 RDW 17 H Plt Count 161 MPV 7.8 Neut % (Auto) 72.3 Lymph % (Auto) 18.0 [place] % (Auto) 9.6 Eos % (Auto) 0.0 Baso % (Auto) 0.1 Absolute Neuts (auto) 4.0 Absolute Lymphs (auto) 1.0 Absolute Monos (auto) 0.5 Absolute Eos (auto) 0.0 Absolute Basos (auto) 0.0 Absolute Nucleated RBC 0.0 Nucleated RBC % 0.0 Sodium 139 Potassium 4.0 Chloride 100 L Carbon Dioxide 37 H Anion Gap 2 BUN 11 Creatinine 0.39 L Est GFR ( Amer) 200.2 Est GFR (Non-Af Amer) 165.5 BUN/Creatinine Ratio 28.2 H Glucose 126 H Calcium 8.7 Studies: None today Nutrition: Oral diet - intake better Impression: Resolving exacerbation of COPD Plan: Continue present management plan, and taper inhaled O2 as tolerated. Paliative care service to see today. Can probably be discharged tomorrow.
[2019-09-19] MEDS: LORazepam INJ* 2 MG/ML 1 ML VIAL IV PUSH PRN ×2 (13:52→20:01)
[2019-09-19] MEDS: Enoxaparin(*) 40 MG/0.4 ML SYR SUBCUT SCH (20:02)
[2019-09-20] MEDS: Morphine INJ* 2 MG/ML 1 ML SYRINGE (TWO MG - NEW SYRINGE VERSION) IV PRN (00:52)
[2019-09-20] MEDS: Albuterol/Ipratropium NEB.SOL* Albuterol 2.5 MG/Ipratropium 0.5 MG 3 ML INH SCH ×6 (02:59→23:27)
[2019-09-20 05:41] LABS: ABS Lymphocytes 1.7 10^3/ul (1.0-4.8); ABS Monocytes 0.6 10^3/ul (0-0.8); ABS Neutrophils 4.1 10^3/ul (1.5-7.7); Eosinophil % 0.2 %; Hematocrit 31 % (35-47); Hemoglobin 9.9 g/dL (12.0-16.0); Mean Corpuscular HGB Conc 32 g/dL (31-36); Mean Corpuscular Hemoglobin 31 pg (27-31); Mean Corpuscular Volume 95 fL (80-97); Mean Platelet Volume 7.2 fL (7.4-10.4); Platelet Count 177 10^3/uL (150-450); Red Blood Count 3.24 10^6 /uL (3.70-4.87); Red Cell Distribution Width 18 % (10-15); White Blood Count 6.4 10^3/uL (3.5-10.8)
[2019-09-20 05:58] LABS: BUN/Creatinine Ratio 34.1 (8-20); Blood Urea Nitrogen 14 mg/dL (6-24); CO2 Carbon Dioxide 40 mmol/L (22-32); Calcium 8.7 mg/dL (8.6-10.3); Chloride 101 mmol/L (101-111); EGFR Non-African American 156.2 (>60); Glucose 87 mg/dL (70-100); Potassium 3.7 mmol/L (3.5-5.0); Sodium 141 mmol/L (135-145)
[2019-09-20] MEDS: Aspirin TAB* 325 MG PO SCH (08:35)
[2019-09-20] MEDS: Metoprolol Tartrate TAB* 25 MG PO SCH ×2 (08:35→20:25)
[2019-09-20] MEDS: Clopidogrel TAB* 75 MG PO SCH (08:35)
[2019-09-20] MEDS: Atorvastatin* 40 MG TAB PO SCH (08:36)
[2019-09-20] MEDS: Mometasone/Formoter 100/5 MDI INH SCH ×2 (08:37→23:27)
[2019-09-20] MEDS: SPIRIVA Respimat* (tiotropium) 2.5 mcg/inh Inhaler INH SCH (08:37)
[2019-09-20] MEDS ORDERED: Sertraline* 25 MG TAB PO SCH (09:00)
[2019-09-20] MEDS ORDERED: Sertraline* 50 MG TAB PO SCH (09:00)
--- NOTE | 2019-09-20 11:02 | PN ---
Date of Service: 09/20/19 Critical Care Services: Continues to do well. Had an uneventful evening. We are trying to arrange for a BIAP machine in the patient's home. Vital Signs: Temp Pulse Resp BP SpO2 FiO2 97.8 F 89 23 136/88 90 30 Physical Exam: Gen: Up in bed and breathing comfortably. HEENT: Oropharynx clear Lungs: BS distant. No ewheezes or rhonchi Cardiac: Reg rhythm Abdomen: Not disended. Extremities: No cyanosis or edema. Fluid Balance (Past 24 Hours): 09/18/19 09/19/19 06:59 06:59 Intake Total 870 440 Output Total 700 200 Balance 170 240 Weight 106 lb 110 lb Intake: IVPB 150 ABX 150 Oral 720 440 Output: Urine 700 0 [place] 200 Other: Estimated Void Medium Medium Date of Last Bowel 09/12/19 09/12/19 Movement # Voids 3 1 Labs: 09/20/19 09/20/19 05:27 05:27 WBC 6.4 RBC 3.24 L Hgb 9.9 L Hct 31 L MCV 95 MCH 31 MCHC 32 RDW 18 H Plt Count 177 MPV 7.2 L Neut % (Auto) 64.6 Lymph % (Auto) 26.0 [place] % (Auto) 9.1 Eos % (Auto) 0.2 Baso % (Auto) 0.1 Absolute Neuts (auto) 4.1 Absolute Lymphs (auto) 1.7 Absolute Monos (auto) 0.6 Absolute Eos (auto) 0.0 Absolute Basos (auto) 0.0 Absolute Nucleated RBC 0.0 Nucleated RBC % 0.0 Sodium 141 Potassium 3.7 Chloride 101 Carbon Dioxide 40 H BUN 14 Creatinine 0.41 L Est GFR ( Amer) 189.0 Est GFR (Non-Af Amer) 156.2 BUN/Creatinine Ratio 34.1 H Glucose 87 Calcium 8.7 Studies: None today Nutrition: Oral diet Impression: Doing very well at rest (on supplemental O2) - we need to assess while patient ambulates. Plan: 1. Have patient ambulate with portable O2. 2. Check on status of equipment for home use.
--- NOTE | 2019-09-20 11:37 | CONSULT ---
Palliative / Hospice Consult Ordering Provider: Maged Anne - PCP-Celso Referal Reason: Goals of care/no bowel meds/morphine - Subjective Code Status: Full Code Advance Directives Location: No Advance Directives - History or Present Illness History or Present Illness: 64yo female with COPD presents to ER with SOB. PMH is significant for COPD on varying amounts of home O2 3-5 liters, CAD s/p 3 stents, hyperlipidemia and HTN. PSHx ex smoker, no etoh, no drug use, retired ICU nurse, with 3 adult children, grandchildren and 2 great children. Studies CXR-COPD, ekg-sinus tach, chest CT-emphysema no other acute findings, H/H 10.6/32, BUN/Cr 9/.55, egfr 111.3, alb 4.6 and ABG CO2 98. Pt admitted to ICU on BIPAP with hypoxic hypercapnic resp failure, COPD and CAD. All history is from pt and medical record. Lab Values: Abnormal Lab Results 09/20/19 09/20/19 05:27 05:27 WBC 6.4 RBC 3.24 L Hgb 9.9 L Hct 31 L MCV 95 MCH 31 MCHC 32 RDW 18 H Plt Count 177 MPV 7.2 L Neut % (Auto) 64.6 Lymph % (Auto) 26.0 Schuyler % (Auto) 9.1 Eos % (Auto) 0.2 Baso % (Auto) 0.1 Absolute Neuts (auto) 4.1 Absolute Lymphs (auto) 1.7 Absolute Monos (auto) 0.6 Absolute Eos (auto) 0.0 Absolute Basos (auto) 0.0 Absolute Nucleated RBC 0.0 Nucleated RBC % 0.0 Sodium 141 Potassium 3.7 Chloride 101 Carbon Dioxide 40 H BUN 14 Creatinine 0.41 L Est GFR ( Amer) 189.0 Est GFR (Non-Af Amer) 156.2 BUN/Creatinine Ratio 34.1 H Glucose 87 Calcium 8.7 Laboratory Last Values WBC 6.4 10^3/uL (3.5-10.8) 09/20/19 05:27 RBC 3.24 10^6 /uL (3.70-4.87) L 09/20/19 05:27 Hgb 9.9 g/dL (12.0-16.0) L 09/20/19 05:27 Hct 31 % (35-47) L 09/20/19 05:27 MCV 95 fL (80-97) 09/20/19 05:27 MCH 31 pg (27-31) 09/20/19 05:27 MCHC 32 g/dL (31-36) 09/20/19 05:27 RDW 18 % (10-15) H 09/20/19 05:27 Plt Count 177 10^3/uL (150-450) 09/20/19 05:27 MPV 7.2 fL (7.4-10.4) L 09/20/19 05:27 Neut % (Auto) 64.6 % 09/20/19 05:27 Lymph % (Auto) 26.0 % 09/20/19 05:27 Schuyler % (Auto) 9.1 % 09/20/19 05:27 Eos % (Auto) 0.2 % 09/20/19 05:27 Baso % (Auto) 0.1 % 09/20/19 05:27 Absolute Neuts (auto) 4.1 10^3/ul (1.5-7.7) 09/20/19 05:27 Absolute Lymphs (auto) 1.7 10^3/ul (1.0-4.8) 09/20/19 05:27 Absolute Monos (auto) 0.6 10^3/ul (0-0.8) 09/20/19 05:27 Absolute Eos (auto) 0.0 10^3/ul (0-0.6) 09/20/19 05:27 Absolute Basos (auto) 0.0 10^3/ul (0-0.2) 09/20/19 05:27 Absolute Nucleated RBC 0.0 10^3/ul 09/20/19 05:27 Nucleated RBC % 0.0 09/20/19 05:27 Patient Temperature Not Reportable 09/15/19 05:30 ABG pH 7.33 (7.35-7.45) L 09/15/19 05:30 ABG pH (Temp Correct) Not Reportable 09/15/19 05:30 ABG pCO2 84 mmHg (35-45) H* 09/15/19 05:30 ABG pCO2 (Temp Corrct Not Reportable 09/15/19 05:30 ABG pO2 79 mmHg (80-100) L 09/15/19 05:30 ABG pO2 (Temp Correct Not Reportable 09/15/19 05:30 ABG HCO3 35.9 mmol/L (19-31) H 09/15/19 05:30 ABG O2 Saturation 98.3 % (94.0-98.0) H 09/15/19 05:30 ABG Base Excess 14.2 mmol/L (-2.0-2.0) H 09/15/19 05:30 Respiration Rate Not Reportable 09/15/19 05:30 O2 Delivery Device bipap 09/15/19 05:30 Ventilator Type Not Reportable 09/15/19 05:30 Vent Mode Not Reportable 09/15/19 05:30 FiO2 35 09/15/19 05:30 Inspiratory Time Not Reportable 09/15/19 05:30 PEEP Not Reportable 09/15/19 05:30 Pressure Support Not Reportable 09/15/19 05:30 Pressure Control Not Reportable 09/15/19 05:30 EPAP 6 09/15/19 05:30 IPAP 20 09/15/19 05:30 BiPAP Not Reportable 09/15/19 05:30 Sodium 141 mmol/L (135-145) 09/20/19 05:27 Potassium 3.7 mmol/L (3.5-5.0) 09/20/19 05:27 Chloride 101 mmol/L (101-111) 09/20/19 05:27 Carbon Dioxide 40 mmol/L (22-32) H 09/20/19 05:27 Anion Gap 2 mmol/L (2-11) 09/19/19 04:42 BUN 14 mg/dL (6-24) 09/20/19 05:27 Creatinine 0.41 mg/dL (0.51-0.95) L 09/20/19 05:27 Est GFR ( Amer) 189.0 (>60) 09/20/19 05:27 Est GFR (Non-Af Amer) 156.2 (>60) 09/20/19 05:27 BUN/Creatinine Ratio 34.1 (8-20) H 09/20/19 05:27 Glucose 87 mg/dL (70-100) 09/20/19 05:27 Lactic Acid 1.4 mmol/L (0.5-2.0) 09/14/19 17:57 Calcium 8.7 mg/dL (8.6-10.3) 09/20/19 05:27 Total Bilirubin 0.40 mg/dL (0.2-1.0) 09/14/19 17:57 AST 16 U/L (13-39) 09/14/19 17:57 ALT 14 U/L (7-52) 09/14/19 17:57 Alkaline Phosphatase 85 U/L (34-104) 09/14/19 17:57 Troponin I 0.01 ng/mL (<0.03) 09/14/19 23:35 Total Protein 7.7 g/dL (6.4-8.9) 09/14/19 17:57 Albumin 4.6 g/dL (3.2-5.2) 09/14/19 17:57 Globulin 3.1 g/dL (2-4) 09/14/19 17:57 Albumin/Globulin Ratio 1.5 (1-3) 09/14/19 17:57 Influenza A (Rapid) Negative (Negative) 09/14/19 17:53 Influenza B (Rapid) Negative (Negative) 09/14/19 17:53 - Objective Active Medications: Acetaminophen (Tylenol Tab*) 650 mg PO Q6H PRN PRN Reason: HEADACHE Albuterol/Ipratropium (Duoneb (Albuterol 2.5 Mg/Ipratropium 0.5 Mg)) 1 neb INH [id number] AWAKE PRN PRN Reason: sob/wheezing Last Admin: 09/16/19 11:16 Dose: 1 neb Albuterol/Ipratropium (Duoneb (Albuterol 2.5 Mg/Ipratropium 0.5 Mg)) 1 neb INH [id number] AWAKE [facility] Last Admin: 09/20/19 11:12 Dose: 1 neb Aspirin (Aspirin Tab*) 325 mg PO DAILY [facility] Last Admin: 09/20/19 08:35 Dose: 325 mg Atorvastatin Calcium (Lipitor*) 40 mg PO DAILY [facility] Last Admin: 09/20/19 08:36 Dose: 40 mg Clopidogrel Bisulfate (Plavix Tab*) 75 mg PO DAILY [facility] Last Admin: 09/20/19 08:35 Dose: 75 mg Enoxaparin Sodium (Lovenox(*)) 40 mg SUBCUT Q24H [facility] Last Admin: 09/19/19 20:02 Dose: 40 mg Lorazepam (Ativan Inj*) 1 mg IV PUSH Q6H PRN PRN Reason: ANXIETY Last Admin: 09/19/19 20:01 Dose: 1 mg Metoprolol Tartrate (Lopressor Tab*) 12.5 mg PO Q12HR [facility] Last Admin: 09/20/19 08:35 Dose: 12.5 mg Miscellaneous (Ativan Pyxis Ochoa) 1 ea N/A .ATIVAN IV OCHOA PRN PRN Reason: PYXIS OCHOA Mometasone Furoate/Formoterol Fumar (Dulera 100/5 Mdi*) 2 puff INH BID [facility] Last Admin: 09/20/19 08:37 Dose: 2 puff Morphine Sulfate (Morphine Inj (Syringe))*) 2 mg IV Q4H PRN PRN Reason: anxiety/work of breathing Last Admin: 09/20/19 00:52 Dose: 2 mg Prednisone (Deltasone 20 Mg Tab) 60 mg PO DAILY [facility] Last Admin: 09/20/19 08:35 Dose: 60 mg Tiotropium [place] (Spiriva Respimat 2.5 Mcg) 2 puff INH DAILY [facility] Last Admin: 09/20/19 08:37 Dose: 2 puff Vital Signs: Vital Signs: Temp Pulse Resp BP Pulse Ox 97.8 F 90 17 136/88 99 09/20/19 08:00 09/20/19 11:12 09/20/19 11:12 09/20/19 10:00 09/20/19 11:12 Patient Weight: Weight 49.982 kg Intake and Output: Intake & Output 09/18/19 09/19/19 09/20/19 09/21/19 06:59 06:59 06:59 06:59 Intake Total 870 440 300 Output Total 700 200 0 Balance 170 240 300 0 Weight 48.5 kg 49.982 kg Intake: IVPB 150 ABX 150 Oral 720 440 300 Output: Urine 700 0 0 Izquierdo 200 Other: Estimated Void Medium Medium Medium Date of Last Bowel 09/12/19 09/12/19 Movement # Voids 3 1 1 ADLs: Meal Record Start: 09/14/19 20: 16 Freq: 09,13,18 Status: Active Protocol: Created 09/14/19 20:16 System (Rec: 09/14/19 20:16 System ICU-C20) Document 09/15/19 09:00 [id number] (Rec: 09/15/19 12:36 [id number] ICU-C15) Document 09/15/19 13:00 [id number] (Rec: 09/15/19 13:58 IWB2348 ICU-C15) Document 09/15/19 18:00 DCB0347 (Rec: 09/15/19 21:00 FHX8024 ICU-C15) Document 09/16/19 13:00 UTE8696 (Rec: 09/16/19 14:17 EMY7666 ICU-C15) Document 09/16/19 18:00 OCL3336 (Rec: 09/16/19 18:50 MPX7773 ICU-L03) Document 09/17/19 09:00 XUJ2176 (Rec: 09/17/19 10:44 QFK8027 ICU-L03) Document 09/17/19 13:00 IIC9121 (Rec: 09/17/19 15:00 BWP8624 ICU-L03) Document 09/17/19 18:00 PMO1460 (Rec: 09/17/19 18:12 QIK0863 ICU-L03) Document 09/18/19 09:00 SXR6166 (Rec: 09/18/19 13:32 RCY3715 ICU-C12) Document 09/18/19 13:00 OLC3219 (Rec: 09/18/19 13:36 KEA5231 ICU-C12) Document 09/18/19 18:00 NZU7046 (Rec: 09/18/19 19:06 UTH0214 ICU-C12) Document 09/19/19 09:00 XPE1783 (Rec: 09/19/19 09:38 AUP5524 ICU-C16) Document 09/19/19 13:00 CPX9873 (Rec: 09/19/19 13:37 DMH4028 ICU-M23) Document 09/19/19 18:00 HDE8881 (Rec: 09/19/19 18:45 UME1692 ICU-C15) Intake and Output Start: 09/14/19 17: 18 Freq: Status: Active Protocol: Created 09/14/19 17:18 System (Rec: 09/14/19 17:18 System ED-C24) Intake and Output Start: 09/14/19 20: 16 Freq: Q4HR Status: Active Protocol: Created 09/14/19 20:16 System (Rec: 09/14/19 20:16 System ICU-C20) Document 09/14/19 21:00 CDC1469 (Rec: 09/14/19 21:40 LNN2514 ICU-M33) Document 09/15/19 00:00 KZI8478 (Rec: 09/15/19 00:18 BEH2123 ICU-C15) Document 09/15/19 08:15 KWH2056 (Rec: 09/15/19 08:36 RLB2386 ICU-C15) Document 09/15/19 12:36 CZN5225 (Rec: 09/15/19 12:36 GQN1507 ICU-C15) Document 09/15/19 13:59 KXZ0971 (Rec: 09/15/19 13:59 ZFF0118 ICU-C15) Document 09/15/19 15:25 WEF4870 (Rec: 09/15/19 15:35 PNF2657 ICU-C15) Document 09/15/19 17:00 HQV5676 (Rec: 09/15/19 17:01 TBV8126 ICU-C15) Document 09/15/19 17:24 SKG1790 (Rec: 09/15/19 17:24 VBP9629 ICU-C15) Document 09/15/19 21:00 RLT0340 (Rec: 09/15/19 21:00 JGW6075 ICU-C15) Document 09/15/19 23:00 SOG8670 (Rec: 09/15/19 23:17 HVC0539 ICU-C15) Document 09/16/19 00:00 WZU3042 (Rec: 09/16/19 00:48 ROC0551 ICU-C15) Document 09/16/19 04:00 EWD7850 (Rec: 09/16/19 04:25 SME9662 ICU-C15) Document 09/16/19 05:00 RZN6882 (Rec: 09/16/19 05:13 KDZ3104 ICU-C15) Document 09/16/19 05:54 XGN9476 (Rec: 09/16/19 05:54 UHU5808 ICU-M33) Document 09/16/19 08:00 PCO3368 (Rec: 09/16/19 09:40 XAZ0284 ICU-C15) Document 09/16/19 10:00 HHR4433 (Rec: 09/16/19 10:42 SJS3740 ICU-C15) Document 09/16/19 11:00 ONP3342 (Rec: 09/16/19 14:17 HTB0687 ICU-C15) Document 09/16/19 12:00 TQB3155 (Rec: 09/16/19 14:17 BDR7968 ICU-C15) Document 09/16/19 13:00 LZF8603 (Rec: 09/16/19 14:17 ADI7268 ICU-C15) Document 09/16/19 14:00 BPP4507 (Rec: 09/16/19 14:17 IKX4217 ICU-C15) Document 09/16/19 18:00 VJU0879 (Rec: 09/16/19 18:09 HRG6288 ICU-L03) Document 09/16/19 19:00 DBG5594 (Rec: 09/16/19 19:33 MOA7426 ICU-M33) Document 09/16/19 20:00 UQU2619 (Rec: 09/16/19 20:19 BFH7144 ICU-L03) Document 09/16/19 21:00 OVH7693 (Rec: 09/16/19 21:23 QUK8146 ICU-L03) Document 09/16/19 22:00 OZH1847 (Rec: 09/16/19 23:04 UTC7285 ICU-L03) Document 09/16/19 23:00 LAX8515 (Rec: 09/16/19 23:05 AAW8408 ICU-L03) Document 09/17/19 00:00 ILO4428 (Rec: 09/17/19 00:05 HHX2080 ICU-L03) Document 09/17/19 01:00 UYP7622 (Rec: 09/17/19 01:30 FGS1711 ICU-L03) Document 09/17/19 02:00 YGF8535 (Rec: 09/17/19 02:01 PUR6432 ICU-L03) Document 09/17/19 03:00 TRS2622 (Rec: 09/17/19 04:34 CDC4753 ICU-M33) Document 09/17/19 04:00 TOR3927 (Rec: 09/17/19 04:45 MZN1377 ICU-L03) Document 09/17/19 05:00 HCB4285 (Rec: 09/17/19 05:06 FTK2493 ICU-L03) Document 09/17/19 06:00 ONI6082 (Rec: 09/17/19 06:26 AGX6385 ICU-L03) Document 09/17/19 07:00 MXI8191 (Rec: 09/17/19 07:23 PTX8941 ICU-L03) Document 09/17/19 08:00 QFK1826 (Rec: 09/17/19 08:41 OUY6531 ICU-L03) Document 09/17/19 10:00 XNS5326 (Rec: 09/17/19 10:44 ASF9301 ICU-L03) Document 09/17/19 11:00 DLB9714 (Rec: 09/17/19 14:52 BVK2884 ICU-L03) Document 09/17/19 14:00 WRO6758 (Rec: 09/17/19 14:58 SEO1259 ICU-L03) Document 09/17/19 15:00 NMN1915 (Rec: 09/17/19 17:00 MAT3002 ICU-L03) Document 09/17/19 16:00 VHP2422 (Rec: 09/17/19 17:06 PQA9417 ICU-L03) Document 09/17/19 17:00 KIX9615 (Rec: 09/17/19 17:07 CZJ1041 ICU-L03) Document 09/17/19 18:00 JKW4763 (Rec: 09/17/19 18:12 LUN9946 ICU-L03) Document 09/17/19 19:00 QMD8885 (Rec: 09/17/19 20:45 LKJ9600 ICU-C12) Document 09/17/19 20:00 ZOA7522 (Rec: 09/17/19 21:35 DHA6231 ICU-C12) Document 09/17/19 21:00 PWP7959 (Rec: 09/17/19 21:36 CAN5623 ICU-C12) Document 09/17/19 22:00 WZP5133 (Rec: 09/17/19 22:08 KCH0780 ICU-C12) Document 09/17/19 23:00 DQX8923 (Rec: 09/17/19 23:23 KIO8244 ICU-C12) Document 09/18/19 00:00 NDK8512 (Rec: 09/18/19 00:41 ZNZ3547 ICU-C12) Document 09/18/19 01:00 ADH2526 (Rec: 09/18/19 01:36 HJD7515 ICU-C12) Document 09/18/19 02:00 VMM7983 (Rec: 09/18/19 02:16 UNQ0515 ICU-C12) Document 09/18/19 03:00 QUS9937 (Rec: 09/18/19 03:00 LBS1453 ICU-C12) Document 09/18/19 03:59 RBO3486 (Rec: 09/18/19 04:02 YOG5804 ICU-C12) Document 09/18/19 05:00 CSF7467 (Rec: 09/18/19 05:22 EBX9898 ICU-C12) Document 09/18/19 06:00 BWA3460 (Rec: 09/18/19 06:08 KSU6650 ICU-C12) Document 09/18/19 07:00 LJT7628 (Rec: 09/18/19 08:19 DFW2667 ICU-M33) Document 09/18/19 09:00 RNN8180 (Rec: 09/18/19 09:37 OBO8950 ICU-C12) Document 09/18/19 10:00 WHR9124 (Rec: 09/18/19 10:02 VIO7921 ICU-C12) Document 09/18/19 11:00 LEL8412 (Rec: 09/18/19 11:15 YHI3035 ICU-C12) Document 09/18/19 12:00 DIZ1877 (Rec: 09/18/19 13:35 HIX3138 ICU-C12) Document 09/18/19 13:00 HZP9079 (Rec: 09/18/19 13:36 BGM0405 ICU-C12) Document 09/18/19 14:00 OZB4800 (Rec: 09/18/19 15:41 EBH6594 ICU-C12) Document 09/18/19 15:00 SKS0357 (Rec: 09/18/19 15:43 NXY9625 ICU-C12) Document 09/18/19 16:00 NFL3292 (Rec: 09/18/19 16:12 VTC1238 ICU-C12) Document 09/18/19 17:00 LST4750 (Rec: 09/18/19 17:06 YAY1340 ICU-C12) Document 09/18/19 18:00 XJU2645 (Rec: 09/18/19 19:06 DIK0789 ICU-C12) Document 09/18/19 19:42 UDL5376 (Rec: 09/18/19 19:42 RTK4415 ICU-C12) Document 09/19/19 00:00 FGD5764 (Rec: 09/19/19 00:38 QGJ3367 ICU-C12) Document 09/19/19 04:00 FKZ9660 (Rec: 09/19/19 04:50 MOI4146 ICU-C12) Document 09/19/19 16:00 CQX7145 (Rec: 09/19/19 17:18 SNK2603 ICU-C15) Document 09/19/19 20:00 DHW6317 (Rec: 09/19/19 20:13 QEF3223 ICU-C12) Document 09/20/19 00:00 EKU3797 (Rec: 09/20/19 00:35 VOV9264 ICU-C12) Document 09/20/19 04:00 YGZ1833 (Rec: 09/20/19 05:19 RSX1264 ICU-C12) Document 09/20/19 08:00 SWA6225 (Rec: 09/20/19 08:47 DQH0156 ICU-C10) Head: Normal Eyes: No Scleral Icterus Ears/Nose/Mouth/Throat: NL Teeth, Lips, Gums Neck: NL Appearance and Movements; NL JVP Cardiovascular: NL Sounds; No Murmurs; No JVD Respiratory: Symmetrical Chest Expansion and Respiratory Effort Abdominal: NL Sounds; No Tenderness; No Distention Extremities: No Edema Neurological: Alert and Oriented x 3 - Assessment Assessment: 64yo female with COPD admitted with hypoxic hypercapnic respiratory failure - Plan Consult Plan (MU): Palliative Plan: Long discussion with pt about goals of care. Pt knows she has end stage lung disease. Last year she was intubated for several days with CO2 of 116 on ABG. She was glad she was intubated because she has been able to continue to spend time with her grandchild who she watches several hours a week. She wants to be a full code and would allow CPR and a trial of intubation for 3-5 days but if she is unable to get off the vent she would like to be terminally weaned. This has been discussed with her daughter as per pt. Pt is getting tired more easily and more often. She has tried pulmonary rehab but was unable to keep her sats at a normal level. She is not interested in [facility] and doesn't want home PT saying she has all the exercises. She is interested in trying to restart the exercises on her own and is interested in [facility] home health aide coming short term for help with light cleaning. Says her daughter will bring meals occasionally and help with cleaning also. She continues to watch her granddaughter several hours after school which brings her great ovidio and does have many hobbies. She doesn't get out of the house as much due to her O2 use, had a concentrator from [employer] but they took it back, she is interested in getting a new one. Also she has CPAP from [facility] at home but the tubing melted. She would either like a BIPAP machine or new tubing for her CPAP if possible. She would like to see her family more and I encouraged her to reach out to them. Also expressed feeling a little sad and she will discuss with her primary care doctor maybe starting an SSRI. She didn't want to start it in the hospital. We also discussed hospice especially if she wants to stay home when she gets sicker. KPS 60%, PPS 60%. - Time On Unit Date of Evaluation: 09/20/19 Hospice Consult Time in: 10:15 Hospice Consult Time Out: 11:15 Hospice Consult Time Total: 60 > 50% of Time Spend In Counseling or Coordinating Care: Yes
[2019-09-20] MEDS: LORazepam INJ* 2 MG/ML 1 ML VIAL IV PUSH PRN ×2 (15:38→23:43)
[2019-09-20] MEDS: Enoxaparin(*) 40 MG/0.4 ML SYR SUBCUT SCH (20:25)
[2019-09-21 00:08] VITALS: BP 145/91
[2019-09-21] MEDS: Albuterol/Ipratropium NEB.SOL* Albuterol 2.5 MG/Ipratropium 0.5 MG 3 ML INH SCH ×3 (03:16→12:10)
[2019-09-21 06:18] LABS: ABS Lymphocytes 1.4 10^3/ul (1.0-4.8); ABS Monocytes 0.6 10^3/ul (0-0.8); ABS Neutrophils 5.1 10^3/ul (1.5-7.7); Eosinophil % 0.3 %; Hematocrit 31 % (35-47); Lymphocyte % 20.1 %; Mean Corpuscular HGB Conc 33 g/dL (31-36); Mean Corpuscular Hemoglobin 31 pg (27-31); Mean Corpuscular Volume 94 fL (80-97); Mean Platelet Volume 7.5 fL (7.4-10.4); Nucleated Red Blood Cells % 0.1; Platelet Count 187 10^3/uL (150-450); Red Blood Count 3.25 10^6 /uL (3.70-4.87); Red Cell Distribution Width 17 % (10-15); White Blood Count 7.1 10^3/uL (3.5-10.8)
[2019-09-21 06:34] LABS: Calcium 8.5 mg/dL (8.6-10.3); EGFR African American 183.8 (>60); EGFR Non-African American 151.9 (>60)
[2019-09-21 07:33] LABS: Potassium 3.9 mmol/L (3.5-5.0)
[2019-09-21] MEDS: SPIRIVA Respimat* (tiotropium) 2.5 mcg/inh Inhaler INH SCH (07:43)
[2019-09-21] MEDS: Mometasone/Formoter 100/5 MDI INH SCH (07:43)
[2019-09-21] MEDS: Atorvastatin* 40 MG TAB PO SCH (09:06)
[2019-09-21] MEDS: Clopidogrel TAB* 75 MG PO SCH (09:06)
[2019-09-21] MEDS: Aspirin TAB* 325 MG PO SCH (09:06)
[2019-09-21] MEDS: Metoprolol Tartrate TAB* 25 MG PO SCH (09:06)
--- NOTE | 2019-09-21 10:24 | DS ---
DISCHARGE SUMMARY: DATE OF ADMISSION: 09/14/19 DATE OF DISCHARGE: 09/21/19 HOSPITAL COURSE: The patient is a 64-year-old female with history of COPD and DES who was admitted with acute exacerbation of COPD, characterized by pCO2 of 98 and evidence for an upper respiratory tract infection. The patient was treated with bronchodilators, antibiotics, steroids, and BiPAP, and did not require intubation. She gradually improved and antibiotics were discontinued. The patient has a reversible component to her obstructive lung disease and responded significantly to bronchodilator treatments. She will be discharged on the following regimen: 1. Prednisone 60 mg daily with gradual taper. 2. DuoNeb by metered dose inhaler every 4 hours. 3. CPAP in the evenings for sleep apnea. 4. BiPAP machine has been ordered for the patient - to be used p.r.n. 5. Clopidogrel 75 mg daily. 6. Metoprolol 12.5 mg every 12 hours. 7. Spiriva 2 puffs daily. 8. Aspirin 325 mg daily. DISPOSITION: The patient will return home. [id number]/[facility] #: [id number] KEVIN
== END 2019-09-21 13:15 | disposition home or self-care (01) | DRG 191 ==
LOC: ED 17:10 → ICU 19:33
PROVIDERS: ADMIT Internal Medicine; ATTEND Internal Medicine Critical Care Medicine
PROC: 5A09457 Assistance with Respiratory Ventilation, 24-96 Consecutive Hours, Continuous Positive Airway Pressure (ICD-10-PCS; principal; 2019-09-14)
DX: J44.1 Chronic obstructive pulmonary disease with (acute) exacerbation (principal); J96.11 Chronic respiratory failure with hypoxia; J96.12 Chronic respiratory failure with hypercapnia; I25.10 Atherosclerotic heart disease of native coronary artery without angina pectoris; E78.5 Hyperlipidemia, unspecified; I11.0 Hypertensive heart disease with heart failure; I50.9 Heart failure, unspecified; E78.00 Pure hypercholesterolemia, unspecified; G47.33 Obstructive sleep apnea (adult) (pediatric); M19.90 Unspecified osteoarthritis, unspecified site; J40 Bronchitis, not specified as acute or chronic; Z95.5 Presence of coronary angioplasty implant and graft; Z87.891 Personal history of nicotine dependence; Z79.01 Long term (current) use of anticoagulants; Z79.82 Long term (current) use of aspirin; Z79.52 Long term (current) use of systemic steroids; Z99.81 Dependence on supplemental oxygen
CPT/HCPCS: 36415; 36600; 71045; 71260; 80048; 80053; 82803; 83605; 84484; 85025; 87070; 87205; 87641; 93005; 94640; 94660; 96374; 99284; A9270-GY; J1650; J2060; J2270; J2920; J2930; J3535; J7512; Q9967

== ENCOUNTER 2019-10-18 13:07 | Inpatient (IN) | payer MEDICARE, OTHER ==
[2019-10-18] MEDS ORDERED: Albuterol/Ipratropium NEB.SOL* Albuterol 2.5 MG/Ipratropium 0.5 MG 3 ML INH ONE (13:18)
[2019-10-18] MEDS ORDERED: methylPREDNISolone 125 MG* 2 ML VIAL IV ONE (13:18)
[2019-10-18] MEDS ORDERED: Cefepime(*) 1 GM in NS 0.9% 50 ML* 50 ML IVPB ONE (13:18)
--- OUTSIDE RECORDS SUMMARY | 2019-10-18 13:19 | XMS REPORT | Continuity of Care Document ---
:1955 External Reference #:[id number] Author Name Monse Kent NP Address [address], [address] [place] [address] Care Team Providers Name Role Phone Yaneth Evangelista MD - Internal Care Team Information Carbon Brushes Assembler Medicine Mela Panchal MD - Pulmonary Care Team Information Carbon Brushes Assembler Disease Problems Active Problems Provider Date Postsurgical Status Other Monse Carmona D.O. Onset: 07/13/2011 Impending infarction Monse Carmona D.O. Onset: 09/02/2011 Patient post percutaneous transluminal Monse Carmona D.O. Onset: 2011 coronary angioplasty Coronary arteriosclerosis Monse Carmona D.O. Onset: 10/26/2011 Hyperlipidemia Shwetha [place], [place] Onset: 06/07/2012 Benign essential hypertension Shwetha Young [place] Onset: 06/07/2012 Angina pectoris Marlin Farley M.D. 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 Onset: 06/13/2015 Pure hypercholesterolemia Marlin Farley M.D. Onset: 06/13/2015 Atherosclerotic heart disease of [place] Marlin Farley M.D. Onset: 06/13/2015 coronary artery without angina pectoris Chronic obstructive lung disease Mela Panchal MD Onset: 12/02/2015 Disturbance in sleep behavior Mela Panchal MD Onset: 12/02/2015 Obstructive sleep apnea syndrome Mela Panchal MD Onset: 01/13/2016 Acute respiratory failure Mela Panchal MD Onset: 01/13/2016 Disorder of lung Mela Panchal MD Onset: 01/13/2016 Social History Type Date Description Comments Sex Unknown ETOH Use Drinks Alcoholic Beverages Rarely Tobacco Use Start: Unknown End: Patient is a former Smoked 1PPD x Unknown smoker 40years - Quit (2012) Recreational Drug Use Denies Drug Use Smoking Status Reviewed: 10/05/19 Patient is a former Smoked 1PPD x smoker 40years - Quit (2012) Exercise Type/Frequency Does not exercise Allergies, Adverse Reactions, Alerts Active Allergies Reaction Severity Comments Date No Known Drug Allergy 09/02/2011 Medications Active Medications SIG Qnty Indications Ordering Date Provider Daliresp 1 tab daily, pls 1tabs Monse 10/05/2019 250mcg read leaflet BECKA Kent Tablets Ipratropium inhale the contents 540units Monse 04/13/2019 [place]/Albuterol of one vial via BECKA Kent Sulfate nebulizer every 6 hours as needed 0.5-2.5(3)mg/3ML Solution Fluticasone Inhale One puff By 60units Mela Panchal, 02/23/2019 Propionate/Salmetero Mouth Twice A Day MD santoyo Diskus 100-50mcg/Dose Aerosol Furosemide 1/2 tab by mouth 14tabs R60.9 Erum Hassan, 11/23/2018 20mg prn weight gain N.P. Tablets Combivent Respimat Inhale 1 puff By 12units Mela Panchal, 10/03/2018 Mouth 4-6 Times 20-100mcg/Act Daily as Needed Aerosol Plavix 1 by mouth every 90tabs Chilo Arellano 10/04/2017 75mg Tablets day Karena Cerna Duoneb 1 unit nebl every 6 540ml Mela Panchal, 06/06/2017 hours as needed 0.5-2.5(3)mg/3ML Solution Nitroglycerin 1 under the tongue 30tabs Bala Marc 06/08/2016 0.4mg as needed for chest Karena Brandt Tablets Sub pain. can repeat once after 5 minutes. call 911 if pain continues more than 15 min. Ventolin HFA Inhale Two Puffs By 18units Mela Panchal, 03/19/2016 Mouth Four Times A 108(90Base) mcg/Act Day as Needed Aerosol Spiriva Respimat inhale two puffs by 12unmary PettyMonse 01/26/2016 mouth every day BECKA Kent 2.5mcg/Act Aerosol Atorvastatin Calcium 1 by mouth every 30tabs Chilo Arellano 08/18/2015 day Karena Cerna 40mg Tablets Toprol XL 1 by mouth two 60tabs Erum Hassan, 09/16/2011 50mg times daily N.P. Tablets ER 24HR Aspirin 1 po qd 90tabs Monse 07/12/[address]ts [address] Oxygen please use o2 at J44.1 Mela Panchal, Misc 2l/min with MD heath, pls provide pt with portable o2 concentrator R09.02 Medications Administered in Office Medication SIG Qnty Indications Ordering Provider Date Inj, Regadenoson, 0.1 MG Holland Alex M.D., 11/08/2017 Injection FACC, FASNC Technetium TC 99M Holland Alex M.D., 11/08/2017 Tetrofosmin, Per Unit Dose FACC, FASNC Up To 40 Millicuries Injection Inj, Regadenoson, 0.1 MG Srinivas Faria M.D. 09/26/2013 Injection Technetium TC 99M Srinivas Faria M.D. 09/26/2013 Tetrofosmin, Per Unit Dose Up To 40 Millicuries Injection Immunizations Description No Information Available Vital Signs Date Vital Result Comment 10/05/2019 2:01pm Height 62 inches 5'2" Weight 101.50 lb Heart Rate 101 /min BP Systolic 110 mmHg BP Diastolic 72 mmHg O2 % BldC Oximetry 96 % 4L BMI (Body Mass Index) 18.6 kg/m2 11/23/2018 1:48pm Height 62 inches 5'2" Weight 119.25 lb with shoes Heart Rate 92 /min BP Systolic Sitting 128 mmHg Lue reg cuff BP Diastolic Sitting 80 mmHg Lue reg cuff BP Systolic Standing 110 mmHg Lue reg cuff BP Diastolic Standing 72 mmHg Lue reg cuff O2 % BldC Oximetry 95 % 3 LPM via nc BMI (Body Mass Index) 21.8 kg/m2 Ejection Fraction 60-65% 08/16/18 Echocardiogram Results Description No Information Available Procedures Description No Information Available Medical Devices Description No Information Available Encounters Type Date Location Provider Dx Diagnosis Office Visit 10/05/2019 Pul[facility] And Monse J44.9 Chronic 2:00p [facility] Kent obstructive Die Sinking Machine Operator pulmonary disease, unspecified J96.12 Chronic respiratory failure with hypercapnia R09.02 Hypoxemia G47.33 Obstructive sleep apnea (adult) (pediatric) Office Visit 09/21/2019 1:12p Intensivists Maged Anne J44.1 Chronic M.D. obstructive pulmonary disease w (acute) exacerbation Office Visit 09/20/2019 1:12p Palliative Care Teresa J44.9 Chronic Services Of Clair Moss MD obstructive pulmonary disease, unspecified J96.92 Respiratory failure, unspecified with hypercapnia Office Visit 09/19/2019 1:11p Intensivists Maged Anne J44.1 Chronic obstructive M.D. pulmonary disease w (acute) exacerbation Office Visit 09/18/2019 1:11p Intens[facility]ists Maged Anne, R06.02 Shortness of breath M.D. Office Visit 09/17/2019 1:10p Int[facility]ists Maged Anne J44.1 Chronic obstructive M.D. pulmonary disease w (acute) exacerbation Office Visit 09/16/2019 1:08p Intensivists Maged Anne J44.1 Chronic obstructive M.D. pulmonary disease w (acute) exacerbation J40 Bronchitis, not specified as acute or chronic Office Visit 09/15/2019 1:07p Intensivists Mary Cortes J96.20 Acute and chr resp Doto, CHAIN MAKER LOOM CONTROL failure, unsp w hypoxia or hypercapnia J44.1 Chronic obstructive pulmonary disease w (acute) exacerbation I25.10 Athscl heart disease of [place] coronary artery w/o ang pctrs I10 Essential (primary) hypertension E78.5 Hyperlipidemia, unspecified Office Visit 09/14/2019 [facility] Hannah Salas, J96.91 Respiratory 1:06p Assoc,pc M.D. failure, Hospitalists unspecified with hypoxia J96.92 Respiratory failure, unspecified with hypercapnia J44.1 Chronic obstructive pulmonary disease w (acute) exacerbation Z99.81 Dependence on supplemental oxygen Assessments Date Code Description Provider 10/05/2019 J44.9 Chronic obstructive pulmonary disease, Monse Kent NP unspecified 10/05/2019 J96.12 Chronic respiratory failure with Monse Kent NP hypercapnia 10/05/2019 R09.02 Hypoxemia Monse Kent NP 10/05/2019 G47.33 Obstructive sleep apnea (adult) Monse Kent NP (pediatric) 09/21/2019 J44.1 Chronic obstructive pulmonary disease Maged Anne M.D. with (acute) exacerbat 09/20/2019 J44.9 Chronic obstructive pulmonary disease, Teresa Moss MD unspecified 09/20/2019 J96.92 Respiratory failure, unspecified with Teresa Moss MD hypercapnia 09/19/2019 J44.1 Chronic obstructive pulmonary disease Maged Anne M.D. with (acute) exacerbat 09/18/2019 R06.02 Shortness of breath Maged Anne M.D. 09/17/2019 J44.1 Chronic obstructive pulmonary disease Maged Anne M.D. with (acute) exacerbat 09/16/2019 J44.1 Chronic obstructive pulmonary disease Maged Anne M.D. with (acute) exacerbat 09/16/2019 J40 Bronchitis, not specified as acute or Maged Anne M.D. chronic 09/15/2019 J96.20 Acute and chronic respiratory failure, Maryminal Khan NP unspecified whether with hypoxia or hypercapnia 09/15/2019 J44.1 Chronic obstructive pulmonary disease Mary Khan NP with (acute) exacerbat 09/15/2019 I25.10 Atherosclerotic heart disease of [place] Mrayminal Khan NP coronary artery with 09/15/2019 I10 Essential (primary) hypertension Mary Khan NP 09/15/2019 E78.5 Hyperlipidemia, unspecified Mary Khan NP 09/14/2019 J96.91 Respiratory failure, unspecified with Hannah Salas M.D. hypoxia 09/14/2019 J96.92 Respiratory failure, unspecified with Hannah Salas M.D. hypercapnia 09/14/2019 J44.1 Chronic obstructive pulmonary disease Hannah Salas M.D. with (acute) exacerbat 09/14/2019 Z99.81 Dependence on supplemental oxygen Hannah Salas M.D. Plan of Treatment Future Appointment(s):10/16/2019 10:00 am - [facility] - Monse Kent, NPJ44.9 Chronic obstructive pulmonary disease, unspecifiedNew Orders:PFTW/Spirometry Vol Pre/Post Bronchdilat Dlco Complete, Ordered: 10/05/19Follow up:2 monthsRecommendations: If your symptom worsen, please present to the emergency room If your symptoms are improving, start tapering the prednisone by 10mg each weekJ96.12 Chronic respiratory failure with hypercapniaRecommendations:We will work on trying to get you a Trilogy non-invasive frjmrjacwfJ79.02 JjmxkysepR35.33 Obstructive sleep apnea (adult) (pediatric)New Orders:Sleep-Homecare, Ordered: 10/05/19 Functional Status Description No Information Available Mental Status Description No Information Available Referrals Description No Information Available
--- OUTSIDE RECORDS SUMMARY | 2019-10-18 13:19 | XMS REPORT | Continuity of Care Document ---
:1955 External Reference #:[id number] Author Name Monse Kent NP (transmitted by agent of provider Mia Carl) Address [address], [address] [place] [address] Care Team Providers Name Role Phone Yaneth Evangelista MD - Internal Care Team Information Edi Coordinator Medicine Mela Panchal MD - Pulmonary Care Team Information Edi Coordinator Disease Problems Active Problems Provider Date Postsurgical [...] M.D. Onset: 06/13/2015 Atherosclerotic heart disease of [place] Marlin Farley M.D. Onset: 06/13/2015 coronary artery [...] Ipratropium inhale the contents 540units Monse 04/13/2019 [place]/Albuterol of one vial via BECKA Kent Sulfate [...] Solution Nitroglycerin 1 under the tongue 30tabs [place] 06/08/2016 0.4mg as needed for chest Karena Brandt Tablets Sub pain. can repeat once after 5 minutes. call 911 if pain continues more than 15 min. Ventolin HFA Inhale Two Puffs By 18units Mela Ansley, 03/19/2016 Mouth Four Times A 108(90Base) mcg/Act Day as Needed Aerosol Spiriva Respimat inhale two puffs by 12unmary Monse 01/26/2016 mouth every day BECKA Kent 2.5mcg/Act Aerosol Atorvastatin Calcium 1 by mouth every 30tabs Chilo Arellano 08/18/2015 day Karena Cerna 40mg Tablets Toprol XL 1 by mouth two 60tabs Erum Hassan, 09/16/2011 50mg times daily N.P. Tablets ER 24HR Aspirin 1 po qd 90tabs Monse 07/12/2011 325mg Tablets Whitney [address]ona [address] Oxygen please use o2 at J44.1 Mela Crainali, Misc 2l/min with MD heath, pls provide pt with portable o2 concentrator R09.02 Medications Administered in Office Medication SIG Qnty Indications Ordering Provider Date Inj, Regadenoson, 0.1 MG Holland Uday Alex M.D., 11/08/2017 Injection FACC, FASNC Technetium [...] 2:00p [facility] obstructive Sand Operator pulmonary disease, unspecified J96.12 Chronic respiratory failure with hypercapnia G47.33 Obstructive sleep apnea (adult) (pediatric) Office [...] (acute) exacerbation Office Visit 09/18/2019 1:11p Intensivists Magde nAne, R06.02 Shortness of breath M.D. Office Visit 09/17/2019 1:10p Intensivists Maged Anne J44.1 Chronic obstructive M.D. pulmonary disease w (acute) exacerbation Office Visit 09/16/2019 1:08p Intensivists Maged Anne J44.1 Chronic obstructive M.D. pulmonary disease w (acute) exacerbation J40 Bronchitis, not specified as acute or chronic Office Visit 09/15/2019 1:07p Intensivists Mary Cortes J96.20 Acute and chr resp Doto, GMAT TUTOR failure, unsp w hypoxia or hypercapnia J44.1 Chronic obstructive pulmonary disease w (acute) exacerbation I25.10 Athscl heart disease of [place] coronary artery w/o ang pctrs I10 Essential (primary) hypertension E78.5 Hyperlipidemia, unspecified Office Visit 09/14/2019 [facility] Hannah Salas, J96.91 Respiratory 1:06p Assoc,pc M.D. failure, Hospitalists unspecified with hypoxia J96.92 Respiratory failure, unspecified with hypercapnia J44.1 Chronic obstructive pulmonary disease w (acute) exacerbation Z99.81 Dependence on supplemental oxygen Assessments Date Code Description Provider 10/05/2019 J44.9 Chronic obstructive pulmonary disease, Monse Kent NP unspecified 10/05/2019 J96.12 Chronic respiratory failure with Monse Kent NP hypercapnia 10/05/2019 G47.33 Obstructive sleep apnea (adult) Monse [...] 09/15/2019 J96.20 Acute and chronic respiratory failure, Mary Khan NP unspecified whether with hypoxia or hypercapnia 09/15/2019 J44.1 Chronic obstructive pulmonary disease Mary Khan NP with (acute) exacerbat 09/15/2019 I25.10 Atherosclerotic heart disease of [place] Mary Khan NP coronary artery with 09/15/2019 I10 [...] Hannah Salas M.D. Plan of Treatment Future Appointment(s):12/06/2019 1:30 pm - Monse Kent NP at [facility]10/16/2019 10:00 am - [facility]10/05/2019 - Monse Kent NPJ44.9 Chronic obstructive pulmonary disease, unspecifiedFollow up:2 monthsRecommendations:If your symptoms worsen, please present to the emergency room If your symptoms are improving, starttapering the prednisone by 10mg each weekJ96.12 Chronic respiratory failure with hypercapniaRecommendations:We will work on trying to get you a Trilogy non-invasive ventilator as you have had multiple ICU admissions for hypercarbic respiratory bxoclkqZ88.33 Obstructive sleep apnea ( adult) (pediatric) Functional Status Description No Information Available Mental Status Description No Information Available Referrals Description No Information Available
--- OUTSIDE RECORDS SUMMARY | 2019-10-18 13:20 | XMS REPORT | Continuity of Care Document ---
:1955 External Reference #:[id number] Author Name Hannah Salas M.D. (transmitted by agent of provider Babs Moreland) Address [address] [place] [address] Care Team Providers Name Role Phone Yaneth Evangelista MD - Internal Care Team Information Music Supervisor [phone] Medicine Mela Panchal MD - Pulmonary Care Team Information Music Supervisor Disease Problems Active Problems Provider Date Postsurgical Status Other Monse Carmona D.O. Onset: 07/13/2011 Impending infarction Monse Carmona D.O. Onset: 09/02/2011 Patient post percutaneous transluminal Monse Carmona D.O. Onset: 2011 coronary angioplasty Coronary arteriosclerosis Monse Carmona D.O. Onset: 10/26/2011 Hyperlipidemia Shwetha Young N.[place] Onset: 06/07/2012 Benign essential hypertension Shwetha Young N.[place] Onset: 06/07/2012 Angina pectoris Marlin Farley M.D. 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 Onset: 06/13/2015 Pure hypercholesterolemia Marlin Farley M.D. Onset: 06/13/2015 Atherosclerotic heart disease of [place] Marlin Farley M.D. Onset: 06/13/2015 coronary artery [...] Use Denies Drug Use Smoking Status Reviewed: 11/23/18 Patient is a former Smoked 1PPD x smoker 40years - Quit (2012) Exercise Type/Frequency Does not exercise Allergies, Adverse Reactions, Alerts Active Allergies Reaction Severity Comments Date No Known Drug Allergy 09/02/2011 Medications Active Medications SIG Qnty Indications Ordering Date Provider Ipratropium Inhale The Contents 540units Mela Panchal, 04/13/2019 [place]/Albuterol Of One Vial Via MD Sulfate Nebulizer Every 6 Hours as Needed 0.5-2.5(3)mg/3ML Solution Fluticasone Inhale One puff [facility] Mela Panchal, 02/23/2019 Propionate/Salmetero Mouth Twice A Day MD santoyo Disk 100-50mcg/Dose Aerosol Furosemide 1/2 tab by mouth 14tabs R60.9 Erum Hassan, 11/23/2018 20mg prn weight gain N.P. Tablets Combivent Respimat inhale 1 puff [facility] Mela Panchal, 10/03/2018 mouth 4-6 times MD 20-100mcg/Act daily as needed Aerosol Plavix 1 by mouth every 90tabs Chilo Arellano 10/04/2017 75mg Tablets day Karena Cerna Duoneb 1 unit nebl every 6 540ml Mela Panchal, 06/06/2017 hours as needed 0.5-2.5(3)mg/3ML Solution Nitroglycerin 1 under the tongue 30tabs Bala SD[place] 06/08/2016 0.4mg as needed for chest Karena Brandt Tablets Sub pain. can repeat once after 5 minutes. call 911 if pain continues more than 15 min. Ventolin HFA Inhale Two Puffs By 18units Mela Panchal, 03/19/2016 Mouth Four Times A MD 108(90Base) mcg/Act Day as Needed Aerosol Spiriva Respimat Inhale Two Puffs By 12units Mela Crainali, 01/26/2016 Mouth Every Day 2[place]5mcg/Act Aerosol Atorvastatin Calcium 1 by mouth every 30tabs Chilo Arellano 08/18/2015 day Karena Cerna 40mg Tablets Toprol XL 1 by mouth two 60tabs Erum DarrianDakota Hassan, 09/16/2011 50mg times daily N.P. Tablets [...] Injection FACC, FASNC Technetium TC 99M Holland Uday Alex M.D., 11/08/2017 Tetrofosmin, Per Unit Dose FACC, FASNC Up To 40 Millicuries Injection Inj, Regadenoson, 0.1 MG Srinivas Faria M.D. 09/26/2013 Injection Technetium TC 99M Srinivas Faria M.D. 09/26/2013 Tetrofosmin, Per Unit Dose Up To 40 Millicuries Injection Immunizations Description No Information Available Vital Signs Date Vital Result Comment 11/23/2018 1:48pm Height 62 inches 5'2" Weight [...] 21.8 kg/m2 Ejection Fraction 60-65% 08/16/18 Echocardiogram 12/31/2017 10:32am Height 62 inches 5'2" Weight 120.00 lb Heart Rate 82 /min BP Systolic Sitting 120 mmHg Lue reg cuff BP Diastolic Sitting 80 mmHg Lue reg cuff Respiratory Rate 18 /min O2 % BldC Oximetry 97 % on Ra BMI (Body Mass Index) 21.9 kg/m2 Results Description No Information Available Procedures Description No Information Available Medical Devices Description No Information Available Encounters Type Date Location Provider Dx Diagnosis Office Visit 09/21/2019 Intensivists Peter Zavala44.1 Chronic obstructive 1:12p M.D. pulmonary disease w (acute) exacerbation Office Visit 09/20/2019 Palliative Care Teresa Moss J44.9 Chronic obstructive 1:12p Services Of Clair [place]STA[place] pulmonary disease, unspecified J96.92 Respiratory failure, unspecified with hypercapnia Office Visit 09/19/2019 1:11p Intensivists Maged Anne J44.1 Chronic obstructive M.D. pulmonary disease w (acute) exacerbation Office Visit 09/18/2019 1:11p Intensivists Maged Anne R06.02 Shortness of breath M.D. Office Visit 09/17/2019 1:10p Intensivists Peter Zavala44.1 Chronic obstructive M.D. pulmonary disease w (acute) exacerbation Office Visit 09/16/2019 1:08p Intensivists Maged Anne J44.1 Chronic obstructive M.D. pulmonary disease w (acute) exacerbation J40 Bronchitis, not specified as acute or chronic Office Visit 09/15/2019 1:07p Intensivists Mary Cortes J96.20 Acute and chr resp Doto, VISUALLY IMPAIRED TEACHER failure, unsp w hypoxia or hypercapnia J44.1 Chronic obstructive pulmonary disease w (acute) exacerbation I25.10 Athscl heart disease of [place] coronary artery w/o ang pctrs I10 Essential (primary) hypertension E78.5 Hyperlipidemia, unspecified Office Visit 09/14/2019 [facility] Hannah Salas, J96.91 Respiratory 1:06p Assoc,pc M.D. failure, Hospitalists unspecified with hypoxia J96.92 Respiratory failure, unspecified with hypercapnia J44.1 Chronic obstructive pulmonary disease w (acute) exacerbation Z99.81 Dependence on supplemental oxygen Assessments Date Code Description Provider 09/21/2019 J44.1 Chronic obstructive pulmonary disease Maged [...] J96.20 Acute and chronic respiratory failure, Mary ReneeBECKA barone unspecified whether with hypoxia or hypercapnia 09/15/2019 J44.1 Chronic obstructive pulmonary disease Mary Cortes BECKA Khan with (acute) exacerbat 09/15/2019 I25.10 Atherosclerotic heart disease of [place] Maryminal Khan, VISUALLY IMPAIRED TEACHER coronary artery with 09/15/2019 I10 Essential (primary) hypertension Maryminal Cortes Bill, VISUALLY IMPAIRED TEACHER 09/15/2019 E78.5 Hyperlipidemia, unspecified Mary Cortes Bill, VISUALLY IMPAIRED TEACHER 09/14/2019 J96.91 Respiratory failure, unspecified with Hannah Salas M.D. hypoxia 09/14/2019 J96.92 Respiratory failure, unspecified with Hannah Salas M.D. hypercapnia 09/14/2019 J44.1 Chronic obstructive pulmonary disease Hannah Salas M.D. with (acute) exacerbat 09/14/2019 Z99.81 Dependence on supplemental oxygen Hannah Salas M.D. Plan of Treatment Future Appointment(s):10/16/2019 10:00 am - [facility]11/23/2018 - Erum Hassan, N.P.R60.9 Edema, unspecifiedNew Medication:Furosemide 20 mg - 1/2 tab by mouth prn weight gainFollow up:6mo OV QSMRecommendations:Take 1/2 (20mg) for 1-3 days. Check in on Tuesday and let us know if swelling has improved.I10 Essential (primary) xmluqebdheiuM94.02 Shortness of pgunhaJ78.10 Atherosclerotic heart disease of [place] coronary artery with Functional Status Description No Information Available Mental Status Description No Information Available Referrals Description No Information Available
--- OUTSIDE RECORDS SUMMARY | 2019-10-18 13:20 | XMS REPORT | Continuity of Care Document ---
:1955 External Reference #:[id number] Author Name Gary Houston MD Address [address] [place] [address] Care Team Providers Name Role Phone Yaneth Evangelista - Family Medicine Care Team Information [employer] [phone] Bala Brandt MD - Care Team Information [employer] [phone] Cardiovascular Disease Problems Active Problems Provider Date Coronary arteriosclerosis Abdiel Jordan M.D. Onset: 07/29/2013 Hyperlipidemia Abdiel Jordan M.D. Onset: 07/29/2013 Chronic obstructive lung disease Abdiel Jordan M.D. Onset: 07/29/2013 Social History Type Date Description Comments Sex Unknown ETOH Use Rare 1-2 drinks a year. Tobacco Use Start: Unknown End: Patient is a former smoked 50 years, 50 Unknown smoker pack year history. Stopped 06/2012 after ID. Smoking Status Reviewed: 06/27/19 Patient is a former smoked 50 years, 50 smoker pack year history. Stopped 06/2012 after ID. Exercise Does not exercise will be trying a Type/Frequency treadmill soon. Seat Belt/Car Seat Always uses seat belt Allergies, Adverse Reactions, Alerts Description No Known Drug Allergies Medications Active Medications SIG Qnty Indications Ordering Provider Date Bupropion take 1 tablet by 60tabs F43.23 Gary Rush 10/01/2019 Hydrochloride ER mouth once daily MD Celso (SR) for a week, then 150mg Tablets ER twice a day 12HR thereafter Metoprolol Tartrate take one tablets 180tabs I25.10 EMMANUEL Kumar by mouth twice a 50mg Tablets day Combivent Respimat 1 puff four times 4units J44.1 Yaneth Zuniga 03/26/2014 a day Karena Evangelista 20-100mcg/Act Aerosol Plavix 1 po qd 90tabs I25.10 Family Medicine 06/12/2013 75mg Tablets Edilson Aspirin Ec 1 po qd 100tabs I25.10 Family Medicine 06/12/2013 325mg [facility] Lipitor take 1 tablet by 90tabs Gary Rush 40mg Tablets mouth at bedtime MD Celso Spiriva Respimat Unknown Aerosol Oxygen Therapy 2L vian NC qhs Unknown and prn Advair Diskus 1 puff twice a Unknown day, rinse after 100-50mcg/Dose sample Aerosol Duoneb as needed Unknown Albuterol Sulfate take 1-2 puffs Unknown HFA inhaled every 4 108(90Base) hours as needed mcg/Act Aerosol for shortness of breath History Medications Prednisone 3 by mouth 15tabs J44.1 Gary Rush 06/27/2019 - 20mg every day x 5 MD Celso 10/01/2019 Tablets Immunizations CPT Code Status Date Vaccine Lot # [id number] Given 07/11/2019 Pneumococcal Immunization [id number] Given 07/11/2019 Influenza Vac, Quadrivalent, Slit Virus, Im [id number] Given 10/16/2015 Tdap Tetanus, W Pertussis [id number] Vital Signs Date Vital Result Comment 10/01/2019 10:52am BP Systolic 120 mmHg BP Diastolic 70 mmHg Heart Rate 76 /min Body Temperature 97.2 F Respiratory Rate 16 /min O2 % BldC Oximetry 7898 % on oxygen Height 61.5 inches 5'1.50" Weight 103.38 lb BMI (Body Mass Index) 19.2 kg/m2 06/27/2019 11:02am BP Systolic 144 mmHg BP Diastolic 90 mmHg Heart Rate 92 /min Body Temperature 97.9 F Respiratory Rate 28 /min O2 % BldC Oximetry 96 % 3L of O2 Height 61.5 inches 5'1.50" Weight 109.00 lb BMI (Body Mass Index) 20.3 kg/m2 Results Test Acquired Date Facility Test Result H/L Range Note Arterial Blood Gas 09/14/2019 [facility] [place] oxymask 10lpm PH Arterial 7.32 Low 7.35-7.45 Pco2 Arterial 98 mmHg Critical high 35-45 1 Po2 Arterial 164 mmHg High 80-100 O2 Saturation Arterial 100.0 % High 94.0-98.0 Base Excess Arterial 19.0 mmol/L High -2.0-2.0 2 Hco3 Arterial 39.6 mmol/L High 19-31 CBC Auto Diff 09/14/2019 [facility] White Blood Count 8.5 10^3/uL Normal 3.5- 10.8 Red Blood Count 3.78 10^6/uL Normal 3.70-4.87 Hemoglobin 11.6 g/dL Low 12.0-16.0 Hematocrit 36 % Normal 35-47 Mean Corpuscular Volume 95 fL Normal 80-97 Mean Corpuscular Hemoglobin 31 pg Normal 27-31 Mean Corpuscular HGB Conc 32 g/dL Normal 31-36 Red Cell Distribution Width 17 % High 10-15 Platelet Count 159 10^3/uL Normal 150-450 Mean Platelet Volume 8.1 fL Normal 7.4-10.4 Abs Neutrophils 7.5 10^3/uL Normal 1.5-7.7 Abs Lymphocytes 0.5 10^3/uL Low 1.0-4.8 Abs Monocytes 0.6 10^3/uL Normal 0-0.8 Abs Eosinophils 0.0 10^3/uL Normal 0-0.6 Abs Basophils 0.0 10^3/uL Normal 0-0.2 Abs Nucleated RBC 0.0 10^3/uL Granulocyte % 87.5 % Lymphocyte % 5.4 % Monocyte % 6.8 % Eosinophil % 0.2 % Basophil % 0.1 % Nucleated Red Blood Cells % 0.0 Laboratory test finding 09/14/2019 [facility] [place] Lactic Acid 1.4 mmol/L Normal 0.5- 2.0 3 Comp Metabolic Panel 09/14/2019 [facility] Sodium 141 mmol/L Normal 135-145 Potassium 4.2 mmol/L Normal 3.5-5.0 Chloride 93 mmol/L Low 101-111 Glucose 117 mg/dL High 70-100 Blood Urea Nitrogen 11 mg/dL Normal 6-24 Creatinine 0.50 mg/dL Low 0.51-0.95 BUN/Creatinine Ratio 22.0 High 8-20 Calcium 10.0 mg/dL Normal 8.6-10.3 Total Protein 7.7 g/dL Normal 6.4-8.9 Albumin 4.6 g/dL Normal 3.2-5.2 Globulin 3.1 g/dL Normal 2-4 Albumin/Globulin Ratio 1.5 Normal 1-3 Total Bilirubin 0.40 mg/dL Normal 0.2-1.0 Alkaline Phosphatase 85 U/L Normal 34-104 Alt 14 U/L Normal 7-52 Ast 16 U/L Normal 13-39 Egfr Non- 124.2 >60 Egfr 150.3 >60 4 Co2 Carbon Dioxide 44 mmol/L Critical high 22-32 5 Anion Gap 4 mmol/L Normal 2-11 Laboratory test finding 09/14/2019 [facility] [place] Troponin-I (TnI) 0.01 ng/mL < 0.03 6 Influenza A & B Request 09/14/2019 [facility] Flu AB Disclaimer (SEE NOTE) 7 Influenza A Molecular Negative Negative Influenza B Molecular Negative Negative 8 Comprehensive Metabolic 06/27/2019 [facility](fma) Sodium 141 mEq/L 134-149 Prof Potassium 4.6 mEq/L 3.6-5.5 Chloride 97 mEq/L 94-112 Carbon Dioxide 32 mEq/L 21-32 Glucose 104 mg/dL 70-105 BUN 7 mg/dL 6-26 Creatinine 0.5 mg/dL Low 0.6-1.4 9 BUN/Creat Ratio 14.0 CALC 8.0-36.0 Calcium 10.1 mg/dL 8.6-10.2 Total Protein 7.6 g/dL 6.4-8.3 Albumin 5.1 g/dL 3.8-5.5 Globulin 2.5 g/dL 2.0-4.8 A/G Ratio 2.0 CALC 0.6-2.3 Alk. Phosphatase 88 U/L 30-110 Alt (SGPT) 19 U/L 7-35 Ast (Sgot) 22 U/L 5-34 Total Bilirubin 0.3 mg/dL 0.2-1.3 GFR Non- >60 ml/min/1.73m^ >=60 GFR >60 ml/min/1.73m^ >=60 Lipid Profile 06/27/2019 [facility](fma) Cholesterol 249 mg/dL High 120-200 Triglycerides 113 mg/dL 30-200 HDL Cholesterol 69 mg/dL 30-85 LDL (Calculated) 157 CALC High 0-129 VLDL Cholesterol 23 mg/dL 0-50 HDL Risk Factor 3.6 CALC 0.0-4.4 CBC Electronic Fma 06/27/2019 [facility](a) WBC 7.7 x10^3/UL 4.0- 10.0 RBC 3.80 x10^6/UL Low 3.93-6.00 HGB 11.1 g/dL Low 12.0-17.0 HCT 38 % 35-50 MCV 98.9 fL High 80.0-95.0 MCH 29.2 pg 25.6-32.2 MCHC 29.5 g/dL Low 32.2-36.0 RDW-CV 13.6 % 11.6-14.4 PLT 231 x10^3/UL 163-400 MPV 9.6 fL 9.4-12.4 Michi# 5.61 x10^3/UL 1.56-6.13 Lymph# 1.43 x10^3/UL 1.18-3.74 [place]# 0.60 x10^3/UL 0.24-0.82 Eos # 0.1 x10^3/UL 0.0-0.5 Baso # 0.02 x10^3/UL 0.01-0.08 Michi% 72.4 % High 34.0-70.0 Lymph % 18.5 % Low 20.0-52.0 [place]% 7.8 % 5.0-12.0 Eos% 0.9 % 0.7-7.0 Baso% 0.3 % 0.1-1.2 1 Verbal to [id number] by [id number] at 1832 on 09/14/19. Results read back accurately. 2 Reference ranges based on room air. 3 [facility] Severe Sepsis and Septic Shock Management Bundle Measure requires all lactic acids initially measuring >2.0 mmol/L be repeated. 4 Because ethnic data is not always [...] 5 Kidney failure <15 (or dialysis) 5 Critical Result CO2:44 Called to [id number] at: 19:09:02 by:[id number] Read back by:[id number] 6 Troponin-I testing on Plasma Separator Tubes (PST) has a known false positive rate of 0.20-0.40%. All positive troponins reflex immediately to secondary confirmatory testing. Using the [employer] DxI 800 Access Immunoassay systems, the 99th percentile upper reference limit was demonstrated to be < 0.03 ng/mL. 7 Suboptimal collection technique may reduce sensitivity of test. Refer to the [facility] Test Catalog for collection information: [email or web address] As with all diagnostic procedures, the laboratory results obtained should be used in conjunction with other clinical information available to the physician, including confirmation by another method, as applicable. 8 Account Auditor: [id number] RESULTS VERIFIED BY REPEAT ANALYSIS Procedures Date Code Description Status 06/27/2019 80575 Pulse Oximetry Completed 11/09/2016 98006841 Colonoscopy Completed 02/26/2016 [id number] Mammogram Completed Medical Devices Description No Information Available Encounters Type Date Location Provider Dx Diagnosis [facility] Gary Rush Z00.00 Encntr for general 10:40a MD Celso adult medical exam w/o abnormal findings J44.1 Chronic obstructive pulmonary disease w (acute) exacerbation I25.10 Athscl heart disease of [place] coronary artery w/o ang pctrs Assessments Date Code Description Provider 10/01/2019 J44.9 Chronic obstructive pulmonary disease, Gary Houston MD unspecified 10/01/2019 F43.23 Adjustment disorder with mixed anxiety and Gary Houston MD depressed mood 07/11/2019 Z23 Encounter for immunization Gary Houston MD 06/27/2019 Z00.00 Encounter for general adult medical Gary Houston MD examination without abnormal findings 06/27/2019 J44.1 Chronic obstructive pulmonary disease with Gary Houston MD (acute) exacerbation 06/27/2019 I25.10 Atherosclerotic heart disease of [place] Gary Houston MD coronary artery without angina pectoris Plan of Treatment Future Appointment(s):11/12/2019 10:40 am [facility] - Gary Houston MDJ44.9 Chronic obstructive pulmonary disease, uczffqpqfhgN50.23 Adjustment disorder with mixed anxiety and depressed moodNew Medication:Bupropion Hydrochloride ER (SR) 150 mg - take 1 tablet by mouth once daily for a week, then twice a day thereafterFollow up:4-6 weeks.AllComments:Medication Management Patient Understands medications she's taking? Yes No Are there Barriers to Adherence? Yes No Has the patient been asked about herbal supplements and therapies, and OTC meds? Yes No Functional Status Description No Information Available Mental Status Description No Information Available Referrals Description No Information Available
--- OUTSIDE RECORDS SUMMARY | 2019-10-18 13:20 | XMS REPORT | Continuity of Care Document ---
:1955 External Reference #:[id number] Author Name Maged Anne M.D. (transmitted by agent of provider Babs Moreland) Address [address] [place] [address] Care Team Providers Name Role Phone Yaneth Evangelista MD - Internal Care Team Information As400 Analyst Medicine Mela Panchal MD - Pulmonary Care Team Information As400 Analyst Disease Problems Active Problems Provider Date Postsurgical [...] M.D. Onset: 06/13/2015 Atherosclerotic heart disease of [place] Marlin Farley M.D. Onset: 06/13/2015 coronary artery [...] Inhale The Contents 540units Mela Panchal, 04/13/2019 [place]/Albuterol Of One Vial Via MD Sulfate Nebulizer Every 6 Hours as Needed 0.5-2.5(3)mg/3ML Solution Fluticasone Inhale One puff By 60unmary Panchal, 02/23/2019 Propionate/Salmetero Mouth Twice A Day MD natanael Palmer 100-50mcg/Dose Aerosol Furosemide 1/2 tab by mouth 14tabs R60.9 Erum Hassan, 11/23/2018 20mg prn weight gain N.P. Tablets Combivent Respimat inhale 1 puff by 12unmary Panchal, 10/03/2018 mouth 4-6 times MD 20-100mcg/Act [...] XL 1 by mouth two 60tabs Erum Tari Hassan, 09/16/2011 50mg times daily N.P. Tablets [...] with hypercapnia Office Visit 09/19/2019 1:11p Intensivists Peter Zavala44.1 Chronic obstructive M.D. pulmonary disease w (acute) exacerbation Office Visit 09/18/2019 1:11p Intensivists Maged Anne R06.02 Shortness of breath M.D. Office Visit 09/17/2019 1:10p [facility] Peter Zavala44.1 Chronic obstructive M.D. pulmonary disease w (acute) exacerbation Office Visit 09/16/2019 1:08p [facility]ensivists Peter Zavala44.1 Chronic obstructive M.D. pulmonary disease w (acute) exacerbation J40 Bronchitis, not specified as acute or chronic Office Visit 09/15/2019 1:07p Intensivists Mary Cortes J96.20 Acute and chr resp Doto, REPEATER OPERATOR failure, unsp w hypoxia or hypercapnia J44.1 Chronic obstructive pulmonary disease w (acute) exacerbation I25.10 Athscl heart disease of [place] coronary artery w/o ang pctrs I10 Essential (primary) hypertension E78.5 Hyperlipidemia, unspecified Office Visit 09/14/2019 [facility] Hannah Salas, J96.91 Respiratory 1:06p Assoc,pc [...] J96.20 Acute and chronic respiratory failure, Mary Khan, REPEATER OPERATOR unspecified whether with hypoxia or hypercapnia 09/15/2019 J44.1 Chronic obstructive pulmonary disease Mary Khan BECKA with (acute) exacerbat 09/15/2019 I25.10 Atherosclerotic heart disease of [place] Mary Khan, REPEATER OPERATOR coronary artery with 09/15/2019 I10 Essential (primary) hypertension Mary Khan, REPEATER OPERATOR 09/15/2019 E78.5 Hyperlipidemia, unspecified Mary Khan, REPEATER OPERATOR 09/14/2019 J96.91 Respiratory failure, unspecified with Hannah Salas M.D. hypoxia 09/14/2019 J96.92 Respiratory failure, unspecified with Hannah Salas M.D. hypercapnia 09/14/2019 J44.1 Chronic obstructive pulmonary disease Hannah Salas M.D. with (acute) exacerbat 09/14/2019 Z99.81 Dependence on supplemental oxygen Hannah Salas M.D. Plan of Treatment Future Appointment(s):10/16/2019 10:00 am - Bala Brandt M.D. at [facility]11/23/2018 - Erum Hassan, N.P.R60.9 Edema, unspecifiedNew Medication:Furosemide 20 mg - 1/2 tab by mouth prn weight gainFollow up:6mo OV QSMRecommendations:Take 1/2 (20mg) for 1-3 days. Check in on Tuesday and let us know if swelling has improved.I10 Essential (primary) nhwwzumnijdhJ98.02 Shortness of dpwbrqU40.10 Atherosclerotic heart disease of [place] coronary artery with Functional Status Description No Information Available Mental Status Description No Information Available Referrals Description No Information Available
[2019-10-18] MEDS ORDERED: NS 0.9% 50 ML* 50 ML ONE (13:25)
[2019-10-18 13:37] LABS: ABS Eosinophils 0.1 10^3/ul (0-0.6); ABS Lymphocytes 1.5 10^3/ul (1.0-4.8); ABS Monocytes 0.6 10^3/ul (0-0.8); ABS Neutrophils 6.8 10^3/ul (1.5-7.7); Eosinophil % 0.6 %; Hematocrit 33 % (35-47); Hemoglobin 10.8 g/dL (12.0-16.0); Lymphocyte % 16.3 %; Mean Corpuscular HGB Conc 33 g/dL (31-36); Mean Corpuscular Hemoglobin 32 pg (27-31); Mean Corpuscular Volume 97 fL (80-97); Mean Platelet Volume 7.3 fL (7.4-10.4); Platelet Count 308 10^3/uL (150-450); Red Blood Count 3.44 10^6 /uL (3.70-4.87); Red Cell Distribution Width 16 % (10-15)
[2019-10-18] MEDS ORDERED: Cefepime 1 GM in Dextrose(*) 1 GM/50 ML q12h (Duplex) IV ONE (13:45)
[2019-10-18 13:55] LABS: Albumin 3.9 g/dL (3.2-5.2); Albumin/Globulin Ratio 1.4 (1-3); BUN/Creatinine Ratio 17.6 (8-20); C Reactive Protein 8.33 mg/L (<8.01); Calcium 9.5 mg/dL (8.6-10.3); EGFR African American 105.4 (>60); EGFR Non-African American 87.1 (>60); Globulin 2.8 g/dL (2-4); Total Bilirubin 0.4 mg/dL (0.2-1.0); Total Protein 6.7 g/dL (6.4-8.9)
[2019-10-18 13:56] LABS: Troponin I 0.01 ng/mL (<0.03)
--- NOTE | 2019-10-18 14:19 | ED ---
Respiratory - HPI Summary HPI Summary: 64 year old F presenting to [facility] via EMS with a chief complaint of severe shortness of breath and coughing since today. The patient rates the pain 0/10 in severity. Per EMS the patient's oxygen saturation was 32% on her home BiPAP and she was not speaking in sentences. EMS gave her 1 Duoneb and she started feeling better. The patient was still in respiratory distress on arrival. Patient denies any fever, vomiting, diarrhea, or sore throat. She has a history of severe COPD and has been intubated 3 times. She was last discharged approximately 1 month ago. Medication list reviewed. Allergy list reviewed. Home Medications Medication Instructions Recorded Confirmed Type Albuterol HFA INHALER* [Ventolin 2 puff INH Q4H PRN 11/20/17 09/14/19 History HFA Inhaler*] Metoprolol Tartrate TAB* 50 mg PO BID 11/20/17 09/14/19 History [Lopressor TAB*] Tiotropium CAPSULE (NF) [Spiriva 2 cap.inh INH DAILY 11/20/17 09/14/19 History CAPSULE (NF)] Albuterol/Ipratropium RESP(NF) 1 puff INH Q4HR PRN 08/14/18 09/14/19 History [Combivent Respimat (NF)] Clopidogrel TAB* [Plavix TAB*] 75 mg PO DAILY tab 08/22/18 09/14/19 Rx Aspirin TAB* [Aspirin 325 MG TAB*] 325 mg PO DAILY tab 09/21/19 Rx Albuterol/Ipratropium NEB.YESENIA* 1 neb INH DAILY PRN 10/18/19 10/18/19 History [Duoneb (Albuterol 2.5 MG/Ipratropium 0.5 MG)] Atorvastatin* [Lipitor 40 MG*] 40 mg PO BEDTIME 10/18/19 10/18/19 History Fluticasone-Salmeterol 100-50* 1 puff INH BID 10/18/19 10/18/19 History [Advair Diskus 100-50*] buPROPion SR TAB* [Wellbutrin SR 150 mg PO BID 10/18/19 10/18/19 History TAB*] - History of Current Complaint Chief Complaint: EDRespiratoryDistress Stated Complaint: SHORT OF BREATH Time Seen by Provider: 10/18/19 13:16 Hx Obtained From: Patient, EMS Onset/Duration: Still Present Current Severity: None Pain Intensity: 0 Associated Signs and Symptoms: Negative - Fever, vomiting, diarrhea, sore throat - Allergy/Home Medications Allergies/Adverse Reactions: Allergies Allergy/AdvReac Type Severity Reaction Status Date / Time No Known Allergies Allergy Verified 09/14/19 17:18 Home Medications: Home Medications Albuterol HFA INHALER* [Ventolin HFA Inhaler*] 1 - 2 puff INH Q4H PRN 11/20/17 [ History Confirmed 10/18/19] Metoprolol Tartrate TAB* [Lopressor TAB*] 50 mg PO BID 11/20/17 [History Confirmed 10/18/19] Tiotropium CAPSULE (NF) [Spiriva CAPSULE (NF)] 2 cap.inh INH DAILY 11/20/17 [ History Confirmed 10/18/19] Albuterol/Ipratropium RESP(NF) [Combivent Respimat (NF)] 1 puff INH QID PRN [History Confirmed 10/18/19] Clopidogrel TAB* [Plavix TAB*] 75 mg PO DAILY tab 08/22/18 [Rx Confirmed ] Aspirin TAB* [Aspirin 325 MG TAB*] 325 mg PO DAILY tab 09/21/19 [Rx Confirmed 10/18/19] Albuterol/Ipratropium NEB.YESENIA* [Duoneb (Albuterol 2.5 MG/Ipratropium 0.5 MG)] 1 neb INH DAILY PRN 10/18/19 [History Confirmed 10/18/19] Atorvastatin* [Lipitor 40 MG*] 40 mg PO BEDTIME 10/18/19 [History Confirmed ] Fluticasone-Salmeterol 100-50* [Advair Diskus 100-50*] 1 puff INH BID 10/18/19 [ History Confirmed 10/18/19] buPROPion SR TAB* [Wellbutrin SR TAB*] 150 mg PO BID 10/18/19 [History Confirmed 10/18/19] PMH/Surg Hx/FS Hx/Imm Hx Endocrine/Hematology History: Denies: Hx Blood Disorders, Hx Blood Transfusions, Hx Bone Marrow Disease, Hx Diabetes, Hx Systemic Lupus Erythematosus, Hx Sickle Cell Disease, Hx Thyroid Disease, Hx Anemia, Hx Unexplained Bleeding, Other Endocrine/ Hematological Disorders Cardiovascular History: Reports: Hx Congestive Heart Failure, Hx Coronary Artery Disease, Hx Hypercholesterolemia, Hx Hypertension, Other Cardiovascular Problems/Disorders - 3 stents Denies: Hx Aneurysm, Hx Angina, Hx Angioplasty, Hx Auto Implanted Cardiovert Defib, Hx Cardiac Arrest, Hx Cardiomegaly, Hx Congenital Heart Disease, Hx Deep Vein Thrombosis, Hx Embolism, Hx Hypotension, Hx Pacemaker/ICD, Hx Peripheral Vascular Disease, Hx Rheumatic Fever, Hx Syncope, Hx Valvular Heart Disease Respiratory History: Reports: Hx Asthma, Hx Chronic Obstructive Pulmonary Disease (COPD) Denies: Hx Chronic Bronchitis, Hx Cystic Fibrosis, Hx Lung Cancer, Hx Pleural Effusion, Hx Pneumonia, Hx Pulmonary Edema, Hx Pulmonary Embolism, Hx Seasonal Allergies, Hx Sleep Apnea, Other Respiratory Problems/Disorders GI History: Denies: Hx Cirrhosis, Hx Crohn's Disease, Hx Diverticulosis, Hx Gall Bladder Disease, Hx Gastroesophageal Reflux Disease, Hx Gastrointestinal Bleed, Hx Hiatal Hernia, Hx Irritable Bowel, Hx Jaundice, Hx Obstructive Bowel, Hx Ileostomy, Hx Pyloric Stenosis, Hx Ulcer, Other GI Disorders History: Denies: Hx Dialysis, Hx Renal Disease Musculoskeletal History: Reports: Hx Arthritis Denies: Hx Back Problems, Hx Bursitis, Hx Congenital Bone Abnormalities, Hx Fibromyalgia, Hx Gout, Hx Orthopedic Injury, Hx Osteoporosis, Hx Scoliosis, Hx Tendonitis Sensory History: Reports: Hx Contacts or Glasses Denies: Hx Cataracts, Hx Eye Injury, Hx Eye Prosthesis, Hx Glaucoma, Hx Legally Blind, Hx Macular Degeneration, Hx Vision Problem, Hx Hearing Aid, Other Sensory Impairments Opthamlomology History: Reports: Hx Contacts or Glasses Denies: Hx Cataracts, Hx Eye Injury, Hx Eye Prosthesis, Hx Glaucoma, Hx Legally Blind, Hx Macular Degeneration, Hx Vision Problem, Other Sensory Impairments Neurological History: Denies: Hx Dementia, Hx Developmental Delay, Hx Headaches, Hx Migraine, Hx Nerve Disease, Hx Seizures, Hx Spinal Cord Injury, Hx Transient Ischemic Attacks (TIA), Other Neuro Impairments/Disorders - Surgical History Surgical History: Yes Surgery Procedure, Year, and Place: cardiac stents. hysterectomy. ectopic Hx Anesthesia Reactions: No Infectious Disease History: No Infectious Disease History: Denies: Hx Clostridium Difficile, Hx Hepatitis, Hx Human Immunodeficiency Virus (HIV), Hx of Known/Suspected MRSA, Hx Shingles, Hx Tuberculosis, Hx Known/ Suspected VRE, Hx Known/Suspected VRSA, History Other Infectious Disease, Traveled Outside the [place] in Last 30 Days - Family History Known Family History: Positive: Other - pos: Breast CA Negative: Renal Disease Family History: Family history is significant for breast cancer. - Social History Alcohol Use: None Hx Substance Use: No Substance Use Type: Reports: Excessive Caffeine Hx Tobacco Use: Yes Smoking Status (MU): Former Smoker Type: Cigarettes Amount Used/How Often: 1 pack daily Have You Smoked in the Last Year: Yes Review of Systems Negative: Fever Negative: Sore Throat Positive: Shortness Of Breath, Cough Negative: Vomiting, Diarrhea All Other Systems Reviewed And Are Negative: Yes Physical Exam - Summary Physical Exam Summary: Constitutional: Well-developed, Well-nourished, Alert. Moderate distress Skin: Warm, Dry HENT: Normocephalic; Atraumatic Eyes: Conjunctiva normal Neck: Musculoskeletal ROM normal neck. (-) JVD, (-) Stridor, (-) Tracheal deviation Cardio: Rhythm regular, rate normal, Heart sounds normal; Intact distal pulses; Radial pulses are 2+ and symmetric. (-) Murmur Pulmonary/Chest wall: Moderately decreased air entry bilaterally, inspiratory and expiratory wheezing, speaking in 2 word sentences, oxygen saturation is 89% on EMS mask Abd: Soft, (-) tenderness, (-) Distension, (-) Guarding, (-) Rebound Musculoskeletal: (-) Edema Lymph: (-) Cervical adenopathy Neuro: Alert, Oriented x3 Psych: Mood and affect Normal Triage Information Reviewed: Yes Vital Signs On Initial Exam: Initial Vitals Pulse Resp Pulse Ox 100 19 88 10/18/19 13:23 10/18/19 13:23 10/18/19 13:23 Vital Signs Reviewed: Yes Procedures - Sedation Patient Received Moderate/Deep Sedation with Procedure: No Diagnostics - Vital Signs Vital Signs Temp Pulse Resp BP Pulse Ox 10/18/19 13:41 99.6 F 96 17 173/108 100 10/18/19 13:33 93 19 100 10/18/19 13:23 100 19 88 - Laboratory Lab Results: Lab Results 10/18/19 10/18/19 10/18/19 Range/Units 13:15 13:15 13:15 WBC 9.0 (3.5-10.8) 10^3/uL RBC 3.44 L (3.70-4.87) 10^6 /uL Hgb 10.8 L (12.0-16.0) g/dL Hct 33 L (35-47) % MCV 97 (80-97) fL MCH 32 H (27-31) pg MCHC 33 (31-36) g/dL RDW 16 H (10-15) % Plt Count 308 (150-450) 10^3/uL MPV 7.3 L (7.4-10.4) fL Neut % (Auto) 75.8 % Lymph % (Auto) 16.3 % [place] % (Auto) 7.2 % Eos % (Auto) 0.6 % Baso % (Auto) 0.1 % Absolute Neuts (auto) 6.8 (1.5-7.7) 10^3/ul Absolute Lymphs (auto) 1.5 (1.0-4.8) 10^3/ul Absolute Monos (auto) 0.6 (0-0.8) 10^3/ul Absolute Eos (auto) 0.1 (0-0.6) 10^3/ul Absolute Basos (auto) 0.0 (0-0.2) 10^3/ul Absolute Nucleated RBC 0.0 10^3/ul Nucleated RBC % 0.0 Patient Temperature ABG pH ABG pH (Temp Correct) ABG pCO2 ABG pCO2 (Temp Corrct ABG pO2 ABG pO2 (Temp Correct ABG HCO3 ABG O2 Saturation ABG Base Excess Respiration Rate O2 Delivery Device Ventilator Type Vent Mode FiO2 Inspiratory Time PEEP Pressure Support Pressure Control EPAP IPAP BiPAP Sodium 137 (135-145) mmol/L Potassium 4.0 (3.5-5.0) mmol/L Chloride 93 L (101-111) mmol/L Carbon Dioxide 43 H* (22-32) mmol/L Anion Gap 1 L (2-11) mmol/L BUN 12 (6-24) mg/dL Creatinine 0.68 (0.51-0.95) mg/dL Est GFR ( Amer) 105.4 (>60) Est GFR (Non-Af Amer) 87.1 (>60) BUN/Creatinine Ratio 17.6 (8-20) Glucose 170 H (70-100) mg/dL Calcium 9.5 (8.6-10.3) mg/dL Total Bilirubin 0.40 (0.2-1.0) mg/dL AST 14 (13-39) U/L ALT 14 (7-52) U/L Alkaline Phosphatase 73 (34-104) U/L Troponin I 0.01 (<0.03) ng/mL C-Reactive Protein 8.33 H (<8.01) mg/L B-Natriuretic Peptide 45 (<=100) pg/mL Total Protein 6.7 (6.4-8.9) g/dL Albumin 3.9 (3.2-5.2) g/dL Globulin 2.8 (2-4) g/dL Albumin/Globulin Ratio 1.4 (1-3) Influenza A (Rapid) Influenza B (Rapid) 10/18/19 10/18/19 Range/Units 13:40 14:04 WBC (3.5-10.8) 10^3/uL RBC (3.70-4.87) 10^6 /uL Hgb (12.0-16.0) g/dL Hct (35-47) % MCV (80-97) fL MCH (27-31) pg MCHC (31-36) g/dL RDW (10-15) % Plt Count (150-450) 10^3/uL MPV (7.4-10.4) fL Neut % (Auto) % Lymph % (Auto) % [place] % (Auto) % Eos % (Auto) % Baso % (Auto) % Absolute Neuts (auto) (1.5-7.7) 10^3/ul Absolute Lymphs (auto) (1.0-4.8) 10^3/ul Absolute Monos (auto) (0-0.8) 10^3/ul Absolute Eos (auto) (0-0.6) 10^3/ul Absolute Basos (auto) (0-0.2) 10^3/ul Absolute Nucleated RBC 10^3/ul Nucleated RBC % Patient Temperature Not Reportable ABG pH Pending ABG pH (Temp Correct) Pending ABG pCO2 Pending ABG pCO2 (Temp Corrct Pending ABG pO2 Pending ABG pO2 (Temp Correct Pending ABG HCO3 Pending ABG O2 Saturation Pending ABG Base Excess Pending Respiration Rate Not Reportable O2 Delivery Device bipap Ventilator Type Not Reportable Vent Mode Not Reportable FiO2 100 Inspiratory Time Not Reportable PEEP Not Reportable Pressure Support Not Reportable Pressure Control Not Reportable EPAP 8 IPAP 16 BiPAP Not Reportable Sodium (135-145) mmol/L Potassium (3.5-5.0) mmol/L Chloride (101-111) mmol/L Carbon Dioxide (22-32) mmol/L Anion Gap (2-11) mmol/L BUN (6-24) mg/dL Creatinine (0.51-0.95) mg/dL Est GFR ( Amer) (>60) Est GFR (Non-Af Amer) (>60) BUN/Creatinine Ratio (8-20) Glucose (70-100) mg/dL Calcium (8.6-10.3) mg/dL Total Bilirubin (0.2-1.0) mg/dL AST (13-39) U/L ALT (7-52) U/L Alkaline Phosphatase (34-104) U/L Troponin I (<0.03) ng/mL C-Reactive Protein (<8.01) mg/L B-Natriuretic Peptide (<=100) pg/mL Total Protein (6.4-8.9) g/dL Albumin (3.2-5.2) g/dL Globulin (2-4) g/dL Albumin/Globulin Ratio (1-3) Influenza A (Rapid) Pending Influenza B (Rapid) Pending Result Diagrams: 10/18/19 13:15 10/18/19 13:15 Lab Statement: Any lab studies that have been ordered have been reviewed, and results considered in the medical decision making process. - Radiology Chest x-ray Radiology Interpretation Completed By: Radiologist Summary of Radiographic Findings: COPD. NO ACTIVE CARDIOPULMONARY DISEASE. ED physician has reviewed this report. - EKG 13:54 Cardiac Rate: NL - 90 BPM EKG Rhythm: Sinus Rhythm Summary of EKG Findings: No obvious ischemic changes. ED physician has reviewed and interpreted this EKG. Disposition - Course Course Of Treatment: Patient is here with severe respiratory distress. Patient was hypoxic at 32% with EMS. On arrival here, patient was speaking in 2 word sentences. Patient was placed on BiPAP immediately. Patient had blood work performed which showed a PCO2 of 83. Per chart review, patient has had multiple presentations like this in the past where she requires a couple of days in the ICU. Patient is treated empirically with cefepime given her recent hospitalization. Patient had Covid 19 sent as well. - Diagnoses Provider Diagnoses: COPD exacerbation, Hypercapnia, Respiratory distress - Physician Notifications Discussed Care Of Patient With: Bonnie Kwong Time Discussed With Above Provider: 14:26 Instructed by Provider To: Other - Discussed with Dr. Kwong who will admit the patient. - Critical Care Time Critical Care Time: 30-74 min - 35 minutes Discharge ED - Sign-Out/Discharge Documenting (check all that apply): Patient Departure - Discharge Plan Condition: Stable Disposition: ADMITTED TO [facility] Referrals: Gary Houston MD [Primary Care Provider] - - Billing Disposition and Condition Condition: STABLE Disposition: Admitted to [facility] - Attestation Statements Document Initiated by Lito: Yes Documenting Scribe: Princess Sandhu Provider For Whom Kianaibe is Documenting (Include Credential): Doug Rivero MD Scribe Attestation: Princess Miranda scribed for Doug Rivero MD on 10/18/19 at 1612. Scribe Documentation Reviewed: Yes Provider Attestation: The documentation as recorded by the Princess peters accurately reflects the service I personally performed and the decisions made by , Doug Rivero MD Status of Scribe Document: Viewed
[2019-10-18 14:36] LABS: Influenza A Molecular Negative (Negative); Influenza B Molecular Negative (Negative)
[2019-10-18] MEDS ORDERED: Albuterol/Ipratropium RESP(NF) MDI (Combivent Respimat) INH PRN (15:02)
[2019-10-18] MEDS ORDERED: Albuterol HFA INHALER* 8 gm MDI INH PRN ×2 (15:02→15:23)
--- NOTE | 2019-10-18 16:30 | HP ---
H&P (Free Text) History and Physical: HISTORY AND PHYSICAL DATE OF ADMISSION: 10/18/2019 ADMITTING PROVIDER: Dr. Bonnie Kwong CHIEF COMPLAINT: Shortness of breath x 3 days, worsening mental status HPI: 64F with known medical history of COPD on home O2, CAD s/p 3 stents, HLD, HTN, presents on 10/18/19 after 3 days of worsening shortness of breath. She states shes been feeling more short of breath for the past 3 days. She started feeling unwell so she texted her daughter (who lives upstairs) and her daughter found her nearly unresponsive. According to EMS, her O2 sat was in the "30's", requiring them to bag her. She was placed on bipap after arrival to ED. ED: Swabbed for COVID 19 and placed on precautions, she was placed on bipap and has recovered well. Upon examination, patient feels back to baseline, shortness of breath is improved. She denies any other symptoms. ROS: negative except for pertinent positives mentioned above PMHx: COPD on home O2, CAD s/p 3 stents, HLD, HTN PSHx: Uterine surgeries, hysterectomy, ectopic excision, tonsillectomy, coronary stents Family History: Mother had ovarian cancer, Father had coronary disease Social History: Former smoker, quit 2004, 30 pack year history, no alcohol or drug use. Full code trial intubation of 3 days Allergies: NKDA Home Medications: Albuterol HFA INHALER* [Ventolin HFA Inhaler*] 1 - 2 puff INH Q4H PRN 11/20/17 [ History Confirmed 10/18/19] Metoprolol Tartrate TAB* [Lopressor TAB*] 50 mg PO BID 11/20/17 [History Confirmed 10/18/19] Tiotropium CAPSULE (NF) [Spiriva CAPSULE (NF)] 2 cap.inh INH DAILY 11/20/17 [ History Confirmed 10/18/19] Albuterol/Ipratropium RESP(NF) [Combivent Respimat (NF)] 1 puff INH QID PRN [History Confirmed 10/18/19] Clopidogrel TAB* [Plavix TAB*] 75 mg PO DAILY tab 08/22/18 [Rx Confirmed ] Aspirin TAB* [Aspirin 325 MG TAB*] 325 mg PO DAILY tab 09/21/19 [Rx Confirmed 10/18/19] Albuterol/Ipratropium NEB.YESENIA* [Duoneb (Albuterol 2.5 MG/Ipratropium 0.5 MG)] 1 neb INH DAILY PRN 10/18/19 [History Confirmed 10/18/19] Atorvastatin* [Lipitor 40 MG*] 40 mg PO BEDTIME 10/18/19 [History Confirmed ] Fluticasone-Salmeterol 100-50* [Advair Diskus 100-50*] 1 puff INH BID 10/18/19 [ History Confirmed 10/18/19] buPROPion SR TAB* [Wellbutrin SR TAB*] 150 mg PO BID 10/18/19 [History Confirmed 10/18/19] Tele: NSR Vitals: Vital Signs 10/18/19 10/18/19 10/18/19 13:23 13:33 13:41 Temperature 99.6 F Pulse Rate 100 93 96 Respiratory 19 19 17 Rate Blood Pressure 173/108 (mmHg) O2 Sat by Pulse 88 100 100 Oximetry 10/18/19 10/18/19 10/18/19 13:43 14:25 14:28 Temperature Pulse Rate 88 87 88 Respiratory 22 19 20 Rate Blood Pressure 110/71 (mmHg) O2 Sat by Pulse 100 100 100 Oximetry 10/18/19 10/18/19 10/18/19 14:29 14:59 15:00 Temperature Pulse Rate 87 91 93 Respiratory 19 16 21 Rate Blood Pressure 118/74 125/75 (mmHg) O2 Sat by Pulse 100 100 100 Oximetry 10/18/19 10/18/19 10/18/19 15:29 15:59 16:00 Temperature Pulse Rate 94 92 91 Respiratory 19 16 24 Rate Blood Pressure 115/77 110/75 (mmHg) O2 Sat by Pulse 100 100 100 Oximetry 10/18/19 10/18/19 10/18/19 16:29 16:50 16:53 Temperature 98.3 F 98.7 F Pulse Rate 93 92 100 Respiratory 22 18 24 Rate Blood Pressure 90/65 125/75 120/81 (mmHg) O2 Sat by Pulse 100 100 100 Oximetry 10/18/19 17:00 Temperature Pulse Rate 101 Respiratory 21 Rate Blood Pressure 132/79 (mmHg) O2 Sat by Pulse 100 Oximetry Intake and Output Last 24 Hours 10/16/19 10/17/19 10/18/19 10/19/19 06:59 06:59 06:59 06:59 Weight 100 lb O2: Bipap Infusions: none Current Medications: Albuterol (Ventolin Hfa Inhaler*) 2 puff INH Q2H PRN PRN Reason: SOB/WHEEZING Albuterol/Ipratropium (Combivent Respimat(Nf)) 1 puff INH QID PRN; Protocol PRN Reason: SOB/WHEEZING Aspirin (Aspirin Tab*) 325 mg PO DAILY [facility] Atorvastatin Calcium (Lipitor*) 40 mg PO BEDTIME SITA Bupropion HCl (Wellbutrin Sr Tab*) 150 mg PO BID SITA Clopidogrel Bisulfate (Plavix Tab*) 75 mg PO DAILY SITA Metoprolol Tartrate (Lopressor Tab*) 50 mg PO BID SITA Mometasone Furoate/Formoterol Fumar (Dulera 100/5 Mdi*) 2 puff INH BID SITA Tiotropium [place] (Spiriva Respimat 2.5 Mcg) 2 puff INH DAILY SITA Physical Exam: Constitutional: awake, alert, no distress, no diaphoresis, laying on the stretcher on bipap Head: normocephalic, atraumatic Eyes: no pallor, no icterus ENT: moist mucous membranes Neck: soft, supple, no jvd, no stridor CVS: normal rate, regular, no murmur Chest/Resp: bilateral air entry, diminished throughout, no rhales, no wheeze, no rhonchi, no acc muscle use Abdomen/GI: soft, nontender, nondistended, BS+ Ext/Msk: warm, pulses+, no edema Skin: intact, warm Neuro: awake, alert, orientedx3, moving all extremities, no gross focal deficit Psych: normal affect Labs: Laboratory Results - last 24 hr 10/18/19 10/18/19 10/18/19 13:15 13:15 13:15 WBC 9.0 RBC 3.44 L Hgb 10.8 L Hct 33 L MCV 97 MCH 32 H MCHC 33 RDW 16 H Plt Count 308 MPV 7.3 L Neut % (Auto) 75.8 Lymph % (Auto) 16.3 [place] % (Auto) 7.2 Eos % (Auto) 0.6 Baso % (Auto) 0.1 Absolute Neuts (auto) 6.8 Absolute Lymphs (auto) 1.5 Absolute Monos (auto) 0.6 Absolute Eos (auto) 0.1 Absolute Basos (auto) 0.0 Absolute Nucleated RBC 0.0 Nucleated RBC % 0.0 Patient Temperature ABG pH ABG pH (Temp Correct) ABG pCO2 ABG pCO2 (Temp Corrct ABG pO2 ABG pO2 (Temp Correct ABG HCO3 ABG O2 Saturation ABG Base Excess Respiration Rate O2 Delivery Device Ventilator Type Vent Mode FiO2 Inspiratory Time PEEP Pressure Support Pressure Control EPAP IPAP BiPAP Sodium 137 Potassium 4.0 Chloride 93 L Carbon Dioxide 43 H* Anion Gap 1 L BUN 12 Creatinine 0.68 Est GFR ( Amer) 105.4 Est GFR (Non-Af Amer) 87.1 BUN/Creatinine Ratio 17.6 Glucose 170 H Calcium 9.5 Total Bilirubin 0.40 AST 14 ALT 14 Alkaline Phosphatase 73 Troponin I 0.01 C-Reactive Protein 8.33 H B-Natriuretic Peptide 45 Total Protein 6.7 Albumin 3.9 Globulin 2.8 Albumin/Globulin Ratio 1.4 Influenza A (Rapid) Influenza B (Rapid) 10/18/19 10/18/19 13:40 14:04 WBC RBC Hgb Hct MCV MCH MCHC RDW Plt Count MPV Neut % (Auto) Lymph % (Auto) [place] % (Auto) Eos % (Auto) Baso % (Auto) Absolute Neuts (auto) Absolute Lymphs (auto) Absolute Monos (auto) Absolute Eos (auto) Absolute Basos (auto) Absolute Nucleated RBC Nucleated RBC % Patient Temperature Not Reportable ABG pH 7.32 L ABG pH (Temp Correct) Not Reportable ABG pCO2 83 H* ABG pCO2 (Temp Corrct Not Reportable ABG pO2 378 H ABG pO2 (Temp Correct Not Reportable ABG HCO3 34.9 H ABG O2 Saturation 100.0 H ABG Base Excess 12.8 H Respiration Rate Not Reportable O2 Delivery Device bipap Ventilator Type Not Reportable Vent Mode Not Reportable FiO2 100 Inspiratory Time Not Reportable PEEP Not Reportable Pressure Support Not Reportable Pressure Control Not Reportable EPAP 8 IPAP 16 BiPAP Not Reportable Sodium Potassium Chloride Carbon Dioxide Anion Gap BUN Creatinine Est GFR ( Amer) Est GFR (Non-Af Amer) BUN/Creatinine Ratio Glucose Calcium Total Bilirubin AST ALT Alkaline Phosphatase Troponin I C-Reactive Protein B-Natriuretic Peptide Total Protein Albumin Globulin Albumin/Globulin Ratio Influenza A (Rapid) Negative Influenza B (Rapid) Negative Imaging: Chest xray 10/17: COPD, no active cardiopulmonary disease Assessment: 64F with known medical history of COPD on home O2, CAD s/p 3 stents , HLD, HTN, presents on 10/18/19 after 3 days of worsening shortness of breath. She states shes been feeling more short of breath for the past 3 days. She started feeling unwell so she texted her daughter (who lives upstairs) and her daughter found her nearly unresponsive. According to EMS, her O2 sat was in the "30's", requiring them to bag her. She was placed on bipap after arrival to ED. - Acute on chronic hypercapneic hypoxic respiratory failure - HTN - AMS Plan: Neuro- - No active issues. Patient self-reports she was nearly unconscious when her daughter came downstairs. She states she feels back to baseline after EMS bagged her and she was put on bipap -Delirium prec; avoid BDZ CVS- - HTN: chronic. Only on home metoprolol. No active issues -Maintain MAP>65 Resp- - Acute on chronic hypercapneic hypoxic respiratory failure: multiple readmissions for this. O2 sat improved after bagging, patient woke after being placed on bipap. Admitted with CO2 of 83 - Restarted home medications -Solumedrol 40mg q8hr -Wean Fio2 to keep sat>92% -Bronchodilators PRN, Aspiration prec, Pulmonary Toilet ID- - No active issues - R/o COVID 19 -Goal temp<101 GI- -Nutrition: NPO until off bipap -GI prophylaxis not indicated Renal- -strict I/O, replete to keep K>4, Mg>2 -voiding. no need for mora Heme- - No active issues Endo- Maintain BG<200, insulin protocol as needed Musculsk- pressure ulcer prophylaxis. OOB to chair Wounds- none Nutrition- NPO DVT prophylaxis: not currently indicated GI prophylaxis: not indicated Disposition: Admit to ICU; Expected LOS>2 midnights; Patient requires Critical Care/ICU for acute on chronic hypercapneic hypoxic respiratory failure Patient Clinical Status: critical Code Status: full Total Critical Care time is 45minutes
[2019-10-18] MEDS ORDERED: Morphine INJ* 2 MG/ML 1 ML SYRINGE (TWO MG - NEW SYRINGE VERSION) ONE (17:48)
[2019-10-18] MEDS: methylPREDNISolone SOD 40 MG* 1 ML VIAL IV SCH (17:53)
[2019-10-18] MEDS: buPROPion SR TAB.SR* 150 MG PO SCH (20:20)
[2019-10-18] MEDS: Atorvastatin* 40 MG TAB PO SCH (20:20)
[2019-10-18] MEDS: Metoprolol Tartrate TAB* 50 mg PO SCH (20:26)
[2019-10-18] MEDS ORDERED: Lorazepam PYXIS KEY PRN (20:41)
[2019-10-18] MEDS: LORazepam INJ* 2 MG/ML 1 ML VIAL IV PUSH PRN (20:58)
[2019-10-19] MEDS: Morphine INJ* 2 MG/ML 1 ML SYRINGE (TWO MG - NEW SYRINGE VERSION) IV PRN ×2 (01:09→15:54)
[2019-10-19] MEDS: methylPREDNISolone SOD 40 MG* 1 ML VIAL IV SCH ×3 (01:09→18:17)
[2019-10-19] MEDS: Mometasone/Formoter 100/5 MDI INH SCH ×3 (02:50→19:44)
[2019-10-19] MEDS: LORazepam INJ* 2 MG/ML 1 ML VIAL IV PUSH PRN ×2 (05:23→22:17)
[2019-10-19 05:53] LABS: ABS Lymphocytes 0.4 10^3/ul (1.0-4.8); ABS Monocytes 0.1 10^3/ul (0-0.8); ABS Neutrophils 8.1 10^3/ul (1.5-7.7); Hematocrit 32 % (35-47); Hemoglobin 10.5 g/dL (12.0-16.0); Lymphocyte % 4.2 %; Mean Corpuscular HGB Conc 33 g/dL (31-36); Mean Corpuscular Hemoglobin 32 pg (27-31); Mean Corpuscular Volume 97 fL (80-97); Mean Platelet Volume 7.4 fL (7.4-10.4); Platelet Count 258 10^3/uL (150-450); Red Blood Count 3.28 10^6 /uL (3.70-4.87); Red Cell Distribution Width 15 % (10-15); White Blood Count 8.6 10^3/uL (3.5-10.8)
[2019-10-19 06:12] LABS: Calcium 9.7 mg/dL (8.6-10.3); EGFR African American 150.3 (>60); EGFR Non-African American 124.2 (>60)
[2019-10-19 06:14] LABS: Potassium 5.2 mmol/L (3.5-5.0)
[2019-10-19] MEDS: SPIRIVA Respimat* (tiotropium) 2.5 mcg/inh Inhaler INH SCH (07:58)
[2019-10-19] MEDS: Albuterol/Ipratropium NEB.SOL* Albuterol 2.5 MG/Ipratropium 0.5 MG 3 ML INH SCH ×4 (07:58→19:44)
[2019-10-19] MEDS: buPROPion SR TAB.SR* 150 MG PO SCH ×2 (10:47→21:55)
[2019-10-19] MEDS: Clopidogrel TAB* 75 MG PO SCH (11:00)
[2019-10-19] MEDS: Metoprolol Tartrate TAB* 50 mg PO SCH ×2 (11:00→21:55)
[2019-10-19] MEDS: Aspirin TAB* 325 MG PO SCH (11:00)
--- NOTE | 2019-10-19 17:00 | PN ---
Date of Service: 10/19/19 - [facility] note Critical Care Services: Pt seen and examined at bedside. Pt reports feelign slightly better. Pt remains on BiPAP, dyspneic with slight movement Active Medications Generic Name Dose Route Start Last Admin Trade Name Freq PRN Reason Stop Dose Admin Albuterol 2 puff 10/18/19 15:23 Ventolin Hfa Inhaler* INH Q2H PRN SOB/WHEEZING Albuterol/Ipratropium 1 puff 10/18/19 15:02 Combivent Respimat(Nf) INH QID PRN SOB/WHEEZING Protocol Albuterol/Ipratropium 1 neb 10/19/19 07:57 10/19/19 15:54 Duoneb (Albuterol 2.5 Mg/Ipratropium 0.5 Mg) INH 1 neb [id number] AWAKE SITA Administration Aspirin 325 mg 10/19/19 09:00 10/19/19 11:00 Aspirin Tab* PO 325 mg DAILY SITA Administration Atorvastatin Calcium 40 mg 10/18/19 21:00 10/18/19 20:20 Lipitor* PO 40 mg BEDTIME SITA Administration Bupropion HCl 150 mg 10/18/19 21:00 10/19/19 10:47 Wellbutrin Sr Tab* PO Not Given BID SITA Clopidogrel Bisulfate 75 mg 10/19/19 09:00 10/19/19 11:00 Plavix Tab* PO 75 mg DAILY SITA Administration Lorazepam 0.5 mg 10/18/19 20:41 10/19/19 05:23 Ativan Inj* IV PUSH 0.5 mg Q2H PRN Administration ANXIETY Methylprednisolone Sodium Succinate 40 mg 10/18/19 18:00 10/19/19 11:00 Solu-Medrol 40 Mg IV 40 mg Q8H SITA Administration Metoprolol Tartrate 50 mg 10/18/19 21:00 10/19/19 11:00 Lopressor Tab* PO 50 mg BID SITA Administration Miscellaneous 1 ea 10/18/19 20:41 Ativan Pyxis Ochoa N/A .ATIVAN IV OCHOA PRN PYXIS OCHOA Mometasone Furoate/Formoterol Fumar 2 puff 10/18/19 21:00 10/19/19 07:58 Dulera 100/5 Mdi* INH Not Given BID SITA Morphine Sulfate 1 mg 10/18/19 17:43 10/19/19 15:54 Morphine Inj (Syringe))* IV 1 mg Q2H PRN Administration PAIN - SEVERE Tiotropium [place] 2 puff 10/19/19 09:00 10/19/19 07:58 Spiriva Respimat 2.5 Mcg INH Not Given DAILY SITA Vital Signs: Temp Pulse Resp BP SpO2 FiO2 99.1 F 77 22 124/77 100 50 10/19/19 15:46 10/19/19 15:00 10/19/19 15:54 10/19/19 13:04 10/19/19 15:00 10/18 12:00 Physical Exam: Gen: Pt in mild resp distress HEENT: PERRLA, BiPAP mask in place Lungs: Diminished air entry b/l, scaterred wheeze Cardiac: S1, S2+ Abdomen: Soft, BS+ Extremities: Normal ROM Neuro: No focal deficits Skin: No rash Fluid Balance (Past 24 Hours): Intake & Output 10/17/19 10/18/19 10/19/19 10/20/19 06:59 06:59 06:59 06:59 Intake Total 0 560 Balance 0 560 Weight 99 lb 10.383 oz Intake: Oral 0 560 Other: Estimated Void Medium Medium # Voids 1 1 Labs: Laboratory Results - last 24 hr 10/19/19 10/19/19 05:20 05:20 WBC 8.6 RBC 3.28 L Hgb 10.5 L Hct 32 L MCV 97 MCH 32 H MCHC 33 RDW 15 Plt Count 258 MPV 7.4 Neut % (Auto) 94.5 Lymph % (Auto) 4.2 [place] % (Auto) 1.3 Eos % (Auto) 0.0 Baso % (Auto) 0.0 Absolute Neuts (auto) 8.1 H Absolute Lymphs (auto) 0.4 L Absolute Monos (auto) 0.1 Absolute Eos (auto) 0.0 Absolute Basos (auto) 0.0 Absolute Nucleated RBC 0.0 Nucleated RBC % 0.0 Sodium 138 Potassium 5.2 H Chloride 95 L Carbon Dioxide 41 H* Anion Gap 2 BUN 13 Creatinine 0.50 L Est GFR ( Amer) 150.3 Est GFR (Non-Af Amer) 124.2 BUN/Creatinine Ratio 26.0 H Glucose 108 H Calcium 9.7 Studies: CXR: Hyperinflation consistent with COPD Nutrition: Regular diet Impression: 64F with COPD on home O2 and BiPAP, CAD s/p 3 stents, HLD, HTN, presents on 10/17 after 3 days of worsening shortness of breath. She states shes been feeling more short of breath for the past 3 days. She started feeling unwell so she texted her daughter (who lives upstairs) and her daughter found her nearly unresponsive. According to EMS, her O2 sat was in the "30's", requiring them to bag her. She was placed on bipap after arrival to ED, was found to be in acute hypercapnic and hypoxic resp failure, was initiated on BiPAP 1. Acute on chronic hypoxic and hypercapnic resp failure 2. HTN 3. HYperkalemia 4. Anemia Plan: Acute on chronic hypoxic and hypercapnic resp failure: Improving on BiPAP. Will c/w BiPAP with 2-3 hr break in the day. Pt will stay on BiPAP over night. c/w nebs q 4 hrs. Titrate FiO2 as tolerated. On solumedrol 40 q 8 hrs. Morphine prn for increased WOB. No need for abx at this time. Pt would benefit from AVAPS-AE at home. Insurance has not approved yet. Pt at risk for recurrent exacerbations and hospitalizations for AMS from hypercapnic resp failure Will need monitoring in ICU while on BiPAP DVT px GI ppx
[2019-10-19] MEDS: Atorvastatin* 40 MG TAB PO SCH (21:55)
[2019-10-20] MEDS: Albuterol/Ipratropium NEB.SOL* Albuterol 2.5 MG/Ipratropium 0.5 MG 3 ML INH SCH ×7 (00:49→20:44)
[2019-10-20] MEDS: methylPREDNISolone SOD 40 MG* 1 ML VIAL IV SCH ×3 (02:45→17:40)
[2019-10-20] MEDS: Morphine INJ* 2 MG/ML 1 ML SYRINGE (TWO MG - NEW SYRINGE VERSION) IV PRN (03:07)
[2019-10-20] MEDS: SPIRIVA Respimat* (tiotropium) 2.5 mcg/inh Inhaler INH SCH (08:05)
[2019-10-20] MEDS: Mometasone/Formoter 100/5 MDI INH SCH ×2 (08:05→20:50)
[2019-10-20] MEDS: buPROPion SR TAB.SR* 150 MG PO SCH ×2 (09:07→20:32)
[2019-10-20] MEDS: Metoprolol Tartrate TAB* 50 mg PO SCH ×2 (09:07→20:32)
[2019-10-20] MEDS: Aspirin TAB* 325 MG PO SCH (09:07)
[2019-10-20] MEDS: Clopidogrel TAB* 75 MG PO SCH (09:07)
--- NOTE | 2019-10-20 13:08 | PN ---
Date of Service: 10/20/19 - Patient is still short of breath she is off bipap at this time. Vital Signs: Temp Pulse Resp BP SpO2 FiO2 98.9 F 70 22 120/77 97 35 10/20/19 12:00 10/20/19 12:00 10/20/19 12:00 10/20/19 07:49 10/20/19 12:00 10/19 11:27 Physical Exam: Gen: feels better. HEENT: nc/at perrla Lungs: Rhonchi and bilateral Air entry Cardiac: s1s2 rrr no murmurs and no rubs Abdomen: soft nt/nd bs+ Extremities: no edema. Neuro: AAO x 3 Fluid Balance (Past 24 Hours): I= O= Net Intake & Output 10/18/19 10/19/19 10/20/19 10/21/19 06:59 06:59 06:59 06:59 Intake Total 0 560 660 Balance 0 560 660 Weight 99 lb 10.383 oz 98 lb 1.691 oz Intake: Oral 0 560 660 Other: Estimated Void Medium Medium # Voids 1 1 Impression: 64 y.o female admitted with acute on chronic hypercapnic respirator failue 1. Acute on chronic hypercapnic respiratory failure 2. COPD on home oxygen with exacerbation 3. CAD 4. Hypertension 5. Hyperlipidemia 6. Covid 19 rule out Plan: Plan: -Continue nebs and solumederol -We will use bipap as needed -Titrate fio2 to sats in the 89-93% -We will add azithromycin for antinflammatory properties -She is on dual antiplatelet thrapy -We are trying to set her up for Trilogy nonivasive vent when going home. -We will place her on chemical dvt ppx. Critical Care Time:
[2019-10-20] MEDS: LORazepam INJ* 2 MG/ML 1 ML VIAL IV PUSH PRN ×2 (13:12→21:02)
[2019-10-20] MEDS ORDERED: Enoxaparin(*) 40 MG/0.4 ML SYR SUBCUT SCH (14:00)
[2019-10-20] MEDS: Enoxaparin(*) 40 MG/0.4 ML SYR SUBCUT SCH (17:40)
[2019-10-20] MEDS: Atorvastatin* 40 MG TAB PO SCH (20:31)
[2019-10-21] MEDS: Albuterol/Ipratropium NEB.SOL* Albuterol 2.5 MG/Ipratropium 0.5 MG 3 ML INH SCH ×7 (00:19→23:17)
[2019-10-21] MEDS: methylPREDNISolone SOD 40 MG* 1 ML VIAL IV SCH ×3 (03:44→18:09)
[2019-10-21] MEDS: buPROPion SR TAB.SR* 150 MG PO SCH ×2 (07:26→21:07)
[2019-10-21] MEDS: Metoprolol Tartrate TAB* 50 mg PO SCH ×2 (07:26→21:07)
[2019-10-21] MEDS: Clopidogrel TAB* 75 MG PO SCH (07:26)
[2019-10-21] MEDS: Aspirin TAB* 325 MG PO SCH (07:26)
[2019-10-21] MEDS: Mometasone/Formoter 100/5 MDI INH SCH ×2 (09:00→20:02)
[2019-10-21] MEDS: SPIRIVA Respimat* (tiotropium) 2.5 mcg/inh Inhaler INH SCH (09:00)
[2019-10-21] MEDS: DOXYcycline CAP(*) 100 MG PO SCH ×2 (10:54→21:07)
[2019-10-21 11:21] LABS: ABS Lymphocytes 0.5 10^3/ul (1.0-4.8); ABS Monocytes 0.5 10^3/ul (0-0.8); ABS Neutrophils 9.9 10^3/ul (1.5-7.7); Hematocrit 29 % (35-47); Hemoglobin 9.6 g/dL (12.0-16.0); Lymphocyte % 4.2 %; Mean Corpuscular HGB Conc 33 g/dL (31-36); Mean Corpuscular Hemoglobin 32 pg (27-31); Mean Corpuscular Volume 97 fL (80-97); Nucleated Red Blood Cells % 0.1; Platelet Count 280 10^3/uL (150-450); Red Blood Count 3.01 10^6 /uL (3.70-4.87); Red Cell Distribution Width 15 % (10-15); White Blood Count 10.9 10^3/uL (3.5-10.8)
[2019-10-21 11:30] LABS: Albumin 3.4 g/dL (3.2-5.2); Albumin/Globulin Ratio 1.4 (1-3); Calcium 9.2 mg/dL (8.6-10.3); EGFR African American 140.5 (>60); EGFR Non-African American 116.1 (>60); Globulin 2.4 g/dL (2-4); Potassium 4.4 mmol/L (3.5-5.0); Total Bilirubin 0.2 mg/dL (0.2-1.0); Total Protein 5.8 g/dL (6.4-8.9)
--- NOTE | 2019-10-21 11:55 | PN ---
Date of Service: 10/21/19 Critical Care Services: Patient is doing better. She is down to 2L Vital Signs: Temp Pulse Resp BP SpO2 FiO2 98.1 F 77 15 128/76 99 35 10/21/19 07:26 10/21/19 11:00 10/21/19 11:00 10/21/19 08:47 10/21/19 11:00 10/20 11:00 Physical Exam: Gen: She is resting in bed and comfortable HEENT: nc/at perrla Lungs: rhonchi and bilateral AE Cardiac: s1s2 rrr no murmurs and no tubs Abdomen: soft nt/nd bs+ Extremities: no edema. Neuro: aao x 3 and moving all extremities. Fluid Balance (Past 24 Hours): I= O= Net Intake & Output 10/19/19 10/20/19 10/21/19 10/22/19 06:59 06:59 06:59 06:59 Intake Total 0 560 1140 360 Balance 0 560 1140 360 Weight 99 lb 10.383 oz 98 lb 1.691 oz Intake: Oral 0 560 1140 360 Other: Estimated Void Medium Medium Medium # Voids 1 1 1 Labs: Laboratory Results - last 24 hr 10/18/19 10/21/19 10/21/19 14:04 11:04 11:15 WBC 10.9 H RBC 3.01 L Hgb 9.6 L Hct 29 L MCV 97 MCH 32 H MCHC 33 RDW 15 Plt Count 280 MPV 7.0 L Neut % (Auto) 91.0 Lymph % (Auto) 4.2 [place] % (Auto) 4.8 Eos % (Auto) 0.0 Baso % (Auto) 0.0 Absolute Neuts (auto) 9.9 H Absolute Lymphs (auto) 0.5 L Absolute Monos (auto) 0.5 Absolute Eos (auto) 0.0 Absolute Basos (auto) 0.0 Absolute Nucleated RBC 0.0 Nucleated RBC % 0.1 Sodium 138 Potassium 4.4 Chloride 96 L Carbon Dioxide 38 H Anion Gap 4 BUN 18 Creatinine 0.53 Est GFR ( Amer) 140.5 Est GFR (Non-Af Amer) 116.1 BUN/Creatinine Ratio 34.0 H Glucose 222 H Calcium 9.2 Total Bilirubin 0.20 AST 13 ALT 12 Alkaline Phosphatase 60 Total Protein 5.8 L Albumin 3.4 Globulin 2.4 Albumin/Globulin Ratio 1.4 Coronavirus (PCR) Undetected Impression: 64 y.o female admitted with acute on chronic hypercapnic respirator failure 1. Acute on chronic hypercapnic respiratory failure 2. COPD on home oxygen with exacerbation 3. CAD 4. Hypertension 5. Hyperlipidemia 6. Covid 19 ruled out Plan: -Doing much better; weaned her to 2L below home oxygen as the sats were close to 100% -steroids continued with nebs -She still used the NIPPV intermittently; She will need trilogy on DC and social work is consulted; She had a respiratory arrest on her home bipap -dual antiplatlet therapy is continued -Bp is controlled. -She is ready to leave the ICU; she will need to stay in the hosptal till she get a Trilogy device. -She is on chemcal dvt ppx. -I placed her on Doxycycline as her qtc interval is prolonged as the empiric abx for a copd exacerbation. Critical Care Time: 30 minutes.
[2019-10-21] MEDS: LORazepam INJ* 2 MG/ML 1 ML VIAL IV PUSH PRN ×2 (16:28→21:07)
[2019-10-21] MEDS: Enoxaparin(*) 40 MG/0.4 ML SYR SUBCUT SCH (18:09)
[2019-10-21] MEDS: Atorvastatin* 40 MG TAB PO SCH (21:07)
[2019-10-22] MEDS: methylPREDNISolone SOD 40 MG* 1 ML VIAL IV SCH ×3 (02:26→20:37)
[2019-10-22] MEDS: Albuterol/Ipratropium NEB.SOL* Albuterol 2.5 MG/Ipratropium 0.5 MG 3 ML INH SCH ×6 (02:58→23:48)
[2019-10-22 06:31] LABS: Albumin 3.3 g/dL (3.2-5.2); CO2 Carbon Dioxide 35 mmol/L (22-32); Calcium 8.6 mg/dL (8.6-10.3); Chloride 98 mmol/L (101-111); Magnesium 2.1 mg/dL (1.9-2.7); Sodium 138 mmol/L (135-145)
[2019-10-22 06:38] LABS: ALT 11 U/L (7-52); Albumin/Globulin Ratio 1.5 (1-3); Alkaline Phosphatase 68 U/L (34-104); BUN/Creatinine Ratio 33.3 (8-20); Blood Urea Nitrogen 17 mg/dL (6-24); EGFR African American 146.9 (>60); EGFR Non-African American 121.4 (>60); Globulin 2.2 g/dL (2-4); Glucose 107 mg/dL (70-100); Phosphorus 3.1 mg/dL (2.5-5.0); Total Protein 5.5 g/dL (6.4-8.9)
[2019-10-22 06:39] LABS: Anion Gap 5 mmol/L (2-11)
[2019-10-22] MEDS: Mometasone/Formoter 100/5 MDI INH SCH ×2 (08:33→20:05)
[2019-10-22] MEDS: SPIRIVA Respimat* (tiotropium) 2.5 mcg/inh Inhaler INH SCH (08:33)
[2019-10-22] MEDS: DOXYcycline CAP(*) 100 MG PO SCH ×2 (08:34→20:37)
[2019-10-22] MEDS: Aspirin TAB* 325 MG PO SCH (08:34)
[2019-10-22] MEDS: buPROPion SR TAB.SR* 150 MG PO SCH ×2 (08:34→20:37)
[2019-10-22] MEDS: Metoprolol Tartrate TAB* 50 mg PO SCH ×2 (08:34→20:37)
[2019-10-22] MEDS: Clopidogrel TAB* 75 MG PO SCH (08:34)
[2019-10-22] MEDS: LORazepam INJ* 2 MG/ML 1 ML VIAL IV PUSH PRN ×2 (12:10→19:27)
--- NOTE | 2019-10-22 13:45 | PN ---
Progress Note - Progress Note Date of Service: 10/22/19 Note: Progress Note -- Critical Care 24 hour events/significant events: - Patient doing well on home O2. Sleeps with bipap - Offers no complaints ROS: negative except for pertinent positives mentioned above Tele: NSR Vitals: Vital Signs 10/21/19 10/21/19 10/21/19 14:00 15:00 15:05 Temperature Pulse Rate 80 79 80 Respiratory 21 23 19 Rate Blood Pressure (mmHg) O2 Sat by Pulse 100 99 99 Oximetry 10/21/19 10/21/19 10/21/19 16:00 16:23 16:28 Temperature Pulse Rate 87 82 Respiratory 25 18 24 Rate Blood Pressure 123/82 (mmHg) O2 Sat by Pulse 99 99 Oximetry 10/21/19 10/21/19 10/21/19 17:00 18:00 19:00 Temperature Pulse Rate 77 82 120 Respiratory 22 32 Rate Blood Pressure (mmHg) O2 Sat by Pulse 99 96 82 Oximetry 10/21/19 10/21/19 10/21/19 19:54 20:00 20:10 Temperature Pulse Rate 85 85 89 Respiratory 19 22 19 Rate Blood Pressure 153/93 (mmHg) O2 Sat by Pulse 98 98 96 Oximetry 10/21/19 10/21/19 10/21/19 21:00 21:07 22:00 Temperature Pulse Rate 75 80 Respiratory 18 21 20 Rate Blood Pressure (mmHg) O2 Sat by Pulse 98 99 Oximetry 10/21/19 10/21/19 10/21/19 23:00 23:15 23:18 Temperature 97.9 F Pulse Rate 80 75 Respiratory 20 22 Rate Blood Pressure 105/70 (mmHg) O2 Sat by Pulse 98 99 Oximetry 10/21/19 10/21/19 10/21/19 23:30 23:45 23:47 Temperature Pulse Rate 74 72 71 Respiratory 24 22 23 Rate Blood Pressure 130/77 121/82 (mmHg) O2 Sat by Pulse 98 99 99 Oximetry 10/22/19 10/22/19 10/22/19 00:00 01:00 02:00 Temperature Pulse Rate 70 66 66 Respiratory 21 20 21 Rate Blood Pressure 113/79 (mmHg) O2 Sat by Pulse 99 100 100 Oximetry 10/22/19 10/22/19 10/22/19 02:59 03:00 03:15 Temperature 97.9 F Pulse Rate 65 64 Respiratory 20 19 Rate Blood Pressure (mmHg) O2 Sat by Pulse 100 99 Oximetry 10/22/19 10/22/19 10/22/19 04:00 05:00 06:00 Temperature Pulse Rate 66 65 68 Respiratory 18 19 22 Rate Blood Pressure 122/85 (mmHg) O2 Sat by Pulse 100 99 100 Oximetry 10/22/19 10/22/19 10/22/19 07:00 07:34 08:00 Temperature 98.1 F Pulse Rate 73 71 Respiratory 20 15 Rate Blood Pressure (mmHg) O2 Sat by Pulse 99 100 Oximetry 10/22/19 10/22/19 10/22/19 08:33 08:38 09:00 Temperature Pulse Rate 80 77 80 Respiratory 30 20 23 Rate Blood Pressure 136/90 (mmHg) O2 Sat by Pulse 100 100 98 Oximetry 10/22/19 10/22/19 10/22/19 10:00 11:00 11:38 Temperature 99.8 F Pulse Rate 76 70 Respiratory 13 22 Rate Blood Pressure (mmHg) O2 Sat by Pulse 97 100 Oximetry 10/22/19 10/22/19 10/22/19 11:52 12:00 12:10 Temperature Pulse Rate 73 73 Respiratory 16 18 20 Rate Blood Pressure (mmHg) O2 Sat by Pulse 98 98 Oximetry 10/22/19 10/22/19 12:13 13:00 Temperature Pulse Rate 75 69 Respiratory 17 26 Rate Blood Pressure 149/82 (mmHg) O2 Sat by Pulse 97 99 Oximetry Intake and Output Last 24 Hours 10/20/19 10/21/19 10/22/19 10/23/19 06:59 06:59 06:59 06:59 Intake Total 560 1140 1310 240 Balance 560 1140 1310 240 Weight 98 lb 1.691 oz 98 lb 2 oz Intake: Oral 560 1140 1310 240 Other: Estimated Void Medium Medium Small # Bowel Movements 1 Estimated Stool Amount Medium # Voids 1 1 1 O2: 2LNC Infusions: none Medications: Albuterol (Ventolin Hfa Inhaler*) 2 puff INH Q2H PRN PRN Reason: SOB/WHEEZING Albuterol/Ipratropium (Duoneb (Albuterol 2.5 Mg/Ipratropium 0.5 Mg)) 1 neb INH [id number] AWAKE SITA Last Admin: 10/22/19 11:50 Dose: 1 neb Aspirin (Aspirin Tab*) 325 mg PO DAILY [facility] Last Admin: 10/22/19 08:34 Dose: 325 mg Atorvastatin Calcium (Lipitor*) 40 mg PO BEDTIME [facility] Last Admin: 10/21/19 21:07 Dose: 40 mg Bupropion HCl (Wellbutrin Sr Tab*) 150 mg PO BID [facility] Last Admin: 10/22/19 08:34 Dose: 150 mg Clopidogrel Bisulfate (Plavix Tab*) 75 mg PO DAILY [facility] Last Admin: 10/22/19 08:34 Dose: 75 mg Doxycycline Hyclate (Vibramycin Cap(*)) 100 mg PO BID [facility] Stop: 10/26/19 23:59 Last Admin: 10/22/19 08:34 Dose: 100 mg Enoxaparin Sodium (Lovenox(*)) 40 mg SUBCUT DAILY@1800 [facility] Last Admin: 10/21/19 18:09 Dose: 40 mg Lorazepam (Ativan Inj*) 0.5 mg IV PUSH Q2H PRN PRN Reason: ANXIETY Last Admin: 10/22/19 12:10 Dose: 0.5 mg Methylprednisolone Sodium Succinate (Solu-Medrol 40 Mg) 40 mg IV Q12H [facility] Last Admin: 10/22/19 08:35 Dose: 40 mg Metoprolol Tartrate (Lopressor Tab*) 50 mg PO BID [facility] Last Admin: 10/22/19 08:34 Dose: 50 mg Miscellaneous (Ativan Pyxis Ochoa) 1 ea N/A .ATIVAN IV OCHOA PRN PRN Reason: PYXIS OCHOA Mometasone Furoate/Formoterol Fumar (Dulera 100/5 Mdi*) 2 puff INH BID [facility] Last Admin: 10/22/19 08:33 Dose: 2 puff Morphine Sulfate (Morphine Inj (Syringe))*) 1 mg IV Q2H PRN PRN Reason: PAIN - SEVERE Last Admin: 10/20/19 03:07 Dose: 1 mg Tiotropium [place]neal (Spiriva Respimat 2.5 Mcg) 2 puff INH DAILY [facility] Last Admin: 10/22/19 08:33 Dose: 2 puff Physical Exam: Constitutional: awake, alert, no distress, no diaphoresis, frail appearing Head: normocephalic, atraumatic Eyes: no pallor, no icterus ENT: moist mucous membranes Neck: soft, supple, no jvd, no stridor CVS: normal rate, regular, no murmur Chest/Resp: bilateral air entry, diminished throughout, no rhales, no wheeze, no rhonchi, no acc muscle use Abdomen/GI: soft, nontender, nondistended, BS+ Ext/Msk: warm, pulses+, no edema Skin: intact, warm Neuro: awake, alert, orientedx3, moving all extremities, no gross focal deficit Psych: normal affect Labs: Laboratory Results - last 24 hr 10/22/19 05:42 Sodium 138 Potassium TNP Chloride 98 L Carbon Dioxide 35 H Anion Gap 5 BUN 17 Creatinine 0.51 Est GFR ( Amer) 146.9 Est GFR (Non-Af Amer) 121.4 BUN/Creatinine Ratio 33.3 H Glucose 107 H Calcium 8.6 Phosphorus 3.1 Magnesium 2.1 Total Bilirubin 0.30 AST TNP ALT 11 Alkaline Phosphatase 68 Total Protein 5.5 L Albumin 3.3 Globulin 2.2 Albumin/Globulin Ratio 1.5 Imaging: - No recent studies Assessment: 64F with known medical history of COPD on home O2, CAD s/p 3 stents , HLD, HTN, presents on 10/18/19 after 3 days of worsening shortness of breath and altered mental status. Her O2 sat in the "30's", requiring EMS to bag her. She was placed on bipap after arrival to ED. She improved quickly. She now remains on her home O2. - COPD exacerbation - Acute on chronic hypoxic and hypercapneic respiratory failure Plan: Neuro- - No active issues -Delirium prec; avoid BDZ CVS- - No active issues. Continue home medications -Maintain MAP>65 Resp- COPD exacerbation/acute hypoxic/hypercapneic respiratory failure: improving. Continue home O2, bipap at night. Needs trilogy bipap at home. - Continue home medications -Wean Fio2 to keep sat>88% -Bronchodilators PRN, Aspiration prec, Pulmonary Toilet ID- - Continue doxy for COPD exacerbation GI- -Nutrition: regular diet -GI prophylaxis not indicated Renal- -strict I/O, replete to keep K>4, Mg>2 -voiding Heme- - lovenox for DVT prophylaxis Endo-Maintain BG<200, insulin protocol as needed Musculsk- pressure ulcer prophylaxis. OOB Wounds- none Nutrition- regular DVT prophylaxis: lovenox GI prophylaxis not indicated Disposition: Patient ready for floor Patient clinical status: stable Code Status: full
[2019-10-22] MEDS: Morphine INJ* 2 MG/ML 1 ML SYRINGE (TWO MG - NEW SYRINGE VERSION) IV PRN ×2 (15:21→22:38)
--- NOTE | 2019-10-22 15:59 | PN ---
Progress Note - Progress Note Date of Service: 10/22/19 - Pulmonary f/u note Note: Pt seen and examined at bedside. Pt reports feeling slightly better. c/o being fatigued. Able to tolerate BiPAP. Active Medications Generic Name Dose Route Start Last Admin Trade Name Freq PRN Reason Stop Dose Admin Albuterol 2 puff 10/18/19 15:23 Ventolin Hfa Inhaler* INH Q2H PRN SOB/WHEEZING Albuterol/Ipratropium 1 neb 10/19/19 07:57 10/22/19 11:50 Duoneb (Albuterol 2.5 Mg/Ipratropium 0.5 Mg) INH 1 neb [id number] AWAKE SITA Administration Aspirin 325 mg 10/19/19 09:00 10/22/19 08:34 Aspirin Tab* PO 325 mg DAILY SITA Administration Atorvastatin Calcium 40 mg 10/18/19 21:00 10/21/19 21:07 Lipitor* PO 40 mg BEDTIME SITA Administration Bupropion HCl 150 mg 10/18/19 21:00 10/22/19 08:34 Wellbutrin Sr Tab* PO 150 mg BID SITA Administration Clopidogrel Bisulfate 75 mg 10/19/19 09:00 10/22/19 08:34 Plavix Tab* PO 75 mg DAILY SITA Administration Doxycycline Hyclate 100 mg 10/21/19 10:00 10/22/19 08:34 Vibramycin Cap(*) PO 10/26/19 23:59 100 mg BID SITA Administration Enoxaparin Sodium 40 mg 10/20/19 18:00 10/21/19 18:09 Lovenox(*) SUBCUT 40 mg DAILY@1800 SITA Administration Lorazepam 0.5 mg 10/18/19 20:41 10/22/19 12:10 Ativan Inj* IV PUSH 0.5 mg Q2H PRN Administration ANXIETY Methylprednisolone Sodium Succinate 40 mg 10/22/19 08:00 10/22/19 08:35 Solu-Medrol 40 Mg IV 40 mg Q12H SITA Administration Metoprolol Tartrate 50 mg 10/18/19 21:00 10/22/19 08:34 Lopressor Tab* PO 50 mg BID SITA Administration Miscellaneous 1 ea 10/18/19 20:41 Ativan Pyxis Ochoa N/A .ATIVAN IV OCHOA PRN PYXIS OCHOA Mometasone Furoate/Formoterol Fumar 2 puff 10/18/19 21:00 10/22/19 08:33 Dulera 100/5 Mdi* INH 2 puff BID SITA Administration Morphine Sulfate 1 mg 10/18/19 17:43 10/22/19 15:21 Morphine Inj (Syringe))* IV 1 mg Q2H PRN Administration PAIN - SEVERE Tiotropium [place] 2 puff 10/19/19 09:00 10/22/19 08:33 Spiriva Respimat 2.5 Mcg INH 2 puff DAILY SITA Administration Vital Signs Temp Pulse Resp BP Pulse Ox 99.8 F 78 17 149/82 98 10/22/19 11:38 10/22/19 15:00 10/22/19 15:21 10/22/19 12:13 10/22/19 15:00 O/E: Pt in NAD HEENT: PERRLA, no JVD Lungs: Diminished air entry b/l, no significant wheeze CVS: S1, S2+ Abd: Soft, BS+ Ext: Normal ROM Skin: No rash Neuro: No focal deficits Laboratory Results - last 24 hr 10/22/19 05:42 Sodium 138 Potassium TNP Chloride 98 L Carbon Dioxide 35 H Anion Gap 5 BUN 17 Creatinine 0.51 Est GFR ( Amer) 146.9 Est GFR (Non-Af Amer) 121.4 BUN/Creatinine Ratio 33.3 H Glucose 107 H Calcium 8.6 Phosphorus 3.1 Magnesium 2.1 Total Bilirubin 0.30 AST TNP ALT 11 Alkaline Phosphatase 68 Total Protein 5.5 L Albumin 3.3 Globulin 2.2 Albumin/Globulin Ratio 1.5 I/R: 64F with known medical history of COPD on home O2, CAD s/p 3 stents, HLD, HTN, presents on 10/18/19 after 3 days of worsening shortness of breath and altered mental status. Her O2 sat in the "30's", requiring EMS to bag her. She was placed on bipap after arrival to ED with improvement in mental status. Pt still with poor reserve and diminished air movement. Pts bicarb still elevated after after 72 hrs of continuous BiPAP use Pt with chronic hypercapnic resp failure requiring frequent admissions due to worsening hypercapnic resp failure and AMS Pt`s chronic respiratory failure is scondary to COPD. Due to advanced disease state, patient may benefit from the use of a non-invasive ventilator at home to reduce the work of breathing and improve pulmonary status. Pt has failed BiPAP at this point and AVAPS-AE is best modality in her case Pt would benefit from AVAPS-AE which would provide target tidal volume and help improve hypercapnia. She is at risk for recurrent hospitalizations and even if she is not on AVAPS-AE She has severe COPD with last FEV1 of less than 30%. She is on home O2 with which she is compliant and reports benefit. Will c/w NIPPV in hospital c/w nebs DVT px
[2019-10-22] MEDS: Enoxaparin(*) 40 MG/0.4 ML SYR SUBCUT SCH (17:41)
[2019-10-22] MEDS: Atorvastatin* 40 MG TAB PO SCH (20:37)
[2019-10-23] MEDS: LORazepam INJ* 2 MG/ML 1 ML VIAL IV PUSH PRN ×3 (03:00→21:34)
[2019-10-23] MEDS: Albuterol/Ipratropium NEB.SOL* Albuterol 2.5 MG/Ipratropium 0.5 MG 3 ML INH SCH ×5 (03:15→20:47)
[2019-10-23 05:47] LABS: ABS Lymphocytes 0.7 10^3/ul (1.0-4.8); ABS Monocytes 0.5 10^3/ul (0-0.8); ABS Neutrophils 7.3 10^3/ul (1.5-7.7); Hematocrit 29 % (35-47); Hemoglobin 9.6 g/dL (12.0-16.0); Lymphocyte % 7.9 %; Mean Corpuscular HGB Conc 33 g/dL (31-36); Mean Corpuscular Hemoglobin 32 pg (27-31); Mean Corpuscular Volume 96 fL (80-97); Platelet Count 279 10^3/uL (150-450); Red Blood Count 2.99 10^6 /uL (3.70-4.87); Red Cell Distribution Width 15 % (10-15); White Blood Count 8.5 10^3/uL (3.5-10.8)
[2019-10-23 06:15] LABS: INR 1.06 (0.82-1.09)
[2019-10-23] MEDS: SPIRIVA Respimat* (tiotropium) 2.5 mcg/inh Inhaler INH SCH (08:47)
[2019-10-23] MEDS: Mometasone/Formoter 100/5 MDI INH SCH ×2 (08:47→20:47)
[2019-10-23] MEDS: Aspirin TAB* 325 MG PO SCH (09:13)
[2019-10-23] MEDS: buPROPion SR TAB.SR* 150 MG PO SCH ×2 (09:13→19:55)
[2019-10-23] MEDS: DOXYcycline CAP(*) 100 MG PO SCH ×2 (09:13→19:55)
[2019-10-23] MEDS: Clopidogrel TAB* 75 MG PO SCH (09:13)
[2019-10-23] MEDS: methylPREDNISolone SOD 40 MG* 1 ML VIAL IV SCH ×2 (09:13→19:55)
[2019-10-23] MEDS: Metoprolol Tartrate TAB* 50 mg PO SCH ×2 (09:13→19:55)
[2019-10-23] MEDS ORDERED: Thrombin 5,000 UNITS* 1 APPLIC KIT - topical use - TOPICAL ONE (10:00)
--- NOTE | 2019-10-23 12:25 | CONSULT ---
Palliative / Hospice Consult Ordering Provider: Maged Bray Referal Reason: Goals of care/no bowel meds/ MS - Subjective Code Status: Full Code Advance Directives Location: With Family - History or Present Illness History or Present Illness: 64yo female with end stage COPD presents to ER with 3 days of SOB. PMH is significant for COPD on 3 liters O2 at home,CAD s/p 3 stents, hyperlipidemia and HTN. 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 Studies CXR-COPD otherwise neg, EKG- NSR, H/H 9.6/29, BUN/Cr 17/.51, egfr 121.4, CRP 8.33, alb 3.9, flu A& B neg, BC neg, sputum B. Catarrhalis and ABG 7.32/83/378/34.9 on BiPAP. Pt admitted to ICU on BiPAP with acute on chronic hypoxic, hypercapnic respiratory failure. Pt last admitted 09/14-09/21 for respiratory failure. All history is from pt and medical record. Lab Values: Abnormal Lab Results 10/23/19 10/23/19 05:37 05:37 WBC 8.5 RBC 2.99 L Hgb 9.6 L Hct 29 L MCV 96 MCH 32 H MCHC 33 RDW 15 Plt Count 279 MPV 7.0 L Neut % (Auto) 86.0 Lymph % (Auto) 7.9 [place] % (Auto) 5.9 Eos % (Auto) 0.0 Baso % (Auto) 0.2 Absolute Neuts (auto) 7.3 Absolute Lymphs (auto) 0.7 L Absolute Monos (auto) 0.5 Absolute Eos (auto) 0.0 Absolute Basos (auto) 0.0 Absolute Nucleated RBC 0.0 Nucleated RBC % 0.0 INR (Anticoag Therapy) 1.06 Laboratory Last Values WBC 8.5 10^3/uL (3.5-10.8) 10/23/19 05:37 RBC 2.99 10^6 /uL (3.70-4.87) L 10/23/19 05:37 Hgb 9.6 g/dL (12.0-16.0) L 10/23/19 05:37 Hct 29 % (35-47) L 10/23/19 05:37 MCV 96 fL (80-97) 10/23/19 05:37 MCH 32 pg (27-31) H 10/23/19 05:37 MCHC 33 g/dL (31-36) 10/23/19 05:37 RDW 15 % (10-15) 10/23/19 05:37 Plt Count 279 10^3/uL (150-450) 10/23/19 05:37 MPV 7.0 fL (7.4-10.4) L 10/23/19 05:37 Neut % (Auto) 86.0 % 10/23/19 05:37 Lymph % (Auto) 7.9 % 10/23/19 05:37 [place] % (Auto) 5.9 % 10/23/19 05:37 Eos % (Auto) 0.0 % 10/23/19 05:37 Baso % (Auto) 0.2 % 10/23/19 05:37 Absolute Neuts (auto) 7.3 10^3/ul (1.5-7.7) 10/23/19 05:37 Absolute Lymphs (auto) 0.7 10^3/ul (1.0-4.8) L 10/23/19 05:37 Absolute Monos (auto) 0.5 10^3/ul (0-0.8) 10/23/19 05:37 Absolute Eos (auto) 0.0 10^3/ul (0-0.6) 10/23/19 05:37 Absolute Basos (auto) 0.0 10^3/ul (0-0.2) 10/23/19 05:37 Absolute Nucleated RBC 0.0 10^3/ul 10/23/19 05:37 Nucleated RBC % 0.0 10/23/19 05:37 INR (Anticoag Therapy) 1.06 (0.82-1.09) 10/23/19 05:37 Patient Temperature Not Reportable 10/18/19 13:40 ABG pH 7.32 (7.35-7.45) L 10/18/19 13:40 ABG pH (Temp Correct) Not Reportable 10/18/19 13:40 ABG pCO2 83 mmHg (35-45) H* 10/18/19 13:40 ABG pCO2 (Temp Corrct Not Reportable 10/18/19 13:40 ABG pO2 378 mmHg (80-100) H 10/18/19 13:40 ABG pO2 (Temp Correct Not Reportable 10/18/19 13:40 ABG HCO3 34.9 mmol/L (19-31) H 10/18/19 13:40 ABG O2 Saturation 100.0 % (94.0-98.0) H 10/18/19 13:40 ABG Base Excess 12.8 mmol/L (-2.0-2.0) H 10/18/19 13:40 Respiration Rate Not Reportable 10/18/19 13:40 O2 Delivery Device bipap 10/18/19 13:40 Ventilator Type Not Reportable 10/18/19 13:40 Vent Mode Not Reportable 10/18/19 13:40 FiO2 100 10/18/19 13:40 Inspiratory Time Not Reportable 10/18/19 13:40 PEEP Not Reportable 10/18/19 13:40 Pressure Support Not Reportable 10/18/19 13:40 Pressure Control Not Reportable 10/18/19 13:40 EPAP 8 10/18/19 13:40 IPAP 16 10/18/19 13:40 BiPAP Not Reportable 10/18/19 13:40 Sodium 138 mmol/L (135-145) 10/22/19 05:42 Potassium TNP 10/22/19 05:42 Chloride 98 mmol/L (101-111) L 10/22/19 05:42 Carbon Dioxide 35 mmol/L (22-32) H 10/22/19 05:42 Anion Gap 5 mmol/L (2-11) 10/22/19 05:42 BUN 17 mg/dL (6-24) 10/22/19 05:42 Creatinine 0.51 mg/dL (0.51-0.95) 10/22/19 05:42 Est GFR ( Amer) 146.9 (>60) 10/22/19 05:42 Est GFR (Non-Af Amer) 121.4 (>60) 10/22/19 05:42 BUN/Creatinine Ratio 33.3 (8-20) H 10/22/19 05:42 Glucose 107 mg/dL (70-100) H 10/22/19 05:42 Calcium 8.6 mg/dL (8.6-10.3) 10/22/19 05:42 Phosphorus 3.1 mg/dL (2.5-5.0) 10/22/19 05:42 Magnesium 2.1 mg/dL (1.9-2.7) 10/22/19 05:42 Total Bilirubin 0.30 mg/dL (0.2-1.0) 10/22/19 05:42 AST TNP 10/22/19 05:42 ALT 11 U/L (7-52) 10/22/19 05:42 Alkaline Phosphatase 68 U/L (34-104) 10/22/19 05:42 Troponin I 0.01 ng/mL (<0.03) 10/18/19 13:15 C-Reactive Protein 8.33 mg/L (<8.01) H 10/18/19 13:15 B-Natriuretic Peptide 45 pg/mL (<=100) 10/18/19 13:15 Total Protein 5.5 g/dL (6.4-8.9) L 10/22/19 05:42 Albumin 3.3 g/dL (3.2-5.2) 10/22/19 05:42 Globulin 2.2 g/dL (2-4) 10/22/19 05:42 Albumin/Globulin Ratio 1.5 (1-3) 10/22/19 05:42 Coronavirus (PCR) Undetected (Undetected) 10/18/19 14:04 Influenza A (Rapid) Negative (Negative) 10/18/19 14:04 Influenza B (Rapid) Negative (Negative) 10/18/19 14:04 - Objective Active Medications: Albuterol (Ventolin Hfa Inhaler*) 2 puff INH Q2H PRN PRN Reason: SOB/WHEEZING Albuterol/Ipratropium (Duoneb (Albuterol 2.5 Mg/Ipratropium 0.5 Mg)) 1 neb INH [id number] AWAKE [facility] Last Admin: 10/23/19 08:46 Dose: 1 neb Aspirin (Aspirin Tab*) 325 mg PO DAILY [facility] Last Admin: 10/23/19 09:13 Dose: 325 mg Atorvastatin Calcium (Lipitor*) 40 mg PO BEDTIME [facility] Last Admin: 10/22/19 20:37 Dose: 40 mg Bupropion HCl (Wellbutrin Sr Tab*) 150 mg PO BID [facility] Last Admin: 10/23/19 09:13 Dose: 150 mg Clopidogrel Bisulfate (Plavix Tab*) 75 mg PO DAILY [facility] Last Admin: 10/23/19 09:13 Dose: 75 mg Doxycycline Hyclate (Vibramycin Cap(*)) 100 mg PO BID [facility] Stop: 10/26/19 23:59 Last Admin: 10/23/19 09:13 Dose: 100 mg Enoxaparin Sodium (Lovenox(*)) 40 mg SUBCUT DAILY@1800 [facility] Last Admin: 10/22/19 17:41 Dose: 40 mg Lorazepam (Ativan Inj*) 0.5 mg IV PUSH Q2H PRN PRN Reason: ANXIETY Last Admin: 10/23/19 03:00 Dose: 0.5 mg Methylprednisolone Sodium Succinate (Solu-Medrol 40 Mg) 40 mg IV Q12H [facility] Last Admin: 10/23/19 09:13 Dose: 40 mg Metoprolol Tartrate (Lopressor Tab*) 50 mg PO BID [facility] Last Admin: 10/23/19 09:13 Dose: 50 mg Miscellaneous (Ativan Pyxis Ochoa) 1 ea N/A .ATIVAN IV OCHOA PRN PRN Reason: PYXIS OCHOA Mometasone Furoate/Formoterol Fumar (Dulera 100/5 Mdi*) 2 puff INH BID [facility] Last Admin: 10/23/19 08:47 Dose: 2 puff Morphine Sulfate (Morphine Inj (Syringe))*) 1 mg IV Q2H PRN PRN Reason: PAIN - SEVERE Last Admin: 10/22/19 22:38 Dose: 1 mg Tiotropium [place] (Spiriva Respimat 2.5 Mcg) 2 puff INH DAILY [facility] Last Admin: 10/23/19 08:47 Dose: 2 puff Vital Signs: Vital Signs: Temp Pulse Resp BP Pulse Ox 97.9 F 75 19 146/90 100 10/23/19 04:00 10/23/19 12:00 10/23/19 12:00 10/23/19 08:00 10/23/19 12:00 Patient Weight: Weight 44.509 kg Intake and Output: Intake & Output 03/22/10/22/19 10/23/19 10/24/19 06:59 06:59 06:59 06:59 Intake Total 1140 1310 810 Balance 1140 1310 810 Weight 44.509 kg Intake: Oral 1140 1310 810 Other: Estimated Void Medium Small Medium Date of Last Bowel 10/21/19 Movement # Bowel Movements 1 Estimated Stool Amount Medium # Voids 1 1 3 ADLs: Meal Record Start: 10/18/19 16: 53 Freq: 09,13,18 Status: Complete Protocol: Created 10/18/19 16:53 System (Rec: 10/18/19 16:53 System ICU-M22) Document 10/18/19 18:00 [id number] (Rec: 10/18/19 18:32 [id number] ICU-C06) Document 10/19/19 09:00 [id number] (Rec: 10/19/19 12:29 [id number] ICU-C08) Document 10/19/19 13:00 [id number] (Rec: 10/19/19 14:46 [id number] ICU-C08) Document 10/19/19 18:00 [id number] (Rec: 10/19/19 23:58 [id number] ICU-C08) Document 10/20/19 09:00 [id number] (Rec: 10/20/19 12:48 [id number] ICU-M22) Document 10/20/19 18:00 [id number] (Rec: 10/20/19 21:23 [id number] ICU-C08) Document 10/21/19 09:00 [id number] (Rec: 10/21/19 11:26 [id number] ICU-C08) ADLs: Meal Record Start: 10/21/19 13: 10 Freq: DAILY@0900,1400,1800 Status: Active Protocol: Created 10/21/19 13:10 [id number] (Rec: 10/21/19 13:10 [id number] ICU-M22) Document 10/21/19 14:00 [id number] (Rec: 10/21/19 18:02 [id number] ICU-C08) Document 10/22/19 08:59 [id number] (Rec: 10/22/19 09:00 [id number] ICU-C10) Document 10/22/19 14:00 [id number] (Rec: 10/22/19 14:04 [id number] ICU-C12) Document 10/22/19 18:00 [id number] (Rec: 10/22/19 18:25 [id number] ICU-C12) Intake and Output Start: 10/18/19 13: 43 Freq: 06,14,2199 Status: Active Protocol: Created 10/18/19 13:43 System (Rec: 10/18/19 13:43 System [id number]) Document 10/22/19 22:00 [id number] (Rec: 10/22/19 22:16 [id number] ICU-C07) Document 10/23/19 06:00 [id number] (Rec: 10/23/19 06:28 [id number] ICU-C07) Intake and Output Start: 10/18/19 16: 53 Freq: 06,14,2199 Status: Complete Protocol: Created 10/18/19 16:53 System (Rec: 10/18/19 16:53 System ICU-M22) Document 10/18/19 22:00 [id number] (Rec: 10/18/19 23:38 [id number] ICU-C08) Document 10/19/19 06:00 [id number] (Rec: 10/19/19 06:25 [id number] ICU-C08) Document 10/19/19 14:00 [id number] (Rec: 10/19/19 14:47 [id number] ICU-C08) Document 10/20/19 14:00 [id number] (Rec: 10/20/19 15:41 [id number] ICU-C21) Document 10/20/19 22:00 [id number] (Rec: 10/20/19 22:10 [id number] ICU-C08) Intake and Output Start: 10/21/19 13: 10 Freq: DAILY@0600,1400,2200 Status: Complete Protocol: Created 10/21/19 13:10 [id number] (Rec: 10/21/19 13:10 [id number] ICU-M22) Document 10/21/19 14:00 [id number] (Rec: 10/21/19 18:00 [id number] ICU-C08) Document 10/21/19 22:00 [id number] (Rec: 10/21/19 22:43 [id number] ICU-C12) Document 10/22/19 06:00 [id number] (Rec: 10/22/19 06:29 [id number] ICU-C12) Head: Normal Ears/Nose/Mouth/Throat: NL Teeth, Lips, Gums Neck: NL Appearance and Movements; NL JVP Cardiovascular: NL Sounds; No Murmurs; No JVD Respiratory: Symmetrical Chest Expansion and Respiratory Effort Extremities: No Edema Neurological: Alert and Oriented x 3 - Assessment Assessment: 64yo female with end stage COPD admitted with acute on chronic hypoxic and hypercapnic respiratory failure - Plan Consult Plan (MU): Palliative Plan: Long discussion with pt about goals of care. She seemed sad this time realizing her COPD is getting worse and not sure what to do about it. She has less and less energy at home to do anything even thinking about the future to make plans. Her existence is from bed to chair to bathroom. She still wants CPR since she survived CPR and intubation August 2018, wants only a trial of intubation for 3 days since she doesn't want to be kept alive if it isn't meaningful. She thought about staying at her sisters house near [place] because she would get the care and support she needs but she wants to be near her daughter when she dies. She is interested in hospice but not yet. We discussed the benefits/services of hospice but as of now she still wants to come back to the ER/hospital. Information about [facility] program given and referral has been made. We discussed getting [facility] services if she qualifies. She could benefit from home health aide but she doesn't feel she can afford it. Daughter and grandchildren from upstairs help out but not consistently. She has started wellbutrin from PCP but not sure it is working yet. She thinks she has less than a year to live. She has had some more visitors since her last hospitalization but she is finding it too hard to leave the house because of shortness of breath and fatigue. 's office is trying to get pt a Trilogy machine to use at night that may help her fatigue. Pt is eligible for hospice. KPS 30%, PPS 50% - Time On Unit Date of Evaluation: 10/23/19 Hospice Consult Time in: 11:30 Hospice Consult Time Out: 12:30 Hospice Consult Time Total: 60 > 50% of Time Spend In Counseling or Coordinating Care: Yes
[2019-10-23] MEDS: Morphine INJ* 2 MG/ML 1 ML SYRINGE (TWO MG - NEW SYRINGE VERSION) IV PRN ×3 (12:42→21:35)
--- NOTE | 2019-10-23 14:35 | PN ---
Progress Note - Progress Note Date of Service: 10/23/19 Note: Progress Note -- Critical Care 24 hour events/significant events: - Patient doing well on home O2. Sleeps with bipap. - Had some bleeding from lovenox injection site which resolved - Offers no complaints ROS: negative except for pertinent positives mentioned above Tele: NSR Vitals: Vital Signs 10/22/19 10/22/19 10/22/19 15:00 15:21 15:49 Temperature 97.6 F Pulse Rate 78 Respiratory 22 17 Rate Blood Pressure (mmHg) O2 Sat by Pulse 98 Oximetry 10/22/19 10/22/19 10/22/19 16:00 16:10 17:00 Temperature Pulse Rate 69 80 74 Respiratory 18 15 22 Rate Blood Pressure (mmHg) O2 Sat by Pulse 98 99 91 Oximetry 10/22/19 10/22/19 10/22/19 18:00 19:00 19:15 Temperature 98.8 F Pulse Rate 87 81 Respiratory 20 21 Rate Blood Pressure (mmHg) O2 Sat by Pulse 98 98 Oximetry 10/22/19 10/22/19 10/22/19 19:27 20:00 20:02 Temperature Pulse Rate 91 93 Respiratory 22 18 17 Rate Blood Pressure 126/100 (mmHg) O2 Sat by Pulse 100 100 Oximetry 10/22/19 10/22/19 10/22/19 21:00 22:00 22:09 Temperature Pulse Rate 73 73 Respiratory 14 24 20 Rate Blood Pressure (mmHg) O2 Sat by Pulse 100 100 Oximetry 10/22/19 10/22/19 10/22/19 22:38 23:00 23:17 Temperature 98.6 F Pulse Rate 69 Respiratory 18 18 Rate Blood Pressure (mmHg) O2 Sat by Pulse 99 Oximetry 10/22/19 10/22/19 10/23/19 23:21 23:47 00:00 Temperature Pulse Rate 71 73 69 Respiratory 20 16 18 Rate Blood Pressure 129/83 (mmHg) O2 Sat by Pulse 99 100 98 Oximetry 10/23/19 10/23/19 10/23/19 01:00 02:00 03:00 Temperature Pulse Rate 65 62 69 Respiratory 18 17 22 Rate Blood Pressure (mmHg) O2 Sat by Pulse 99 99 100 Oximetry 10/23/19 10/23/19 10/23/19 03:17 04:00 05:00 Temperature 97.9 F Pulse Rate 77 67 67 Respiratory 23 20 17 Rate Blood Pressure 127/80 (mmHg) O2 Sat by Pulse 100 100 100 Oximetry 10/23/19 10/23/19 10/23/19 06:00 07:00 07:52 Temperature Pulse Rate 67 72 81 Respiratory 19 20 14 Rate Blood Pressure 127/76 (mmHg) O2 Sat by Pulse 99 100 89 Oximetry 10/23/19 10/23/19 10/23/19 08:00 08:50 09:00 Temperature Pulse Rate 72 83 86 Respiratory 20 18 17 Rate Blood Pressure 146/90 (mmHg) O2 Sat by Pulse 100 95 94 Oximetry 10/23/19 10/23/19 10/23/19 10:00 10:17 10:26 Temperature Pulse Rate 77 Respiratory 21 22 22 Rate Blood Pressure (mmHg) O2 Sat by Pulse 98 Oximetry 10/23/19 10/23/19 10/23/19 11:00 12:00 12:39 Temperature Pulse Rate 66 75 Respiratory 21 19 22 Rate Blood Pressure (mmHg) O2 Sat by Pulse 100 Oximetry 10/23/19 10/23/19 10/23/19 12:42 13:00 14:00 Temperature Pulse Rate 66 65 Respiratory 24 20 20 Rate Blood Pressure (mmHg) O2 Sat by Pulse 100 100 Oximetry Intake and Output Last 24 Hours 10/21/19 10/22/19 10/23/19 10/24/19 06:59 06:59 06:59 06:59 Intake Total 1140 1310 810 Balance 1140 1310 810 Weight 98 lb 2 oz Intake: Oral 1140 1310 810 Other: Estimated Void Medium Small Medium Date of Last Bowel 10/21/19 Movement # Bowel Movements 1 Estimated Stool Amount Medium # Voids 1 1 3 O2: 2LNC Infusions: none Medications: Albuterol (Ventolin Hfa Inhaler*) 2 puff INH Q2H PRN PRN Reason: SOB/WHEEZING Albuterol/Ipratropium (Duoneb (Albuterol 2.5 Mg/Ipratropium 0.5 Mg)) 1 neb INH [id number] AWAKE [facility] Last Admin: 10/23/19 12:30 Dose: Not Given Aspirin (Aspirin Tab*) 325 mg PO DAILY [facility] Last Admin: 10/23/19 09:13 Dose: 325 mg Atorvastatin Calcium (Lipitor*) 40 mg PO BEDTIME [facility] Last Admin: 10/22/19 20:37 Dose: 40 mg Bupropion HCl (Wellbutrin Sr Tab*) 150 mg PO BID [facility] Last Admin: 10/23/19 09:13 Dose: 150 mg Clopidogrel Bisulfate (Plavix Tab*) 75 mg PO DAILY [facility] Last Admin: 10/23/19 09:13 Dose: 75 mg Doxycycline Hyclate (Vibramycin Cap(*)) 100 mg PO BID [facility] Stop: 10/26/19 23:59 Last Admin: 10/23/19 09:13 Dose: 100 mg Enoxaparin Sodium (Lovenox(*)) 40 mg SUBCUT DAILY@1800 [facility] Last Admin: 10/22/19 17:41 Dose: 40 mg Lorazepam (Ativan Inj*) 0.5 mg IV PUSH Q2H PRN PRN Reason: ANXIETY Last Admin: 10/23/19 12:39 Dose: 0.5 mg Methylprednisolone Sodium Succinate (Solu-Medrol 40 Mg) 40 mg IV Q12H [facility] Last Admin: 10/23/19 09:13 Dose: 40 mg Metoprolol Tartrate (Lopressor Tab*) 50 mg PO BID [facility] Last Admin: 10/23/19 09:13 Dose: 50 mg Miscellaneous (Ativan Pyxis Ocho[place]) 1 ea N/A .ATIVAN IV OCHOA PRN PRN Reason: PYXIS OCHOA Mometasone Furoate/Formoterol Fumar (Dulera 100/5 Mdi*) 2 puff INH BID [facility] Last Admin: 10/23/19 08:47 Dose: 2 puff Morphine Sulfate (Morphine Inj (Syringe))*) 1 mg IV Q2H PRN PRN Reason: PAIN - SEVERE Last Admin: 10/23/19 12:42 Dose: 1 mg Tiotropium [place] (Spiriva Respimat 2.5 Mcg) 2 puff INH DAILY [facility] Last Admin: 10/23/19 08:47 Dose: 2 puff Physical Exam: Constitutional: awake, alert, no distress, no diaphoresis, frail appearing Head: normocephalic, atraumatic Eyes: no pallor, no icterus ENT: moist mucous membranes Neck: soft, supple, no jvd, no stridor CVS: normal rate, regular, no murmur Chest/Resp: bilateral air entry, diminished throughout, no rhales, no wheeze, no rhonchi, no acc muscle use Abdomen/GI: soft, nontender, nondistended, BS+ Ext/Msk: warm, pulses+, no edema Skin: intact, warm Neuro: awake, alert, orientedx3, moving all extremities, no gross focal deficit Psych: normal affect Labs: Laboratory Results - last 24 hr 10/23/19 10/23/19 05:37 05:37 WBC 8.5 RBC 2.99 L Hgb 9.6 L Hct 29 L MCV 96 MCH 32 H MCHC 33 RDW 15 Plt Count 279 MPV 7.0 L Neut % (Auto) 86.0 Lymph % (Auto) 7.9 [place] % (Auto) 5.9 Eos % (Auto) 0.0 Baso % (Auto) 0.2 Absolute Neuts (auto) 7.3 Absolute Lymphs (auto) 0.7 L Absolute Monos (auto) 0.5 Absolute Eos (auto) 0.0 Absolute Basos (auto) 0.0 Absolute Nucleated RBC 0.0 Nucleated RBC % 0.0 INR (Anticoag Therapy) 1.06 Imaging: - No recent studies Assessment: 64F with known medical history of COPD on home O2, CAD s/p 3 stents , HLD, HTN, presents on 10/18/19 after 3 days of worsening shortness of breath and altered mental status. Her O2 sat in the "30's", requiring EMS to bag her. She was placed on bipap after arrival to ED. She improved quickly. She now remains on her home O2. - COPD exacerbation - Acute on chronic hypoxic and hypercapneic respiratory failure Plan: Neuro- - No active issues -Delirium prec; avoid BDZ CVS- - No active issues. Continue home medications -Maintain MAP>65 Resp- COPD exacerbation/acute hypoxic/hypercapneic respiratory failure: improving. Continue home O2, bipap at night. Needs trilogy bipap at home. - Continue home medications -Wean Fio2 to keep sat>88% -Bronchodilators PRN, Aspiration prec, Pulmonary Toilet ID- - Continue doxy for COPD exacerbation GI- -Nutrition: regular diet -GI prophylaxis not indicated Renal- -strict I/O, replete to keep K>4, Mg>2 -voiding Heme- - lovenox for DVT prophylaxis Endo-Maintain BG<200, insulin protocol as needed Musculsk- pressure ulcer prophylaxis. OOB Wounds- none Nutrition- regular DVT prophylaxis: lovenox GI prophylaxis not indicated Disposition: Patient ready for floor Patient clinical status: stable Code Status: full
[2019-10-23] MEDS: Enoxaparin(*) 40 MG/0.4 ML SYR SUBCUT SCH (17:45)
[2019-10-23] MEDS: Atorvastatin* 40 MG TAB PO SCH (19:55)
[2019-10-24] MEDS: Albuterol/Ipratropium NEB.SOL* Albuterol 2.5 MG/Ipratropium 0.5 MG 3 ML INH SCH ×6 (00:44→20:48)
[2019-10-24] MEDS: LORazepam INJ* 2 MG/ML 1 ML VIAL IV PUSH PRN ×2 (03:35→20:32)
[2019-10-24] MEDS: Mometasone/Formoter 100/5 MDI INH SCH ×2 (07:46→21:18)
[2019-10-24] MEDS: SPIRIVA Respimat* (tiotropium) 2.5 mcg/inh Inhaler INH SCH (07:46)
[2019-10-24] MEDS: DOXYcycline CAP(*) 100 MG PO SCH ×2 (08:13→20:36)
[2019-10-24] MEDS: Aspirin TAB* 325 MG PO SCH (08:13)
[2019-10-24] MEDS: methylPREDNISolone SOD 40 MG* 1 ML VIAL IV SCH (08:13)
[2019-10-24] MEDS: buPROPion SR TAB.SR* 150 MG PO SCH ×2 (08:13→20:36)
[2019-10-24] MEDS: Clopidogrel TAB* 75 MG PO SCH (09:33)
[2019-10-24] MEDS: Metoprolol Tartrate TAB* 50 mg PO SCH ×2 (09:34→20:36)
[2019-10-24] MEDS: Morphine INJ* 2 MG/ML 1 ML SYRINGE (TWO MG - NEW SYRINGE VERSION) IV PRN ×3 (11:03→20:30)
--- NOTE | 2019-10-24 11:15 | PN ---
Progress Note - Progress Note Date of Service: 10/24/19 Note: Progress Note -- Critical Care 24 hour events/significant events: - Patient doing well on home O2. Sleeps with bipap. - Offers no complaints. She would like to walk around the unit later and discuss her discharge plan ROS: negative except for pertinent positives mentioned above Tele: NSR Vitals: Vital Signs 10/23/19 10/23/19 10/23/19 12:00 12:39 12:42 Temperature Pulse Rate 75 Respiratory 19 22 24 Rate Blood Pressure (mmHg) O2 Sat by Pulse 100 Oximetry 10/23/19 10/23/19 10/23/19 13:00 14:00 15:00 Temperature Pulse Rate 66 65 65 Respiratory 20 20 19 Rate Blood Pressure (mmHg) O2 Sat by Pulse 100 100 100 Oximetry 10/23/19 10/23/19 10/23/19 15:39 15:51 16:00 Temperature 98.8 F Pulse Rate 70 79 76 Respiratory 12 19 21 Rate Blood Pressure 125/82 (mmHg) O2 Sat by Pulse 99 100 83 Oximetry 10/23/19 10/23/19 10/23/19 16:38 17:00 18:00 Temperature Pulse Rate 91 80 Respiratory 24 22 15 Rate Blood Pressure (mmHg) O2 Sat by Pulse 100 100 Oximetry 10/23/19 10/23/19 10/23/19 19:00 19:55 20:00 Temperature 100.0 F Pulse Rate 75 81 Respiratory 19 21 Rate Blood Pressure (mmHg) O2 Sat by Pulse 100 100 Oximetry 10/23/19 10/23/19 10/23/19 20:01 20:50 20:51 Temperature Pulse Rate 83 78 78 Respiratory 16 14 Rate Blood Pressure 137/84 (mmHg) O2 Sat by Pulse 100 98 Oximetry 10/23/19 10/23/19 10/23/19 21:00 21:34 21:35 Temperature Pulse Rate 77 Respiratory 25 20 20 Rate Blood Pressure (mmHg) O2 Sat by Pulse 100 Oximetry 10/23/19 10/23/19 10/24/19 22:00 23:00 00:00 Temperature Pulse Rate 67 62 59 Respiratory 24 14 15 Rate Blood Pressure (mmHg) O2 Sat by Pulse 100 99 100 Oximetry 10/24/19 10/24/19 10/24/19 00:23 00:46 00:48 Temperature Pulse Rate 62 60 Respiratory 16 14 Rate Blood Pressure (mmHg) O2 Sat by Pulse 100 100 60 Oximetry 10/24/19 10/24/19 10/24/19 01:00 02:00 03:00 Temperature Pulse Rate 60 62 62 Respiratory 16 18 16 Rate Blood Pressure (mmHg) O2 Sat by Pulse 99 98 100 Oximetry 10/24/19 10/24/19 10/24/19 03:07 03:34 03:35 Temperature 97.9 F Pulse Rate 69 Respiratory 17 18 Rate Blood Pressure 110/73 (mmHg) O2 Sat by Pulse 100 Oximetry 10/24/19 10/24/19 10/24/19 04:00 04:50 05:00 Temperature Pulse Rate 63 65 64 Respiratory 17 14 17 Rate Blood Pressure (mmHg) O2 Sat by Pulse 100 99 99 Oximetry 10/24/19 10/24/19 10/24/19 06:00 07:00 07:19 Temperature 97.3 F Pulse Rate 65 76 Respiratory 17 17 Rate Blood Pressure (mmHg) O2 Sat by Pulse 100 100 Oximetry 10/24/19 10/24/19 10/24/19 07:49 08:00 08:20 Temperature Pulse Rate 83 86 Respiratory 12 20 16 Rate Blood Pressure (mmHg) O2 Sat by Pulse 100 99 Oximetry 10/24/19 10/24/19 10/24/19 09:00 10:00 11:03 Temperature Pulse Rate 87 82 Respiratory 19 21 20 Rate Blood Pressure (mmHg) O2 Sat by Pulse 100 100 Oximetry Intake and Output Last 24 Hours 10/22/19 10/23/19 10/24/19 10/25/19 06:59 06:59 06:59 06:59 Intake Total 1310 810 325 300 Balance 1310 810 325 300 Intake: Oral 1310 810 325 300 Other: Estimated Void Small Medium Medium Date of Last Bowel 10/21/19 Movement # Bowel Movements 1 Estimated Stool Amount Medium # Voids 1 3 2 O2: 2LNC Infusions: none Medications: Albuterol (Ventolin Hfa Inhaler*) 2 puff INH Q2H PRN PRN Reason: SOB/WHEEZING Albuterol/Ipratropium (Duoneb (Albuterol 2.5 Mg/Ipratropium 0.5 Mg)) 1 neb INH [id number] AWAKE [facility] Last Admin: 10/24/19 07:46 Dose: 1 neb Aspirin (Aspirin Tab*) 325 mg PO DAILY [facility] Last Admin: 10/24/19 08:13 Dose: 325 mg Atorvastatin Calcium (Lipitor*) 40 mg PO BEDTIME [facility] Last Admin: 10/23/19 19:55 Dose: 40 mg Bupropion HCl (Wellbutrin Sr Tab*) 150 mg PO BID [facility] Last Admin: 10/24/19 08:13 Dose: 150 mg Clopidogrel Bisulfate (Plavix Tab*) 75 mg PO DAILY [facility] Last Admin: 10/24/19 09:33 Dose: 75 mg Doxycycline Hyclate (Vibramycin Cap(*)) 100 mg PO BID [facility] Stop: 10/26/19 23:59 Last Admin: 10/24/19 08:13 Dose: 100 mg Enoxaparin Sodium (Lovenox(*)) 40 mg SUBCUT DAILY@1800 [facility] Last Admin: 10/23/19 17:45 Dose: 40 mg Lorazepam (Ativan Inj*) 0.5 mg IV PUSH Q2H PRN PRN Reason: ANXIETY Last Admin: 10/24/19 03:35 Dose: 0.5 mg Methylprednisolone Sodium Succinate (Solu-Medrol 40 Mg) 60 mg IV DAILY [facility] Metoprolol Tartrate (Lopressor Tab*) 50 mg PO BID [facility] Last Admin: 10/24/19 09:34 Dose: 50 mg Miscellaneous (Ativan Pyxis [place]) 1 ea N/A .ATIVAN IV OCHOA PRN PRN Reason: PYXIS OCHOA Mometasone Furoate/Formoterol Fumar (Dulera 100/5 Mdi*) 2 puff INH BID [facility] Last Admin: 10/24/19 07:46 Dose: 2 puff Morphine Sulfate (Morphine Inj (Syringe))*) 1 mg IV Q2H PRN PRN Reason: PAIN - SEVERE Last Admin: 10/24/19 11:03 Dose: 1 mg Tiotropium [place] (Spiriva Respimat 2.5 Mcg) 2 puff INH DAILY [facility] Last Admin: 10/24/19 07:46 Dose: 2 puff Physical Exam: Constitutional: awake, alert, no distress, no diaphoresis, frail appearing Head: normocephalic, atraumatic Eyes: no pallor, no icterus ENT: moist mucous membranes Neck: soft, supple, no jvd, no stridor CVS: normal rate, regular, no murmur Chest/Resp: bilateral air entry, diminished throughout, no rhales, no wheeze, no rhonchi, no acc muscle use Abdomen/GI: soft, nontender, nondistended, BS+ Ext/Msk: warm, pulses+, no edema Skin: intact, warm Neuro: awake, alert, orientedx3, moving all extremities, no gross focal deficit Psych: flat affect Labs: none Imaging: - No recent studies Assessment: 64F with known medical history of COPD on home O2, CAD s/p 3 stents , HLD, HTN, presents on 10/18/19 after 3 days of worsening shortness of breath and altered mental status. Her O2 sat in the "30's", requiring EMS to bag her. She was placed on bipap after arrival to ED. She improved quickly. She now remains on her home O2. - COPD exacerbation - Acute on chronic hypoxic and hypercapneic respiratory failure Plan: Neuro- - No active issues -Delirium prec; avoid BDZ CVS- - No active issues. Continue home medications -Maintain MAP>65 Resp- COPD exacerbation/acute hypoxic/hypercapneic respiratory failure: improving. Continue home O2, bipap at night. Needs trilogy bipap at home. - Continue home medications -Wean Fio2 to keep sat>88% - Continue to wean down solumedrol. Changed to 60mg daily today -Bronchodilators PRN, Aspiration prec, Pulmonary Toilet ID- - Continue doxy for COPD exacerbation GI- -Nutrition: regular diet -GI prophylaxis not indicated Renal- -strict I/O, replete to keep K>4, Mg>2 -voiding Heme- - lovenox for DVT prophylaxis Endo-Maintain BG<200, insulin protocol as needed Musculsk- pressure ulcer prophylaxis. OOB Wounds- none Nutrition- regular DVT prophylaxis: lovenox GI prophylaxis not indicated Disposition: Patient ready for floor Patient clinical status: stable Code Status: full
[2019-10-24] MEDS: Enoxaparin(*) 40 MG/0.4 ML SYR SUBCUT SCH (18:03)
[2019-10-24] MEDS: Atorvastatin* 40 MG TAB PO SCH (20:36)
[2019-10-25] MEDS: Albuterol/Ipratropium NEB.SOL* Albuterol 2.5 MG/Ipratropium 0.5 MG 3 ML INH SCH ×7 (00:53→23:39)
[2019-10-25] MEDS: LORazepam INJ* 2 MG/ML 1 ML VIAL IV PUSH PRN ×2 (03:23→20:25)
[2019-10-25] MEDS: Mometasone/Formoter 100/5 MDI INH SCH ×2 (07:29→20:32)
[2019-10-25] MEDS: SPIRIVA Respimat* (tiotropium) 2.5 mcg/inh Inhaler INH SCH (07:30)
[2019-10-25] MEDS: Clopidogrel TAB* 75 MG PO SCH (07:49)
[2019-10-25] MEDS: Aspirin TAB* 325 MG PO SCH (07:49)
[2019-10-25] MEDS: buPROPion SR TAB.SR* 150 MG PO SCH ×2 (07:49→20:25)
[2019-10-25] MEDS: DOXYcycline CAP(*) 100 MG PO SCH ×2 (07:49→20:26)
[2019-10-25] MEDS: Metoprolol Tartrate TAB* 50 mg PO SCH ×2 (07:49→20:25)
[2019-10-25] MEDS ORDERED: methylPREDNISolone SOD 40 MG* 1 ML VIAL IV SCH (09:00)
[2019-10-25] MEDS: Morphine INJ* 2 MG/ML 1 ML SYRINGE (TWO MG - NEW SYRINGE VERSION) IV PRN ×3 (10:45→20:25)
[2019-10-25] MEDS: Enoxaparin(*) 40 MG/0.4 ML SYR SUBCUT SCH (17:14)
--- NOTE | 2019-10-25 17:16 | PN ---
Date of Service: 10/25/19 Critical Care Services: Patient continues to require BIPAP during the nght and often during the day. I have submitted an appeal to the insurance company for a home ventilator (which has been denied) Vital Signs: Temp Pulse Resp BP SpO2 FiO2 99.2 F 74 28 127/82 100 35 Physical Exam: Gen:Alert HEENT:Oropharynx clear Lungs:BS distant. No wheezing Cardiac: No murmurs Abdomen: Not distended Extremities: No cyanosis or edema Fluid Balance (Past 24 Hours): 10/23/19 10/24/19 10/25/19 10/26/19 06:59 06:59 06:59 06:59 Intake Total 810 325 700 600 Balance 810 325 700 600 Intake: Oral 810 325 700 600 Other: Estimated Void Medium Medium Medium Date of Last Bowel 10/21/19 Movement # Voids 3 2 3 Labs: None Studies: None Nutrition: Oral diet. Intake poor. Impression: End-stage COPD with severe limitation in activity level. Plan: Await home ventilator before patient can be discharged. In meantime, will switch to oral steroids.
[2019-10-25] MEDS: Atorvastatin* 40 MG TAB PO SCH (20:25)
[2019-10-26] MEDS: Morphine INJ* 2 MG/ML 1 ML SYRINGE (TWO MG - NEW SYRINGE VERSION) IV PRN ×5 (01:15→20:38)
[2019-10-26] MEDS: LORazepam INJ* 2 MG/ML 1 ML VIAL IV PUSH PRN ×3 (01:15→20:35)
[2019-10-26] MEDS: Albuterol/Ipratropium NEB.SOL* Albuterol 2.5 MG/Ipratropium 0.5 MG 3 ML INH SCH ×6 (06:53→22:33)
[2019-10-26] MEDS: SPIRIVA Respimat* (tiotropium) 2.5 mcg/inh Inhaler INH SCH (08:52)
[2019-10-26] MEDS: buPROPion SR TAB.SR* 150 MG PO SCH ×2 (08:52→20:33)
[2019-10-26] MEDS: Aspirin TAB* 325 MG PO SCH (08:52)
[2019-10-26] MEDS: Metoprolol Tartrate TAB* 50 mg PO SCH ×2 (08:52→20:33)
[2019-10-26] MEDS: Clopidogrel TAB* 75 MG PO SCH (08:52)
[2019-10-26] MEDS: Mometasone/Formoter 100/5 MDI INH SCH ×2 (08:53→19:01)
[2019-10-26] MEDS: DOXYcycline CAP(*) 100 MG PO SCH ×2 (10:50→20:33)
--- NOTE | 2019-10-26 16:13 | PN ---
Progress Note - Progress Note Date of Service: 10/26/19 Note: Patient has had an uneventful day. Was up and walking in the corridor and did not experience O2 desaturation. Continues to need BIPAP at night and at times during the day. VS: T = 97.6, BP = 133/78, P = 72, RR = 20, SpO2 = 98% with nasal O2 at 12 L/ min. Lungs remain free of wheezing. Impression: Doing well at this time. Plan: Awaiting decision about home ventilator.
[2019-10-26] MEDS: Enoxaparin(*) 40 MG/0.4 ML SYR SUBCUT SCH (17:58)
[2019-10-26] MEDS: Atorvastatin* 40 MG TAB PO SCH (20:33)
[2019-10-27] MEDS: LORazepam INJ* 2 MG/ML 1 ML VIAL IV PUSH PRN ×3 (00:41→21:13)
[2019-10-27] MEDS: Morphine INJ* 2 MG/ML 1 ML SYRINGE (TWO MG - NEW SYRINGE VERSION) IV PRN ×4 (00:45→21:13)
[2019-10-27] MEDS: Albuterol/Ipratropium NEB.SOL* Albuterol 2.5 MG/Ipratropium 0.5 MG 3 ML INH SCH ×6 (02:55→23:04)
[2019-10-27] MEDS: Mometasone/Formoter 100/5 MDI INH SCH ×2 (07:30→19:14)
[2019-10-27] MEDS: SPIRIVA Respimat* (tiotropium) 2.5 mcg/inh Inhaler INH SCH (07:30)
[2019-10-27] MEDS: Clopidogrel TAB* 75 MG PO SCH (07:48)
[2019-10-27] MEDS: Aspirin TAB* 325 MG PO SCH (07:48)
[2019-10-27] MEDS: Metoprolol Tartrate TAB* 50 mg PO SCH ×2 (07:48→21:13)
[2019-10-27] MEDS: buPROPion SR TAB.SR* 150 MG PO SCH ×2 (07:48→21:13)
[2019-10-27] MEDS ORDERED: Senna TAB 8.6 mg* TAB PO PRN (13:35)
[2019-10-27] MEDS: Enoxaparin(*) 40 MG/0.4 ML SYR SUBCUT SCH (17:23)
[2019-10-27] MEDS: Atorvastatin* 40 MG TAB PO SCH (21:13)
[2019-10-28] MEDS: Morphine INJ* 2 MG/ML 1 ML SYRINGE (TWO MG - NEW SYRINGE VERSION) IV PRN ×4 (01:45→20:28)
[2019-10-28] MEDS: LORazepam INJ* 2 MG/ML 1 ML VIAL IV PUSH PRN ×3 (01:45→20:29)
[2019-10-28] MEDS: Albuterol/Ipratropium NEB.SOL* Albuterol 2.5 MG/Ipratropium 0.5 MG 3 ML INH SCH ×6 (02:55→23:35)
[2019-10-28] MEDS: SPIRIVA Respimat* (tiotropium) 2.5 mcg/inh Inhaler INH SCH (07:31)
[2019-10-28] MEDS: Mometasone/Formoter 100/5 MDI INH SCH ×2 (07:31→19:04)
[2019-10-28] MEDS: buPROPion SR TAB.SR* 150 MG PO SCH ×2 (08:19→20:29)
[2019-10-28] MEDS: Aspirin TAB* 325 MG PO SCH (08:20)
[2019-10-28] MEDS: Docusate CAP* 100 MG PO PRN (08:20)
[2019-10-28] MEDS: Metoprolol Tartrate TAB* 50 mg PO SCH ×2 (08:20→20:29)
[2019-10-28] MEDS: Clopidogrel TAB* 75 MG PO SCH (08:20)
--- NOTE | 2019-10-28 17:03 | PN ---
Date of Service: 10/28/19 Critical Care Services: Ms. Hurtado has no new complaints today. She continues to be dyspneic with exertion, unchanged. Vital Signs: Temp Pulse Resp BP SpO2 FiO2 98.2 F 92 22 95/64 94 35 10/28/19 16:00 10/28/19 15:33 10/28/19 15:36 10/28/19 14:52 10/28/19 15:33 10/27 15:33 Physical Exam: General: Alert, NAD HEENT: Normocephalic, atraumatic, non-icteric sclera, moist oral mucosa Neck: soft, supple, no JVD CV: Regular rate and rhythm, no murmurs or rubs Pulm/Chest: Diminished throughout, no crackles or wheezes Abdomen/GI: soft, nontender, nondistended, +BS noted MSK/Skin: warm, dry, intact, +2 pulses+, no edema or cyanosis Neuro: A&Ox3, no gross focal deficits Psych: Appropriate affect Fluid Balance (Past 24 Hours): I= O= Net Intake & Output 10/26/19 10/27/19 10/28/19 10/29/19 06:59 06:59 06:59 06:59 Intake Total 600 700 390 560 Output Total 175 Balance 425 700 390 560 Intake: Oral 600 700 390 560 Output: Urine 175 Other: Estimated Void Small Medium # Bowel Movements 0 0 0 0 # Voids 1 1 3 Labs: None Studies: None Impression: Ms. Hurtado is a 64 yo F with PMH of end stage COPD who was admitted with SOB and acute on chronic mixed respiratory failure. Plan: Continue current medical regimen. Awaiting home ventilator DVT Prophylaxis: Lovenox
[2019-10-28] MEDS: Enoxaparin(*) 40 MG/0.4 ML SYR SUBCUT SCH (18:16)
[2019-10-28] MEDS: Atorvastatin* 40 MG TAB PO SCH (20:29)
[2019-10-29] MEDS: LORazepam INJ* 2 MG/ML 1 ML VIAL IV PUSH PRN (00:21)
[2019-10-29] MEDS: Morphine INJ* 2 MG/ML 1 ML SYRINGE (TWO MG - NEW SYRINGE VERSION) IV PRN ×4 (00:22→21:00)
[2019-10-29] MEDS ORDERED: LORazepam TAB(*) 0.5 MG PO ONE (00:55)
[2019-10-29] MEDS ORDERED: Morphine ORAL.SOLN 10 mg* 2 MG/ML UDC 5 ml PO ONE (00:55)
[2019-10-29] MEDS ORDERED: LORazepam INJ* 2 MG/ML 1 ML VIAL IV PUSH ONE (01:01)
[2019-10-29] MEDS ORDERED: Morphine INJ* 2 MG/ML 1 ML SYRINGE (TWO MG - NEW SYRINGE VERSION) IV ONE (01:02)
[2019-10-29] MEDS: Albuterol/Ipratropium NEB.SOL* Albuterol 2.5 MG/Ipratropium 0.5 MG 3 ML INH SCH ×6 (02:59→23:24)
[2019-10-29] MEDS: Mometasone/Formoter 100/5 MDI INH SCH ×2 (08:13→20:25)
[2019-10-29] MEDS: SPIRIVA Respimat* (tiotropium) 2.5 mcg/inh Inhaler INH SCH (08:13)
[2019-10-29] MEDS: buPROPion SR TAB.SR* 150 MG PO SCH ×2 (08:34→21:01)
[2019-10-29] MEDS: Aspirin TAB* 325 MG PO SCH (08:34)
[2019-10-29] MEDS: Metoprolol Tartrate TAB* 50 mg PO SCH ×2 (08:34→21:00)
[2019-10-29] MEDS: Clopidogrel TAB* 75 MG PO SCH (08:34)
--- NOTE | 2019-10-29 10:05 | PN ---
Date of Service: 10/29/19 Critical Care Services: Ms. Hurtado states that she is feeling well. She denies any acute complaints. Vital Signs: Temp Pulse Resp BP SpO2 FiO2 98.6 F 77 18 92/58 100 35 10/29/19 07:28 10/29/19 08:13 10/29/19 08:35 10/28/19 23:59 10/29/19 08:13 10/28 02:59 Physical Exam: General: Alert, NAD HEENT: Normocephalic, atraumatic, non-icteric sclera, moist oral mucosa Neck: soft, supple, no JVD CV: Regular rate and rhythm, no murmurs or rubs Pulm/Chest: Diminished throughout, no crackles or wheezes Abdomen/GI: soft, nontender, nondistended, +BS noted MSK/Skin: warm, dry, intact, +2 pulses+, no edema or cyanosis Neuro: A&Ox3, no gross focal deficits Psych: Appropriate affect Fluid Balance (Past 24 Hours): Intake & Output 10/27/19 10/28/19 10/29/19 10/30/19 06:59 06:59 06:59 06:59 Intake Total 700 390 680 Balance 700 390 680 Intake: Oral 700 390 680 Other: Estimated Void Small Medium Medium # Bowel Movements 0 0 0 # Voids 1 3 1 Studies: Chest xray 10/18/19 IMPRESSION: COPD. NO ACTIVE CARDIOPULMONARY DISEASE. Impression: Ms. Hurtado is a 64 yo F with a PMH of end stage COPD who was admitted for COPD exacerbation awaiting approval for home ventilator. Plan: Ms. Hurtado is a 64 yo F with PMH of end stage COPD who was admitted with SOB and acute on chronic mixed respiratory failure. Plan: Continue current medical regimen. Awaiting home ventilator DVT Prophylaxis: Lovenox
[2019-10-29] MEDS: LORazepam TAB(*) 0.5 MG PO PRN ×2 (14:12→21:01)
[2019-10-29] MEDS: Enoxaparin(*) 40 MG/0.4 ML SYR SUBCUT SCH (18:05)
[2019-10-29] MEDS: Atorvastatin* 40 MG TAB PO SCH (21:00)
[2019-10-30] MEDS: Morphine INJ* 2 MG/ML 1 ML SYRINGE (TWO MG - NEW SYRINGE VERSION) IV PRN ×2 (02:15→12:12)
[2019-10-30] MEDS: Albuterol/Ipratropium NEB.SOL* Albuterol 2.5 MG/Ipratropium 0.5 MG 3 ML INH SCH ×5 (03:15→21:19)
[2019-10-30] MEDS: SPIRIVA Respimat* (tiotropium) 2.5 mcg/inh Inhaler INH SCH (08:04)
[2019-10-30] MEDS: Mometasone/Formoter 100/5 MDI INH SCH ×2 (08:04→21:19)
[2019-10-30] MEDS: buPROPion SR TAB.SR* 150 MG PO SCH ×2 (09:18→21:14)
[2019-10-30] MEDS: Aspirin TAB* 325 MG PO SCH (09:18)
[2019-10-30] MEDS: Clopidogrel TAB* 75 MG PO SCH (09:19)
[2019-10-30] MEDS: Metoprolol Tartrate TAB* 50 mg PO SCH ×2 (09:19→21:08)
[2019-10-30] MEDS: LORazepam TAB(*) 0.5 MG PO PRN ×2 (12:12→21:15)
--- NOTE | 2019-10-30 12:51 | PN ---
Date of Service: 10/30/19 Critical Care Services: Clinically stable awaiting Trilogy Vital Signs: Temp Pulse Resp BP SpO2 FiO2 36.9 C 66 28 135/80 99 35 10/30/19 12:00 10/30/19 11:37 10/30/19 12:12 10/30/19 08:07 10/30/19 11:37 10/28 02:59 Physical Exam: Gen: OOB, no complaints apart from hospitalization itself Neuro: grossly intact Balance of exam deferred for her safety. Fluid Balance (Past 24 Hours): I= O= Net Intake & Output 10/28/19 10/29/19 10/30/19 10/31/19 06:59 06:59 06:59 06:59 Intake Total 390 680 720 Output Total 0 Balance 390 680 720 Intake: Oral 390 680 720 Output: Urine 0 Other: Estimated Void Medium Medium Medium # Bowel Movements 0 0 0 # Voids 3 1 1 Labs: No new labs Nutrition: Eating well Impression: End stage COPD now at Chronic Hypoxic and Hypercapnic respiratory failure Plan: End Stage COPD - maximal medical regimen. I have asked her to bring in her BiPAP. It will be here tonight. We will check the settings. If they are not maximized will attempt to do so and trial her in hospital on those settings as we have learned today at least another week for the Trilogy. Vascular Disease - DAPT and statin on board. Continue other supportive care. OK to transfer to the floor. D/W pt in detail.
[2019-10-30] MEDS: Morphine ORAL CONCENTRATE* 5 MG/0.25 ML ORAL.SYRIN SL PRN (14:58)
[2019-10-30] MEDS: Enoxaparin(*) 40 MG/0.4 ML SYR SUBCUT SCH (18:39)
[2019-10-30] MEDS: Atorvastatin* 40 MG TAB PO SCH (21:08)
[2019-10-31] MEDS: Albuterol/Ipratropium NEB.SOL* Albuterol 2.5 MG/Ipratropium 0.5 MG 3 ML INH SCH ×7 (01:25→23:57)
[2019-10-31] MEDS: Docusate CAP* 100 MG PO PRN (06:29)
[2019-10-31] MEDS: Mometasone/Formoter 100/5 MDI INH SCH ×2 (07:13→19:47)
[2019-10-31] MEDS: SPIRIVA Respimat* (tiotropium) 2.5 mcg/inh Inhaler INH SCH (07:13)
[2019-10-31] MEDS: Clopidogrel TAB* 75 MG PO SCH (09:22)
[2019-10-31] MEDS: Aspirin TAB* 325 MG PO SCH (09:22)
[2019-10-31] MEDS: buPROPion SR TAB.SR* 150 MG PO SCH ×2 (09:23→20:41)
[2019-10-31] MEDS: Metoprolol Tartrate TAB* 50 mg PO SCH ×2 (09:23→20:42)
[2019-10-31] MEDS: LORazepam TAB(*) 0.5 MG PO PRN ×2 (11:15→20:41)
--- NOTE | 2019-10-31 14:17 | PN ---
Subjective Date of Service: 10/31/19 Interval History: Pt is feeling ok. Her breathing is stable. She was able to get her BiPAP here to trial tonight. I reviewed her settings with Fernandez from respiratory and she is on an auto BiPAP with setting of max IPAP of 15 and min EPAP of 5. Anxiety does seem to play a role in her worsened breathing. Objective Active Medications: Albuterol (Ventolin Hfa Inhaler*) 2 puff INH Q2H PRN PRN Reason: SOB/WHEEZING Albuterol/Ipratropium (Duoneb (Albuterol 2.5 Mg/Ipratropium 0.5 Mg)) 1 neb INH [id number] AWAKE [facility] Last Admin: 10/31/19 11:11 Dose: 1 neb Aspirin (Aspirin Tab*) 325 mg PO DAILY [facility] Last Admin: 10/31/19 09:22 Dose: 325 mg Atorvastatin Calcium (Lipitor*) 40 mg PO BEDTIME [facility] Last Admin: 10/30/19 21:08 Dose: 40 mg Bupropion HCl (Wellbutrin Sr Tab*) 150 mg PO BID [facility] Last Admin: 10/31/19 09:23 Dose: 150 mg Clopidogrel Bisulfate (Plavix Tab*) 75 mg PO DAILY [facility] Last Admin: 10/31/19 09:22 Dose: 75 mg Docusate Sodium (Colace Cap*) 100 mg PO DAILY PRN PRN Reason: CONSTIPATION Last Admin: 10/31/19 06:29 Dose: 100 mg Enoxaparin Sodium (Lovenox(*)) 40 mg SUBCUT DAILY@1800 [facility] Last Admin: 10/30/19 18:39 Dose: 40 mg Lorazepam (Ativan Tab(*)) 0.5 mg PO Q6H PRN PRN Reason: ANXIETY Last Admin: 10/31/19 11:15 Dose: 0.5 mg Metoprolol Tartrate (Lopressor Tab*) 50 mg PO BID [facility] Last Admin: 10/31/19 09:23 Dose: 50 mg Mometasone Furoate/Formoterol Fumar (Dulera 100/5 Mdi*) 2 puff INH BID [facility] Last Admin: 10/31/19 07:13 Dose: 2 puff Morphine Sulfate (Morphine Oral Concentrate*) 5 mg SL Q1H PRN PRN Reason: SEVERE PAIN, RR>24, [employer] Last Admin: 10/30/19 14:58 Dose: 5 mg Prednisone (Deltasone 20 Mg Tab) 40 mg PO DAILY [facility] Last Admin: 10/31/19 09:22 Dose: 40 mg Senna (Senokot 8.6 Mg Tab*) 1 tab PO BEDTIME PRN PRN Reason: CONSTIPATION Tiotropium [place] (Spiriva Respimat 2.5 Mcg) 2 puff INH DAILY [facility] Last Admin: 10/31/19 07:13 Dose: 2 puff Vital Signs - 8 hr 10/31/19 10/31/19 10/31/19 07:17 07:49 11:15 Temperature 97.9 F Pulse Rate 80 84 Respiratory 17 18 22 Rate Blood Pressure 150/82 (mmHg) O2 Sat by Pulse 100 99 Oximetry 10/31/19 11:33 Temperature 97.9 F Pulse Rate 74 Respiratory 20 Rate Blood Pressure 124/77 (mmHg) O2 Sat by Pulse 100 Oximetry Oxygen Devices in Use Now: Nasal Cannula Appearance: Middle aged frail appearing female sitting on the edge of the bed, NAD Eyes: No Scleral Icterus Ears/Nose/Mouth/Throat: Mucous Membranes Moist Respiratory: Symmetrical Chest Expansion and Respiratory Effort, - - markedly decreased breath sounds in all lung castillo otherwise clear sounds Cardiovascular: NL Sounds; No Murmurs; No JVD, RRR, - - 1+ ankle/foot edema Abdominal: NL Sounds; No Tenderness; No Distention Extremities: No Clubbing, Cyanosis Skin: No Nodules or Sclerosis, - - bruised skin Neurological: Alert and Oriented x 3 - Nutrition: Malnutrition Diagnosis/Plan Malnutrition Assessment by Registered Dietitian: Malnutrition Assessment Clinical Characteristics Chronic,Moderate Malnutrition Assessment: - wt loss 15-20# in past year (including 7-8# in Criteria past month) recent wt loss 8# past month (7.5%) - from 106# to 98# - mild clavicular and buccal wasting per visual assessment Malnutrition Assessment: - liberal (regular unrestricted) diet Interventions - encourage high-calorie write-in items to menu as desired - Ensure Enlive BID (total 700 kcals, 40 g prot if consumed 100%) - encouraged Ensure Enlive vs Ensure Max at home (d/t increase calories); increase intake from one serving/day to two servings/day - prednisone taper per MD order Malnutrition Assessment: Goals 1. adequate po intake to support lean body mass and gradual wt gain 10-15# 2. glycemic control in setting of IV steroid; no s/sx hypo-hyperglycemia 3. achieve and maintain serum electrolytes WNL 4. regulation of bowel pattern; no c/o constipation (or diarrhea) Result Diagrams: 10/23/19 05:37 10/22/19 05:42 Additional Lab and Data: Lab Results 10/18/19 10/18/19 10/18/19 Range/Units 13:15 13:15 13:15 WBC 9.0 (3.5-10.8) 10^3/uL RBC 3.44 L (3.70-4.87) 10^6 /uL Hgb 10.8 L (12.0-16.0) g/dL Hct 33 L (35-47) % MCV 97 (80-97) fL MCH 32 H (27-31) pg MCHC 33 (31-36) g/dL RDW 16 H (10-15) % Plt Count 308 (150-450) 10^3/uL MPV 7.3 L (7.4-10.4) fL Neut % (Auto) 75.8 % Lymph % (Auto) 16.3 % [place] % (Auto) 7.2 % Eos % (Auto) 0.6 % Baso % (Auto) 0.1 % Absolute Neuts (auto) 6.8 (1.5-7.7) 10^3/ul Absolute Lymphs (auto) 1.5 (1.0-4.8) 10^3/ul Absolute Monos (auto) 0.6 (0-0.8) 10^3/ul Absolute Eos (auto) 0.1 (0-0.6) 10^3/ul Absolute Basos (auto) 0.0 (0-0.2) 10^3/ul Absolute Nucleated RBC 0.0 10^3/ul Nucleated RBC % 0.0 Patient Temperature ABG pH ABG pH (Temp Correct) ABG pCO2 ABG pCO2 (Temp Corrct ABG pO2 ABG pO2 (Temp Correct ABG HCO3 ABG O2 Saturation ABG Base Excess Respiration Rate O2 Delivery Device Ventilator Type Vent Mode FiO2 Inspiratory Time PEEP Pressure Support Pressure Control EPAP IPAP BiPAP Sodium 137 (135-145) mmol/L Potassium 4.0 (3.5-5.0) mmol/L Chloride 93 L (101-111) mmol/L Carbon Dioxide 43 H* (22-32) mmol/L Anion Gap 1 L (2-11) mmol/L BUN 12 (6-24) mg/dL Creatinine 0.68 (0.51-0.95) mg/dL Est GFR ( Amer) 105.4 (>60) Est GFR (Non-Af Amer) 87.1 (>60) BUN/Creatinine Ratio 17.6 (8-20) Glucose 170 H (70-100) mg/dL Calcium 9.5 (8.6-10.3) mg/dL Total Bilirubin 0.40 (0.2-1.0) mg/dL AST 14 (13-39) U/L ALT 14 (7-52) U/L Alkaline Phosphatase 73 (34-104) U/L Troponin I 0.01 (<0.03) ng/mL C-Reactive Protein 8.33 H (<8.01) mg/L B-Natriuretic Peptide 45 (<=100) pg/mL Total Protein 6.7 (6.4-8.9) g/dL Albumin 3.9 (3.2-5.2) g/dL Globulin 2.8 (2-4) g/dL Albumin/Globulin Ratio 1.4 (1-3) Influenza A (Rapid) Influenza B (Rapid) 10/18/19 10/18/19 Range/Units 13:40 14:04 WBC (3.5-10.8) 10^3/uL RBC (3.70-4.87) 10^6 /uL Hgb (12.0-16.0) g/dL Hct (35-47) % MCV (80-97) fL MCH (27-31) pg MCHC (31-36) g/dL RDW (10-15) % Plt Count (150-450) 10^3/uL MPV (7.4-10.4) fL Neut % (Auto) % Lymph % (Auto) % [place] % (Auto) % Eos % (Auto) % Baso % (Auto) % Absolute Neuts (auto) (1.5-7.7) 10^3/ul Absolute Lymphs (auto) (1.0-4.8) 10^3/ul Absolute Monos (auto) (0-0.8) 10^3/ul Absolute Eos (auto) (0-0.6) 10^3/ul Absolute Basos (auto) (0-0.2) 10^3/ul Absolute Nucleated RBC 10^3/ul Nucleated RBC % Patient Temperature Not Reportable ABG pH Pending ABG pH (Temp Correct) Pending ABG pCO2 Pending ABG pCO2 (Temp Corrct Pending ABG pO2 Pending ABG pO2 (Temp Correct Pending ABG HCO3 Pending ABG O2 Saturation Pending ABG Base Excess Pending Respiration Rate Not Reportable O2 Delivery Device bipap Ventilator Type Not Reportable Vent Mode Not Reportable FiO2 100 Inspiratory Time Not Reportable PEEP Not Reportable Pressure Support Not Reportable Pressure Control Not Reportable EPAP 8 IPAP 16 BiPAP Not Reportable Sodium (135-145) mmol/L Potassium (3.5-5.0) mmol/L Chloride (101-111) mmol/L Carbon Dioxide (22-32) mmol/L Anion Gap (2-11) mmol/L BUN (6-24) mg/dL Creatinine (0.51-0.95) mg/dL Est GFR ( Amer) (>60) Est GFR (Non-Af Amer) (>60) BUN/Creatinine Ratio (8-20) Glucose (70-100) mg/dL Calcium (8.6-10.3) mg/dL Total Bilirubin (0.2-1.0) mg/dL AST (13-39) U/L ALT (7-52) U/L Alkaline Phosphatase (34-104) U/L Troponin I (<0.03) ng/mL C-Reactive Protein (<8.01) mg/L B-Natriuretic Peptide (<=100) pg/mL Total Protein (6.4-8.9) g/dL Albumin (3.2-5.2) g/dL Globulin (2-4) g/dL Albumin/Globulin Ratio (1-3) Influenza A (Rapid) Pending Influenza B (Rapid) Pending Microbiology and Other Data: Microbiology 10/18/19 13:16 Aerobic Blood Culture - Final Blood Venous No Growth Day 5 Anaerobic Blood Culture - Final No Growth Day 5 10/18/19 13:15 Aerobic Blood Culture - Final Blood Venous No Growth Day 5 Anaerobic Blood Culture - Final No Growth Day 5 10/21/19 09:20 Gram Stain - Final Sputum Sputum Culture - Final Branhamella Catarrhalis Normal Kathrine 10/19/19 15:32 Gram Stain - Final Sputum Expectorated Sputum Culture - Final Branhamella Catarrhalis Normal Kathrine 10/18/19 17:19 Nasal Screen MRSA (PCR) - Final Nasal Mrsa Not Detected Assess/Plan/Problems-Billing Ms Hurtado is a 64 yo F who has a h/o end stage COPD who presented to the ER with c/o worsened SOB x3 days prior to admission and was found unresponsive by her daughter. - Patient Problems (1) Acute hypercapnic respiratory failure Current Visit: Yes Status: Acute Code(s): J96.02 - ACUTE RESPIRATORY FAILURE WITH HYPERCAPNIA SNOMED Code(s): 740981667 Comment: Pt admitted with acute on chronic hypercapnic and hypoxic respiratory failure. She has improved in the hospital over hte last several days and her breathing is now stable. Dr. Panchal is trying to get the patient set up with a Trilogy thinking that it would improve her hypercapnia. At this time we are still awaiting a decision from her insurance. It is seeming like this will not be approved therefore we will try to optimize her on BiPAP. Respiratory has looked at her BiPAP settings and at this time they seem acceptable. Will trial the patient on her own BiPAP tonight and obtain ABG in AM. Will otherwise continue her maximal medical therapy for her COPD which has led to the acute on chronic hypercapnic and hypoxic respiratory failure. (2) Acute hypoxemic respiratory failure Current Visit: Yes Status: Acute Code(s): J96.01 - ACUTE RESPIRATORY FAILURE WITH HYPOXIA SNOMED Code(s): 987885709 Comment: Secondary to COPD exacerbation. Continue supplemental O2. (3) COPD exacerbation Current Visit: Yes Status: Acute Onset Date: 09/10/14 Code(s): J44.1 - CHRONIC OBSTRUCTIVE PULMONARY DISEASE W (ACUTE) EXACERBATION SNOMED Code(s): 796732336 Comment: Unclear what precipitated the patient's decline. Will continue duoneb, spiriva and dulera. She is on prednisone 40mg daily-will wean slowly. Pt is wanting a PATH referral. (4) Anemia Current Visit: Yes Status: Acute Code(s): D64.9 - ANEMIA, UNSPECIFIED SNOMED Code(s): 083579172 Comment: Pt is chronically anemic. H/H is close to her baseline. As she has endstage COPD will not go looking for cause as workup would likely not be pursued. (5) CAD (coronary artery disease) Current Visit: Yes Status: Chronic Code(s): I25.10 - ATHSCL HEART DISEASE OF [place] CORONARY ARTERY W/O ANG PCTRS SNOMED Code(s): 81521348 Comment: No c/o chest pain. Continue ASA, Clopidogrel, Metoprolol and Atorvastatin. (6) Hypertension Current Visit: Yes Status: Chronic Code(s): I10 - ESSENTIAL (PRIMARY) HYPERTENSION SNOMED Code(s): 38521739 Comment: BP is generally under good control. Continue metoprolol. (7) HLD (hyperlipidemia) Current Visit: Yes Status: Chronic Code(s): E78.5 - HYPERLIPIDEMIA, UNSPECIFIED SNOMED Code(s): 94470548 Comment: Continue lipitor. (8) DVT prophylaxis Current Visit: Yes Status: Acute Onset Date: 09/10/14 Code(s): WZA9655 - SNOMED Code(s): 277667799 Comment: lovenox (9) Full code status Current Visit: Yes Status: Acute Onset Date: 09/10/14 Code(s): Z78.9 - OTHER SPECIFIED HEALTH STATUS SNOMED Code(s): 663057747
[2019-10-31] MEDS: Morphine ORAL CONCENTRATE* 5 MG/0.25 ML ORAL.SYRIN SL PRN (14:47)
[2019-10-31] MEDS: Enoxaparin(*) 40 MG/0.4 ML SYR SUBCUT SCH (18:12)
[2019-10-31] MEDS: Atorvastatin* 40 MG TAB PO SCH (20:42)
[2019-11-01] MEDS: Albuterol/Ipratropium NEB.SOL* Albuterol 2.5 MG/Ipratropium 0.5 MG 3 ML INH SCH ×6 (03:02→23:09)
[2019-11-01 06:16] LABS: Calcium 8.7 mg/dL (8.6-10.3); EGFR African American 131.9 (>60)
[2019-11-01] MEDS: Mometasone/Formoter 100/5 MDI INH SCH ×2 (07:29→20:48)
[2019-11-01] MEDS: SPIRIVA Respimat* (tiotropium) 2.5 mcg/inh Inhaler INH SCH (07:29)
[2019-11-01] MEDS: LORazepam TAB(*) 0.5 MG PO PRN ×3 (07:41→20:47)
[2019-11-01] MEDS: Metoprolol Tartrate TAB* 50 mg PO SCH ×2 (08:52→20:47)
[2019-11-01] MEDS: buPROPion SR TAB.SR* 150 MG PO SCH ×2 (08:52→20:47)
[2019-11-01] MEDS: Clopidogrel TAB* 75 MG PO SCH (08:52)
[2019-11-01] MEDS: Aspirin TAB* 325 MG PO SCH (08:52)
--- NOTE | 2019-11-01 17:57 | PN ---
Subjective Date of Service: 11/01/19 Interval History: Pt is feeling about the same. Breathing is stable. She is still waiting for insurance approval for trilogy. She has no other issues. Objective Active Medications: Albuterol (Ventolin Hfa Inhaler*) 2 puff INH Q2H PRN PRN Reason: SOB/WHEEZING Albuterol/Ipratropium (Duoneb (Albuterol 2.5 Mg/Ipratropium 0.5 Mg)) 1 neb INH [id number] AWAKE [facility] Last Admin: 11/01/19 15:44 Dose: Not Given Aspirin (Aspirin Tab*) 325 mg PO DAILY [facility] Last Admin: 11/01/19 08:52 Dose: 325 mg Atorvastatin Calcium (Lipitor*) 40 mg PO BEDTIME [facility] Last Admin: 10/31/19 20:42 Dose: 40 mg Bupropion HCl (Wellbutrin Sr Tab*) 150 mg PO BID [facility] Last Admin: 11/01/19 08:52 Dose: 150 mg Clopidogrel Bisulfate (Plavix Tab*) 75 mg PO DAILY [facility] Last Admin: 11/01/19 08:52 Dose: 75 mg Docusate Sodium (Colace Cap*) 100 mg PO DAILY PRN PRN Reason: CONSTIPATION Last Admin: 10/31/19 06:29 Dose: 100 mg Enoxaparin Sodium (Lovenox(*)) 40 mg SUBCUT DAILY@1800 [facility] Last Admin: 10/31/19 18:12 Dose: 40 mg Lorazepam (Ativan Tab(*)) 0.5 mg PO Q6H PRN PRN Reason: ANXIETY Last Admin: 11/01/19 13:40 Dose: 0.5 mg Metoprolol Tartrate (Lopressor Tab*) 50 mg PO BID [facility] Last Admin: 11/01/19 08:52 Dose: 50 mg Mometasone Furoate/Formoterol Fumar (Dulera 100/5 Mdi*) 2 puff INH BID [facility] Last Admin: 11/01/19 07:29 Dose: 2 puff Morphine Sulfate (Morphine Oral Concentrate*) 5 mg SL Q1H PRN PRN Reason: SEVERE PAIN, RR>24, AIR HUNGER Last Admin: 10/31/19 14:47 Dose: 5 mg Prednisone (Deltasone 20 Mg Tab) 40 mg PO DAILY [facility] Last Admin: 11/01/19 08:52 Dose: 40 mg Senna (Senokot 8.6 Mg Tab*) 1 tab PO BEDTIME PRN PRN Reason: CONSTIPATION Tiotropium [place] (Spiriva Respimat 2.5 Mcg) 2 puff INH DAILY [facility] Last Admin: 11/01/19 07:29 Dose: 2 puff Vital Signs - 8 hr 11/01/19 11/01/19 11/01/19 10:26 11:00 11:51 Temperature 98.5 F Pulse Rate 83 74 Respiratory 22 18 18 Rate Blood Pressure 101/58 (mmHg) O2 Sat by Pulse 100 100 Oximetry 11/01/19 11/01/19 11/01/19 13:40 15:28 16:06 Temperature 98.2 F Pulse Rate 68 Respiratory 20 20 20 Rate Blood Pressure 99/63 (mmHg) O2 Sat by Pulse 100 Oximetry Oxygen Devices in Use Now: Nasal Cannula Appearance: Middle aged chronically ill appearing female sitting up on the edge of the bed, NAD Eyes: No Scleral Icterus Ears/Nose/Mouth/Throat: Mucous Membranes Moist Respiratory: Symmetrical Chest Expansion and Respiratory Effort, Clear to Auscultation - markedly decreased throughout Cardiovascular: NL Sounds; No Murmurs; No JVD, RRR, - - 1+ ankle edema bilaterally Abdominal: NL Sounds; No Tenderness; No Distention Extremities: No Clubbing, Cyanosis Skin: No Nodules or Sclerosis, - - bruising noted on lower legs Neurological: Alert and Oriented x 3 - Nutrition: Malnutrition Diagnosis/Plan Malnutrition Assessment by Registered Dietitian: Malnutrition Assessment Clinical Characteristics Chronic,Moderate Malnutrition Assessment: - wt loss 15-20# in past year (including 7-8# in Criteria past month) recent wt loss 8# past month (7.5%) - from 106# to 98# - mild clavicular and buccal wasting per visual assessment Malnutrition Assessment: - liberal (regular unrestricted) diet Interventions - encourage high-calorie write-in items to menu as desired - Ensure Enlive BID (total 700 kcals, 40 g prot if consumed 100%) - encouraged Ensure Enlive vs Ensure Max at home (d/t increase calories); increase intake from one serving/day to two servings/day - prednisone taper per MD order Malnutrition Assessment: Goals 1. adequate po intake to support lean body mass and gradual wt gain 10-15# 2. glycemic control in setting of IV steroid; no s/sx hypo-hyperglycemia 3. achieve and maintain serum electrolytes WNL 4. regulation of bowel pattern; no c/o constipation (or diarrhea) Result Diagrams: 10/23/19 05:37 11/01/19 05:47 Additional Lab and Data: Lab Results 10/18/19 10/18/19 10/18/19 Range/Units 13:15 13:15 13:15 WBC 9.0 (3.5-10.8) 10^3/uL RBC 3.44 L (3.70-4.87) 10^6 /uL Hgb 10.8 L (12.0-16.0) g/dL Hct 33 L (35-47) % MCV 97 (80-97) fL MCH 32 H (27-31) pg MCHC 33 (31-36) g/dL RDW 16 H (10-15) % Plt Count 308 (150-450) 10^3/uL MPV 7.3 L (7.4-10.4) fL Neut % (Auto) 75.8 % Lymph % (Auto) 16.3 % [place] % (Auto) 7.2 % Eos % (Auto) 0.6 % Baso % (Auto) 0.1 % Absolute Neuts (auto) 6.8 (1.5-7.7) 10^3/ul Absolute Lymphs (auto) 1.5 (1.0-4.8) 10^3/ul Absolute Monos (auto) 0.6 (0-0.8) 10^3/ul Absolute Eos (auto) 0.1 (0-0.6) 10^3/ul Absolute Basos (auto) 0.0 (0-0.2) 10^3/ul Absolute Nucleated RBC 0.0 10^3/ul Nucleated RBC % 0.0 Patient Temperature ABG pH ABG pH (Temp Correct) ABG pCO2 ABG pCO2 (Temp Corrct ABG pO2 ABG pO2 (Temp Correct ABG HCO3 ABG O2 Saturation ABG Base Excess Respiration Rate O2 Delivery Device Ventilator Type Vent Mode FiO2 Inspiratory Time PEEP Pressure Support Pressure Control EPAP IPAP BiPAP Sodium 137 (135-145) mmol/L Potassium 4.0 (3.5-5.0) mmol/L Chloride 93 L (101-111) mmol/L Carbon Dioxide 43 H* (22-32) mmol/L Anion Gap 1 L (2-11) mmol/L BUN 12 (6-24) mg/dL Creatinine 0.68 (0.51-0.95) mg/dL Est GFR ( Amer) 105.4 (>60) Est GFR (Non-Af Amer) 87.1 (>60) BUN/Creatinine Ratio 17.6 (8-20) Glucose 170 H (70-100) mg/dL Calcium 9.5 (8.6-10.3) mg/dL Total Bilirubin 0.40 (0.2-1.0) mg/dL AST 14 (13-39) U/L ALT 14 (7-52) U/L Alkaline Phosphatase 73 (34-104) U/L Troponin I 0.01 (<0.03) ng/mL C-Reactive Protein 8.33 H (<8.01) mg/L B-Natriuretic Peptide 45 (<=100) pg/mL Total Protein 6.7 (6.4-8.9) g/dL Albumin 3.9 (3.2-5.2) g/dL Globulin 2.8 (2-4) g/dL Albumin/Globulin Ratio 1.4 (1-3) Influenza A (Rapid) Influenza B (Rapid) 10/18/19 10/18/19 Range/Units 13:40 14:04 WBC (3.5-10.8) 10^3/uL RBC (3.70-4.87) 10^6 /uL Hgb (12.0-16.0) g/dL Hct (35-47) % MCV (80-97) fL MCH (27-31) pg MCHC (31-36) g/dL RDW (10-15) % Plt Count (150-450) 10^3/uL MPV (7.4-10.4) fL Neut % (Auto) % Lymph % (Auto) % [place] % (Auto) % Eos % (Auto) % Baso % (Auto) % Absolute Neuts (auto) (1.5-7.7) 10^3/ul Absolute Lymphs (auto) (1.0-4.8) 10^3/ul Absolute Monos (auto) (0-0.8) 10^3/ul Absolute Eos (auto) (0-0.6) 10^3/ul Absolute Basos (auto) (0-0.2) 10^3/ul Absolute Nucleated RBC 10^3/ul Nucleated RBC % Patient Temperature Not Reportable ABG pH Pending ABG pH (Temp Correct) Pending ABG pCO2 Pending ABG pCO2 (Temp Corrct Pending ABG pO2 Pending ABG pO2 (Temp Correct Pending ABG HCO3 Pending ABG O2 Saturation Pending ABG Base Excess Pending Respiration Rate Not Reportable O2 Delivery Device bipap Ventilator Type Not Reportable Vent Mode Not Reportable FiO2 100 Inspiratory Time Not Reportable PEEP Not Reportable Pressure Support Not Reportable Pressure Control Not Reportable EPAP 8 IPAP 16 BiPAP Not Reportable Sodium (135-145) mmol/L Potassium (3.5-5.0) mmol/L Chloride (101-111) mmol/L Carbon Dioxide (22-32) mmol/L Anion Gap (2-11) mmol/L BUN (6-24) mg/dL Creatinine (0.51-0.95) mg/dL Est GFR ( Amer) (>60) Est GFR (Non-Af Amer) (>60) BUN/Creatinine Ratio (8-20) Glucose (70-100) mg/dL Calcium (8.6-10.3) mg/dL Total Bilirubin (0.2-1.0) mg/dL AST (13-39) U/L ALT (7-52) U/L Alkaline Phosphatase (34-104) U/L Troponin I (<0.03) ng/mL C-Reactive Protein (<8.01) mg/L B-Natriuretic Peptide (<=100) pg/mL Total Protein (6.4-8.9) g/dL Albumin (3.2-5.2) g/dL Globulin (2-4) g/dL Albumin/Globulin Ratio (1-3) Influenza A (Rapid) Pending Influenza B (Rapid) Pending Microbiology and Other Data: Microbiology 10/18/19 13:16 Aerobic Blood Culture - Final Blood Venous No Growth Day 5 Anaerobic Blood Culture - Final No Growth Day 5 10/18/19 13:15 Aerobic Blood Culture - Final Blood Venous No Growth Day 5 Anaerobic Blood Culture - Final No Growth Day 5 10/21/19 09:20 Gram Stain - Final Sputum Sputum Culture - Final Branhamella Catarrhalis Normal Kathrine 10/19/19 15:32 Gram Stain - Final Sputum Expectorated Sputum Culture - Final Branhamella Catarrhalis Normal Kathrine 10/18/19 17:19 Nasal Screen MRSA (PCR) - Final Nasal Mrsa Not Detected Assess/Plan/Problems-Billing Ms Hurtado is a 64 yo F who has a h/o end stage COPD who presented to the ER with c/o worsened SOB x3 days prior to admission and was found unresponsive by her daughter. - Patient Problems (1) Acute hypercapnic respiratory failure Current Visit: Yes Status: Acute Code(s): J96.02 - ACUTE RESPIRATORY FAILURE WITH HYPERCAPNIA SNOMED Code(s): 625246353 Comment: Pt admitted with acute on chronic hypercapnic and hypoxic respiratory failure. She has improved in the hospital over hte last several days and her breathing is now stable. Dr. Panchal is trying to get the patient set up with a Trilogy thinking that it would improve her hypercapnia. At this time we are still awaiting a decision from her insurance. Unfortunately it was found that the BiPAP the patient has does not have a back up rate which is now felt to be unsafe for the patient as she reportedly has periods of apnea. Will work with Dr. Panchal and case management tomorrow to try to get a plan in place. (2) Acute hypoxemic respiratory failure Current Visit: Yes Status: Acute Code(s): J96.01 - ACUTE RESPIRATORY FAILURE WITH HYPOXIA SNOMED Code(s): 457525167 Comment: Secondary to COPD exacerbation. Continue supplemental O2. (3) COPD exacerbation Current Visit: Yes Status: Acute Onset Date: 09/10/14 Code(s): J44.1 - CHRONIC OBSTRUCTIVE PULMONARY DISEASE W (ACUTE) EXACERBATION SNOMED Code(s): 240940775 Comment: Unclear what precipitated the patient's decline. Will continue duoneb, spiriva and dulera. She is on prednisone 40mg daily-will wean slowly, taper to 30mg daily after tomorrow's dose. Pt is wanting a PATH referral on d/ c. (4) Anemia Current Visit: Yes Status: Acute Code(s): D64.9 - ANEMIA, UNSPECIFIED SNOMED Code(s): 312424671 Comment: Pt is chronically anemic. H/H is close to her baseline. As she has endstage COPD will not go looking for cause as workup would likely not be pursued. (5) CAD (coronary artery disease) Current Visit: Yes Status: Chronic Code(s): I25.10 - ATHSCL HEART DISEASE OF [place] CORONARY ARTERY W/O ANG PCTRS SNOMED Code(s): 84500881 Comment: No c/o chest pain. Continue ASA, Clopidogrel, Metoprolol and Atorvastatin. (6) Hypertension Current Visit: Yes Status: Chronic Code(s): I10 - ESSENTIAL (PRIMARY) HYPERTENSION SNOMED Code(s): 59663211 Comment: BP is generally under good control. Continue metoprolol. (7) HLD (hyperlipidemia) Current Visit: Yes Status: Chronic Code(s): E78.5 - HYPERLIPIDEMIA, UNSPECIFIED SNOMED Code(s): 17053507 Comment: Continue lipitor. (8) DVT prophylaxis Current Visit: Yes Status: Acute Onset Date: 09/10/14 Code(s): GDN1277 - SNOMED Code(s): 412015604 Comment: vanessax (9) Full code status Current Visit: Yes Status: Acute Onset Date: 09/10/14 Code(s): Z78.9 - OTHER SPECIFIED HEALTH STATUS SNOMED Code(s): 847610339
[2019-11-01] MEDS: Enoxaparin(*) 40 MG/0.4 ML SYR SUBCUT SCH (18:10)
[2019-11-01] MEDS: Atorvastatin* 40 MG TAB PO SCH (20:47)
[2019-11-02] MEDS: Albuterol/Ipratropium NEB.SOL* Albuterol 2.5 MG/Ipratropium 0.5 MG 3 ML INH SCH ×6 (03:03→22:47)
[2019-11-02] MEDS: Mometasone/Formoter 100/5 MDI INH SCH ×2 (07:03→23:31)
[2019-11-02] MEDS: SPIRIVA Respimat* (tiotropium) 2.5 mcg/inh Inhaler INH SCH (07:04)
[2019-11-02] MEDS: Aspirin TAB* 325 MG PO SCH (08:58)
[2019-11-02] MEDS: Metoprolol Tartrate TAB* 50 mg PO SCH ×2 (08:58→20:13)
[2019-11-02] MEDS: Clopidogrel TAB* 75 MG PO SCH (08:58)
[2019-11-02] MEDS: buPROPion SR TAB.SR* 150 MG PO SCH ×2 (08:58→20:13)
[2019-11-02] MEDS: Morphine ORAL CONCENTRATE* 5 MG/0.25 ML ORAL.SYRIN SL PRN ×2 (12:53→20:13)
[2019-11-02] MEDS: LORazepam TAB(*) 0.5 MG PO PRN ×2 (15:43→21:43)
--- NOTE | 2019-11-02 17:46 | PN ---
Subjective Date of Service: 11/02/19 Interval History: Pt unfortunately still not approved for triology. She really wants to go home. She states that her breathing is comfortable. Objective Active Medications: Albuterol (Ventolin Hfa Inhaler*) 2 puff INH Q2H PRN PRN Reason: SOB/WHEEZING Albuterol/Ipratropium (Duoneb (Albuterol 2.5 Mg/Ipratropium 0.5 Mg)) 1 neb INH [id number] AWAKE [facility] Last Admin: 11/02/19 15:26 Dose: 1 neb Aspirin (Aspirin Tab*) 325 mg PO DAILY [facility] Last Admin: 11/02/19 08:58 Dose: 325 mg Atorvastatin Calcium (Lipitor*) 40 mg PO BEDTIME [facility] Last Admin: 11/01/19 20:47 Dose: 40 mg Bupropion HCl (Wellbutrin Sr Tab*) 150 mg PO BID [facility] Last Admin: 11/02/19 08:58 Dose: 150 mg Clopidogrel Bisulfate (Plavix Tab*) 75 mg PO DAILY [facility] Last Admin: 11/02/19 08:58 Dose: 75 mg Docusate Sodium (Colace Cap*) 100 mg PO DAILY PRN PRN Reason: CONSTIPATION Last Admin: 10/31/19 06:29 Dose: 100 mg Enoxaparin Sodium (Lovenox(*)) 40 mg SUBCUT DAILY@1800 [facility] Last Admin: 11/01/19 18:10 Dose: 40 mg Lorazepam (Ativan Tab(*)) 0.5 mg PO Q6H PRN PRN Reason: ANXIETY Last Admin: 11/02/19 15:43 Dose: 0.5 mg Metoprolol Tartrate (Lopressor Tab*) 50 mg PO BID [facility] Last Admin: 11/02/19 08:58 Dose: 50 mg Mometasone Furoate/Formoterol Fumar (Dulera 100/5 Mdi*) 2 puff INH BID [facility] Last Admin: 11/02/19 07:03 Dose: 2 puff Morphine Sulfate (Morphine Oral Concentrate*) 5 mg SL Q1H PRN PRN Reason: SEVERE PAIN, RR>24, AIR HUNGER Last Admin: 11/02/19 12:53 Dose: 5 mg Prednisone (Deltasone 20 Mg Tab) 40 mg PO DAILY [facility] Last Admin: 11/02/19 08:58 Dose: 40 mg Senna (Senokot 8.6 Mg Tab*) 1 tab PO BEDTIME PRN PRN Reason: CONSTIPATION Tiotropium [place] (Spiriva Respimat 2.5 Mcg) 2 puff INH DAILY [facility] Last Admin: 11/02/19 07:04 Dose: 2 puff Vital Signs - 8 hr 11/02/19 11/02/19 11/02/19 11:54 12:50 12:53 Temperature 97.9 F Pulse Rate 73 79 Respiratory 18 18 22 Rate Blood Pressure 133/75 (mmHg) O2 Sat by Pulse 100 99 Oximetry 11/02/19 11/02/19 11/02/19 15:37 15:43 15:52 Temperature 98.2 F Pulse Rate 79 89 Respiratory 18 18 16 Rate Blood Pressure 136/88 (mmHg) O2 Sat by Pulse 97 100 Oximetry 11/02/19 17:31 Temperature Pulse Rate Respiratory 22 Rate Blood Pressure (mmHg) O2 Sat by Pulse Oximetry Oxygen Devices in Use Now: Nasal Cannula Appearance: Middle aged chronically ill appearing female sitting up in a chair, NAD Eyes: No Scleral Icterus Ears/Nose/Mouth/Throat: Mucous Membranes Moist Respiratory: Symmetrical Chest Expansion and Respiratory Effort, Clear to Auscultation - diminished throughout Cardiovascular: NL Sounds; No Murmurs; No JVD, RRR, No Edema Abdominal: NL Sounds; No Tenderness; No Distention Extremities: No Clubbing, Cyanosis Skin: No Nodules or Sclerosis Neurological: Alert and Oriented x 3 - Nutrition: Malnutrition Diagnosis/Plan Malnutrition Assessment by Registered Dietitian: Malnutrition Assessment Clinical Characteristics Chronic,Moderate Malnutrition Assessment: - wt loss 15-20# in past year (including 7-8# in Criteria past month) recent wt loss 8# past month (7.5%) - from 106# to 98# - mild clavicular and buccal wasting per visual assessment Malnutrition Assessment: - liberal (regular unrestricted) diet Interventions - encourage high-calorie write-in items to menu as desired - Ensure Enlive BID (total 700 kcals, 40 g prot if consumed 100%) - encouraged Ensure Enlive vs Ensure Max at home (d/t increase calories); increase intake from one serving/day to two servings/day - prednisone taper per MD order Malnutrition Assessment: Goals 1. adequate po intake to support lean body mass and gradual wt gain 10-15# 2. glycemic control in setting of IV steroid; no s/sx hypo-hyperglycemia 3. achieve and maintain serum electrolytes WNL 4. regulation of bowel pattern; no c/o constipation (or diarrhea) Result Diagrams: 10/23/19 05:37 11/01/19 05:47 Additional Lab and Data: Lab Results 10/18/19 10/18/19 10/18/19 Range/Units 13:15 13:15 13:15 WBC 9.0 (3.5-10.8) 10^3/uL RBC 3.44 L (3.70-4.87) 10^6 /uL Hgb 10.8 L (12.0-16.0) g/dL Hct 33 L (35-47) % MCV 97 (80-97) fL MCH 32 H (27-31) pg MCHC 33 (31-36) g/dL RDW 16 H (10-15) % Plt Count 308 (150-450) 10^3/uL MPV 7.3 L (7.4-10.4) fL Neut % (Auto) 75.8 % Lymph % (Auto) 16.3 % [place] % (Auto) 7.2 % Eos % (Auto) 0.6 % Baso % (Auto) 0.1 % Absolute Neuts (auto) 6.8 (1.5-7.7) 10^3/ul Absolute Lymphs (auto) 1.5 (1.0-4.8) 10^3/ul Absolute Monos (auto) 0.6 (0-0.8) 10^3/ul Absolute Eos (auto) 0.1 (0-0.6) 10^3/ul Absolute Basos (auto) 0.0 (0-0.2) 10^3/ul Absolute Nucleated RBC 0.0 10^3/ul Nucleated RBC % 0.0 Patient Temperature ABG pH ABG pH (Temp Correct) ABG pCO2 ABG pCO2 (Temp Corrct ABG pO2 ABG pO2 (Temp Correct ABG HCO3 ABG O2 Saturation ABG Base Excess Respiration Rate O2 Delivery Device Ventilator Type Vent Mode FiO2 Inspiratory Time PEEP Pressure Support Pressure Control EPAP IPAP BiPAP Sodium 137 (135-145) mmol/L Potassium 4.0 (3.5-5.0) mmol/L Chloride 93 L (101-111) mmol/L Carbon Dioxide 43 H* (22-32) mmol/L Anion Gap 1 L (2-11) mmol/L BUN 12 (6-24) mg/dL Creatinine 0.68 (0.51-0.95) mg/dL Est GFR ( Amer) 105.4 (>60) Est GFR (Non-Af Amer) 87.1 (>60) BUN/Creatinine Ratio 17.6 (8-20) Glucose 170 H (70-100) mg/dL Calcium 9.5 (8.6-10.3) mg/dL Total Bilirubin 0.40 (0.2-1.0) mg/dL AST 14 (13-39) U/L ALT 14 (7-52) U/L Alkaline Phosphatase 73 (34-104) U/L Troponin I 0.01 (<0.03) ng/mL C-Reactive Protein 8.33 H (<8.01) mg/L B-Natriuretic Peptide 45 (<=100) pg/mL Total Protein 6.7 (6.4-8.9) g/dL Albumin 3.9 (3.2-5.2) g/dL Globulin 2.8 (2-4) g/dL Albumin/Globulin Ratio 1.4 (1-3) Influenza A (Rapid) Influenza B (Rapid) 10/18/19 10/18/19 Range/Units 13:40 14:04 WBC (3.5-10.8) 10^3/uL RBC (3.70-4.87) 10^6 /uL Hgb (12.0-16.0) g/dL Hct (35-47) % MCV (80-97) fL MCH (27-31) pg MCHC (31-36) g/dL RDW (10-15) % Plt Count (150-450) 10^3/uL MPV (7.4-10.4) fL Neut % (Auto) % Lymph % (Auto) % [place] % (Auto) % Eos % (Auto) % Baso % (Auto) % Absolute Neuts (auto) (1.5-7.7) 10^3/ul Absolute Lymphs (auto) (1.0-4.8) 10^3/ul Absolute Monos (auto) (0-0.8) 10^3/ul Absolute Eos (auto) (0-0.6) 10^3/ul Absolute Basos (auto) (0-0.2) 10^3/ul Absolute Nucleated RBC 10^3/ul Nucleated RBC % Patient Temperature Not Reportable ABG pH Pending ABG pH (Temp Correct) Pending ABG pCO2 Pending ABG pCO2 (Temp Corrct Pending ABG pO2 Pending ABG pO2 (Temp Correct Pending ABG HCO3 Pending ABG O2 Saturation Pending ABG Base Excess Pending Respiration Rate Not Reportable O2 Delivery Device bipap Ventilator Type Not Reportable Vent Mode Not Reportable FiO2 100 Inspiratory Time Not Reportable PEEP Not Reportable Pressure Support Not Reportable Pressure Control Not Reportable EPAP 8 IPAP 16 BiPAP Not Reportable Sodium (135-145) mmol/L Potassium (3.5-5.0) mmol/L Chloride (101-111) mmol/L Carbon Dioxide (22-32) mmol/L Anion Gap (2-11) mmol/L BUN (6-24) mg/dL Creatinine (0.51-0.95) mg/dL Est GFR ( Amer) (>60) Est GFR (Non-Af Amer) (>60) BUN/Creatinine Ratio (8-20) Glucose (70-100) mg/dL Calcium (8.6-10.3) mg/dL Total Bilirubin (0.2-1.0) mg/dL AST (13-39) U/L ALT (7-52) U/L Alkaline Phosphatase (34-104) U/L Troponin I (<0.03) ng/mL C-Reactive Protein (<8.01) mg/L B-Natriuretic Peptide (<=100) pg/mL Total Protein (6.4-8.9) g/dL Albumin (3.2-5.2) g/dL Globulin (2-4) g/dL Albumin/Globulin Ratio (1-3) Influenza A (Rapid) Pending Influenza B (Rapid) Pending Microbiology and Other Data: Microbiology 10/18/19 13:16 Aerobic Blood Culture - Final Blood Venous No Growth Day 5 Anaerobic Blood Culture - Final No Growth Day 5 10/18/19 13:15 Aerobic Blood Culture - Final Blood Venous No Growth Day 5 Anaerobic Blood Culture - Final No Growth Day 5 10/21/19 09:20 Gram Stain - Final Sputum Sputum Culture - Final Branhamella Catarrhalis Normal Kathrine 03/20/20 15:32 Gram Stain - Final Sputum Expectorated Sputum Culture - Final Branhamella Catarrhalis Normal Kathrine 10/18/19 17:19 Nasal Screen MRSA (PCR) - Final Nasal Mrsa Not Detected Assess/Plan/Problems-Billing Ms Hurtado is a 64 yo F who has a h/o end stage COPD who presented to the ER with c/o worsened SOB x3 days prior to admission and was found unresponsive by her daughter. - Patient Problems (1) Acute hypercapnic respiratory failure Current Visit: Yes Status: Acute Code(s): J96.02 - ACUTE RESPIRATORY FAILURE WITH HYPERCAPNIA SNOMED Code(s): 145431060 Comment: Pt admitted with acute on chronic hypercapnic and hypoxic respiratory failure. She has improved in the hospital over the last several days and her breathing is now stable. We have been unsuccessful in getting trilogy approved. Will trial patient on her own BiPAP but it does not have a back up rate. Will watch patient in ICU on her own BiPAP and follow up ABG tomorrow AM. If she tolerates it, will d/c pt home. (2) Acute hypoxemic respiratory failure Current Visit: Yes Status: Acute Code(s): J96.01 - ACUTE RESPIRATORY FAILURE WITH HYPOXIA SNOMED Code(s): 221396127 Comment: Secondary to COPD exacerbation. Continue supplemental O2. (3) COPD exacerbation Current Visit: Yes Status: Acute Onset Date: 09/10/14 Code(s): J44.1 - CHRONIC OBSTRUCTIVE PULMONARY DISEASE W (ACUTE) EXACERBATION SNOMED Code(s): 688374166 Comment: Unclear what precipitated the patient's decline- she was not using BiPAP at home but her old CPAP. Will continue duoneb, spiriva and dulera. Prednisone decreased to 30mg daily starting tomorrow. (4) Anemia Current Visit: Yes Status: Acute Code(s): D64.9 - ANEMIA, UNSPECIFIED SNOMED Code(s): 053680107 Comment: Pt is chronically anemic. H/H is close to her baseline. As she has endstage COPD will not go looking for cause as workup would likely not be pursued. (5) CAD (coronary artery disease) Current Visit: Yes Status: Chronic Code(s): I25.10 - ATHSCL HEART DISEASE OF [place] CORONARY ARTERY W/O ANG PCTRS SNOMED Code(s): 63657803 Comment: No c/o chest pain. Continue ASA, Clopidogrel, Metoprolol and Atorvastatin. (6) Hypertension Current Visit: Yes Status: Chronic Code(s): I10 - ESSENTIAL (PRIMARY) HYPERTENSION SNOMED Code(s): 29143168 Comment: BP is generally under good control. Continue metoprolol. (7) HLD (hyperlipidemia) Current Visit: Yes Status: Chronic Code(s): E78.5 - HYPERLIPIDEMIA, UNSPECIFIED SNOMED Code(s): 26260507 Comment: Continue lipitor. (8) DVT prophylaxis Current Visit: Yes Status: Acute Onset Date: 09/10/14 Code(s): SHG5068 - SNOMED Code(s): 947460388 Comment: [place] (9) Full code status Current Visit: Yes Status: Acute Onset Date: 09/10/14 Code(s): Z78.9 - OTHER SPECIFIED HEALTH STATUS SNOMED Code(s): 688131823
[2019-11-02] MEDS: Enoxaparin(*) 40 MG/0.4 ML SYR SUBCUT SCH (17:53)
[2019-11-02] MEDS: Atorvastatin* 40 MG TAB PO SCH (20:13)
[2019-11-03] MEDS: Morphine ORAL CONCENTRATE* 5 MG/0.25 ML ORAL.SYRIN SL PRN ×2 (01:48→08:18)
[2019-11-03] MEDS: Albuterol/Ipratropium NEB.SOL* Albuterol 2.5 MG/Ipratropium 0.5 MG 3 ML INH SCH ×3 (03:24→13:01)
[2019-11-03 04:07] VITALS: BP 102/58
[2019-11-03] MEDS: SPIRIVA Respimat* (tiotropium) 2.5 mcg/inh Inhaler INH SCH (08:07)
[2019-11-03] MEDS: Mometasone/Formoter 100/5 MDI INH SCH (08:07)
[2019-11-03] MEDS: buPROPion SR TAB.SR* 150 MG PO SCH (10:13)
[2019-11-03] MEDS: Aspirin TAB* 325 MG PO SCH (10:13)
[2019-11-03] MEDS: Clopidogrel TAB* 75 MG PO SCH (10:13)
[2019-11-03] MEDS: Metoprolol Tartrate TAB* 50 mg PO SCH (10:13)
--- NOTE | 2019-11-03 11:56 | PN ---
Progress Note - Progress Note Date of Service: 11/03/19 - Pulm f/u note Note: Pt seen and examined at bedside. Plan of care discussed with pt and bedside RN Pt reports feeling better. She was using her home BiPAP all night. Pt reports that she didnot sleep well last night and is feeling more fatigued this am. Active Medications Generic Name Dose Route Start Last Admin Trade Name Freq PRN Reason Stop Dose Admin Albuterol 2 puff 10/18/19 15:23 Ventolin Hfa Inhaler* INH Q2H PRN SOB/WHEEZING Albuterol/Ipratropium 1 neb 10/19/19 07:57 11/03/19 08:06 Duoneb (Albuterol 2.5 Mg/Ipratropium 0.5 Mg) INH 1 neb [id number] AWAKE SITA Administration Aspirin 325 mg 10/19/19 09:00 11/03/19 10:13 Aspirin Tab* PO 325 mg DAILY SITA Administration Atorvastatin Calcium 40 mg 10/18/19 21:00 11/02/19 20:13 Lipitor* PO 40 mg BEDTIME SITA Administration Bupropion HCl 150 mg 10/18/19 21:00 11/03/19 10:13 Wellbutrin Sr Tab* PO 150 mg BID SITA Administration Clopidogrel Bisulfate 75 mg 10/19/19 09:00 11/03/19 10:13 Plavix Tab* PO 75 mg DAILY SITA Administration Docusate Sodium 100 mg 10/27/19 13:35 10/31/19 06:29 Colace Cap* PO 100 mg DAILY PRN Administration CONSTIPATION Enoxaparin Sodium 40 mg 10/20/19 18:00 11/02/19 17:53 Lovenox(*) SUBCUT 40 mg DAILY@1800 SITA Administration Lorazepam 0.5 mg 10/29/19 13:58 11/02/19 21:43 Ativan Tab(*) PO 0.5 mg Q6H PRN Administration ANXIETY Metoprolol Tartrate 50 mg 10/18/19 21:00 11/03/19 10:13 Lopressor Tab* PO 50 mg BID SITA Administration Mometasone Furoate/Formoterol Fumar 2 puff 10/18/19 21:00 11/03/19 08:07 Dulera 100/5 Mdi* INH 2 puff BID SITA Administration Morphine Sulfate 5 mg 10/30/19 14:31 11/03/19 08:18 Morphine Oral Concentrate* SL 5 mg Q1H PRN Administration SEVERE PAIN, RR>24, AIR HUNGER Prednisone 40 mg 10/31/19 09:00 11/03/19 10:13 Deltasone 20 Mg Tab PO 40 mg DAILY SITA Administration Senna 1 tab 10/27/19 13:35 Senokot 8.6 Mg Tab* PO BEDTIME PRN CONSTIPATION Tiotropium [place] 2 puff 10/19/19 09:00 11/03/19 08:07 Spiriva Respimat 2.5 Mcg INH 2 puff DAILY SITA Administration Vital Signs Temp Pulse Resp BP Pulse Ox 98.1 F 70 16 102/58 100 11/03/19 04:00 11/03/19 04:06 11/03/19 08:14 11/03/19 04:06 11/03/19 04:06 Laboratory Results - last 24 hr 11/03/19 06:05 Patient Temperature Not Reportable ABG pH 7.37 ABG pH (Temp Correct) Not Reportable ABG pCO2 67 H ABG pCO2 (Temp Corrct Not Reportable ABG pO2 132 H ABG pO2 (Temp Correct Not Reportable ABG HCO3 33.2 H ABG O2 Saturation 99.5 H ABG Base Excess 10.6 H Respiration Rate Not Reportable O2 Delivery Device n/c Ventilator Type Not Reportable Vent Mode Not Reportable FiO2 33 Inspiratory Time Not Reportable PEEP Not Reportable Pressure Support Not Reportable Pressure Control Not Reportable EPAP Not Reportable IPAP Not Reportable BiPAP Not Reportable O/E: Pt is slightly anxious HEENT: PERRLA, no accessory muscle use CVS: S1, S2+ Abd: Soft, BS+ Ext: Normal ROM Skin: NO rash Neuro: Alert, awake, no focal deficits I/R: 64F with known medical history of COPD on home O2, CAD s/p 3 stents, HLD, HTN, presents on 10/18/19 after 3 days of worsening shortness of breath and altered mental status. Her O2 sat in the "30's", requiring EMS to bag her. She was placed on bipap after arrival to ED with improvement in mental status. Pt still with poor reserve and diminished air movement. Pt with chronic hypercapnic resp failure requiring frequent admissions due to worsening hypercapnic resp failure and AMS inspite of home BiPAP Pt`s chronic respiratory failure is scondary to COPD. Due to advanced disease state, patient would need a non-invasive ventilator to reduce the work of breathing and improve pulmonary status. Pt has failed BiPAP at this point and AVAPS-AE is best modality in her case Pt would benefit from AVAPS-AE which would provide target tidal volume and help improve hypercapnia. She is at risk for recurrent hospitalizations and even if she is not on AVAPS-AE She has severe COPD with last FEV1 of less than 30%. She is on home O2 with which she is compliant and reports benefit. She has been waiting approval from her insurance for many weeks now. She is getting more deconditioned at this point with prolonged immobility arising from hospitalization Will need to d/c her with higher settings of BiPAP today and will hopefully get clearance from her insurance by Tuesday. She understands to return to ED if she deteriorates She was advised to use BiPAP all night, with any naps in day and as needed for dyspnea c/w nebs DVT px Discussed pema Tyson, pt and her daughter
--- NOTE | 2019-11-03 20:29 | DS ---
CC: Dr. Houston; Dr. Panchal * DISCHARGE SUMMARY: DATE OF ADMISSION: 10/18/19 DATE OF DISCHARGE: 11/03/19 PRIMARY CARE PROVIDER: Gary Houston MD DERMATOLOGY SPECIALIST: Dr. Panchal. PRINCIPAL DIAGNOSIS: Acute hypoxic and hypercarbic respiratory failure secondary to chronic obstructive pulmonary disease exacerbation and likely noncompliance with BiPAP. SECONDARY DIAGNOSES: 1. Coronary artery disease. 2. Hyperlipidemia. 3. Hypertension. DISCHARGE MEDICATIONS: 1. DuoNeb 1 neb inhaled daily p.r.n. shortness of breath. 2. Albuterol 2 puffs inhaled q.4 hours p.r.n. shortness of breath. 3. Advair 100/50 one puff inhaled twice daily. 4. Spiriva 2 puffs inhaled daily. 5. Lipitor 40 mg p.o. q.h.s. 6. Aspirin 325 mg p.o. daily. 7. Plavix 75 mg p.o. daily. 8. Combivent Respimat 1 puff inhaled 4 times daily p.r.n. shortness of breath. 9. Bupropion SR 150 mg p.o. daily. 10. Metoprolol tartrate 50 mg p.o. b.i.d. 11. Prednisone 30 mg p.o. daily x3 days and 20 mg x3 days and 10 mg x3 days. 12. Morphine oral concentrate 5 mg p.o. q.2 hours p.r.n. pain or air hunger. HOSPITAL COURSE: Ms. Hurtado is a 64-year-old female with history of end-stage COPD, coronary artery disease, hypertension, and hyperlipidemia who presented on 10/18/19 after 3 days of progressive shortness of breath. The patient felt unwell on the day of admission and therefore text messaged her daughter. The patient's daughter found her nearly unresponsive when she arrived to her mom's apartment. According to EMS, her O2 saturation was in the 30s. She was bagged and then placed on BiPAP. The patient was ruled out for COVID-19. She remained on BiPAP throughout her time in the ICU. She was treated with azithromycin. She was seen in consultation by Dr. Moss from Palliative Care. The patient understands that she is at very high risk for continued decompensation and "is dying," however, she is not ready to be signed on hospice yet. For the bulk of the patient's hospitalization, attempt was made to get insurance approval for a Trilogy at home; however, this was not going well. The patient was ultimately transferred out of the ICU on 10/30/19. On 10/31/19, the patient was seen by myself on the medical floor. She was doing quite well in terms of her respiratory status, however, still very frail. Finally, on 11/02/19, the patient stated that she had not been using BiPAP at home, but had only been using her CPAP. She received the BiPAP approximately 2 months ago and trialed it twice back then, however, had not been using it recently. I now suspect this patient likely decompensated from lack of use of BiPAP more so than anything else. The patient was therefore trialed on her home BiPAP in the ICU on the evening of 11/02/19, and on 11/03/19, the patient was found in the morning to be awake and alert. Her ABG revealed a pCO2 of 67 down from 83 on admission. It is felt that the BiPAP was sufficient for treating the patient. At this point, she is felt to be stable for discharge home. The patient on the day of discharge felt that she needed to have p.r.n. morphine sent to her pharmacy to be used to treat air hunger. The patient feels comfortable with this, and even though she is not on hospice, I do feel this is an appropriate treatment for her air hunger given her end-stage COPD. PHYSICAL EXAMINATION: On the day of discharge, the patient is awake, alert, and oriented, lying in bed, in no acute distress. Cardiac exam reveals normal S1, S2 with a regular rate and rhythm. Lungs are clear, but markedly diminished throughout. Abdomen is soft, nontender, nondistended. She has trace ankle edema bilaterally. FOLLOWUP CONCERNS: The patient is being discharged home today, 11/03/19. ACTIVITY LEVEL: As tolerated. DIET: Heart healthy. CONDITION ON DISCHARGE: Stable. The patient is to follow up with Dr. Houston in the next 1 to [address] Panchal in the next 1 to 2 weeks. TIME SPENT: Thirty-five minutes was spent discharging this patient. [id number]/[facility] #: [id number] [facility]
== END 2019-11-03 12:00 | disposition home or self-care (01) | DRG 189 ==
LOC: ED 13:07 → ICU 14:57 → SSU 10-30 13:56 → ICU 11-02 15:29
PROVIDERS: ADMIT Surgery Surgical Critical Care; ATTEND Hospitalist
DX: J96.21 Acute and chronic respiratory failure with hypoxia (principal); J44.1 Chronic obstructive pulmonary disease with (acute) exacerbation; J96.22 Acute and chronic respiratory failure with hypercapnia; I25.10 Atherosclerotic heart disease of native coronary artery without angina pectoris; E78.5 Hyperlipidemia, unspecified; E87.5 Hyperkalemia; D64.9 Anemia, unspecified; I50.9 Heart failure, unspecified; I11.0 Hypertensive heart disease with heart failure; E78.00 Pure hypercholesterolemia, unspecified; M19.90 Unspecified osteoarthritis, unspecified site; Z87.891 Personal history of nicotine dependence; Z91.19 Patient's noncompliance with other medical treatment and regimen; Z99.81 Dependence on supplemental oxygen; Z95.5 Presence of coronary angioplasty implant and graft; Z79.899 Other long term (current) drug therapy; Z79.51 Long term (current) use of inhaled steroids; Z79.82 Long term (current) use of aspirin; Z79.02 Long term (current) use of antithrombotics/antiplatelets
CPT/HCPCS: 36415; 36600; 71045; 80048; 80053; 82803; 83735; 83880; 84100; 84484; 85025; 85610; 86140; 87040; 87070; 87077; 87185; 87205; 87641; 93005; 94640; 94660; 96374; 96375; 99285; A9270-GY; J0692; J1650; J2060; J2270; J2920; J2930; J3535; J7512; U0002